=== PATIENT | female | born 1950 | race Caucasian/White ===

== ENCOUNTER 2016-06-27 20:43 | Emergency (ER) ==
[2016-06-27 20:43] VITALS: BMI 21.6
--- NOTE | 2016-06-27 20:49 | ED.PDOC ---
General ED Provider: Dr. CASIMIRO FREEMAN-ER Chief Complaint: Respiratory Complaint Stated Complaint: "my copd is kicking in---im coughing up green stuff again Time Seen by Physician: 20:46 Mode of Arrival: Walk-In Information Source: Patient, Family Nursing and Triage Documentation Reviewed and Agree: Yes Respiratory Complaint Exam - Respiratory Complaint/Exam Onset/Duration: 3 dasy Symptoms Are: Still present Timing: Intermittent Initial Severity: Mild Current Severity: Mild Location: Chest Character: Reports: Productive cough Aggravating: Reports: URI Alleviating: Reports: None Associated Signs and Symptoms: Reports: Dyspnea, URI, Nasal congestion. Denies : Rapid breathing, Fever, Chills, Chest pain, Pleuritic chest pain, Wheezing, Hemoptysis, Dizziness, Calf pain, Calf swelling, Edema, Hoarseness, Sinus discomfort, Vomiting, Sore throat, Weight loss, Decreased oral intake, Increased thirst, Increased appetite, Increased urination Related History: Reports: Similar episode History of Healthcare-Acquired Pneumonia: No Related Surgical History: Reports: None Pulmonary Embolism Risk Factors: None Cardiac Risk Factors: Reports: Smoking Pseudomonas Risk Factors: Reports: Chronic Lung Disease Tuberculosis Risk Factors: Reports: Chronic Resp. Faliure Status Asthmaticus Risk Factors: Reports: None Home Oxygen Use: No Recent Stress Test: No Recent Echo/LV Function: No Current Antibiotic Use: No Current Asthma Medication Use: Yes Respiratory Distress: None Inadequate Respiratory Effort: No Dysphagia Present: No Stridor Present: No JVD Present: No Retractions: Not Present Diminished Breath Sounds: No Sinus Tenderness: None Grunting Respirations: No Kussmaul Respirations: No Differential Diagnoses: COPD Exacerbation, Bronchitis Review of Systems - Review Of Systems Constitutional: Reports: No symptoms Eyes: Reports: No symptoms Ears, Nose, Mouth, Throat: Reports: No symptoms Respiratory: Reports: Cough Cardiac: Reports: No symptoms GI: Reports: No symptoms : Reports: No symptoms Musculoskeletal: Reports: No symptoms Skin: Reports: No symptoms Neurological: Reports: No symptoms Endocrine: Reports: No symptoms Hematologic/Lymphatic: Reports: No symptoms All Other Systems: Reviewed and Negative Past Medical History - Past Medical History Endocrine: Reports: DM 2 Cardiovascular: Reports: CAD, Hypertension, A-Fib Respiratory: Reports: COPD Hematological: Reports: None Gastrointestinal: Reports: GERD Genitourinary: Reports: None Neuro/Psych: Reports: Anxiety, Depression Musculoskeletal: Reports: Arthritis Cancer: Reports: None - Surgical History General Surgical History: Reports: Hysterectomy, CABG, Pacemaker, Other (Aortic valve replacement. ) - Family History Family History: Reports: Unknown - Social History Smoking Status: Current every day smoker, Heavy tobacco smoker Hx Substance Use: No Alcohol Screening: None Physical Exam - Physical Exam Appearance: Well-appearing, No pain distress, Well-nourished Eyes: MYKE, EOMI, Conjunctiva clear ENT: Ears normal, Nose normal, Oropharynx normal Neck: Supple Respiratory: Rhonchi Cardiovascular: RRR, Pulses normal, No rub, No murmur GI/: Soft, Nontender, No masses, Bowel sounds normal, No Organomegaly Musculoskeletal: Normal strength, ROM intact, No edema, No calf tenderness Skin: Warm, Dry, Normal color Neurological: Sensation intact, Motor intact, Reflexes intact, Cranial nerves intact, Alert, Oriented Psychiatric: Affect appropriate Critical Care Note - Critical Care Note Total Time (mins): 0 Departure - Departure Time of Disposition: 20:47 Disposition: HOME SELF-CARE Discharge Problem: COPD (chronic obstructive pulmonary disease) with acute bronchitis Instructions: COPD (Chronic Obstructive Pulmonary Disease) (ED) Condition: Fair Pt referred to PMD for follow-up: Yes Additional Instructions: cipro 500mg bid x 7 days--prednisone 30mg x2 dasy then 20mg x2 days then 10mg x 2 days--f/u with pcp Allergies/Adverse Reactions: Allergies ceftriaxone sodium [From Rocephin] Adverse Reaction (Verified 07/16/15 20:32) cefuroxime axetil [From Ceftin] Adverse Reaction (Verified 07/16/15 20:32) doxycycline Adverse Reaction (Verified 07/16/15 20:32) nifedipine [From Procardia] Adverse Reaction (Verified 07/16/15 20:32) nitrofurantoin [From Macrobid] Adverse Reaction (Verified 07/16/15 20:32) nitrofurantoin macrocrystal [From Macrobid] Adverse Reaction (Verified 07/16/15 20:32) Home Medications: Ambulatory Orders Albuterol Sulfate [Albuterol Sulfate Hfa] 2 puff IH QID 02/13/14 Amlodipine Besylate [Norvasc] 5 mg PO DAILY 02/13/14 Atorvastatin Calcium [Lipitor] 40 mg PO DAILY 02/13/14 Benazepril HCl [Lotensin] 20 mg PO DAILY 02/13/14 Buspirone HCl 5 mg PO TID PRN 02/13/14 Esomeprazole Magnesium [Nexium] 40 mg PO BID 02/13/14 Furosemide [Lasix] 40 mg PO DAILY 02/13/14 Levothyroxine Sodium 175 mcg PO DAILY 02/13/14 Oxycodone HCl/Acetaminophen [Percocet 10-325 mg Tablet] 1 each PO Q4-6H PRN Promethazine HCl [Phenergan Tab] 25 mg PO Q6H PRN 02/13/14 Ropinirole HCl [Requip] 2 mg PO BEDTIME 02/13/14 Sotalol HCl [Sotalol] 60 mg PO BID 02/13/14 Spironolactone [Aldactone] 25 mg PO DAILY 02/13/14 Topiramate [Topamax] 50 mg PO DAILY 02/13/14 Zolpidem Tartrate [Ambien] 10 mg PO BEDTIME 02/13/14 Venlafaxine HCl [Effexor Xr] 150 mg PO DAILY 07/04/14 Insulin Lispro [Humalog] 0 unit SQ TIDWM PRN #1 ml 07/12/14 Budesonide/Formoterol Fumarate [Symbicort 160-4.5 Mcg Inhaler] 2 puff IH BID 05/01 Insulin Detemir [Levemir] 20 units SQ BEDTIME 05/28/15 Tizanidine HCl [Zanaflex] 4 mg PO TID 05/28/15 Tiotropium [place] [Spiriva] 2 sprays IH BID 01/30/16 Disposition Discussed With: Patient, Family
[2016-06-27 20:56] VITALS: BP 147/83; TEMP 97.1
[2016-06-27 21:29] LABS: FLU INTERNAL QC INTERNAL QC VALID
[2016-06-27 21:30] LABS: RAPID FLU A NEGATIVE (NEGATIVE); RAPID FLU B NEGATIVE (NEGATIVE)
== END 2016-06-27 21:33 | disposition home or self-care (01) ==
LOC: ED 20:43
DX: J44.0 Chronic obstructive pulmonary disease with (acute) lower respiratory infection (principal); J20.9 Acute bronchitis, unspecified; F17.210 Nicotine dependence, cigarettes, uncomplicated; Z79.899 Other long term (current) drug therapy
CPT/HCPCS: 87804; 99283

== ENCOUNTER 2016-07-05 22:26 | Inpatient (IN) ==
[2016-07-05] MEDS ORDERED: SODIUM CHLORIDE 1,000 ML IV STA (22:49)
[2016-07-05] MEDS ORDERED: XOPENEX 1.25 MG NEB STA (22:50)
[2016-07-05] MEDS ORDERED: SOLU-MEDROL 125 MG IVP STA (22:50)
[2016-07-05 23:01] LABS: ABG BASE EXCESS 1 (-2.0-2.0); ABG HCO3 26.5 (22.0-26.0); ABG PH 7.359 (7.35-7.45); ABG TCO2 28 (22.0-28.0)
[2016-07-05 23:04] LABS: BASOPHILS # (AUTO) 0.1 K/uL (0-0.2); BASOPHILS % (AUTO) 0.5 % (0.0-3.0); EOSINOPHILS # (AUTO) 0.2 K/ul (0.0-0.7); EOSINOPHILS % (AUTO) 1.8 % (0.0-7.0); HEMATOCRIT 43.2 % (37.0-47.0); IMMATURE GRANULOCYTE % (AUTO) 0.5 % (0.0-5.0); LYMPHOCYTES # (AUTO) 2.8 K/uL (0.60-3.4); LYMPHOCYTES % (AUTO) 21.6 (10.0-50.0); MEAN CORPUSCULAR HEMOGLOBIN 30.8 pg (27.0-31.0); MEAN CORPUSCULAR HGB CONC 34.7 (31.8-35.4); MEAN CORPUSCULAR VOLUME 88.7 fl (81.0-99.0); MONOCYTES # (AUTO) 0.8 K/uL (0.4-2.0); MONOCYTES % (AUTO) 6.3 (0-10); NEUTROPHILS % (AUTO) 69.3; PLATELET COUNT 252 10^3/uL (140-440); RED BLOOD COUNT 4.87 10^6/ul (4.20-5.40); WHITE BLOOD COUNT 12.98 K/ul (4.6-10.2)
[2016-07-05 23:31] LABS: ALBUMIN/GLOBULIN RATIO 1.03; ANION GAP 14.4; BILIRUBIN,TOTAL 0.34 mg/dL (0.00-1.20); BUN/CREATININE RATIO 18.84; CALCIUM 9.1 mg/dL (8.2-10.2); CREATININE 1.38 mg/dL (0.60-1.30); POTASSIUM 3.4 mmol/L (3.5-5.10); TOTAL PROTEIN 7.9 g/dL (5.8-8.1); TROPONIN I 0.151 ng/ml (0.0000-0.4000)
[2016-07-05 23:52] LABS: FLU INTERNAL QC INTERNAL QC VALID; RAPID FLU A NEGATIVE (NEGATIVE); RAPID FLU B NEGATIVE (NEGATIVE)
[2016-07-06] MEDS ORDERED: TYLENOL PO STA (00:58)
--- NOTE | 2016-07-06 01:18 | CT ---
EXAM: CT chest without intravenous contrast 07/05/2016. Sagittal and coronal reformatted images ob tained HISTORY: Cough and dyspnea COMPARISON: 03/09/2016, 07/12/2014 FINDINGS: The heart size appears within normal limits. No pericardial effusion. Dilatation of the pulmonary trunk up to 4.4 cm diameter. This is suggestive of pulmonary arterial hypertension. Emphysematous changes. There are scattered benign postinflammatory calcifications. Multifocal atelectasis. Stable right-sided pulmonary micro nodules. These were described on examination performed 5. The time course of stability suggests benign etiology. Limited views of the upper abdomen showed inferior vena cava filter. No acute osseous abnormality. IMPRESSION: 1. Emphysema. 2. Dilatation of the pulmonary trunk suggestive of pulmonary arterial hypertension. 3. Postoperative changes of the mediastinum. 4. Atelectasis and/or scarring 5. Benign postinflammatory calcifications. 6. Pulmonary micro nodules demonstrate long-term stability suggestive of benign etiology.
--- NOTE | 2016-07-06 01:56 | ED.PDOC ---
General ED Provider: Dr. CASIMIRO FREEMAN-ER Chief Complaint: Shortness of Air Stated Complaint: im coughing and getting more sob Time Seen by Physician: 22:30 Mode of Arrival: Walk-In Information Source: Patient Exam Limitations: No limitations Nursing and Triage Documentation Reviewed and Agree: Yes Respiratory Complaint Exam - Shortness of Air Complaint/Exam Onset/Duration: one week Symptoms Are: Still present Timing: Constant Initial Severity: Mild Current Severity: Moderate Character: Reports: Dyspnea at rest, Dyspnea on exertion Aggravating: Reports: Smoke exposure Alleviating: Reports: Bronchodilators Associated Signs and Symptoms: Reports: Cough, Wheezing. Denies: Chest pain with cough, Chest pain, Fever, Chills, Diaphoresis, Nasal congestion, Dizziness , Calf pain, Calf swelling, Edema, Rapid breathing, Labored breathing, Decreased intake Related History: Reports: Similar episode History of Healthcare-Acquired Pneumonia: No Pulmonary Embolism Risk Factors: Reports: Smoking Cardiac Risk Factors: Reports: CAD, Smoking, Elevated lipids, Hypertension Pseudomonas Risk Factors: Reports: Chronic Lung Disease Tuberculosis Risk Factors: Reports: Chronic Resp. Faliure Home Oxygen Use: No Recent Stress Test: No Recent Echo/LV Function: No Respiratory Distress: None Stridor Present: No Tracheal Deviation: No Subcutaneous Emphysema: No Accessory Muscle Use: No Diminished Breath Sounds: No Prolonged Expiratory Phase: No Unable to Speak Full Sentences: No Fatigue: No Leg Swelling: No Lenora's Sign Present: No Grunting Respirations: No Kussmaul Respirations: No Differential Diagnoses: COPD Exacerbation, Pneumonia, Bronchitis Quality Indicator For Non-Traumatic Chest Pain/Syncope: EKG Performed Review of Systems - Review Of Systems Constitutional: Reports: No symptoms Eyes: Reports: No symptoms Ears, Nose, Mouth, Throat: Reports: No symptoms Respiratory: Reports: Cough, Short of air, Wheezing Cardiac: Reports: No symptoms GI: Reports: No symptoms : Reports: No symptoms Musculoskeletal: Reports: No symptoms Skin: Reports: No symptoms Neurological: Reports: No symptoms Endocrine: Reports: No symptoms Hematologic/Lymphatic: Reports: No symptoms All Other Systems: Reviewed and Negative Past Medical History - Past Medical History Endocrine: Reports: DM 2 Cardiovascular: Reports: CAD, Hypertension, A-Fib Respiratory: Reports: COPD Hematological: Reports: None Gastrointestinal: Reports: GERD Genitourinary: Reports: None Neuro/Psych: Reports: Anxiety, Depression Musculoskeletal: Reports: Arthritis Cancer: Reports: None Last Menstrual Period: post surg. at 35 years old - Surgical History General Surgical History: Reports: Hysterectomy, CABG, Pacemaker, Other (Aortic valve replacement. ) - Family History Family History: Reports: Unknown - Social History Smoking Status: Current every day smoker, Heavy tobacco smoker Hx Substance Use: No Alcohol Screening: None Lives: With family - Immunizations Tetanus Shot up to Date: Yes Physical Exam - Physical Exam Appearance: Well-appearing, No pain distress, Well-nourished Eyes: MYKE, EOMI, Conjunctiva clear ENT: Ears normal, Nose normal, Oropharynx normal Neck: Supple Respiratory: Wheezes Cardiovascular: RRR, Pulses normal, No rub, No murmur GI/: Soft, Nontender, No masses, Bowel sounds normal, No Organomegaly Musculoskeletal: Normal strength Skin: Warm, Dry, Normal color Neurological: Sensation intact, Motor intact, Reflexes intact, Cranial nerves intact, Alert, Oriented Psychiatric: Affect appropriate, Mood appropriate Interpretation - Radiology Interpretation Radiology Interpretation By: Radiologist Radiology Results: Positive Exam Interpreted: CT Scan - EKG Interpretation Time of EKG #1: 23:10 Rate: Normal Rhythm: Sinus Ectopy: None [place]: NL ST Segment: Normal Interpretation: nsr Critical Care Note - Critical Care Note Total Time (mins): 0 Course - Course Hematology/Chemistry: 07/05/16 23:03 07/05/16 23:03 Orders, Labs, Meds: Lab Review 07/05/16 07/05/16 07/05/16 22:48 23:03 23:25 WBC 12.98 H RBC 4.87 Hgb 15.0 Hct 43.2 MCV 88.7 MCH 30.8 MCHC 34.7 RDW Coeff of Kalani 12.8 Plt Count 252 Immature Gran % (Auto) 0.5 Neut % (Auto) 69.3 Lymph % (Auto) 21.6 [place] % (Auto) 6.3 Eos % (Auto) 1.8 Baso % (Auto) 0.5 Immature Gran # (Auto) 0.1 Neut # 9.0 H Lymph # 2.8 [place] # 0.8 Eos # 0.2 Baso # 0.1 D-Dimer < 0.19 L Puncture Site Rb O2 Saturation 94.0 L ABG pH 7.359 ABG pCO2 47.0 H ABG pO2 74.0 L ABG HCO3 26.5 H ABG Total CO2 28 ABG Base Excess 1 [place] Test + FiO2 % 21.0 Sodium 134 L Potassium 3.4 L Chloride 94 L Carbon Dioxide 29 Anion Gap 14.4 BUN 26 H Creatinine 1.38 H Estimated GFR (MDRD) 38.00 BUN/Creatinine Ratio 18.84 Glucose 347 H Calcium 9.1 Total Bilirubin 0.34 AST 15 ALT 13 Alkaline Phosphatase 103 Total Creatine Kinase 97 Troponin I 0.1510 B-Natriuretic Peptide 296 H Total Protein 7.9 Albumin 4.0 Globulin 3.9 Albumin/Globulin Ratio 1.03 Influenza A (Rapid) Negative Influenza B (Rapid) Negative Orders Category Date Time Status ABG DRAW REQUEST Stat CARDIO 07/05/16 22:48 Completed EKG-(ED ONLY) Stat CARDIO 07/05/16 22:48 Completed NEBULIZER TREATMENT Stat CARDIO 07/05/16 22:50 Completed IV [ED IV/MEDIPORT/POWERPORT] .ONCE EMERGENCY 07/05/16 22:49 Active ABG Stat LAB 07/05/16 22:48 Completed BLOOD CULTURE Stat LAB 07/05/16 23:03 Received BNP [B-TYPE NATRIURETIC PEPTIDE] Stat LAB 07/05/16 23:03 Completed CBC W/ AUTO DIFF Stat LAB 07/05/16 23:03 Completed COMPREHENSIVE METABOLIC PANEL Stat LAB 07/05/16 23:03 Completed CREATINE KINASE Stat LAB 07/05/16 23:03 Completed D-DIMER Stat LAB 07/05/16 23:03 Completed RAPID FLU A/B Stat LAB 07/05/16 23:25 Completed TROPONIN I Stat LAB 07/05/16 23:03 Completed 0.9 % Sodium Chloride [Saline Flush] MEDS 07/05/16 22:49 Ordered 1 syr IVF PRN PRN Acetaminophen [Tylenol] MEDS 07/06/16 00:58 Discontinued 650 mg PO ONCE STA Levalbuterol HCl [Xopenex 1.25 mg] MEDS 07/05/16 22:50 Discontinued 1 vial NEB ONCE STA Methylprednisolone Sod Succ/Pf [Solu-Medrol 125 mg] MEDS 07/05/16 22:50 Discontinued 125 mg IVP ONCE STA Sodium Chloride 0.9% [Sodium Chloride] 1,000 ml MEDS 07/05/16 22:49 Active IV 125 mls/hr CT CHEST W/O CONTRAST Stat RADS 07/05/16 22:50 Completed Medications Generic Name Dose Route Start Last Admin Trade Name Freq PRN Reason Stop Dose Admin Sodium Chloride 1,000 mls @ 125 mls/hr 07/05/16 22:49 07/05/16 23:48 Sodium Chloride IV 07/06/16 06:48 125 mls/hr .Q8H STA Administration Sodium Chloride 1 syr 07/05/16 22:49 Saline Flush IVF PRN PRN To flush IV Discontinued Medications Generic Name Dose Route Start Last Admin Trade Name Freq PRN Reason Stop Dose Admin Acetaminophen 650 mg 07/06/16 00:58 07/06/16 01:05 Tylenol PO 07/06/16 00:59 650 mg ONCE STA Administration Levalbuterol HCl 1 vial 07/05/16 22:50 07/05/16 22:59 Xopenex 1.25 Mg NEB 07/05/16 22:51 1 vial ONCE STA Administration Methylprednisolone Sodium Succinate 125 mg 07/05/16 22:50 07/05/16 23:48 Solu-Medrol 125 Mg IVP 07/05/16 22:51 125 mg ONCE STA Administration Vital Signs: Temp Pulse Resp BP Pulse Ox 07/05/16 22:28 98.3 F 84 22 147/78 H 95 Departure - Departure Time of Disposition: 01:56 Disposition: ADMITTED INPATIENT Discharge Problem: COPD (chronic obstructive pulmonary disease) with acute bronchitis Instructions: COPD (Chronic Obstructive Pulmonary Disease) (ED) Condition: Stable Pt referred to PMD for follow-up: No Allergies/Adverse Reactions: Allergies ceftriaxone sodium [From Rocephin] Adverse Reaction (Verified 07/05/16 22:45) cefuroxime axetil [From Ceftin] Adverse Reaction (Verified 07/05/16 22:45) doxycycline Adverse Reaction (Verified 07/05/16 22:45) nifedipine [From Procardia] Adverse Reaction (Verified 07/05/16 22:45) nitrofurantoin [From Macrobid] Adverse Reaction (Verified 07/05/16 22:45) nitrofurantoin macrocrystal [From Macrobid] Adverse Reaction (Verified 07/05/16 22:45) Home Medications: Ambulatory Orders Albuterol Sulfate [Albuterol Sulfate Hfa] 2 puff IH QID 02/13/14 Amlodipine Besylate [Norvasc] 5 mg PO DAILY 02/13/14 Atorvastatin Calcium [Lipitor] 40 mg PO DAILY 02/13/14 Benazepril HCl [Lotensin] 20 mg PO DAILY 02/13/14 Buspirone HCl 5 mg PO TID PRN 02/13/14 Esomeprazole Magnesium [Nexium] 40 mg PO BID 02/13/14 Furosemide [Lasix] 40 mg PO DAILY 02/13/14 Levothyroxine Sodium 175 mcg PO DAILY 02/13/14 Oxycodone HCl/Acetaminophen [Percocet 10-325 mg Tablet] 1 each PO Q4-6H PRN Promethazine HCl [Phenergan Tab] 25 mg PO Q6H PRN 02/13/14 Ropinirole HCl [Requip] 2 mg PO BEDTIME 02/13/14 Sotalol HCl [Sotalol] 60 mg PO BID 02/13/14 Spironolactone [Aldactone] 25 mg PO DAILY 02/13/14 Topiramate [Topamax] 50 mg PO DAILY 02/13/14 Zolpidem Tartrate [Ambien] 10 mg PO BEDTIME 02/13/14 Venlafaxine HCl [Effexor Xr] 150 mg PO DAILY 07/04/14 Insulin Lispro [Humalog] 0 unit SQ TIDWM PRN #1 ml 07/12/14 Budesonide/Formoterol Fumarate [Symbicort 160-4.5 Mcg Inhaler] 2 puff IH BID PRN 05/28/15 Insulin Detemir [Levemir] 20 units SQ BEDTIME 05/28/15 Tizanidine HCl [Zanaflex] 4 mg PO TID 05/28/15 Tiotropium [place] [Spiriva] 2 sprays IH DAILY 01/30/16 Ciprofloxacin HCl [Cipro] 500 mg PO BID 07/05/16 Gabapentin [Neurontin] 800 mg PO QID 07/05/16 Disposition Discussed With: Patient, Family
[2016-07-06] MEDS ORDERED: PHENERGAN TAB PO PRN (02:02)
[2016-07-06] MEDS: SODIUM CHLORIDE 1,000 ML IV SCH (03:29)
[2016-07-06 03:54] VITALS: BMI 23.1
[2016-07-06 04:50] LABS: BASOPHILS # (AUTO) 0.1 K/uL (0-0.2); BASOPHILS % (AUTO) 0.5 % (0.0-3.0); EOSINOPHILS % (AUTO) 0.3 % (0.0-7.0); HEMATOCRIT 39.9 % (37.0-47.0); HEMOGLOBIN 13.7 g/dl (12.0-16.0); IMMATURE GRANULOCYTE % (AUTO) 0.5 % (0.0-5.0); LYMPHOCYTES # (AUTO) 0.9 K/uL (0.60-3.4); LYMPHOCYTES % (AUTO) 8.5 (10.0-50.0); MEAN CORPUSCULAR HEMOGLOBIN 30.4 pg (27.0-31.0); MEAN CORPUSCULAR HGB CONC 34.3 (31.8-35.4); MEAN CORPUSCULAR VOLUME 88.5 fl (81.0-99.0); MONOCYTES # (AUTO) 0.1 K/uL (0.4-2.0); MONOCYTES % (AUTO) 0.9 (0-10); NEUTROPHILS # (AUTO) 9.8 K/ul (2.0-6.9); NEUTROPHILS % (AUTO) 89.3; PLATELET COUNT 224 10^3/uL (140-440); RED BLOOD COUNT 4.51 10^6/ul (4.20-5.40); WHITE BLOOD COUNT 10.92 K/ul (4.6-10.2)
[2016-07-06] MEDS: XOPENEX 1.25 MG NEB SCH ×4 (05:10→23:09)
[2016-07-06 05:16] LABS: ALBUMIN 3.6 g/dL (3.4-5.0); ALBUMIN/GLOBULIN RATIO 1.06; ANION GAP 13.9; BILIRUBIN,TOTAL 0.35 mg/dL (0.00-1.20); BUN/CREATININE RATIO 18.03; CALCIUM 8.9 mg/dL (8.2-10.2); CREATININE 1.22 mg/dL (0.60-1.30); POTASSIUM 3.9 mmol/L (3.5-5.10)
[2016-07-06] MEDS: SOLU-MEDROL 40 MG IVP SCH ×3 (05:31→17:58)
[2016-07-06] MEDS: HUMULIN R SUBCUT PRN ×4 (05:32→21:02)
[2016-07-06] MEDS: LEVAQUIN PO SCH (05:32)
[2016-07-06] MEDS ORDERED: NON-FORMULARY MEDICATION (Buspirone Hcl [Buspirone Hcl] 5 MG) PO SCH (09:00)
[2016-07-06] MEDS ORDERED: NON-FORMULARY MEDICATION (Esomeprazole Magnesium [Nexium] 40 MG) PO SCH ×22 (09:00)
[2016-07-06] MEDS ORDERED: LASIX TAB PO SCH (09:00)
[2016-07-06] MEDS ORDERED: NON-FORMULARY MEDICATION (Atorvastatin Calcium [Lipitor] 40 MG) PO SCH ×22 (09:00)
[2016-07-06] MEDS ORDERED: NON-FORMULARY MEDICATION (Gabapentin [Neurontin] 800 MG) PO SCH ×22 (09:00)
[2016-07-06] MEDS ORDERED: BENAZEPRIL HCL 20 MG PO SCH ×22 (09:00)
[2016-07-06] MEDS ORDERED: SPIRIVA IH SCH (09:00)
[2016-07-06] MEDS ORDERED: NON-FORMULARY MEDICATION (Venlafaxine Hcl [Effexor Xr] 150 MG) PO SCH ×22 (09:00)
[2016-07-06] MEDS ORDERED: NON-FORMULARY MEDICATION (Levothyroxine Sodium [Synthroid] 150 MCG) PO SCH ×22 (09:30)
--- NOTE | 2016-07-06 09:43 | PCM.PROG ---
Attending Provider: ATTENDING PROVIDER: Dr. CHAPINCITO MARTINEZ DATE OF SERVICE: 07/06/16 SUBJECTIVE: This 65 year old WHITE/ F was hospitalized 07/06/16. The patient was hospitalized with cough, congestion and pneumonia. The patient is still coughing. She still has shortness of breath. The patient has been very groggy. The patient is not able to tell us her home medications. REVIEW OF SYSTEMS: (The patient is sleepy, responds to verbal stimuli and goes back to sleep) CONSTITUTIONAL: No fever, no chills. ENDOCRINE: No weight loss or weight gain. HEENT: No sinus drainage, no sore throat. CVS: No angina symptoms. No CHF symptoms. No palpitations. No atypical chest pain for CAD. No shortness of breath. RESPIRATORY: No cough, no hemoptysis. GI: No melena. No abdominal pain. No nausea, no vomiting. : No hematuria. No polyuria. SKIN: No rash. No wounds. MUSCULOSKELETAL: No pain. SENIOR POWER SCHEDULER: No blackout, no dizziness. No headache. No double vision. PSYCHIATRIC: Not anxious; no depression. No suicidal thoughts. No homicidal thoughts. PHYSICAL EXAMINATION: GENERAL: Lying in bed in no distress, responds to verbal stimuli and goes back to sleep. VITAL SIGNS: Temperature 98.0 F, Pulse 82, Respiratory Rate 18, BP 120/69, Pulse Ox 95% HEENT: Normocephalic, atraumatic. Mucosa is dry, pallor positive. NECK: No JVP, no carotid bruit. No lymphadenopathy. CARDIAC: S1, S2, no S3. No murmur, gallop or regurgitation. LUNGS: Decreased entry with crackles and some wheeze. ABDOMEN: Soft, non-tender. Bowel sounds active. No rigidity, guarding or CVA tenderness. EXTREMITIES: No clubbing, cyanosis or edema. NEUROLOGIC: Sleepy, responds to verbal stimuli. LYMPHATIC: No palpable lymph nodes SKIN: Not dry. Intact. MUSCULOSKELETAL: No joint swelling. LAB REVIEW: 07/06/16 04:50 07/06/16 04:50 07/06/16 04:50: WBC 10.92 H, RBC 4.51, Hgb 13.7, Hct 39.9, MCV 88.5, MCH 30.4, MCHC 34.3, RDW Coeff of Kalani 12.8, Plt Count 224, Immature Gran % (Auto) 0.5, Neut % (Auto) 89.3, Lymph % (Auto) 8.5 L, [place] % (Auto) 0.9, Eos % (Auto) 0.3, Baso % (Auto) 0.5, Immature Gran # (Auto) 0.1, Neut # 9.8 H, Lymph # 0.9, [place] # 0.1 L, Eos # 0.0, Baso # 0.1, Sodium 136, Potassium 3.9, Chloride 97 L, Carbon Dioxide 29, Anion Gap 13.9, BUN 22 H, Creatinine 1.22, Estimated GFR ( MDRD) 44.00, BUN/Creatinine Ratio 18.03, Glucose 266 H D, Calcium 8.9, Total Bilirubin 0.35, AST 13 L, ALT 11 L, Alkaline Phosphatase 88, Total Protein 7.0, Albumin 3.6, Globulin 3.4, Albumin/Globulin Ratio 1.06 ASSESSMENT: 1. COPD exacerbation secondary to bronchitis 2. Hypertension 3. Dyslipidemia 4. Diabetes mellitus 5. Osteoarthritis 6. DJD spine PLAN: 1. Drug screen 2. Continue Rocephin, Azithromycin and Duonebs Plan and coordination of the patient's care discussed in the presence of Clay Grinder and nurse. CONDITION: Stable SCRIBED BY: GURMEET VARGAS, Digital Advisor scribed while in presence of service performed by Dr. CHAPINCITO MARTINEZ on 07/06/16 ([id number])
[2016-07-06] MEDS: ALDACTONE PO SCH (09:46)
[2016-07-06] MEDS: BUSPAR PO SCH ×3 (09:52→21:10)
[2016-07-06] MEDS: EFFEXOR XR PO SCH (09:54)
[2016-07-06] MEDS: PERCOCET 10-325 PO PRN ×4 (09:55→22:04)
[2016-07-06] MEDS: LIPITOR PO SCH (09:57)
[2016-07-06] MEDS: LOTENSIN PO SCH (09:58)
[2016-07-06] MEDS: LOVENOX SUBCUT SCH (09:58)
[2016-07-06] MEDS: NEURONTIN PO SCH ×8 (09:59→21:11)
[2016-07-06] MEDS: PROTONIX PO SCH ×2 (10:00→21:10)
[2016-07-06] MEDS: NORVASC PO SCH (10:00)
[2016-07-06] MEDS: SYMBICORT 160-4.5 MCG INHALER IH SCH ×2 (10:01→21:18)
[2016-07-06] MEDS: SYNTHROID PO SCH ×2 (10:01→11:52)
[2016-07-06] MEDS: ZANAFLEX PO SCH ×3 (10:02→21:18)
[2016-07-06] MEDS: TOPAMAX PO SCH (10:02)
[2016-07-06 10:50] LABS: COCAIN SCREEN,URINE NEGATIVE (NEGATIVE)
[2016-07-06] MEDS: SOTALOL HCL 60 MG PO SCH ×2 (13:41→21:11)
[2016-07-06] MEDS ORDERED: NON-FORMULARY MEDICATION (Ropinirole Hcl [Requip] 2 MG) PO SCH ×22 (21:00)
[2016-07-06] MEDS ORDERED: NON-FORMULARY MEDICATION (Zolpidem Tartrate [Ambien] 10 MG) PO SCH (21:00)
[2016-07-06] MEDS ORDERED: LEVEMIR SUBCUT SCH (21:00)
[2016-07-06] MEDS: LEVEMIR SUBCUT SCH (21:03)
[2016-07-06] MEDS: AMBIEN PO SCH (21:03)
[2016-07-06] MEDS: REQUIP PO SCH (21:10)
[2016-07-07] MEDS: SOLU-MEDROL 40 MG IVP SCH ×4 (00:36→18:04)
[2016-07-07] MEDS: SODIUM CHLORIDE 1,000 ML IV SCH (02:25)
[2016-07-07 04:25] LABS: BASOPHILS % (AUTO) 0.1 % (0.0-3.0); HEMATOCRIT 33.3 % (37.0-47.0); HEMOGLOBIN 11.6 g/dl (12.0-16.0); IMMATURE GRANULOCYTE % (AUTO) 0.8 % (0.0-5.0); LYMPHOCYTES % (AUTO) 4.6 (10.0-50.0); MEAN CORPUSCULAR HEMOGLOBIN 30.6 pg (27.0-31.0); MEAN CORPUSCULAR HGB CONC 34.8 (31.8-35.4); MEAN CORPUSCULAR VOLUME 87.9 fl (81.0-99.0); MONOCYTES # (AUTO) 0.4 K/uL (0.4-2.0); MONOCYTES % (AUTO) 1.9 (0-10); NEUTROPHILS # (AUTO) 19.2 K/ul (2.0-6.9); NEUTROPHILS % (AUTO) 92.6; PLATELET COUNT 210 10^3/uL (140-440); RED BLOOD COUNT 3.79 10^6/ul (4.20-5.40); WHITE BLOOD COUNT 20.78 K/ul (4.6-10.2)
[2016-07-07 04:46] LABS: ALBUMIN/GLOBULIN RATIO 1.03; ANION GAP 10.5; BILIRUBIN,TOTAL 0.3 mg/dL (0.00-1.20); BUN/CREATININE RATIO 33.33; CALCIUM 8.4 mg/dL (8.2-10.2); CREATININE 1.11 mg/dL (0.60-1.30); POTASSIUM 4.5 mmol/L (3.5-5.10); TOTAL PROTEIN 5.9 g/dL (5.8-8.1)
[2016-07-07] MEDS: XOPENEX 1.25 MG NEB SCH ×4 (05:27→23:08)
[2016-07-07] MEDS: LEVAQUIN PO SCH (05:34)
[2016-07-07] MEDS: HUMULIN R SUBCUT PRN ×4 (05:36→21:10)
[2016-07-07] MEDS: PERCOCET 10-325 PO PRN ×5 (05:42→22:20)
[2016-07-07] MEDS: LASIX TAB PO SCH (05:42)
[2016-07-07] MEDS: SYNTHROID PO SCH ×2 (05:43→08:55)
[2016-07-07] MEDS: SYMBICORT 160-4.5 MCG INHALER IH SCH ×2 (08:41→21:05)
[2016-07-07] MEDS: NICODERM 21 MG TD SCH (08:42)
[2016-07-07] MEDS: SOTALOL HCL 60 MG PO SCH ×2 (08:44→21:06)
[2016-07-07] MEDS: BUSPAR PO SCH ×3 (08:46→21:07)
[2016-07-07] MEDS: ZANAFLEX PO SCH ×3 (08:48→21:07)
[2016-07-07] MEDS: MUCINEX DM ER 600-30 MG TABLET PO SCH ×2 (08:48→21:06)
[2016-07-07] MEDS: PROTONIX PO SCH ×2 (08:48→17:14)
[2016-07-07] MEDS: ALDACTONE PO SCH (08:48)
[2016-07-07] MEDS: LOVENOX SUBCUT SCH (08:49)
[2016-07-07] MEDS: LIPITOR PO SCH (08:49)
[2016-07-07] MEDS: EFFEXOR XR PO SCH (08:49)
[2016-07-07] MEDS: TOPAMAX PO SCH (08:49)
[2016-07-07] MEDS: LOTENSIN PO SCH (08:49)
[2016-07-07] MEDS: NEURONTIN PO SCH ×8 (08:50→21:07)
[2016-07-07] MEDS: NORVASC PO SCH (08:51)
[2016-07-07] MEDS: [UNRECOGNIZED DRUG - OTHER] IH SCH (08:51)
--- NOTE | 2016-07-07 13:32 | PCM.PROG ---
Attending Provider: ATTENDING PROVIDER: Dr. CHAPINCITO MARTINEZ DATE OF SERVICE: 07/07/16 SUBJECTIVE: This 65 year old WHITE/ F was hospitalized 07/06/16. The patient is sitting up in bed. She states she is coughing less and is unable to bring up any phlegm. The patient has shortness of breath with exertion; oxygen is helping. The patient is asking for the nicotine patch. REVIEW OF SYSTEMS: CONSTITUTIONAL: No fever, no chills. ENDOCRINE: No weight loss or weight gain. HEENT: No sinus drainage, no sore throat. CVS: No angina symptoms. No CHF symptoms. No palpitations. No atypical chest pain for CAD. No shortness of breath. RESPIRATORY: No cough, no hemoptysis. GI: No melena. No abdominal pain. No nausea, no vomiting. : No hematuria. No polyuria. SKIN: No rash. No wounds. MUSCULOSKELETAL: No pain. COLDFUSION: No blackout, no dizziness. No headache. No double vision. PSYCHIATRIC: Not anxious; no depression. No suicidal thoughts. No homicidal thoughts. PHYSICAL EXAMINATION: GENERAL: Lying in bed in no distress. VITAL SIGNS: Temperature 97.2 F, Pulse 72, Respiratory Rate 20, BP 110/70, Pulse Ox 95% HEENT: Normocephalic, atraumatic. Mucosa is dry, pallor positive. NECK: No JVP, no carotid bruit. No lymphadenopathy. CARDIAC: S1, S2, no S3. No murmur, gallop or regurgitation. LUNGS: Decreased entry. Clear to auscultation. ABDOMEN: Soft, non-tender. Bowel sounds active. No rigidity, guarding or CVA tenderness. EXTREMITIES: No clubbing, cyanosis or edema. NEUROLOGIC: Awake, alert and oriented x3. LYMPHATIC: No palpable lymph nodes SKIN: Not dry. Intact. MUSCULOSKELETAL: No joint swelling. LAB REVIEW: 07/07/16 04:21 07/07/16 04:21 07/07/16 04:21: WBC 20.78 H D, RBC 3.79 L, Hgb 11.6 L, Hct 33.3 L D, MCV 87.9, MCH 30.6, MCHC 34.8, RDW Coeff of Kalani 12.8, Plt Count 210, Immature Gran % (Auto ) 0.8, Neut % (Auto) 92.6, Lymph % (Auto) 4.6 L, [place] % (Auto) 1.9, Eos % (Auto ) 0.0, Baso % (Auto) 0.1, Immature Gran # (Auto) 0.2, Neut # 19.2 H, Lymph # 1.0 , [place] # 0.4, Eos # 0.0, Baso # 0.0, Sodium 132 L, Potassium 4.5, Chloride 100, Carbon Dioxide 26, Anion Gap 10.5, BUN 37 H, Creatinine 1.11, Estimated GFR ( MDRD) 49.00, BUN/Creatinine Ratio 33.33, Glucose 266 H D, Hemoglobin A1c 9.1 H, Calcium 8.4, Total Bilirubin 0.30, AST 11 L, ALT 9 L, Alkaline Phosphatase 71, Total Protein 5.9, Albumin 3.0 L, Globulin 2.9, Albumin/Globulin Ratio 1.03 07/06/16 17:05: Glucose 603 H* D 07/06/16 09:15: Urine Opiates Screen Negative, Ur Oxycodone Screen Negative, Urine Methadone Screen Negative, Ur Propoxyphene Screen Negative, Ur Barbiturates Screen Negative, U Tricyclic Antidepress Negative, Ur Phencyclidine Scrn Negative, Ur Amphetamine Screen Negative, U Methamphetamines Scrn Negative, U Benzodiazepines Scrn Positive, Urine Cocaine Screen Negative, U Cannabinoids Screen Negative ASSESSMENT: 1. COPD exacerbation secondary to bronchitis 2. Uncontrolled diabetes mellitus 3. Anemia 4. Elevated white count probably from steroids 5. Hypertension 6. Dyslipidemia 7. Osteoarthritis 8. DJD spine 9. Anxiety PLAN: 1. Continue Azithromycin and Rocephin 2. Will add Mucinex DM 600 mg p.o. b.i.d. 3. Nicoderm patch Plan and coordination of the patient's care discussed in the presence of Heating Engineer and nurse. CONDITION: Stable SCRIBED BY: GURMEET VARGAS, Carbon Capture Power Plant Manager scribed while in presence of service performed by Dr. CHAPINCITO MARTINEZ on 07/07/16 ([id number])
[2016-07-07] MEDS: REQUIP PO SCH (21:06)
[2016-07-07] MEDS: AMBIEN PO SCH (21:06)
[2016-07-07] MEDS: LEVEMIR SUBCUT SCH (21:12)
[2016-07-08] MEDS: SOLU-MEDROL 40 MG IVP SCH ×2 (00:28→05:21)
[2016-07-08] MEDS: SODIUM CHLORIDE 1,000 ML IV SCH (03:05)
[2016-07-08] MEDS: PERCOCET 10-325 PO PRN ×5 (03:10→21:22)
[2016-07-08 04:47] LABS: BASOPHILS % (AUTO) 0.1 % (0.0-3.0); HEMATOCRIT 32.4 % (37.0-47.0); HEMOGLOBIN 11.2 g/dl (12.0-16.0); IMMATURE GRANULOCYTE % (AUTO) 2.3 % (0.0-5.0); LYMPHOCYTES # (AUTO) 0.6 K/uL (0.60-3.4); LYMPHOCYTES % (AUTO) 2.8 (10.0-50.0); MEAN CORPUSCULAR HEMOGLOBIN 30.5 pg (27.0-31.0); MEAN CORPUSCULAR HGB CONC 34.6 (31.8-35.4); MEAN CORPUSCULAR VOLUME 88.3 fl (81.0-99.0); MONOCYTES # (AUTO) 0.3 K/uL (0.4-2.0); MONOCYTES % (AUTO) 1.4 (0-10); NEUTROPHILS % (AUTO) 93.4; PLATELET COUNT 184 10^3/uL (140-440); RED BLOOD COUNT 3.67 10^6/ul (4.20-5.40); WHITE BLOOD COUNT 21.44 K/ul (4.6-10.2)
[2016-07-08] MEDS: XOPENEX 1.25 MG NEB SCH ×4 (05:09→23:08)
[2016-07-08 05:12] LABS: ALBUMIN 2.8 g/dL (3.4-5.0); ALBUMIN/GLOBULIN RATIO 1.08; ANION GAP 12.4; BILIRUBIN,TOTAL 0.23 mg/dL (0.00-1.20); BUN/CREATININE RATIO 29.92; CALCIUM 8.3 mg/dL (8.2-10.2); CREATININE 1.27 mg/dL (0.60-1.30); POTASSIUM 4.4 mmol/L (3.5-5.10); TOTAL PROTEIN 5.4 g/dL (5.8-8.1)
[2016-07-08] MEDS: SYNTHROID PO SCH ×2 (06:01)
[2016-07-08] MEDS: LASIX TAB PO SCH (06:01)
[2016-07-08] MEDS: PROTONIX PO SCH ×2 (06:01→17:28)
[2016-07-08] MEDS: HUMULIN R SUBCUT PRN ×4 (06:02→21:29)
[2016-07-08] MEDS: LEVAQUIN PO SCH (06:02)
[2016-07-08] MEDS ORDERED: LEVEMIR SUBCUT SCH (08:07)
[2016-07-08] MEDS: ALDACTONE PO SCH (08:16)
[2016-07-08] MEDS: BUSPAR PO SCH ×3 (08:17→21:20)
[2016-07-08] MEDS: EFFEXOR XR PO SCH (08:18)
[2016-07-08] MEDS: LOTENSIN PO SCH (08:19)
[2016-07-08] MEDS: LIPITOR PO SCH (08:19)
[2016-07-08] MEDS: LOVENOX SUBCUT SCH (08:20)
[2016-07-08] MEDS: MUCINEX DM ER 600-30 MG TABLET PO SCH ×2 (08:21→21:21)
[2016-07-08] MEDS: NEURONTIN PO SCH ×8 (08:22→21:22)
[2016-07-08] MEDS: SOTALOL HCL 60 MG PO SCH ×2 (08:24→21:23)
[2016-07-08] MEDS: [UNRECOGNIZED DRUG - OTHER] IH SCH (08:25)
[2016-07-08] MEDS: NORVASC PO SCH (08:25)
[2016-07-08] MEDS: SYMBICORT 160-4.5 MCG INHALER IH SCH ×2 (08:25→21:18)
[2016-07-08] MEDS: ZANAFLEX PO SCH ×3 (08:26→21:23)
[2016-07-08] MEDS: TOPAMAX PO SCH (08:26)
[2016-07-08] MEDS: NICODERM 21 MG TD SCH (08:28)
[2016-07-08] MEDS: MEDROL DOSEPAK PO SCH ×4 (08:34→21:18)
[2016-07-08 09:23] LABS: PROTHROMBIN TIME 13.2 SEC (9.3-11.0)
--- NOTE | 2016-07-08 11:10 | PCM.PROG ---
Attending Provider: ATTENDING PROVIDER: Dr. CHAPINCITO MARTINEZ DATE OF SERVICE: 07/08/16 SUBJECTIVE: This 65 year old WHITE/ F was hospitalized 07/06/16. The patient is sitting in the chair in no distress. She still has cough that is productive. She states she did not sleep well, was jittery and anxious all night. The patient requests all records to be sent to primary doctor and senior boiler operator Dr. Madera. REVIEW OF SYSTEMS: CONSTITUTIONAL: No fever, no chills. ENDOCRINE: No weight loss or weight gain. HEENT: No sinus drainage, no sore throat. CVS: No angina symptoms. No CHF symptoms. No palpitations. No atypical chest pain for CAD. No shortness of breath. RESPIRATORY: Cough, productive. GI: No melena. No abdominal pain. No nausea, no vomiting. : No hematuria. No polyuria. SKIN: No rash. No wounds. MUSCULOSKELETAL: No pain. AUTOMOTIVE SERVICE PORTER: No blackout, no dizziness. No headache. No double vision. PSYCHIATRIC: Not anxious; no depression. No suicidal thoughts. No homicidal thoughts. PHYSICAL EXAMINATION: GENERAL: Sitting in chair in no distress. VITAL SIGNS: Temperature 97.3 F, Pulse 75, Respiratory Rate 18, BP 130/79, Pulse Ox 95% HEENT: Normocephalic, atraumatic. Mucosa is dry, pallor positive. NECK: No JVP, no carotid bruit. No lymphadenopathy. CARDIAC: S1, S2, no S3. No murmur, gallop or regurgitation. LUNGS: Decreased entry with scattered crackles and wheezes. ABDOMEN: Soft, non-tender. Bowel sounds active. No rigidity, guarding or CVA tenderness. EXTREMITIES: No clubbing, cyanosis or edema. NEUROLOGIC: Awake, alert and oriented x3. LYMPHATIC: No palpable lymph nodes SKIN: Not dry. Intact. MUSCULOSKELETAL: No joint swelling. LAB REVIEW: 07/08/16 04:43 07/08/16 04:43 07/08/16 04:43: WBC 21.44 H, RBC 3.67 L, Hgb 11.2 L, Hct 32.4 L, MCV 88.3, MCH 30.5, MCHC 34.6, RDW Coeff of Kalani 12.9, Plt Count 184, Immature Gran % (Auto) 2.3, Neut % (Auto) 93.4, Lymph % (Auto) 2.8 L, Whitley % (Auto) 1.4, Eos % (Auto) 0.0, Baso % (Auto) 0.1, Immature Gran # (Auto) 0.5, Neut # 20.0 H, Lymph # 0.6, Whitley # 0.3 L, Eos # 0.0, Baso # 0.0, Sodium 131 L, Potassium 4.4, Chloride 99, Carbon Dioxide 24, Anion Gap 12.4, BUN 38 H, Creatinine 1.27, Estimated GFR ( MDRD) 42.00, BUN/Creatinine Ratio 29.92, Glucose 400 H, Calcium 8.3, Total Bilirubin 0.23, AST 9 L, ALT 9 L, Alkaline Phosphatase 62, Total Protein 5.4 L, Albumin 2.8 L, Globulin 2.6, Albumin/Globulin Ratio 1.08 ASSESSMENT: 1. COPD exacerbation secondary to bronchitis 2. Uncontrolled diabetes mellitus 3. Anemia 4. Elevated white count probably from steroids 5. Hypertension 6. Dyslipidemia 7. Osteoarthritis 8. DJD spine 9. Anxiety 10. Atrial fibrillation on Coumadin 11. History of aortic valve replacement PLAN: 1. Repeat chest x-ray 2. Medrol Dosepak 3. Stop Solu-Medrol 4. Continue Levaquin 5. Increase Levemir to 30 units 6. PT/INR Plan and coordination of the patient's care discussed in the presence of Accident Investigator and nurse. CONDITION: Stable SCRIBED BY: GURMEET VARGAS Neck Band Setter scribed while in presence of service performed by Dr. CHAPINCITO MARTINEZ on 07/08/16 ([id number])
--- NOTE | 2016-07-08 14:47 | DI ---
EXAM: Chest two view, frontal and lateral views. HISTORY: Cough. Follow-up CT. COMPARISON: 07/05/2016. FINDINGS: Median sternotomy wires and prosthetic cardiac valve noted. Left-sided pacemaker again s een. The heart size is normal. Atherosclerotic calcifications are present. Main pulmonary artery is enlarged. There is no pulmonary vascular congestion. The lungs are clear save for calcified gra nulomatous changes. No pleural effusion or pneumothorax is seen. No acute osseous abnormality iden tified. Inferior vena cava filter noted. Clips seen in the upper abdomen. Since the prior study, there has been no significant interval change. IMPRESSION: No acute cardiopulmonary process.
[2016-07-08] MEDS ORDERED: COUMADIN PO SCH (17:00)
[2016-07-08] MEDS ORDERED: COUMADIN PO ONE (17:00)
[2016-07-08] MEDS: REQUIP PO SCH (21:21)
[2016-07-08] MEDS: AMBIEN PO SCH (21:32)
[2016-07-09] MEDS: XOPENEX 1.25 MG NEB SCH ×2 (05:39→11:12)
[2016-07-09] MEDS: MEDROL DOSEPAK PO SCH ×2 (05:52→13:34)
[2016-07-09] MEDS: PROTONIX PO SCH (05:53)
[2016-07-09] MEDS: SYNTHROID PO SCH ×2 (05:53→05:54)
[2016-07-09] MEDS: PERCOCET 10-325 PO PRN ×3 (05:54→13:53)
[2016-07-09] MEDS: LASIX TAB PO SCH (05:54)
[2016-07-09] MEDS: LEVAQUIN PO SCH (05:56)
[2016-07-09 05:57] LABS: BASOPHILS % (AUTO) 0.1 % (0.0-3.0); HEMATOCRIT 36.3 % (37.0-47.0); HEMOGLOBIN 12.2 g/dl (12.0-16.0); IMMATURE GRANULOCYTE % (AUTO) 1.3 % (0.0-5.0); LYMPHOCYTES # (AUTO) 1.4 K/uL (0.60-3.4); LYMPHOCYTES % (AUTO) 6.6 (10.0-50.0); MEAN CORPUSCULAR HEMOGLOBIN 29.9 pg (27.0-31.0); MEAN CORPUSCULAR HGB CONC 33.6 (31.8-35.4); MONOCYTES # (AUTO) 1.2 K/uL (0.4-2.0); MONOCYTES % (AUTO) 5.4 (0-10); NEUTROPHILS # (AUTO) 18.3 K/ul (2.0-6.9); NEUTROPHILS % (AUTO) 86.6; PLATELET COUNT 219 10^3/uL (140-440); RED BLOOD COUNT 4.08 10^6/ul (4.20-5.40); WHITE BLOOD COUNT 21.14 K/ul (4.6-10.2)
[2016-07-09] MEDS: HUMULIN R SUBCUT PRN ×2 (05:57→11:26)
[2016-07-09 06:14] LABS: ALBUMIN/GLOBULIN RATIO 0.94; ANION GAP 11.3; BILIRUBIN,TOTAL 0.26 mg/dL (0.00-1.20); BUN/CREATININE RATIO 36.36; CALCIUM 9.1 mg/dL (8.2-10.2); CREATININE 1.1 mg/dL (0.60-1.30); POTASSIUM 4.3 mmol/L (3.5-5.10); TOTAL PROTEIN 6.2 g/dL (5.8-8.1)
[2016-07-09] MEDS: SYMBICORT 160-4.5 MCG INHALER IH SCH (08:33)
[2016-07-09] MEDS: NICODERM 21 MG TD SCH (08:33)
[2016-07-09] MEDS: SOTALOL HCL 60 MG PO SCH (08:34)
[2016-07-09] MEDS: EFFEXOR XR PO SCH (08:34)
[2016-07-09] MEDS: LOVENOX SUBCUT SCH (08:35)
[2016-07-09] MEDS: MUCINEX DM ER 600-30 MG TABLET PO SCH (08:35)
[2016-07-09] MEDS: LOTENSIN PO SCH (08:35)
[2016-07-09] MEDS: LIPITOR PO SCH (08:36)
[2016-07-09] MEDS: NEURONTIN PO SCH ×4 (08:36→13:35)
[2016-07-09] MEDS: NORVASC PO SCH (08:36)
[2016-07-09] MEDS: ZANAFLEX PO SCH ×2 (08:36→15:26)
[2016-07-09] MEDS: ALDACTONE PO SCH (08:36)
[2016-07-09] MEDS: TOPAMAX PO SCH (08:36)
[2016-07-09] MEDS: BUSPAR PO SCH ×2 (08:37→15:21)
[2016-07-09] MEDS: [UNRECOGNIZED DRUG - OTHER] IH SCH (08:37)
[2016-07-09] MEDS: SODIUM CHLORIDE 1,000 ML IV SCH (09:36)
[2016-07-09 14:49] VITALS: BP 106/72; TEMP 98
--- NOTE | 2016-07-21 14:58 | HP ---
DATE OF SERVICE: 07/06/16 CHIEF COMPLAINT: Shortness of breath. HISTORY OF PRESENT ILLNESS: This is a 55-year-old female with multiple medical problems and COPD, came to the emergency room with cough, congestion, shortness of breath, getting yellow to green phlegm. Shortness of breath even at rest. She was seen by Dr. Grove in the emergency room. CT scan of the chest showed emphysema, dilatation of the pulmonary trunk suggestive of pulmonary arterial hypertension, postoperative changes to the mediastinum, atelectasis and/or scarring, pulmonary micro nodules. D. dimer was less than 0.19. ABG showed pH 7.35, pc02 47, p02 74. White count was 12,000. Sugars were 347 and potassium 3.5. At that time, the patient was admitted to the hospital for COPD exacerbation and bronchitis. REVIEW OF SYSTEMS: CONSTITUTIONAL: Weakness, tiredness. HEENT: Normal. ENDOCRINE: No weight gain; no weight loss. CVS: No chest pain. No PND, no orthopnea. Shortness of breath. RESPIRATORY: Cough and congestion. No hemoptysis. GI: No nausea, no vomiting. No abdominal pain. No melena. : No hematuria. No polyuria. MUSCULOSKELETAL: No joint swelling. PSYCHIATRIC: Not anxious. No depression. No suicidal thoughts. No homicidal thoughts. SKIN: Intact, no open lesions. PAST MEDICAL HISTORY: 1. COPD 2. Hypertension 3. Dyslipidemia 4. Valvular repair 5. Atrial fibrillation on long term anticoagulation 6. History of DVT 7. Osteoarthritis 8. DJD spine 9. Depression/anxiety 10. Hypothyroidism PAST SURGICAL HISTORY: 1. Aortic valve replacement, 2008 2. Permanent pacemaker 3. Cholecystectomy 4. Hysterectomy 5. Bilateral total knee replacement 6. Goiter removed from thyroid PERSONAL HISTORY: Tobacco - yes. No alcohol use. FAMILY HISTORY: Significant for lung cancer. MEDICATIONS: (HOME) 1. Albuterol 2. Norvasc 3. Lipitor 4. Lotensin 5. Buspirone 6. Nexium 7. Lasix 8. Levothyroxine 9. Percocet 10. Phenergan 11. Requip 12. Sotalol 13. Aldactone 14. Topamax 15. Ambien 16. Effexor 17. Humalog 18. Synthroid 19. Levemir 20. Zanaflex 21. Spiriva 22. Cipro 23. Neurontin ALLERGIES: CEFTRIAXONE, CEFUROXIME, DOXYCYCLINE, NIFEDIPINE PHYSICAL EXAMINATION: V/S: BP 147/78, respiratory rate 22, heart rate 84, temperature 98.3. Saturation 95%. HEENT: Atraumatic, normocephalic. No scleral icterus. Mucosa dry. NECK: Supple. No JVD, no bruit. No lymphadenopathy. No thyromegaly. HEART: S1, S2 normal. Systolic murmur present. No cyanosis or clubbing. No ascites. LUNGS: Decreased with basilar crackles and expiratory wheeze present. No rales or rhonchi. ABDOMEN: Soft, nontender. Bowel sounds are active. No CVA tenderness. No rigidity or guarding. EXTREMITIES: No cyanosis, clubbing or pedal edema. MUSCULOSKELETAL: Normal joints, no swelling. NEUROLOGIC: The patient is awake, alert, oriented times three. SKIN: Intact; no open lesions. LYMPHATIC: No lymph nodes palpable. LAB DATA: White count 12.98, hemoglobin 15.0, platelet count 252. Sodium 134, potassium 3.4, chloride 94, bicarb 29, BUN 26, creatinine 1.38, glucose 347. Influenza negative. CT chest did not show any acute findings. BNP 296. ASSESSMENT: 1. COPD EXACERBATION SECONDARY TO ACUTE BRONCHITIS 2. UNCONTROLLED DIABETES 3. HISTORY OF HYPERTENSION 4. DYSLIPIDEMIA 5. AORTIC VALVE REPLACEMENT 6. JAIL ANTICOAGULATION 7. CONTINUED NICOTINE USE PLAN: 1. Admit the patient to regular floor. 2. CBC, CMP today and daily. 3. Cardiac enzymes and troponin. 4. Levaquin 250 mg daily. 5. IV fluids. 6. Duonebs. 7. Solu-Medrol. 8. Lovenox. 9. Daily I & Os. 10. Out of bed to chair. 11. Activity as tolerated. TIME SPENT: More than 65 minutes for admission. MTDD
--- NOTE | 2016-07-22 08:52 | DS ---
DATE OF SERVICE: 07/09/16 FINAL DIAGNOSIS: 1. COPD EXACERBATION SECONDARY TO BRONCHITIS 2. UNCONTROLLED DIABETES MELLITUS, MOSTLY ELEVATED SUGARS SECONDARY TO STEROIDS 3. DIABETES MELLITUS, A1C 9.1 4. HISTORY OF AORTIC VALVE REPLACEMENT 2008 5. PERMANENT PACEMAKER 6. ATRIAL FIBRILLATION 7. HISTORY OF DVT 2003 8. CHOLECYSTECTOMY 9. HYSTERECTOMY 10. BILATERAL KNEE REPLACEMENT 11. COPD 12. CONTINUED NICOTINE USE 13. ANXIETY 14. HYPOTHYROIDISM 15. DEPRESSION DISCHARGE INSTRUCTIONS: Discharge the patient home. Followup with PMD, Dr. Nidia Robin in [place], [place] as soon as possible. MEDICATIONS AT DISCHARGE: 1. Promethazine 25 mg p.o. q.6h p.r.n. 2. Benazepril 20 mg p.o. daily 3. Buspirone 5 mg p.o. t.i.d. p.r.n. 4. Zolpidem 10 mg p.o. bedtime 5. NEW PRESCRIPTIONS: 1. Levaquin 250 mg p.o. one daily for 5 days 2. Medrol Dosepak, take as directed 3. Duonebs, take one neb every 6 hr (reassess for need/effectiveness in one month by your PCP) DIET INSTRUCTIONS: Diabetic diet ACTIVITY: Get plenty of rest at home. Gradually increase your activity level according to your toleration. SMOKING: Do not smoke DISEASE SPECIFIC EDUCATION: Smoking and lung cancer risk; smoking and coronary artery disease discussed. Antibiotic use with side effect of diarrhea discussed. Medication compliance discussed. HOSPITAL COURSE: This is a 65-year-old female with multiple medical problems came to the Emergency Room with COPD exacerbation and bronchitis, admitted with the same. After treatment with Levaquin, Solu-Medrol and Duonebs, her breathing was better but was still coughing a lot. Blood sugars were going up to 266, 600 and 247. A1C was ordered which was 9.1. Lantus was increased from 20 to 25; 25 to 30 units. Gradually, the sugars became better. Meanwhile, repeat chest x-ray was done which was negative for any infiltrate. The patient was up and about without any complications and was ready for discharge. The patient was discharged home. TIME SPENT: More than [address] [facility]
== END 2016-07-09 15:46 | disposition home or self-care (01) | DRG 202 ==
LOC: ED 22:26 → MEDSURG B 07-06 02:00
PROVIDERS: ADMIT Emergency Medicine; ATTEND Emergency Medicine
DX: J20.9 Acute bronchitis, unspecified (principal); J44.1 Chronic obstructive pulmonary disease with (acute) exacerbation; J44.0 Chronic obstructive pulmonary disease with (acute) lower respiratory infection; E11.65 Type 2 diabetes mellitus with hyperglycemia; I10 Essential (primary) hypertension; I48.91 Unspecified atrial fibrillation; F17.210 Nicotine dependence, cigarettes, uncomplicated; E03.9 Hypothyroidism, unspecified; F41.8 Other specified anxiety disorders; M47.9 Spondylosis, unspecified; Z79.01 Long term (current) use of anticoagulants; Z79.4 Long term (current) use of insulin; Z79.899 Other long term (current) drug therapy; Z95.2 Presence of prosthetic heart valve; Z95.0 Presence of cardiac pacemaker; Z86.718 Personal history of other venous thrombosis and embolism
CPT/HCPCS: 36415; 80053; 80306; 82550; 82803; 82947; 82962; 83036; 83880; 84484; 85025; 85379; 85610; 87040; 87804; 93005; 93010; 94640; 94761; 96375; 99223; 99233; 99239; 99284

== ENCOUNTER 2016-08-30 23:04 | Emergency (ER) ==
[2016-08-30] MEDS ORDERED: LIDOCAINE 1 % AMP 5 ML (SUTURES) SUBCUT STA (23:06)
[2016-08-30 23:16] VITALS: BP 132/84; TEMP 97; BMI 23.9
--- NOTE | 2016-08-30 23:25 | ED.PDOC ---
General ED Provider: Dr. CASIMIRO FREEMAN-ER Chief Complaint: Fall Stated Complaint: i fell at home ..i cut my forehead Time Seen by Physician: 23:10 Mode of Arrival: Wheelchair Information Source: Patient, Family Exam Limitations: No limitations Nursing and Triage Documentation Reviewed and Agree: Yes Skin Complaint Exam - Laceration/Head/Facial Complaint/Exam Location of Injury: Scalp, Forehead Mechanism of Injury: Laceration Onset/Duration: 30min Symptoms Are: Still present Initial Severity: Mild Current Severity: Moderate Aggravating: Movement Alleviating: Compression Associated Signs and Symptoms: Denies: Fever, Chills, Erythema, Numbness, Tingling Related History: Reports: Anticoagulant use Differential Diagnoses: Laceration Review of Systems - Review Of Systems Constitutional: Reports: No symptoms Eyes: Reports: No symptoms Ears, Nose, Mouth, Throat: Reports: No symptoms Respiratory: Reports: No symptoms Cardiac: Reports: No symptoms GI: Reports: No symptoms : Reports: No symptoms Musculoskeletal: Reports: No symptoms Skin: Reports: No symptoms Neurological: Reports: No symptoms Endocrine: Reports: No symptoms Hematologic/Lymphatic: Reports: No symptoms All Other Systems: Reviewed and Negative Past Medical History - Past Medical History Endocrine: Reports: DM 2 Cardiovascular: Reports: CAD, Hypertension, A-Fib Respiratory: Reports: COPD Hematological: Reports: None Gastrointestinal: Reports: GERD Genitourinary: Reports: None Neuro/Psych: Reports: Anxiety, Depression Musculoskeletal: Reports: Arthritis Cancer: Reports: None Last Menstrual Period: n/a - surg. at 35 y/o - Surgical History General Surgical History: Reports: Hysterectomy, CABG, Pacemaker, Other (Aortic valve replacement. ) - Family History Family History: Reports: Unknown - Social History Smoking Status: Current every day smoker, Heavy tobacco smoker Hx Substance Use: No Alcohol Screening: None - Immunizations Tetanus Shot up to Date: No (unsure - says possibly 6 yrs ago) Physical Exam - Physical Exam Appearance: Well-appearing, No pain distress, Well-nourished Pain Distress: Mild Eyes: MYKE, EOMI, Conjunctiva clear ENT: Ears normal, Nose normal, Oropharynx normal Neck: Supple Respiratory: Airway patent, Breath sounds clear, Breath sounds equal, Respirations nonlabored Cardiovascular: RRR, Pulses normal, No rub, No murmur GI/: Soft Musculoskeletal: Normal strength, ROM intact, No edema, No calf tenderness Skin: Warm, Dry, Normal color Neurological: Sensation intact, Motor intact, Reflexes intact, Cranial nerves intact, Alert, Oriented Psychiatric: Affect appropriate, Mood appropriate Interpretation - Radiology Interpretation Radiology Interpretation By: Radiologist Radiology Results: Negative Exam Interpreted: CT Scan Procedures - Laceration/Wound Repair No standard instances Wound Description: Linear Wound Length (cm): 2cm right forehead Wound Explored: Clean Wound Irrigated: Yes Wound Prep: Hibiclens Anesthesia: Lidocaine Wound Repaired With: Sutures Suture Size and Type: 4.0 prolene Number of Sutures: 4 Layer Closure?: No Sterile Dressing Applied?: Yes Splint Applied?: No Sling Applied?: No Critical Care Note - Critical Care Note Total Time (mins): 0 Course - Course Orders, Labs, Meds: Orders Category Date Time Status Hydrocodone Bit/Acetaminophen [Irving 5-325] MEDS 08/31/16 00:05 Discontinued 1 tab PO ONCE STA Lidocaine HCl/Pf [Lidocaine 1 % Amp 5 ml (Sutures)] MEDS 08/30/16 23:06 Discontinued [address] ON[address]A CT CERVICAL SPINE W/O CONTRAST Stat RADS 08/30/16 23:[address] CHEST W/O CONTRAST Stat RADS 08/30/16 23:[address] HEAD W/O CONTRAST Stat RADS 08/30/16 23:06 Completed Medications Discontinued Medications Generic Name Dose Route Start Last Admin Trade Name Day PRN Reason Stop Dose Admin Acetaminophen/Hydrocodone Bitart 1 tab 08/31/16 00:05 Irving 5-325 PO 08/31/16 00:06 ONCE STA Lidocaine HCl 5 ml 08/30/16 23:06 08/30/16 23:34 Lidocaine 1 % Amp 5 Ml (Sutures) SUBCUT 08/30/16 23:07 5 ml ONCE STA Administration Vital Signs: Temp Pulse Resp BP Pulse Ox 08/30/16 23:06 97 F L 77 20 132/84 95 Departure - Departure Time of Disposition: 00:09 Disposition: HOME SELF-CARE Discharge Problem: Laceration of scalp Qualifiers: Encounter type: initial encounter Qualifier Code: (S01.01XA) Laceration without foreign body of scalp, initial encounter Instructions: Laceration (ED), Care For Your Stitches (ED), Facial Laceration ( ED) Condition: Good Pt referred to PMD for follow-up: Yes Additional Instructions: head injury instructions--sutures out in 7 days--return if any signs of infection Allergies/Adverse Reactions: Allergies ceftriaxone sodium [From Rocephin] Adverse Reaction (Verified 07/05/16 22:45) cefuroxime axetil [From Ceftin] Adverse Reaction (Verified 07/05/16 22:45) doxycycline Adverse Reaction (Verified 07/05/16 22:45) nifedipine [From Procardia] Adverse Reaction (Verified 07/05/16 22:45) nitrofurantoin [From Macrobid] Adverse Reaction (Verified 07/05/16 22:45) nitrofurantoin macrocrystal [From Macrobid] Adverse Reaction (Verified 07/05/16 22:45) Home Medications: Ambulatory Orders Albuterol Sulfate [Albuterol Sulfate Hfa] 2 puff IH QID 02/13/14 Amlodipine Besylate [Norvasc] 5 mg PO DAILY 02/13/14 Atorvastatin Calcium [Lipitor] 40 mg PO BEDTIME 02/13/14 Benazepril HCl [Lotensin] 20 mg PO DAILY 02/13/14 Buspirone HCl 5 mg PO TID PRN 02/13/14 Esomeprazole Magnesium [Nexium] 40 mg PO BID 02/13/14 Furosemide [Lasix] 40 mg PO DAILY 02/13/14 Oxycodone HCl/Acetaminophen [Percocet 10-325 mg Tablet] 1 each PO Q4-6H PRN Promethazine HCl [Phenergan Tab] 25 mg PO Q6H PRN 02/13/14 Ropinirole HCl [Requip] 2 mg PO BEDTIME 02/13/14 Sotalol HCl [Sotalol] 60 mg PO BID 02/13/14 Spironolactone [Aldactone] 25 mg PO DAILY 02/13/14 Topiramate [Topamax] 50 mg PO BEDTIME 02/13/14 Zolpidem Tartrate [Ambien] 10 mg PO BEDTIME 02/13/14 Venlafaxine HCl [Effexor Xr] 150 mg PO BEDTIME 07/04/14 Insulin Lispro [Humalog] 0 unit SQ TIDWM PRN #1 ml 07/12/14 Budesonide/Formoterol Fumarate [Symbicort 160-4.5 Mcg Inhaler] 2 puff IH BID PRN 05/28/15 Tizanidine HCl [Zanaflex] 4 mg PO TID 05/28/15 Gabapentin [Neurontin] 800 mg PO QID 07/05/16 Levothyroxine Sodium [Synthroid] 150 mcg PO DAILY 07/06/16 Insulin Detemir [Levemir] 30 unit SUBCUT BEDTIME #1 ml 07/09/16 Levofloxacin [Levaquin] 250 mg PO QDAC #5 tablet 07/09/16 Methylprednisolone [Medrol Dosepak] 4 mg PO DIRECTED #1 tab.ds.pk 07/09/16 Tiotropium [place] [Spiriva Respimat] 2.5 mcg IH DAILY 07/09/16 Warfarin Sodium [Coumadin] 4 mg PO QPM 07/09/16 Disposition Discussed With: Patient, Family
[2016-08-31] MEDS ORDERED: NORCO 5-325 PO STA (00:05)
--- NOTE | 2016-08-31 00:05 | CT ---
EXAM: CT head without contrast 08/30/2016. Sagittal and coronal reformatted images obtained HISTORY: Head injury COMPARISON: None. FINDINGS: There is no evidence of intracranial hemorrhage. The midline is maintained. There is no hydrocephalus. There is dural based calcification at the level of the left frontal lobe likely due to benign hemangioma. Diffuse generalized atrophy. Chronic small vessel ischemic changes. No cere bellar tonsillar ectopia. Evaluation of the calvarium shows no fracture. The mastoid air cells are normally pneumatized. IMPRESSION: No acute intracranial abnormality.
--- NOTE | 2016-08-31 00:07 | CT ---
Exam: CT of the chest without contrast History: Fall with injury and pain Technique: [address] of the chest without intravascular contrast FINDINGS: The lung windows show no infiltrative opacities, suspicious nodules or masses. Trace emp hysematous change. Granulomatous calcifications are present. There is no pleural fluid or pneumoth orax. Prior aortic valvuloplasty. Atherosclerotic calcification of the coronary arteries and aorta . Ascending thoracic aorta measures 3.7 cm. No pathologic lymph node enlargement or abundance. Ma in pulmonary artery diameter of 4.2 cm. No acute findings of the chest wall soft tissues or bony th orax. Left approach pacemaker. Impression: 1. No acute findings of the chest 2. Enlarged main pulmonary artery. Correlate for possible pulmonary hypertension. 3. Prior aortic valvuloplasty.
--- NOTE | 2016-08-31 00:08 | CT ---
CT cervical spine without contrast HISTORY: Fall with injury and pain TECHNIQUE: CT of the cervical spine with multiplanar reformations. FINDINGS: Reformatted images demonstrate normal alignment with preservation of vertebral body heigh t. Low grade facet and endplate degenerative change. No central canal stenosis. No fracture seen o n the axial or reformatted images. No acute surrounding soft tissue abnormalitites. Lung apices are clear. IMPRESSION: No acute findings in the cervical spine.
== END 2016-08-31 01:20 | disposition home or self-care (01) ==
LOC: ED 23:04
DX: S01.81XA Laceration without foreign body of other part of head, initial encounter (principal); W19.XXXA Unspecified fall, initial encounter; Y92.009 Unspecified place in unspecified non-institutional (private) residence as the place of occurrence of the external cause; F17.210 Nicotine dependence, cigarettes, uncomplicated; Z79.01 Long term (current) use of anticoagulants; Z79.899 Other long term (current) drug therapy
CPT/HCPCS: 99283

== ENCOUNTER 2016-09-06 20:59 | Emergency (ER) ==
[2016-09-06 21:08] VITALS: BP 131/88; TEMP 97.4; BMI 22.8
== END 2016-09-06 21:55 | disposition home or self-care (01) ==
LOC: ED 20:59
DX: Z48.02 Encounter for removal of sutures (principal)
CPT/HCPCS: 99281

== ENCOUNTER 2016-10-01 21:49 | Emergency (ER) | payer OTHER ==
[2016-10-01 21:58] VITALS: BP 119/75; TEMP 97.1; BMI 22.6
[2016-10-01] MEDS ORDERED: DUONEB NEB STA (22:34)
--- NOTE | 2016-10-01 22:42 | ED.PDOC ---
General ED Provider: Dr. TAMIR DUNCAN Chief Complaint: Respiratory Complaint Stated Complaint: Patient states that she has had a cough for two weeks. Tried Amoxil which his PCP called in for she took got a little better but then worse again. She has a previous history of pneumonia. She states that usually levaquin takes care of her symtoms. Time Seen by Physician: 22:30 Mode of Arrival: Walk-In Information Source: Patient Exam Limitations: No limitations Primary Care Provider: SHARRI NICHOLSON Seen Within Last 72 Hours for Same Complaint By: PCP Nursing and Triage Documentation Reviewed and Agree: Yes Respiratory Complaint Exam - Respiratory Complaint/Exam Onset/Duration: 2 weeks Symptoms Are: Still present Timing: Constant Initial Severity: Mild Current Severity: Moderate Location: Chest Character: Reports: Productive cough Aggravating: Reports: URI, Weather Alleviating: Reports: None Associated Signs and Symptoms: Reports: Rapid breathing, Dyspnea, URI, Increased thirst Related History: Reports: Similar episode (diagnosed with Pneumoina ) History of Healthcare-Acquired Pneumonia: No Related Surgical History: Reports: Pacemaker Pulmonary Embolism Risk Factors: Smoking Cardiac Risk Factors: Reports: Smoking Pseudomonas Risk Factors: Reports: Chronic Lung Disease Status Asthmaticus Risk Factors: Reports: None Home Oxygen Use: Yes (at night but lost the tank ) Recent Stress Test: No Recent Echo/LV Function: No Current Antibiotic Use: No Current Asthma Medication Use: No Respiratory Distress: Moderate Inadequate Respiratory Effort: No Dysphagia Present: No Stridor Present: No JVD Present: No Accessory Muscle Use: No Retractions: Not Present Diminished Breath Sounds: Yes (bilaterally ) Prolonged Respiration: Inspiratory phase Sinus Tenderness: None Grunting Respirations: No Kussmaul Respirations: No Differential Diagnoses: COPD Exacerbation, Pneumonia, Bronchiolitis, URI Review of Systems - Review Of Systems Constitutional: Reports: Weakness, Loss of appetite Respiratory: Reports: Cough Cardiac: Reports: Chest pain (right sided) GI: Reports: No symptoms : Reports: No symptoms Musculoskeletal: Reports: No symptoms Skin: Reports: No symptoms Neurological: Reports: Anxiety All Other Systems: Reviewed and Negative Past Medical History - Past Medical History Endocrine: Reports: DM 2 Cardiovascular: Reports: CAD, Hypertension, A-Fib Respiratory: Reports: COPD, Pneumonia Hematological: Reports: None Gastrointestinal: Reports: GERD Genitourinary: Reports: None Neuro/Psych: Reports: Anxiety, Depression Musculoskeletal: Reports: Arthritis Cancer: Reports: None Last Menstrual Period: na - Surgical History General Surgical History: Reports: Hysterectomy, CABG, Pacemaker, Other (Aortic valve replacement. ) - Family History Family History: Reports: Unknown - Social History Smoking Status: Current some day smoker Hx Substance Use: No Alcohol Screening: None - Immunizations Tetanus Shot up to Date: No Physical Exam - Physical Exam Appearance: Ill-appearing, Thin Ill-appearing: Moderate Neck: Supple Respiratory: Breath sounds diminished, Rhonchi, Wheezes Cardiovascular: RRR, Pulses normal, No rub, No murmur GI/: Soft, Nontender, No masses, Bowel sounds normal, No Organomegaly Musculoskeletal: Normal strength, ROM intact, No edema, No calf tenderness Skin: Warm, Dry, Normal color Neurological: Sensation intact, Motor intact, Reflexes intact, Cranial nerves intact, Alert, Oriented Psychiatric: Affect appropriate, Mood appropriate, Anxious Interpretation - Radiology Interpretation Radiology Interpretation By: ED Physician Radiology Results: Negative Exam Interpreted: CXR - EKG Interpretation Time of EKG #1: 22:15 Interpretation: Electronically paced. Critical Care Note - Critical Care Note Total Time (mins): 0 Course - Course Hematology/Chemistry: 10/01/16 22:45 10/01/16 22:45 Orders, Labs, Meds: Lab Review 10/01/16 10/01/16 22:45 23:00 WBC 10.02 RBC 3.96 L Hgb 12.0 Hct 35.3 L MCV 89.1 MCH 30.3 MCHC 34.0 RDW Coeff of Kalani 13.4 Plt Count 194 Immature Gran % (Auto) 0.7 Neut % (Auto) 65.2 Lymph % (Auto) 24.6 [place] % (Auto) 7.8 Eos % (Auto) 1.2 Baso % (Auto) 0.5 Immature Gran # (Auto) 0.1 Neut # 6.5 Lymph # 2.5 [place] # 0.8 Eos # 0.1 Baso # 0.1 Sodium 136 Potassium 4.2 Chloride 101 Carbon Dioxide 25 Anion Gap 14.2 BUN 17 Creatinine 1.35 H Estimated GFR (MDRD) 39.00 BUN/Creatinine Ratio 12.59 Glucose 263 H Lactic Acid 10.1 Calcium 9.3 Total Bilirubin 0.19 AST 13 L ALT 11 L Alkaline Phosphatase 85 Total Creatine Kinase 38 Troponin I 0.1200 Total Protein 6.8 Albumin 3.4 Globulin 3.4 Albumin/Globulin Ratio 1.00 Procalcitonin < 0.05 Influenza A (Rapid) Negative Influenza B (Rapid) Negative Orders Category Date Time Status EKG-(ED ONLY) Stat CARDIO 10/01/16 23:40 Completed NEBULIZER TREATMENT Stat CARDIO 10/01/16 22:35 Completed ED IV/MEDIPORT/POWERPORT .ONCE EMERGENCY 10/01/16 22:35 Active ABG Stat LAB 10/01/16 22:36 Stop Req BLOOD CULTURE Stat LAB 10/01/16 22:45 Received CBC W/ AUTO DIFF Stat LAB 10/01/16 22:45 Completed COMPREHENSIVE METABOLIC PANEL Stat LAB 10/01/16 22:45 Completed CREATINE KINASE Stat LAB 10/01/16 22:45 Completed LACTIC ACID Stat LAB 10/01/16 22:45 Completed PROCALCITONIN Stat LAB 10/01/16 22:45 Completed RAPID FLU A/B Stat LAB 10/01/16 23:00 Completed TROPONIN I Stat LAB 10/01/16 22:45 Completed 0.9 % Sodium Chloride [Saline Flush] MEDS 10/01/16 22:34 Discontinued 1 syr IVF PRN PRN Ipratropium/Albuterol Neb [Duoneb] MEDS 10/01/16 22:34 Discontinued 1 vial NEB ONCE STA Ketorolac Tromethamine [Toradol] MEDS 10/02/16 00:19 Discontinued 30 mg IVP ONCE STA Levofloxacin/D5w [Levaquin] 100 ml MEDS 10/01/16 23:52 Discontinued IV .STK-MED Levofloxacin/D5w [Levaquin] 500 mg MEDS 10/01/16 23:14 Discontinued Premix 100 ml D5w 1 bag IV ONCE Sodium Chloride 0.9% [Sodium Chloride] 1,000 ml MEDS 10/02/16 00:19 Discontinued IV BOLUS CHEST, 2 VIEWS PA & LAT Stat RADS 10/01/16 22:35 Taken Medications Discontinued Medications Generic Name Dose Route Start Last Admin Trade Name Freq PRN Reason Stop Dose Admin Albuterol/Ipratropium 1 vial 10/01/16 22:34 10/01/16 23:09 Duoneb NEB 10/01/16 22:35 1 vial ONCE STA Administration Levofloxacin/Dextrose 500 mg/ 100 mls @ 100 mls/hr 10/01/16 23:14 05/18/17 23 :25 Dextrose IV 10/02/16 00:13 100 mls/hr ONCE STA Administration Sodium Chloride 1,000 mls @ 1,000 mls/hr 10/02/16 00:19 10/02/16 00:30 Sodium Chloride IV 10/02/16 01:18 1,000 mls/hr BOLUS STA Administration Ketorolac Tromethamine 30 mg 10/02/16 00:19 10/02/16 00:30 Toradol IVP 10/02/16 00:20 30 mg ONCE STA Administration Sodium Chloride 1 syr 10/01/16 22:34 Saline Flush IVF PRN PRN To flush IV Vital Signs: Temp Pulse Resp BP Pulse Ox 10/01/16 21:51 97.1 F L 67 20 119/75 98 Departure - Departure Time of Disposition: 00:46 Disposition: HOME SELF-CARE Discharge Problem: Bronchitis Instructions: Acute Bronchitis (ED), Chronic Bronchitis (ED), How to Stop Smoking (ED) Condition: Fair Pt referred to PMD for follow-up: Yes Additional Instructions: Quit smoking Take medications and breathing treatments as needed Follow up with PCP In 3 days for Pro-time check as your blood will become thinner Prescriptions: Levofloxacin [Levaquin] 500 mg PO DAILY #7 tablet Methylprednisolone [Medrol Dosepak] 4 mg PO DIRECTED #1 pkg Allergies/Adverse Reactions: Allergies ceftriaxone sodium [From Rocephin] Adverse Reaction (Verified 10/01/16 21:58) cefuroxime axetil [From Ceftin] Adverse Reaction (Verified 10/01/16 21:58) doxycycline Adverse Reaction (Verified 10/01/16 21:58) nifedipine [From Procardia] Adverse Reaction (Verified 10/01/16 21:58) nitrofurantoin [From Macrobid] Adverse Reaction (Verified 10/01/16 21:58) nitrofurantoin macrocrystal [From Macrobid] Adverse Reaction (Verified 10/01/16 21:58) Home Medications: Ambulatory Orders Albuterol Sulfate [Albuterol Sulfate Hfa] 2 puff IH QID 02/13/14 Amlodipine Besylate [Norvasc] 5 mg PO DAILY 02/13/14 Atorvastatin Calcium [Lipitor] 40 mg PO BEDTIME 02/13/14 Benazepril HCl [Lotensin] 20 mg PO DAILY 09/30/14 Buspirone HCl 5 mg PO TID PRN 02/13/14 Esomeprazole Magnesium [Nexium] 40 mg PO BID 02/13/14 Furosemide [Lasix] 40 mg PO DAILY 02/13/14 Oxycodone HCl/Acetaminophen [Percocet 10-325 mg Tablet] 1 each PO Q4-6H PRN Promethazine HCl [Phenergan Tab] 25 mg PO Q6H PRN 02/13/14 Ropinirole HCl [Requip] 2 mg PO BEDTIME 02/13/14 Sotalol HCl [Sotalol] 60 mg PO BID 02/13/14 Spironolactone [Aldactone] 25 mg PO DAILY 02/13/14 Topiramate [Topamax] 50 mg PO BEDTIME 02/13/14 Zolpidem Tartrate [Ambien] 10 mg PO BEDTIME 02/13/14 Venlafaxine HCl [Effexor Xr] 150 mg PO BEDTIME 07/04/14 Insulin Lispro [Humalog] 0 unit SQ TIDWM PRN #1 ml 07/12/14 Budesonide/Formoterol Fumarate [Symbicort 160-4.5 Mcg Inhaler] 2 puff IH BID PRN 05/28/15 Tizanidine HCl [Zanaflex] 4 mg PO TID 05/28/15 Gabapentin [Neurontin] 800 mg PO QID 07/05/16 Levothyroxine Sodium [Synthroid] 150 mcg PO DAILY 07/06/16 Tiotropium [place] [Spiriva Respimat] 2.5 mcg IH DAILY 07/09/16 Warfarin Sodium [Coumadin] 4 mg PO QPM 07/09/16 Insulin Detemir [Levemir] 20 unit SUBCUT BEDTIME 09/06/16 Levofloxacin [Levaquin] 500 mg PO DAILY #7 tablet 10/02/16 Methylprednisolone [Medrol Dosepak] 4 mg PO DIRECTED #1 pkg 10/02/16 Disposition Discussed With: Patient, Family
[2016-10-01 22:54] LABS: BASOPHILS # (AUTO) 0.1 K/uL (0-0.2); BASOPHILS % (AUTO) 0.5 % (0.0-3.0); EOSINOPHILS # (AUTO) 0.1 K/ul (0.0-0.7); EOSINOPHILS % (AUTO) 1.2 % (0.0-7.0); HEMATOCRIT 35.3 % (37.0-47.0); IMMATURE GRANULOCYTE % (AUTO) 0.7 % (0.0-5.0); LYMPHOCYTES # (AUTO) 2.5 K/uL (0.60-3.4); LYMPHOCYTES % (AUTO) 24.6 (10.0-50.0); MEAN CORPUSCULAR HEMOGLOBIN 30.3 pg (27.0-31.0); MEAN CORPUSCULAR VOLUME 89.1 fl (81.0-99.0); MONOCYTES # (AUTO) 0.8 K/uL (0.4-2.0); MONOCYTES % (AUTO) 7.8 (0-10); NEUTROPHILS # (AUTO) 6.5 K/ul (2.0-6.9); NEUTROPHILS % (AUTO) 65.2; PLATELET COUNT 194 10^3/uL (140-440); RED BLOOD COUNT 3.96 10^6/ul (4.20-5.40); WHITE BLOOD COUNT 10.02 K/ul (4.6-10.2)
[2016-10-01] MEDS ORDERED: LEVAQUIN 500 MG in PREMIX 100 ML D5W 1 BAG IV STA (23:14)
[2016-10-01 23:17] LABS: ALBUMIN 3.4 g/dL (3.4-5.0); ANION GAP 14.2; BILIRUBIN,TOTAL 0.19 mg/dL (0.00-1.20); BUN/CREATININE RATIO 12.59; CALCIUM 9.3 mg/dL (8.2-10.2); CREATININE 1.35 mg/dL (0.60-1.30); POTASSIUM 4.2 mmol/L (3.5-5.10); TOTAL PROTEIN 6.8 g/dL (5.8-8.1); TROPONIN I 0.12 ng/ml (0.0000-0.4000)
[2016-10-01] MEDS ORDERED: LEVAQUIN 100 ML IV ONE (23:52)
[2016-10-01 23:56] LABS: FLU INTERNAL QC INTERNAL QC VALID; RAPID FLU A NEGATIVE (NEGATIVE); RAPID FLU B NEGATIVE (NEGATIVE)
[2016-10-02] MEDS ORDERED: SODIUM CHLORIDE 1,000 ML IV STA (00:19)
[2016-10-02] MEDS: TORADOL IVP STA ×2 (00:28→00:30)
--- NOTE | 2016-10-02 07:38 | DI ---
EXAM: CHEST FRONTAL AND LATERAL VIEWS HISTORY: Cough. COMPARISON: 07/08/2016 FINDINGS: Normal heart size. Sternotomy wires are present. Pacemaker unit is unchanged. No defin ite consolidated pneumonia. Normal vascularity with no pneumothorax or pleural fluid. IMPRESSION: No acute cardiopulmonary process identified.
== END 2016-10-02 01:43 | disposition home or self-care (01) ==
LOC: ED 21:49
DX: J40 Bronchitis, not specified as acute or chronic (principal); J44.9 Chronic obstructive pulmonary disease, unspecified; E11.9 Type 2 diabetes mellitus without complications; I25.810 Atherosclerosis of coronary artery bypass graft(s) without angina pectoris; I10 Essential (primary) hypertension; F17.210 Nicotine dependence, cigarettes, uncomplicated; Z95.0 Presence of cardiac pacemaker; Z95.2 Presence of prosthetic heart valve; Z79.899 Other long term (current) drug therapy; Z79.01 Long term (current) use of anticoagulants; Z87.01 Personal history of pneumonia (recurrent)
CPT/HCPCS: 36415; 80053; 82550; 83605; 84145; 84484; 85025; 87040; 87804; 93005; 93010; 94640; 96361; 96365; 96375; 99283

== ENCOUNTER 2016-10-28 19:41 | Emergency (ER) | payer OTHER ==
[2016-10-28 19:55] VITALS: BP 119/75; TEMP 98.6; BMI 22.8
[2016-10-28] MEDS ORDERED: DECADRON 4 MG/ML SDV IM STA (20:06)
--- NOTE | 2016-10-28 20:09 | ED.PDOC ---
General ED Provider: Dr. CHAPINCITO MARTINEZ Chief Complaint: Shortness of Air Stated Complaint: coughing congestion, getting sputum, not getting better. also hurting in the lower back from the coughing, wanting something strong for the back pain, as her percocet wears off in 2 hrs. Time Seen by Physician: 20:07 Mode of Arrival: Walk-In Information Source: Patient Primary Care Provider: SHARRI NICHOLSON Nursing and Triage Documentation Reviewed and Agree: Yes Respiratory Complaint Exam - Respiratory Complaint/Exam Symptoms Are: Still present Timing: Constant Initial Severity: Mild Current Severity: Mild Character: Reports: Productive cough Aggravating: Reports: URI Alleviating: Reports: None Associated Signs and Symptoms: Denies: Rapid breathing, Dyspnea, Fever, Chills, Chest pain, Pleuritic chest pain, Wheezing, Hemoptysis, Dizziness, Calf pain, Calf swelling, Edema, URI, Nasal congestion, Hoarseness, Sinus discomfort, Vomiting, Sore throat, Weight loss, Decreased oral intake, Increased thirst, Increased appetite, Increased urination History of Healthcare-Acquired Pneumonia: No Related Surgical History: Reports: None Pulmonary Embolism Risk Factors: None Cardiac Risk Factors: Reports: None Pseudomonas Risk Factors: Reports: None Tuberculosis Risk Factors: Reports: None Status Asthmaticus Risk Factors: Reports: None Home Oxygen Use: No Recent Stress Test: No Recent Echo/LV Function: No Current Antibiotic Use: No Current Asthma Medication Use: No Respiratory Distress: None Inadequate Respiratory Effort: No Dysphagia Present: No Stridor Present: No JVD Present: No Retractions: Not Present Diminished Breath Sounds: No Differential Diagnoses: Pneumonia, Bronchitis Review of Systems - Review Of Systems Constitutional: Reports: Malaise, Weakness Eyes: Reports: No symptoms Ears, Nose, Mouth, Throat: Reports: No symptoms Respiratory: Reports: Cough, Short of air Cardiac: Reports: No symptoms GI: Reports: No symptoms : Reports: No symptoms Musculoskeletal: Reports: No symptoms Skin: Reports: No symptoms Neurological: Reports: No symptoms Endocrine: Reports: No symptoms Hematologic/Lymphatic: Reports: No symptoms All Other Systems: Reviewed and Negative Past Medical History - Past Medical History Previously Healthy: No Endocrine: Reports: DM 2 Cardiovascular: Reports: CAD, Hypertension, A-Fib Respiratory: Reports: COPD, Pneumonia Hematological: Reports: None Gastrointestinal: Reports: GERD Genitourinary: Reports: None Neuro/Psych: Reports: Anxiety, Depression Musculoskeletal: Reports: Arthritis Cancer: Reports: None Last Menstrual Period: HYSTERECTOMY - Surgical History General Surgical History: Reports: Hysterectomy, CABG, Pacemaker, Other (Aortic valve replacement. ) - Family History Family History: Reports: Unknown - Social History Smoking Status: Current some day smoker Smoking Cessation Counseling Time: > 3 min - 10 min Hx Substance Use: No Alcohol Screening: None Physical Exam - Physical Exam Appearance: Well-appearing, Thin Eyes: MYKE, EOMI, Conjunctiva clear ENT: Ears normal, Nose normal, Oropharynx normal Respiratory: Airway patent, Breath sounds clear, Breath sounds equal, Respirations nonlabored Cardiovascular: RRR, Pulses normal, No rub, No murmur GI/: Soft, Nontender, No masses, Bowel sounds normal, No Organomegaly Musculoskeletal: Normal strength, ROM intact, No edema, No calf tenderness Skin: Warm, Dry, Normal color Neurological: Sensation intact, Motor intact, Reflexes intact, Cranial nerves intact, Alert, Oriented Psychiatric: Affect appropriate, Mood appropriate Critical Care Note - Critical Care Note Total Time (mins): 0 Course - Course Orders, Labs, Meds: Orders Category Date Time Status Dexamethasone 4 mg/ml Inj [Decadron 4 mg/ml Sdv] MEDS 10/28/16 20:06 Discontinued 4 mg IM ONCE STA LUMBAR SPINE, 2 OR 3 VIEWS Stat RADS 10/28/16 20:06 Taken Medications Discontinued Medications Generic Name Dose Route Start Last Admin Trade Name Augieq PRN Reason Stop Dose Admin Dexamethasone Sodium Phosphate 4 mg 10/28/16 20:06 10/28/16 20:14 Decadron 4 Mg/Ml Sdv IM 10/28/16 20:07 4 mg ONCE STA Administration Vital Signs: Temp Pulse Resp BP Pulse Ox 10/28/16 19:43 98.6 F 75 22 119/75 92 L Departure - Departure Time of Disposition: 21:57 Disposition: HOME SELF-CARE Discharge Problem: URTI (acute upper respiratory infection) Instructions: Upper Respiratory Infection (ED) Condition: Stable Pt referred to PMD for follow-up: Yes Additional Instructions: PATIENT INSISTS ON LEVOQUINE, IT IS THE ONLY ANTIBIOTIC THAT WORSE FOR HER. STOP SMOKING PROBIOTICS INCREASE HYDRATION Prescriptions: Levofloxacin [Levaquin] 500 mg PO ONCE #4 tablet Prednisone 10 mg PO BIDWM #14 tablet Allergies/Adverse Reactions: Allergies ceftriaxone sodium [From Rocephin] Adverse Reaction (Verified 10/28/16 19:47) cefuroxime axetil [From Ceftin] Adverse Reaction (Verified 10/28/16 19:47) doxycycline Adverse Reaction (Verified 10/28/16 19:47) nifedipine [From Procardia] Adverse Reaction (Verified 10/28/16 19:47) nitrofurantoin [From Macrobid] Adverse Reaction (Verified 10/28/16 19:47) nitrofurantoin macrocrystal [From Macrobid] Adverse Reaction (Verified 10/28/16 19:47) Home Medications: Ambulatory Orders Albuterol Sulfate [Albuterol Sulfate Hfa] 2 puff IH QID 02/13/14 Amlodipine Besylate [Norvasc] 5 mg PO DAILY 02/13/14 Atorvastatin Calcium [Lipitor] 40 mg PO BEDTIME 02/13/14 Benazepril HCl [Lotensin] 20 mg PO DAILY 02/13/14 Buspirone HCl 5 mg PO TID PRN 02/13/14 Esomeprazole Magnesium [Nexium] 40 mg PO BID 02/13/14 Furosemide [Lasix] 40 mg PO DAILY 02/13/14 Oxycodone HCl/Acetaminophen [Percocet 10-325 mg Tablet] 1 each PO Q4-6H PRN Promethazine HCl [Phenergan Tab] 25 mg PO Q6H PRN 02/13/14 Ropinirole HCl [Requip] 2 mg PO BEDTIME 02/13/14 Sotalol HCl [Sotalol] 60 mg PO BID 02/13/14 Spironolactone [Aldactone] 25 mg PO DAILY 02/13/14 Topiramate [Topamax] 50 mg PO BEDTIME 02/13/14 Zolpidem Tartrate [Ambien] 10 mg PO BEDTIME 02/13/14 Venlafaxine HCl [Effexor Xr] 150 mg PO BEDTIME 07/04/14 Insulin Lispro [Humalog] 0 unit SQ TIDWM PRN #1 ml 07/12/14 Budesonide/Formoterol Fumarate [Symbicort 160-4.5 Mcg Inhaler] 2 puff IH BID PRN 05/28/15 Tizanidine HCl [Zanaflex] 4 mg PO TID 05/28/15 Gabapentin [Neurontin] 800 mg PO QID 07/05/16 Levothyroxine Sodium [Synthroid] 150 mcg PO DAILY 07/06/16 Tiotropium [place] [Spiriva Respimat] 2.5 mcg IH DAILY 07/09/16 Warfarin Sodium [Coumadin] 4 mg PO QPM 07/09/16 Insulin Detemir [Levemir] 20 unit SUBCUT BEDTIME 09/06/16 Levofloxacin [Levaquin] 500 mg PO DAILY #7 tablet 10/02/16 Methylprednisolone [Medrol Dosepak] 4 mg PO DIRECTED #1 pkg 10/02/16 Levofloxacin [Levaquin] 500 mg PO ONCE #4 tablet 10/28/16 Prednisone 10 mg PO BIDWM #14 tablet 10/28/16 Disposition Discussed With: Patient, Family
--- NOTE | 2016-10-29 07:42 | DI ---
EXAM: Three views of the lumbar spine HISTORY: Back pain. COMPARISON: None FINDINGS: There is mild rightward curvature of the lumbar spine. IVC filter is in place with surgic al clips in the right upper abdomen. There is no acute compression fracture or subluxation. There i s narrowing of the lumbosacral junction with scattered facet arthropathy. IMPRESSION: 1. No acute compression fracture or subluxation with rightward curvature of the lumbar spine. 2. There is scattered facet arthropathy and narrowing of the lumbosacral junction.
== END 2016-10-28 22:58 | disposition home or self-care (01) ==
LOC: ED 19:41
DX: J06.9 Acute upper respiratory infection, unspecified (principal); Z79.899 Other long term (current) drug therapy; F17.210 Nicotine dependence, cigarettes, uncomplicated
CPT/HCPCS: 96372; 99283

== ENCOUNTER 2016-11-20 21:50 | Inpatient (IN) ==
[2016-11-20] MEDS ORDERED: SODIUM CHLORIDE 500 ML IV STA (21:56)
[2016-11-20] MEDS ORDERED: LEVAQUIN 500 MG in PREMIX 100 ML D5W 1 BAG IV STA (21:57)
[2016-11-20] MEDS ORDERED: DUONEB NEB STA (21:58)
[2016-11-20] MEDS ORDERED: LEVAQUIN 100 ML IV ONE (22:02)
[2016-11-20 22:23] LABS: ABG BASE EXCESS -6 (-2.0-2.0); ABG HCO3 20.4 (22.0-26.0); ABG PCO2 40.8 mmHg (35-45); ABG PH 7.307 (7.35-7.45); ABG TCO2 22 (22.0-28.0)
--- NOTE | 2016-11-20 22:26 | ED.PDOC ---
General ED Provider: Dr. CASIMIRO FREEMAN-ER Chief Complaint: Shortness of Air Stated Complaint: im sob , coughing and running a fever Time Seen by Physician: 21:55 Mode of Arrival: Walk-In Information Source: Patient, Family Exam Limitations: No limitations Primary Care Provider: SHARRI NICHOLSON Nursing and Triage Documentation Reviewed and Agree: Yes Respiratory Complaint Exam - Respiratory Complaint/Exam Onset/Duration: 4 days Symptoms Are: Still present Timing: Intermittent Initial Severity: Mild Current Severity: Moderate Location: Chest Character: Reports: Productive cough Aggravating: Reports: URI, Passive smoke exposure Alleviating: Reports: Bronchodilators Associated Signs and Symptoms: Reports: Dyspnea, Fever, Chills, URI. Denies: Rapid breathing, Chest pain, Pleuritic chest pain, Wheezing, Hemoptysis, Dizziness, Calf pain, Calf swelling, Edema, Nasal congestion, Hoarseness, Sinus discomfort, Vomiting, Sore throat, Weight loss, Decreased oral intake, Increased thirst, Increased appetite, Increased urination Related History: Reports: Similar episode History of Healthcare-Acquired Pneumonia: No Pulmonary Embolism Risk Factors: Smoking Pseudomonas Risk Factors: Reports: Chronic Lung Disease Tuberculosis Risk Factors: Reports: Chronic Resp. Faliure Status Asthmaticus Risk Factors: Reports: None Home Oxygen Use: Yes Recent Stress Test: No Recent Echo/LV Function: No Current Antibiotic Use: Yes Respiratory Distress: None Inadequate Respiratory Effort: No Dysphagia Present: No Stridor Present: No JVD Present: No Accessory Muscle Use: No Retractions: Not Present Diminished Breath Sounds: No Sinus Tenderness: None Grunting Respirations: No Kussmaul Respirations: No Differential Diagnoses: Pneumonia, Bronchitis Non-Traumatic Chest Pain Syncope: EKG Performed Review of Systems - Review Of Systems Constitutional: Reports: No symptoms Eyes: Reports: No symptoms Ears, Nose, Mouth, Throat: Reports: No symptoms Respiratory: Reports: Cough, Short of air, Wheezing Cardiac: Reports: No symptoms GI: Reports: No symptoms : Reports: No symptoms Musculoskeletal: Reports: No symptoms Skin: Reports: No symptoms Neurological: Reports: No symptoms Endocrine: Reports: No symptoms Hematologic/Lymphatic: Reports: No symptoms All Other Systems: Reviewed and Negative Past Medical History - Past Medical History Previously Healthy: No Endocrine: Reports: DM 2 Cardiovascular: Reports: CAD, Hypertension, A-Fib Respiratory: Reports: COPD, Pneumonia Hematological: Reports: None Gastrointestinal: Reports: GERD Genitourinary: Reports: None Neuro/Psych: Reports: Anxiety, Depression Musculoskeletal: Reports: Arthritis Cancer: Reports: None Last Menstrual Period: NA - Surgical History General Surgical History: Reports: Hysterectomy, CABG, Pacemaker, Other (Aortic valve replacement. ) - Family History Family History: Reports: Unknown - Social History Smoking Status: Current some day smoker Hx Substance Use: No Alcohol Screening: None Lives: With family - Immunizations Tetanus Shot up to Date: No Physical Exam - Physical Exam Appearance: Ill-appearing Ill-appearing: Mild Eyes: MYKE, EOMI, Conjunctiva clear ENT: Ears normal Neck: Supple Respiratory: Crackles, Rhonchi Cardiovascular: RRR GI/: Soft, Nontender, No masses, Bowel sounds normal, No Organomegaly Musculoskeletal: Normal strength, ROM intact, No edema, No calf tenderness Skin: Warm, Dry, Normal color Neurological: Sensation intact, Motor intact, Reflexes intact, Cranial nerves intact, Alert, Oriented Psychiatric: Affect appropriate, Mood appropriate Interpretation - Radiology Interpretation Radiology Interpretation By: Radiologist Radiology Results: Positive Exam Interpreted: CT Scan Physician Notification - Case Discussed Physician Notified: dr [email or web address] Time of Notification: 23:01 Critical Care Note - Critical Care Note Total Time (mins): 0 Course - Course Hematology/Chemistry: 11/20/16 22:00 11/20/16 22:00 Orders, Labs, Meds: Lab Review 11/20/16 11/20/16 21:54 22:00 WBC 10.88 H RBC 4.09 L Hgb 12.3 Hct 35.7 L MCV 87.3 MCH 30.1 MCHC 34.5 RDW Coeff of Kalani 12.9 Plt Count 233 Immature Gran % (Auto) 0.6 Neut % (Auto) 67.7 Lymph % (Auto) 19.8 [place] % (Auto) 8.5 Eos % (Auto) 2.9 Baso % (Auto) 0.5 Immature Gran # (Auto) 0.1 Neut # 7.4 H Lymph # 2.2 [place] # 0.9 Eos # 0.3 Baso # 0.1 PT 13.9 H INR 1.35 Puncture Site Rb O2 Saturation 93.0 L ABG pH 7.307 L ABG pCO2 40.8 ABG pO2 73.0 L ABG HCO3 20.4 L ABG Total CO2 22 ABG Base Excess -6 L Winston Test + FiO2 % 21.0 Sodium 130 L Potassium 3.5 Chloride 96 L Carbon Dioxide 22 L Anion Gap 15.5 BUN 10 Creatinine 1.28 Estimated GFR (MDRD) 42.00 BUN/Creatinine Ratio 7.81 Glucose 249 H Lactic Acid 8.9 Calcium 9.8 Total Bilirubin 0.42 AST 12 L ALT 6 L Alkaline Phosphatase 104 Total Creatine Kinase 35 Troponin I 0.0930 B-Natriuretic Peptide 156 H Total Protein 7.4 Albumin 3.2 L Globulin 4.2 Albumin/Globulin Ratio 0.76 Procalcitonin < 0.05 Orders Category Date Time Status ABG DRAW REQUEST Stat CARDIO 11/20/16 21:55 Completed EKG-(ED ONLY) Stat CARDIO 11/20/16 21:55 Completed NEBULIZER TREATMENT Stat CARDIO 11/20/16 21:58 Completed ED IV/MEDIPORT/POWERPORT .ONCE EMERGENCY 11/20/16 21:56 Active ABG Stat LAB 11/20/16 21:54 Completed B-TYPE NATRIURETIC PEPTIDE Stat LAB 11/20/16 22:00 Completed BLOOD CULTURE Stat LAB 11/20/16 22:00 Received CBC W/ AUTO DIFF Stat LAB 11/20/16 22:00 Completed COMPREHENSIVE METABOLIC PANEL Stat LAB 11/20/16 22:00 Completed CREATINE KINASE Stat LAB 11/20/16 22:00 Completed LACTIC ACID Stat LAB 11/20/16 22:00 Completed MOLECULAR GROUP A STREP Stat LAB 11/20/16 21:57 Results PROCALCITONIN Stat LAB 11/20/16 22:00 Completed PT WITH INR Stat LAB 11/20/16 22:00 Completed STREP SCREEN Stat LAB 11/20/16 21:57 Results TROPONIN I Stat LAB 11/20/16 22:00 Completed 0.9 % Sodium Chloride [Saline Flush] MEDS 11/20/16 21:56 Ordered 1 syr IVF PRN PRN Hydrocodone Bit/Acetaminophen [[place] 5-325] MEDS 11/20/16 22:30 Discontinued 1 tab PO ONCE STA Ipratropium/Albuterol Neb [Duoneb] MEDS 11/20/16 21:58 Discontinued 1 vial NEB ONCE STA Levofloxacin/D5w [Levaquin] 100 ml MEDS 11/20/16 22:02 Discontinued IV .STK-MED Levofloxacin/D5w [Levaquin] 500 mg MEDS 11/20/16 21:57 Discontinued Premix 100 ml D5w 1 bag IV ONCE Sodium Chloride 0.9% [Sodium Chloride] 500 ml MEDS 11/20/16 21:56 Active IV 30 mls/hr CT CHEST W/O CONTRAST Stat RADS 11/20/16 21:57 Completed Medications Generic Name Dose Route Start Last Admin Trade Name Freq PRN Reason Stop Dose Admin Sodium Chloride 500 mls @ 30 mls/hr 11/20/16 21:56 11/20/16 22:29 Sodium Chloride IV 11/21/16 14:35 30 mls/hr .[id number] STA Administration Sodium Chloride 1 syr 11/20/16 21:56 Saline Flush IVF PRN PRN To flush IV Discontinued Medications Generic Name Dose Route Start Last Admin Trade Name Freq PRN Reason Stop Dose Admin Acetaminophen/Hydrocodone Bitart 1 tab 11/20/16 22:30 11/20/16 22:37 [place] 5-325 PO 11/20/16 22:31 1 tab ONCE STA Administration Albuterol/Ipratropium 1 vial 11/20/16 21:58 11/20/16 22:10 Duoneb NEB 11/20/16 21:59 1 vial ONCE STA Administration Levofloxacin/Dextrose 500 mg/ 100 mls @ 100 mls/hr 11/20/16 21:57 11/20/16 22 :30 Dextrose IV 11/20/16 22:56 100 mls/hr ONCE STA Administration Vital Signs: Temp Pulse Resp BP Pulse Ox 11/20/16 21:52 98.8 F 68 24 137/77 100 Departure - Departure Time of Disposition: 23:01 Disposition: HOME SELF-CARE Discharge Problem: Pneumonia Qualifiers: Pneumonia type: due to unspecified organism Laterality: bilateral Lung location : unspecified part of lung Qualifier Code: (J18.9) Pneumonia, unspecified organism Instructions: Bacterial Pneumonia (ED) Condition: Stable Pt referred to PMD for follow-up: No Allergies/Adverse Reactions: Allergies ceftriaxone sodium [From Rocephin] Adverse Reaction (Verified 11/20/16 22:04) cefuroxime axetil [From Ceftin] Adverse Reaction (Verified 11/20/16 22:04) doxycycline Adverse Reaction (Verified 11/20/16 22:04) nifedipine [From Procardia] Adverse Reaction (Verified 11/20/16 22:04) nitrofurantoin [From Macrobid] Adverse Reaction (Verified 11/20/16 22:04) nitrofurantoin macrocrystal [From Macrobid] Adverse Reaction (Verified 11/20/16 22:04) Home Medications: Ambulatory Orders Albuterol Sulfate [Albuterol Sulfate Hfa] 2 puff IH QID 02/13/14 Amlodipine Besylate [Norvasc] 5 mg PO DAILY 02/13/14 Atorvastatin Calcium [Lipitor] 40 mg PO BEDTIME 02/13/14 Benazepril HCl [Lotensin] 20 mg PO DAILY 02/13/14 Buspirone HCl 5 mg PO TID PRN 02/13/14 Esomeprazole Magnesium [Nexium] 40 mg PO BID 02/13/14 Furosemide [Lasix] 40 mg PO DAILY 02/13/14 Oxycodone HCl/Acetaminophen [Percocet 10-325 mg Tablet] 1 each PO Q4-6H PRN Promethazine HCl [Phenergan Tab] 25 mg PO Q6H PRN 02/13/14 Ropinirole HCl [Requip] 2 mg PO BEDTIME 02/13/14 Sotalol HCl [Sotalol] 60 mg PO BID 02/13/14 Spironolactone [Aldactone] 25 mg PO DAILY 02/13/14 Topiramate [Topamax] 50 mg PO BEDTIME 02/13/14 Zolpidem Tartrate [Ambien] 10 mg PO BEDTIME 02/13/14 Venlafaxine HCl [Effexor Xr] 125 mg PO BEDTIME 07/04/14 Insulin Lispro [Humalog] 0 unit SQ TIDWM PRN #1 ml 07/12/14 Budesonide/Formoterol Fumarate [Symbicort 160-4.5 Mcg Inhaler] 2 puff IH BID PRN 05/28/15 Tizanidine HCl [Zanaflex] 4 mg PO TID 05/28/15 Gabapentin [Neurontin] 800 mg PO QID 07/05/16 Levothyroxine Sodium [Synthroid] 125 mcg PO DAILY 07/06/16 Tiotropium [place] [Spiriva Respimat] 2.5 mcg IH DAILY 07/09/16 Warfarin Sodium [Coumadin] 4 mg PO QPM 07/09/16 Insulin Detemir [Levemir] 20 unit SUBCUT BEDTIME 09/06/16 Disposition Discussed With: Patient, Family
[2016-11-20 22:27] LABS: BASOPHILS # (AUTO) 0.1 K/uL (0-0.2); BASOPHILS % (AUTO) 0.5 % (0.0-3.0); EOSINOPHILS # (AUTO) 0.3 K/ul (0.0-0.7); EOSINOPHILS % (AUTO) 2.9 % (0.0-7.0); HEMATOCRIT 35.7 % (37.0-47.0); HEMOGLOBIN 12.3 g/dl (12.0-16.0); IMMATURE GRANULOCYTE % (AUTO) 0.6 % (0.0-5.0); LYMPHOCYTES # (AUTO) 2.2 K/uL (0.60-3.4); LYMPHOCYTES % (AUTO) 19.8 (10.0-50.0); MEAN CORPUSCULAR HEMOGLOBIN 30.1 pg (27.0-31.0); MEAN CORPUSCULAR HGB CONC 34.5 (31.8-35.4); MEAN CORPUSCULAR VOLUME 87.3 fl (81.0-99.0); MONOCYTES # (AUTO) 0.9 K/uL (0.4-2.0); MONOCYTES % (AUTO) 8.5 (0-10); NEUTROPHILS # (AUTO) 7.4 K/ul (2.0-6.9); NEUTROPHILS % (AUTO) 67.7; PLATELET COUNT 233 10^3/uL (140-440); RED BLOOD COUNT 4.09 10^6/ul (4.20-5.40); WHITE BLOOD COUNT 10.88 K/ul (4.6-10.2)
[2016-11-20] MEDS ORDERED: NORCO 5-325 PO STA (22:30)
[2016-11-20 22:42] LABS: PROTHROMBIN TIME 13.9 SEC (9.3-11.0)
[2016-11-20 22:43] LABS: ALBUMIN 3.2 g/dL (3.4-5.0); ALBUMIN/GLOBULIN RATIO 0.76; ANION GAP 15.5; BILIRUBIN,TOTAL 0.42 mg/dL (0.00-1.20); BUN/CREATININE RATIO 7.81; CALCIUM 9.8 mg/dL (8.2-10.2); CREATININE 1.28 mg/dL (0.60-1.30); POTASSIUM 3.5 mmol/L (3.5-5.10); TOTAL PROTEIN 7.4 g/dL (5.8-8.1)
[2016-11-20 22:50] LABS: TROPONIN I 0.093 ng/ml (0.0000-0.4000)
--- NOTE | 2016-11-20 22:54 | CT ---
EXAM: CT chest without contrast HISTORY: Cough, fever COMPARISON: 08/30/2016 TECHNIQUE: CT chest performed without intravenous contrast. Coronal and sagittal reformatted image s obtained. FINDINGS: Heart top normal in size. Aortic valve prosthesis. Left-sided cardiac pacer. Coronary ca lcifications. Ascending aorta ectatic measuring 3.7 cm. Moderate atherosclerosis. Esophagus unrem arkable. Evaluation for lymphadenopathy limited without contrast. No lymphadenopathy identified. Calcified mediastinal and hilar lymph nodes, consistent with old granulomatous disease. Main pulmon jana artery measures 3.8 cm. Patient status post cholecystectomy. Visualized portion upper abdomen demonstrates no acute abnormality. IVC filter present. No acute abnormalities of the bones. There is degenerative change in the spine. Central airway is patent. No pleural effusion. No pneumotho rax. Bilateral ground-glass infiltrates scattered throughout all lobes of the lung. Granulomatous calcification. 4 mm pulmonary nodule right lung, unchanged from 2015, most consistent with benign e tiology. IMPRESSION: 1. Multifocal bilateral ground-glass infiltrates, most consistent with pneumonia. CT chest follow- up recommended 6-8 weeks to ensure resolution 2. Dilated main pulmonary artery, a finding that can be seen in pulmonary artery hypertension.
[2016-11-20] MEDS ORDERED: NON-FORMULARY MEDICATION (Buspirone Hcl [Buspirone Hcl] 5 MG) PO PRN (23:07)
[2016-11-20] MEDS ORDERED: PHENERGAN TAB PO PRN (23:07)
[2016-11-20] MEDS ORDERED: SODIUM CHLORIDE 1,000 ML IV SCH (23:30)
[2016-11-21 00:41] VITALS: BMI 22.2
[2016-11-21] MEDS: DUONEB NEB SCH ×6 (01:33→22:20)
[2016-11-21] MEDS ORDERED: DUONEB NEB ONE (01:33)
[2016-11-21 04:53] LABS: BASOPHILS # (AUTO) 0.1 K/uL (0-0.2); BASOPHILS % (AUTO) 0.7 % (0.0-3.0); EOSINOPHILS # (AUTO) 0.3 K/ul (0.0-0.7); EOSINOPHILS % (AUTO) 2.8 % (0.0-7.0); HEMOGLOBIN 11.1 g/dl (12.0-16.0); IMMATURE GRANULOCYTE % (AUTO) 1.1 % (0.0-5.0); LYMPHOCYTES # (AUTO) 1.9 K/uL (0.60-3.4); LYMPHOCYTES % (AUTO) 20.2 (10.0-50.0); MEAN CORPUSCULAR HEMOGLOBIN 29.4 pg (27.0-31.0); MEAN CORPUSCULAR HGB CONC 33.6 (31.8-35.4); MEAN CORPUSCULAR VOLUME 87.5 fl (81.0-99.0); MONOCYTES % (AUTO) 10.4 (0-10); NEUTROPHILS # (AUTO) 6.2 K/ul (2.0-6.9); NEUTROPHILS % (AUTO) 64.8; PLATELET COUNT 184 10^3/uL (140-440); RED BLOOD COUNT 3.77 10^6/ul (4.20-5.40); WHITE BLOOD COUNT 9.61 K/ul (4.6-10.2)
[2016-11-21 05:14] LABS: ALANINE AMINOTRANSFERASE < 6 U/L (12-78); ALBUMIN 2.7 g/dL (3.4-5.0); ALBUMIN/GLOBULIN RATIO 0.79; ALKALINE PHOSPHATASE 76 U/L (53-141); ANION GAP 15.1; ASPARTATE AMINO TRANSFERASE 10 U/L (15-37); BILIRUBIN,TOTAL 0.31 mg/dL (0.00-1.20); BLOOD UREA NITROGEN 8 mg/dL (7-18); BUN/CREATININE RATIO 8.08; CALCIUM 9.5 mg/dL (8.2-10.2); CARBON DIOXIDE 24 mmol/L (23-31); CHLORIDE 100 mmol/L (98-107); CREATININE 0.99 mg/dL (0.60-1.30); GLUCOSE 174 mg/dL (82-115); POTASSIUM 4.1 mmol/L (3.5-5.10); SODIUM 135 mmol/L (136-145); TOTAL PROTEIN 6.1 g/dL (5.8-8.1)
[2016-11-21] MEDS ORDERED: BUSPAR PO PRN (07:27)
[2016-11-21] MEDS ORDERED: LOVENOX SUBCUT SCH (09:00)
[2016-11-21] MEDS ORDERED: LASIX TAB PO SCH (09:00)
[2016-11-21] MEDS ORDERED: BENAZEPRIL HCL 20 MG PO SCH ×22 (09:00)
[2016-11-21] MEDS ORDERED: NON-FORMULARY MEDICATION (Gabapentin [Neurontin] 800 MG) PO SCH ×22 (09:00)
[2016-11-21] MEDS ORDERED: NON-FORMULARY MEDICATION (Levothyroxine Sodium [Synthroid] 125 MCG) PO SCH ×22 (09:00)
[2016-11-21] MEDS ORDERED: NON-FORMULARY MEDICATION (Esomeprazole Magnesium [Nexium] 40 MG) PO SCH ×22 (09:00)
[2016-11-21] MEDS: PERCOCET 10-325 PO PRN ×2 (09:36→14:11)
[2016-11-21] MEDS: SYMBICORT 160-4.5 MCG INHALER IH SCH ×2 (09:36→21:18)
[2016-11-21] MEDS: PROTONIX PO SCH ×2 (09:37→21:27)
[2016-11-21] MEDS: LOTENSIN PO SCH (09:37)
[2016-11-21] MEDS: NEURONTIN PO SCH ×8 (09:38→21:28)
[2016-11-21] MEDS: SYNTHROID PO SCH ×2 (09:38)
[2016-11-21] MEDS: ZANAFLEX PO SCH ×3 (09:38→21:26)
[2016-11-21] MEDS: ALDACTONE PO SCH (09:38)
[2016-11-21] MEDS: SOLU-MEDROL 40 MG IVP SCH ×2 (09:39→21:18)
[2016-11-21] MEDS: LASIX TAB PO SCH (09:39)
[2016-11-21] MEDS: NORVASC PO SCH (09:39)
[2016-11-21] MEDS: SOTALOL HCL 60 MG PO SCH ×2 (09:40→21:28)
[2016-11-21] MEDS: HUMULIN R SUBCUT PRN ×3 (11:51→21:30)
[2016-11-21] MEDS ORDERED: NON-FORMULARY MEDICATION (Warfarin Sodium [Coumadin] 4 MG) PO SCH ×22 (17:00)
[2016-11-21] MEDS: COUMADIN PO SCH (17:01)
[2016-11-21] MEDS ORDERED: NON-FORMULARY MEDICATION (Zolpidem Tartrate [Ambien] 10 MG) PO SCH (21:00)
[2016-11-21] MEDS ORDERED: NON-FORMULARY MEDICATION (Ropinirole Hcl [Requip] 2 MG) PO SCH ×22 (21:00)
[2016-11-21] MEDS ORDERED: NON-FORMULARY MEDICATION (Atorvastatin Calcium [Lipitor] 40 MG) PO SCH ×22 (21:00)
[2016-11-21] MEDS ORDERED: VENLAFAXINE HCL 125 MG PO SCH (21:00)
[2016-11-21] MEDS: LEVAQUIN 750 MG in PREMIX 150 ML D5W 1 BAG IV SCH (21:23)
[2016-11-21] MEDS: TOPAMAX PO SCH (21:26)
[2016-11-21] MEDS: REQUIP PO SCH (21:26)
[2016-11-21] MEDS: AMBIEN PO SCH (21:27)
[2016-11-21] MEDS: LIPITOR PO SCH (21:27)
[2016-11-21] MEDS: LEVEMIR SUBCUT SCH (21:32)
[2016-11-21] MEDS ORDERED: NON-FORMULARY MEDICATION (Venlafaxine Hcl [Effexor Xr] 150 MG) PO SCH ×44 (21:37→22:00)
[2016-11-22] MEDS: PERCOCET 10-325 PO PRN ×5 (01:27→22:11)
[2016-11-22] MEDS: DUONEB NEB SCH ×6 (02:15→21:45)
[2016-11-22] MEDS: SYNTHROID PO SCH ×2 (05:53→05:54)
[2016-11-22] MEDS: LASIX TAB PO SCH (05:54)
[2016-11-22 06:00] LABS: BASOPHILS % (AUTO) 0.2 % (0.0-3.0); HEMATOCRIT 31.5 % (37.0-47.0); HEMOGLOBIN 10.7 g/dl (12.0-16.0); IMMATURE GRANULOCYTE % (AUTO) 0.8 % (0.0-5.0); LYMPHOCYTES # (AUTO) 0.9 K/uL (0.60-3.4); LYMPHOCYTES % (AUTO) 7.4 (10.0-50.0); MEAN CORPUSCULAR HEMOGLOBIN 29.6 pg (27.0-31.0); MONOCYTES # (AUTO) 0.4 K/uL (0.4-2.0); MONOCYTES % (AUTO) 3.5 (0-10); NEUTROPHILS # (AUTO) 10.6 K/ul (2.0-6.9); NEUTROPHILS % (AUTO) 88.1; PLATELET COUNT 221 10^3/uL (140-440); RED BLOOD COUNT 3.62 10^6/ul (4.20-5.40); WHITE BLOOD COUNT 12.03 K/ul (4.6-10.2)
[2016-11-22 06:24] LABS: ALBUMIN 2.8 g/dL (3.4-5.0); ALBUMIN/GLOBULIN RATIO 0.85; ANION GAP 13.6; BILIRUBIN,TOTAL 0.18 mg/dL (0.00-1.20); BUN/CREATININE RATIO 18.01; CALCIUM 9.9 mg/dL (8.2-10.2); CREATININE 1.11 mg/dL (0.60-1.30); POTASSIUM 4.6 mmol/L (3.5-5.10); TOTAL PROTEIN 6.1 g/dL (5.8-8.1)
[2016-11-22] MEDS: HUMULIN R SUBCUT PRN ×4 (06:30→21:21)
[2016-11-22] MEDS: ALDACTONE PO SCH (08:27)
[2016-11-22] MEDS: NEURONTIN PO SCH ×8 (08:27→21:25)
[2016-11-22] MEDS: LOTENSIN PO SCH (08:27)
[2016-11-22] MEDS: PROTONIX PO SCH ×2 (08:27→21:24)
[2016-11-22] MEDS: NORVASC PO SCH (08:28)
[2016-11-22] MEDS: ZANAFLEX PO SCH ×3 (08:28→21:23)
[2016-11-22] MEDS: SOLU-MEDROL 40 MG IVP SCH ×2 (08:28→21:20)
[2016-11-22] MEDS: SOTALOL HCL 60 MG PO SCH ×2 (08:29→21:22)
[2016-11-22] MEDS: SYMBICORT 160-4.5 MCG INHALER IH SCH ×2 (08:36→21:20)
[2016-11-22] MEDS: COUMADIN PO SCH (16:55)
[2016-11-22] MEDS: LEVAQUIN 750 MG in PREMIX 150 ML D5W 1 BAG IV SCH (21:20)
[2016-11-22] MEDS: LEVEMIR SUBCUT SCH (21:22)
[2016-11-22] MEDS: REQUIP PO SCH (21:23)
[2016-11-22] MEDS: LIPITOR PO SCH (21:24)
[2016-11-22] MEDS: AMBIEN PO SCH (21:24)
[2016-11-22] MEDS: EFFEXOR XR PO SCH ×2 (21:24→22:15)
[2016-11-22] MEDS: TOPAMAX PO SCH (21:24)
[2016-11-23] MEDS: DUONEB NEB SCH ×6 (01:10→23:40)
[2016-11-23] MEDS: PERCOCET 10-325 PO PRN ×5 (03:13→22:16)
[2016-11-23 05:10] LABS: PROTHROMBIN TIME 13.3 SEC (9.3-11.0)
[2016-11-23 05:17] LABS: BASOPHILS % (AUTO) 0.2 % (0.0-3.0); HEMATOCRIT 30.8 % (37.0-47.0); HEMOGLOBIN 10.6 g/dl (12.0-16.0); IMMATURE GRANULOCYTE % (AUTO) 1.1 % (0.0-5.0); LYMPHOCYTES # (AUTO) 1.1 K/uL (0.60-3.4); LYMPHOCYTES % (AUTO) 5.8 (10.0-50.0); MEAN CORPUSCULAR HGB CONC 34.4 (31.8-35.4); MEAN CORPUSCULAR VOLUME 87.3 fl (81.0-99.0); MONOCYTES # (AUTO) 0.3 K/uL (0.4-2.0); MONOCYTES % (AUTO) 1.9 (0-10); NEUTROPHILS # (AUTO) 16.4 K/ul (2.0-6.9); PLATELET COUNT 246 10^3/uL (140-440); RED BLOOD COUNT 3.53 10^6/ul (4.20-5.40)
[2016-11-23 05:18] LABS: ALBUMIN 2.9 g/dL (3.4-5.0); ALBUMIN/GLOBULIN RATIO 0.71; ANION GAP 15.5; BILIRUBIN,TOTAL 0.13 mg/dL (0.00-1.20); BUN/CREATININE RATIO 22.72; CALCIUM 9.9 mg/dL (8.2-10.2); CREATININE 1.32 mg/dL (0.60-1.30); POTASSIUM 5.5 mmol/L (3.5-5.10)
[2016-11-23] MEDS: SYNTHROID PO SCH ×2 (05:44)
[2016-11-23] MEDS: HUMULIN R SUBCUT PRN ×4 (05:44→21:04)
[2016-11-23] MEDS: LASIX TAB PO SCH (05:44)
[2016-11-23] MEDS ORDERED: COUMADIN PO SCH ×3 (08:04→17:00)
[2016-11-23] MEDS: NEURONTIN PO SCH ×8 (08:20→20:48)
[2016-11-23] MEDS: ALDACTONE PO SCH (08:20)
[2016-11-23] MEDS: LOTENSIN PO SCH (08:21)
[2016-11-23] MEDS: SYMBICORT 160-4.5 MCG INHALER IH SCH ×2 (08:21→20:47)
[2016-11-23] MEDS: ZANAFLEX PO SCH ×3 (08:21→20:50)
[2016-11-23] MEDS: SOTALOL HCL 60 MG PO SCH ×2 (08:21→20:50)
[2016-11-23] MEDS: PROTONIX PO SCH ×2 (08:21→20:50)
[2016-11-23] MEDS: NORVASC PO SCH (08:21)
[2016-11-23] MEDS: SOLU-MEDROL 40 MG IVP SCH ×2 (09:03→21:18)
[2016-11-23] MEDS: SODIUM CHLORIDE 500 ML IV SCH (09:08)
--- NOTE | 2016-11-23 14:12 | DI ---
EXAM: Two views of the chest. History: Follow-up pneumonia Comparison: Chest CT 11/20/2016 Findings: Pacer device. Sternotomy wires. Emphysema. Prominent contour the main pulmonary artery again noted. No acute osseous abnormalities. IVC filter. No pleural effusion. Heart size is uppe r limits of normal. Patchy bilateral lung infiltrates are persistent but improved. Impression: Persistent but improving patchy bilateral lung infiltrates. Continued follow-up recomm ended.
[2016-11-23] MEDS: REQUIP PO SCH (20:47)
[2016-11-23] MEDS: EFFEXOR XR PO SCH (20:48)
[2016-11-23] MEDS: TOPAMAX PO SCH (20:48)
[2016-11-23] MEDS: LIPITOR PO SCH (20:49)
[2016-11-23] MEDS: AMBIEN PO SCH (20:50)
[2016-11-23] MEDS: LEVEMIR SUBCUT SCH (21:06)
[2016-11-24] MEDS ORDERED: LASIX TAB ONE (04:30)
[2016-11-24 04:46] LABS: BASOPHILS % (AUTO) 0.2 % (0.0-3.0); HEMATOCRIT 31.4 % (37.0-47.0); HEMOGLOBIN 10.5 g/dl (12.0-16.0); IMMATURE GRANULOCYTE % (AUTO) 2.7 % (0.0-5.0); LYMPHOCYTES # (AUTO) 1.3 K/uL (0.60-3.4); LYMPHOCYTES % (AUTO) 8.1 (10.0-50.0); MEAN CORPUSCULAR HEMOGLOBIN 29.2 pg (27.0-31.0); MEAN CORPUSCULAR HGB CONC 33.4 (31.8-35.4); MEAN CORPUSCULAR VOLUME 87.2 fl (81.0-99.0); MONOCYTES # (AUTO) 0.4 K/uL (0.4-2.0); MONOCYTES % (AUTO) 2.7 (0-10); NEUTROPHILS # (AUTO) 13.3 K/ul (2.0-6.9); NEUTROPHILS % (AUTO) 86.3; PLATELET COUNT 269 10^3/uL (140-440)
[2016-11-24 05:08] LABS: ALANINE AMINOTRANSFERASE 9 U/L (12-78); ALBUMIN/GLOBULIN RATIO 0.91; ALKALINE PHOSPHATASE 66 U/L (53-141); ANION GAP 14.9; ASPARTATE AMINO TRANSFERASE 12 U/L (15-37); BLOOD UREA NITROGEN 33 mg/dL (7-18); CALCIUM 10.1 mg/dL (8.2-10.2); CARBON DIOXIDE 28 mmol/L (23-31); CHLORIDE 93 mmol/L (98-107); CREATININE 1.17 mg/dL (0.60-1.30); GLUCOSE 194 mg/dL (82-115); POTASSIUM 4.9 mmol/L (3.5-5.10); SODIUM 131 mmol/L (136-145); TOTAL PROTEIN 6.3 g/dL (5.8-8.1)
[2016-11-24] MEDS: DUONEB NEB SCH ×4 (05:12→23:13)
[2016-11-24 05:21] LABS: BILIRUBIN,TOTAL < 0.10 mg/dL (0.00-1.20)
[2016-11-24] MEDS: HUMULIN R SUBCUT PRN ×4 (05:57→21:15)
[2016-11-24] MEDS: SYNTHROID PO SCH ×2 (05:57)
[2016-11-24 07:42] LABS: PROTHROMBIN TIME 15.4 SEC (9.3-11.0)
[2016-11-24] MEDS: SYMBICORT 160-4.5 MCG INHALER IH SCH ×2 (08:59→21:15)
[2016-11-24] MEDS: LEVAQUIN 500 MG in PREMIX 100 ML D5W 1 BAG IV SCH (09:00)
[2016-11-24] MEDS: SOTALOL HCL 60 MG PO SCH ×2 (09:02→22:07)
[2016-11-24] MEDS: SOLU-MEDROL 40 MG IVP SCH ×2 (09:03→20:49)
[2016-11-24] MEDS: NEURONTIN PO SCH ×4 (09:05→22:08)
[2016-11-24] MEDS: LOTENSIN PO SCH (09:06)
[2016-11-24] MEDS: MUCINEX PO SCH ×2 (09:06→22:08)
[2016-11-24] MEDS: ZANAFLEX PO SCH ×3 (09:06→22:08)
[2016-11-24] MEDS: PROTONIX PO SCH ×2 (09:06→22:08)
[2016-11-24] MEDS: NORVASC PO SCH (09:06)
[2016-11-24] MEDS: ALDACTONE PO SCH (09:06)
[2016-11-24] MEDS: PERCOCET 10-325 PO PRN ×2 (10:17→18:48)
[2016-11-24] MEDS ORDERED: COUMADIN PO ONE (17:00)
[2016-11-24] MEDS: COUMADIN PO SCH (17:17)
[2016-11-24] MEDS: SODIUM CHLORIDE 500 ML IV SCH (20:05)
[2016-11-24] MEDS ORDERED: LEVAQUIN 750 MG in PREMIX 150 ML D5W 1 BAG IV SCH (21:00)
[2016-11-24] MEDS: LEVEMIR SUBCUT SCH (21:17)
[2016-11-24] MEDS: REQUIP PO SCH (22:07)
[2016-11-24] MEDS: EFFEXOR XR PO SCH (22:07)
[2016-11-24] MEDS: TOPAMAX PO SCH (22:08)
[2016-11-24] MEDS: AMBIEN PO PRN (22:09)
[2016-11-24] MEDS: LIPITOR PO SCH (22:09)
[2016-11-25 04:51] LABS: BASOPHILS # (AUTO) 0.1 K/uL (0-0.2); BASOPHILS % (AUTO) 0.3 % (0.0-3.0); HEMATOCRIT 31.9 % (37.0-47.0); HEMOGLOBIN 10.7 g/dl (12.0-16.0); IMMATURE GRANULOCYTE % (AUTO) 4.8 % (0.0-5.0); LYMPHOCYTES # (AUTO) 1.1 K/uL (0.60-3.4); LYMPHOCYTES % (AUTO) 7.7 (10.0-50.0); MEAN CORPUSCULAR HEMOGLOBIN 29.6 pg (27.0-31.0); MEAN CORPUSCULAR HGB CONC 33.5 (31.8-35.4); MEAN CORPUSCULAR VOLUME 88.1 fl (81.0-99.0); MONOCYTES # (AUTO) 0.4 K/uL (0.4-2.0); MONOCYTES % (AUTO) 2.8 (0-10); NEUTROPHILS # (AUTO) 12.2 K/ul (2.0-6.9); NEUTROPHILS % (AUTO) 84.4; PLATELET COUNT 257 10^3/uL (140-440); RED BLOOD COUNT 3.62 10^6/ul (4.20-5.40); WHITE BLOOD COUNT 14.45 K/ul (4.6-10.2)
[2016-11-25 04:58] LABS: PROTHROMBIN TIME 22.3 SEC (9.3-11.0)
[2016-11-25] MEDS: DUONEB NEB SCH ×4 (05:12→23:00)
[2016-11-25 05:14] LABS: ALBUMIN 2.9 g/dL (3.4-5.0); ALBUMIN/GLOBULIN RATIO 0.94; ANION GAP 14.6; BILIRUBIN,TOTAL 0.1 mg/dL (0.00-1.20); BUN/CREATININE RATIO 23.97; CALCIUM 9.6 mg/dL (8.2-10.2); CREATININE 1.46 mg/dL (0.60-1.30); POTASSIUM 4.6 mmol/L (3.5-5.10)
[2016-11-25] MEDS: HUMULIN R SUBCUT PRN ×4 (06:24→20:36)
[2016-11-25] MEDS: ZANAFLEX PO SCH ×3 (06:24→20:42)
[2016-11-25] MEDS: LASIX TAB PO SCH (06:24)
[2016-11-25] MEDS: SYNTHROID PO SCH ×2 (06:24)
[2016-11-25] MEDS: PERCOCET 10-325 PO PRN ×2 (09:01→22:15)
[2016-11-25] MEDS: PROTONIX PO SCH ×2 (09:10→20:42)
[2016-11-25] MEDS: MUCINEX PO SCH ×2 (09:10→20:41)
[2016-11-25] MEDS: ALDACTONE PO SCH (09:10)
[2016-11-25] MEDS: NEURONTIN PO SCH ×4 (09:11→20:42)
[2016-11-25] MEDS: LOTENSIN PO SCH (09:11)
[2016-11-25] MEDS: SYMBICORT 160-4.5 MCG INHALER IH SCH ×2 (09:11→20:39)
[2016-11-25] MEDS: SOLU-MEDROL 40 MG IVP SCH ×2 (09:12→20:40)
[2016-11-25] MEDS: LEVAQUIN 500 MG in PREMIX 100 ML D5W 1 BAG IV SCH (09:12)
[2016-11-25] MEDS: NORVASC PO SCH (09:21)
--- NOTE | 2016-11-25 10:20 | DI ---
EXAM: Two views of the chest. History: Follow-up bilateral lung infiltrates, chest pain. Comparison: Chest radiograph 11/23 2016. Findings: Heart size is stable. Sternotomy wires. Pacer device. Left lower lung subsegmental ate lectasis or infiltrate is increasing. There is probably a tiny left pleural effusion. No pneumotho rax. The visualized osseous structures unchanged. Impression: Left lower lobe subsegmental atelectasis or infiltrate is increasing. There is probably a tiny left pleural effusion.
[2016-11-25] MEDS: SOTALOL HCL 60 MG PO SCH ×2 (11:18→20:40)
--- NOTE | 2016-11-25 13:42 | CT ---
Exam: CT of the chest without intravenous contrast. Comparison: 11/20/2016. Reason for exam: Increasing infiltrate. FINDINGS: Operative changes are seen after midline sternotomy and implanted intracardiac device josh cement. There is an ectatic ascending aorta measuring up to 3.8 cm with moderate atherosclerotic disease. C alcifications are seen within the coronary arterial vasculature. The main pulmonary artery measures approximately 4 cm. There are patchy ground-glass opacities in the left upper, right upper, right lower, and left lower lobes that are similar or decreased when compared to previous imaging. There are in increased consolidative changes in the left lung base best seen on axial images 45 thro ugh 52. The gallbladder is been removed. There is a partially imaged IVC filter in the upper abdomen. No suspicious appearing osteoblastic or osteolytic lesions. Impression: 1. Similar appearing to slightly decreased bilateral ground-glass opacities likely resolving pneumo funmilayo/inflammation. 2. Increasing consolidation in the left lung base consistent with atelectasis or pneumonia. Recomme nd short term follow-up (6-8 weeks) to document resolution. 3. Similar appearing dilated main pulmonary artery. 4. Prominent ascending aorta measuring up to 3.8 cm.
--- NOTE | 2016-11-25 15:16 | PN ---
DATE OF SERVICE: 11/23/16 SUBJECTIVE: The patient was admitted with the lower lobe pneumonia, community acquired pneumonia and shortness of breath. The patient says that she isn't feeling good today, still having cough and getting yellow/green phlegm. REVIEW OF SYSTEMS: CONSTITUTIONAL: No fever, no chills. HEENT: Normal. ENDOCRINE: No weight gain, no weight loss. CVS: No angina symptoms. No CHF symptoms. No palpitations. No atypical chest pain for CAD. Shortness of breath with minimal exertion. No PND, no orthopnea. RESPIRATORY: No cough, no hemoptysis. GI: No nausea, no vomiting. No abdominal pain. : No hematuria. No polyuria. MUSCULOSKELETAL:. No joint swelling. PSYCHIATRIC: Not anxious. No depression. No suicidal thoughts. No homicidal thoughts. SKIN: Intact. No rash. PHYSICAL EXAMINATION: V/S: Blood pressure 116/72, respiratory rate 16, heart rate 65 and temperature 97.0. GENERAL: Cachetic lady laying in the bed. HEENT: Normocephalic, atraumatic. Mucosa dry. Pallor positive. NECK: Supple. No JVD, no carotid bruit. No lymphadenopathy. LUNGS: Decreased with basilar crackles. No rales or rhonchi. HEART: S1, S2 normal. No S3. No murmur, gallop or regurgitation. ABDOMEN: Soft, nontender. Bowel sounds active. No rigidity. No rebound or guarding. No CVA tenderness. EXTREMITIES: No clubbing, cyanosis or pedal edema. MUSCULOSKELETAL: No joint swelling. NEUROLOGIC: Awake, alert, oriented times three. No focal deficit. LYMPHATIC: No lymph nodes palpable. SKIN: Intact. LABS: WBC 18,000, hgb 10.6, hct 10.8, plt count 146, sodium 126, potassium 5.5, chloride 92, bicarb 30, BUN 1.3, glucose 360. ASSESSMENT: 1. COPD exacerbation secondary to the bilateral community acquired pneumonia 2. Hyponatremia mostly likely medication Lasix and Spirolactone 3. Hyperkalemia 4. History of CAD 5. CHF 6. Valvular replacement PLAN: 1. Continue the Levaquin 2. IV fluids 3. Stop the Lasix 4. Chest x-ray Will follow the patient in daily rounds. TIME SPENT: More than 30 minutes MTDD
[2016-11-25] MEDS: COUMADIN PO SCH (17:27)
[2016-11-25] MEDS: LEVEMIR SUBCUT SCH (20:37)
[2016-11-25] MEDS: EFFEXOR XR PO SCH (20:40)
[2016-11-25] MEDS: LIPITOR PO SCH (20:40)
[2016-11-25] MEDS: TOPAMAX PO SCH (20:42)
[2016-11-25] MEDS: REQUIP PO SCH (20:42)
[2016-11-25] MEDS: NICODERM 21 MG TD SCH (20:43)
[2016-11-25] MEDS: AMBIEN PO PRN (22:10)
[2016-11-26] MEDS: ZANAFLEX PO SCH ×2 (04:33→12:47)
[2016-11-26] MEDS: DUONEB NEB SCH ×2 (05:04→11:22)
[2016-11-26] MEDS: SYNTHROID PO SCH ×2 (05:37)
[2016-11-26] MEDS: PERCOCET 10-325 PO PRN ×2 (05:37→13:40)
[2016-11-26] MEDS: LASIX TAB PO SCH (05:37)
[2016-11-26] MEDS: SODIUM CHLORIDE 500 ML IV SCH ×2 (05:38→10:53)
[2016-11-26] MEDS: HUMULIN R SUBCUT PRN ×2 (06:11→11:04)
[2016-11-26 06:12] LABS: BASOPHILS # (AUTO) 0.1 K/uL (0-0.2); BASOPHILS % (AUTO) 0.3 % (0.0-3.0); HEMATOCRIT 31.9 % (37.0-47.0); HEMOGLOBIN 10.8 g/dl (12.0-16.0); IMMATURE GRANULOCYTE % (AUTO) 3.6 % (0.0-5.0); LYMPHOCYTES # (AUTO) 1.3 K/uL (0.60-3.4); LYMPHOCYTES % (AUTO) 7.3 (10.0-50.0); MEAN CORPUSCULAR HEMOGLOBIN 29.9 pg (27.0-31.0); MEAN CORPUSCULAR HGB CONC 33.9 (31.8-35.4); MEAN CORPUSCULAR VOLUME 88.4 fl (81.0-99.0); MONOCYTES # (AUTO) 0.6 K/uL (0.4-2.0); MONOCYTES % (AUTO) 3.1 (0-10); NEUTROPHILS % (AUTO) 85.7; PLATELET COUNT 287 10^3/uL (140-440); RED BLOOD COUNT 3.61 10^6/ul (4.20-5.40); WHITE BLOOD COUNT 17.51 K/ul (4.6-10.2)
[2016-11-26 06:23] LABS: PROTHROMBIN TIME 36.2 SEC (9.3-11.0)
[2016-11-26 06:32] LABS: ALBUMIN 3.1 g/dL (3.4-5.0); ALBUMIN/GLOBULIN RATIO 0.94; ANION GAP 12.7; BILIRUBIN,TOTAL 0.18 mg/dL (0.00-1.20); BUN/CREATININE RATIO 25.49; CALCIUM 10.1 mg/dL (8.2-10.2); CREATININE 1.02 mg/dL (0.60-1.30); POTASSIUM 4.7 mmol/L (3.5-5.10); TOTAL PROTEIN 6.4 g/dL (5.8-8.1)
[2016-11-26] MEDS: SYMBICORT 160-4.5 MCG INHALER IH SCH (08:34)
[2016-11-26] MEDS: SOLU-MEDROL 40 MG IVP SCH (08:35)
[2016-11-26] MEDS: SOTALOL HCL 60 MG PO SCH (08:37)
[2016-11-26] MEDS: LEVAQUIN 500 MG in PREMIX 100 ML D5W 1 BAG IV SCH (08:38)
[2016-11-26] MEDS: LOTENSIN PO SCH (08:39)
[2016-11-26] MEDS: NEURONTIN PO SCH ×2 (08:39→12:48)
[2016-11-26] MEDS: NORVASC PO SCH (08:40)
[2016-11-26] MEDS: MUCINEX PO SCH (08:40)
[2016-11-26] MEDS: PROTONIX PO SCH (08:40)
[2016-11-26] MEDS: ALDACTONE PO SCH (08:40)
[2016-11-26] MEDS: NICODERM 21 MG TD SCH (08:41)
[2016-11-26] MEDS ORDERED: SOTALOL HCL 60 MG PO SCH (09:00)
[2016-11-26 10:48] VITALS: BP 141/80; TEMP 97.3
--- NOTE | 2016-12-09 09:21 | HP ---
DATE OF SERVICE: 11/20/16 REASON FOR HOSPITALIZATION: Shortness of breath HISTORY OF PRESENT ILLNESS: The patient is a 66 year old female with a history or chronic COPD and multiple medical problems. She has been coughing and congested for couple of days getting yellow/green phlegm and having fever and chills. Started with the shortness of breath, taking her routine medication breathing treatment and it was not helping. She came to the emergency room and was seen by Dr. Grove in the emergency room. Dr. Grove did give some IV fluids and DUO NEBS treatment were given. Blood work showed the WBC was 10.88 and ABG's were done which showed the pH 7.304, pCO2 40.8, pO2 73.0. CT chest showed bilateral lower lobe infiltrates consistent with the pneumonia. In review of her multiple medical problems and bilateral pneumonia the patient is admitted to the hospital for the IV antibiotics and the breathing treatments. REVIEW OF SYSTEMS: CONSTITUTIONAL: No night sweats. Weakness and tiredness. Fever and chills. HEENT: Eyes: No visual changes. No eye pain. No eye discharge. ENT: No runny nose. No epistaxis. No sinus pain. No sore throat. No odynophagia. No ear pain. No congestion. RESPIRATORY: Cough and congestion. No hemoptysis. CARDIOVASCULAR: No angina symptoms. No CHF symptoms. No atypical chest pain for CAD. No palpitations. Shortness of breath. GASTROINTESTINAL: No abdominal pain. No nausea or vomiting. No diarrhea or constipation. No hematemesis. No hematochezia. GENITOURINARY: No urgency. No frequency. No dysuria. No hematuria. No obstructive symptoms. No discharge. No pain. No significant abnormal bleeding. MUSCULOSKELETAL: No musculoskeletal pain. No joint swelling. No arthritis. NEUROLOGICAL: No headache. No neck pain. No syncope. No seizures. No dizziness. PSYCHIATRIC: Not anxious. No depression. No suicidal thoughts. No homicidal thoughts. SKIN: No rash. No lesions. No wounds. ENDOCRINE: No unexplained weight loss. No weight gain. HEMATOLOGIC/LYMPHATIC: No anemia. No purpura. No petechiae. No prolonged or excessive bleeding. No palpable lymph nodes. PERSONAL/FAMILY/SOCIAL HISTORY: The patient does smoke. The patient is and lives with the kids. Family history is significant for the cancer. PAST MEDICAL/SURGICAL PROBLEMS: Coronary artery disease Heart murmur CHF Valvular heart disease Aortic valve replacement Permanent pacemaker Atrial fibrillation Deep Vein thrombosis in 2004 Peripheral neuropathy COPD History of pneumonia GERD Irritable bowel syndrome Osteoarthritis Hypothyroidism Anxiety Depression Nicotine use Back surgery for bulging disc Bilateral knee replacement Surgical repair on the blocked ureter Hysterectomy Breast biopsies Cholecystectomy Aortic valve replacement Permanent pacemaker MEDICATIONS: Phenergan Lotensin Buspirone Ambien Requip Lasix Lipitor Norvasc Topamax Aldactone Nexium Sotalol Percocet Albuterol Effexor Humalog ALLERGIES: Rocephin Ceftin Doxycycline Nifedipine Zanaflex Symbicort Neurontin Synthroid Coumadin Spiriva Levemir Sotalol PHYSICAL EXAMINATION: VITAL SIGNS: Blood pressure 137/77, respiratory rate 24, heart rate 68 and temperature 98.8 with saturation 95% on the room air. GENERAL: Cachetic lady laying in the bed. HEENT: Head normocephalic, atraumatic. Eyes: Extraocular muscles are intact. Pupils are equal, round and reactive to light and accommodation. Ears: No lesions. Nose appeared normal. Throat: No exudate or erythema. Mucosa dry. Pallor positive. No icterus. NECK: Supple. No JVD, no carotid bruit. No lymphadenopathy or thyromegaly. LUNGS: Decreased and basilar crackles Clear to auscultation. Percussion note normal. Chest symmetrical. HEART: S1, S2, no S3. Systolic murmurs. No cyanosis or clubbing. No ascites. Pulses: Dorsalis pedis and posterior tibial pulses +1 to +2 both sides. ABDOMEN: Soft. Nontender. Bowel sounds active. No CVA tenderness. No mass felt. EXTREMITIES: No edema. Full range of motion of all extremities, equal. NEUROLOGIC: No focal deficit. Cranial nerves II through XII are grossly intact. No headache, no double vision or headache. SKIN: Not dry. Intact. Turgor - normal. LYMPHATIC: No palpable lymph nodes/no lymphedema. MUSCULOSKELETAL: Normal joints with no swelling. Muscle tone is normal. LABS: WBC 10.88, hgb 10.3, hct 35.7, plt count 233. ABG pH 7.307, pCO2 40.8, pO2 73, Sodium 130, potassium 3.5, chloride 96, bicarb 22, BUN 10, creatinine 1.28, glucose 249. ASSESSMENT: 1. Bilateral community acquired pneumonia 2. COPD exacerbation 3. History of Coronary artery disease 4. Congestive heart failure 5. Aortic valve replacement 6. Diabetes mellitus 7. Hypertension 8. Dyslipidemia 9. Chronic pain PLAN: 1. Admit patient to the regular floor 2. CBC and CMP today and daily 3. Cardiac enzymes and Troponin 4. DUO NEBS Q 4 hours 5. Levaquin 750 daily 6. Solu-Medrol 40 Q 12 hours 7. IV fluids 30ml per hours 8. Continue Coumadin 9. Will continue to monitor the PT INR. TIME SPENT: More than 70 minutes. MTDD
--- NOTE | 2016-12-09 09:48 | PN ---
DATE OF SERVICE: 11/21/16 SUBJECTIVE: The patient was admitted yesterday with the COPD exacerbation and pneumonia as of today morning the patient is laying in the bed still cough and congestion and not able to get any phlegm. REVIEW OF SYSTEMS: CONSTITUTIONAL: No fever, no chills. HEENT: Normal. ENDOCRINE: No weight gain, no weight loss. CVS: No angina symptoms. No CHF symptoms. No palpitations. No atypical chest pain for CAD. No shortness of breath. No PND, no orthopnea. RESPIRATORY: No cough, no hemoptysis. GI: No nausea, no vomiting. No abdominal pain. : No hematuria. No polyuria. MUSCULOSKELETAL:. No joint swelling. PSYCHIATRIC: Not anxious. No depression. No suicidal thoughts. No homicidal thoughts. SKIN: Intact. No rash. PHYSICAL EXAMINATION: V/S: Blood pressure 116/76, respiratory rate 16, heart rate 74, temperature 97.3. GENERAL: Cachetic lady laying in the bed. Not in any distress. HEENT: Normocephalic, atraumatic. Mucosa dry. Pallor positive. No icterus. NECK: Supple. No JVD, no carotid bruit. No lymphadenopathy. LUNGS: Basilar crackles bilateral and decreased entry. No rales or rhonchi. HEART: S1, S2 normal. No S3. No murmur, gallop or regurgitation. ABDOMEN: Soft, nontender. Bowel sounds active. No rigidity. No rebound or guarding. No CVA tenderness. EXTREMITIES: No clubbing, cyanosis or pedal edema. MUSCULOSKELETAL: No joint swelling. NEUROLOGIC: Awake, alert, oriented times three. No focal deficit. LYMPHATIC: No lymph nodes palpable. SKIN: Intact. LABS: WBC 9.61, hgb 11.1, hct 33.0, plt count 184, sodium 135, potassium 4.1, chloride 11, bicarb 24, BUN 8, creatinine 0.99 and glucose 174. ASSESSMENT: 1. Bilateral community acquired pneumonia 2. COPD exacerbation secondary to the bilateral pneumonia 3. Diabetes 4. Hypertension 5. Coronary artery disease 6. Congestive heart failure 7. Aortic valve replacement on Coumadin 8. Osteoarthritis 9. DJD spine PLAN: 1. Continue the Levaquin 2. Solu-Medrol 3. DUO NEBS 4. Continue Coumadin 5. Will keep the monitoring the PT INR TIME SPENT: More than 30 minutes MTDD
--- NOTE | 2016-12-09 10:36 | PN ---
DATE OF SERVICE: 11/22/16 SUBJECTIVE: The patient was admitted with the COPD exacerbation and pneumonia. The patient is a little bit more active today but still cough and still getting yellow/ green phlegm. Shortness of breath is somewhat better. REVIEW OF SYSTEMS: CONSTITUTIONAL: No fever, no chills. HEENT: Normal. ENDOCRINE: No weight gain, no weight loss. CVS: No angina symptoms. No CHF symptoms. No palpitations. No atypical chest pain for CAD. No shortness of breath. No PND, no orthopnea. RESPIRATORY: No cough, no hemoptysis. GI: No nausea, no vomiting. No abdominal pain. : No hematuria. No polyuria. MUSCULOSKELETAL:. No joint swelling. PSYCHIATRIC: Not anxious. No depression. No suicidal thoughts. No homicidal thoughts. SKIN: Intact. No rash. PHYSICAL EXAMINATION: V/S: Blood pressure 123/75, respiratory rate 20, heart rate 67 and temperature 96.8 with saturation of 90% on room air. GENERAL: Cachetic lady. HEENT: Normocephalic, atraumatic. Mucosa dry. Pallor positive. No icterus. NECK: Supple. No JVD, no carotid bruit. No lymphadenopathy. LUNGS: Decrease and some basilar crackles. No rales or rhonchi. HEART: S1, S2 normal. No S3. Systolic murmur, gallop or regurgitation. ABDOMEN: Soft, nontender. Bowel sounds active. No rigidity. No rebound or guarding. No CVA tenderness. EXTREMITIES: No clubbing, cyanosis or pedal edema. MUSCULOSKELETAL: No joint swelling. NEUROLOGIC: Awake, alert, oriented times three. No focal deficit. LYMPHATIC: No lymph nodes palpable. SKIN: Intact. LABS: WBC 12.03, hgb 10.7, hct 37.5, plt count 221, sodium 131, potassium 4.6, chloride 96, bicarb 26, BUN 10, creatinine 1.11, glucose 226. ASSESSMENT: 1. Bilateral community acquired pneumonia 2. COPD exacerbation secondary to the pneumonia 3. Diabetes 4. Coronary artery disease 5. Congestive heart failure 6. Aortic valve replacement, assisted anticoagulation 7. Hypertension 8. Dyslipidemia 9. 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 Continue the Levaquin 2. Continue DUO NEBS and Solu-Medrol 3. PT INR in the morning 4. Will get chest x-ray in the morning Will follow the patient in the daily rounds. TIME SPENT: More than 30 minutes MTDD
--- NOTE | 2017-01-14 13:07 | PN ---
DATE OF SERVICE: 11/24/16 SUBJECTIVE: The patient was admitted with pneumonia, COPD exacerbation and shortness of breath. She will has some cough and congestion. More concerned about the medication and the lot of pain medication and Ambien. The patient was discussed about the use and we suggest that we are going to decrease one of those medications. REVIEW OF SYSTEMS: CONSTITUTIONAL: No fever, no chills. The patient was more lethargic today morning and was drool aside. HEENT: Normal. ENDOCRINE: No weight gain, no weight loss. CVS: No angina symptoms. No CHF symptoms. No palpitations. No atypical chest pain for CAD. Minimal exertion makes her short of breath and oxygen saturation dropped to 80's. No PND, no orthopnea. RESPIRATORY: No cough, no hemoptysis. GI: No nausea, no vomiting. No abdominal pain. : No hematuria. No polyuria. MUSCULOSKELETAL:. No joint swelling. PSYCHIATRIC: Not anxious. No depression. No suicidal thoughts. No homicidal thoughts. SKIN: Intact. No rash. PHYSICAL EXAMINATION: V/S: Blood pressure 109/80, respiratory rate 20, heart rate 63 and temperature 96.9 with saturation 99%. HEENT: Normocephalic, atraumatic. Mucosa dry. Pallor positive. No icterus. NECK: Supple. No JVD, no carotid bruit. No lymphadenopathy. LUNGS: Decreased and basilar crackles. No rales or rhonchi. HEART: S1, S2 normal. No S3. Systolic murmur positive, gallop or regurgitation. ABDOMEN: Soft, nontender. Bowel sounds active. No rigidity. No rebound or guarding. No CVA tenderness. EXTREMITIES: No clubbing, cyanosis or pedal edema. MUSCULOSKELETAL: No joint swelling. NEUROLOGIC: Awake, alert, oriented times three. No focal deficit. LYMPHATIC: No lymph nodes palpable. SKIN: Intact. LABS: WBC 15.40, hgb 10.5, hct 269, sodium 131, potassium 4.9, chloride 93, bibcar 28 , BUN 33, creatinine 1.17, glucose 194. ASSESSMENT: 1. COPD exacerbation secondary to the community acquired pneumonia 2. Change in the mental status secondary to the polypharmacy 3. Hypoxemia 4. Dyslipidemia 5. Hypertension 6. Osteoarthritis 7. DJD spine 8. Depression 9. Anxiety 10.Hypothyroidism 11.Neuropathy 12.History of DVT 13.History of aortic valve replacement on long-term anticoagulation 14.Permanent pacemaker 15.IVC filter PLAN: 1. Decrease Ambien to 5mg at bedtime 2. Decrease Gabapentin 600mg four times a day 3. Decrease Oxycodone to every 8 hours only 4. Will add the Mucinex 5. Change the Levaquin to 500mg IV daily 6. Up and about and ambulate. Will follow the patient in daily rounds. TIME SPENT: More than 30 minutes MTDD
--- NOTE | 2017-01-14 14:21 | PN ---
DATE OF SERVICE: 11/25/16 SUBJECTIVE: The patient was admitted with pneumonia and COPD exacerbation. The patient was yesterday more groggy and lethargic. The pain medication Ambien was decreased and today she is a little bit more awake and alert. Otherwise still has a cough and still has some yellow/phlegm and needing two liter nasal cannula and she is a little bit more ambulatory today. REVIEW OF SYSTEMS: CONSTITUTIONAL: No fever, no chills. HEENT: Normal. ENDOCRINE: No weight gain, no weight loss. CVS: No angina symptoms. No CHF symptoms. No palpitations. No atypical chest pain for CAD. No shortness of breath. No PND, no orthopnea. RESPIRATORY: No cough, no hemoptysis. GI: No nausea, no vomiting. No abdominal pain. : No hematuria. No polyuria. MUSCULOSKELETAL:. No joint swelling. PSYCHIATRIC: Not anxious. No depression. No suicidal thoughts. No homicidal thoughts. SKIN: Intact. No rash. PHYSICAL EXAMINATION: V/S: Blood pressure 102/72, respiratory rate 22, heart rate 72, temperature 97.4 and saturation is 98%. HEENT: Normocephalic, atraumatic. Mucosa dry. NECK: Supple. No JVD, no carotid bruit. No lymphadenopathy. LUNGS: Decreased and basilar crackles. No rales or rhonchi. HEART: S1, S2 normal. No S3. No murmur, gallop or regurgitation. ABDOMEN: Soft, nontender. Bowel sounds active. No rigidity. No rebound or guarding. No CVA tenderness. EXTREMITIES: No clubbing, cyanosis or pedal edema. MUSCULOSKELETAL: No joint swelling. NEUROLOGIC: Awake, alert, oriented times three. No focal deficit. LYMPHATIC: No lymph nodes palpable. SKIN: Intact. LABS: WBC 14.45, hgb 10.7, hct 31.9, plt count 257, sodium 132, potassium 4.6, chloride 95, bicarb 27, BUN 35, creatinine 1.46 and glucose 481. ASSESSMENT: 1. COPD exacerbation secondary to community acquired pneumonia 2. Hypertension 3. Dyslipidemia 4. Osteoarthritis 5. DJD spine 6. Depression 7. Anxiety 8. Hypothyroidism 9. Neuropathy 10.Aortic valve replacement 11.Permanent pacemaker 12.Cholecystectomy 13.History of IVC filter PLAN: 1. Continue the Levaquin, Accu-checks and DUO NEBS 2. I&O's 3. Out of bed to chair activity as tolerated Will follow the patient in daily rounds. TIME SPENT: More than 30 minutes MTDD
--- NOTE | 2017-01-14 14:58 | DS ---
DATE OF SERVICE: 11/26/16 FINAL DIAGNOSIS: 1. COPD EXACERBATION SECONDARY TO COMMUNITY ACQUIRED PNEUMONIA 2. HYPOXEMIA SECONDARY TO COMMUNITY ACQUIRED PNEUMONIA 3. HYPERTENSION 4. DYSLIPIDEMIA 5. OSTEOARTHRITIS 6. DJD SPINE 7. DEPRESSION/ANXIETY 8. HYPOTHYROIDISM 9. NEUROPATHY 10. HISTORY OF DVT ON LONG-TERM ANTICOAGULATION 11. AORTIC VALVE REPLACEMENT 12. PERMANENT PACEMAKER 13. CHOLECYSTECTOMY 14. HYSTERECTOMY 15. BILATERAL TOTAL KNEE REPLACEMENT 16. IVC FILTER DISCHARGE INSTRUCTIONS: 1. Discharge the patient home 2. Keep appointment with Dr. Robin on 12/08/16 as previously scheduled. 3. Please follow up with Dr. Robin as soon as possible to have PT/INR done. MEDICATIONS AT DISCHARGE: Continue home medications except hold Coumadin for 2 days 1. Albuterol 2. Norvasc 3. Lipitor 4. Lotensin 5. Symbicort 6. Buspirone 7. Nexium 8. Lasix 9. Neurontin 10. Humalog 11. Synthroid 12. Oxycodone 13. Prednisone 14. Promethazine 15. Requip 16. Sotalol 17. Betapace 18. Spironolactone 19. Spiriva 20. Zanaflex 21. Topamax 22. Effexor 23. Coumadin 24. Ambien NEW PRESCRIPTIONS: 1. Prednisone 10 mg one tablet two times a day for 7 days 2. Keflex 500 mg one tablet two times a day for 7 days 3. Mucinex 600 mg take one tablet two times a day until gone DIET INSTRUCTIONS: 1800 calorie diet, Coumadin diet ACTIVITY: As tolerates. SMOKING: Current same day smoker DISEASE SPECIFIC EDUCATION: Antibiotic use - diarrhea; COPD exacerbation and pneumonia, discussed in detail and verbalized understanding. HOSPITAL COURSE: This is a 66-year-old female with history of COPD and multiple medical problems , came to the emergency room with cough and congestion found to have a pneumonia bilateral community acquired and mild hypoxemia 73. White count was normal. BUN and creatinine normal. At that time, in view of CT scan findings, the patient was admitted to the hospital, started on antibiotic Levaquin. As the patient was allergic to Rocephin, CT scan showed gram multifocal bilateral ground glass and infiltrate consistent with pneumonia. Duonebs were give. Solu- Medrol was given. Gradually the patient was slowly recuperating but the patient did have change in mental status and lethargic. When the pain medication, Ambien and Neurontin was decreased to half doses, the patient was more awake and alert, gradually up and about, still had some coughing. Repeat CT scan was done on 11/20/16 it showed similar appearing, slightly decreased bilateral ground glass appearance, increasing consolidation in the left lung but clinically vital signs cortez, the patient is much improved. At that time, the patient was discharged home to Dr. Robin. Strictly explained continuing and finishing the medications. TIME SPENT: MORE THAN 55 MINUTES MTDD
== END 2016-11-26 14:10 | disposition home or self-care (01) | DRG 194 ==
LOC: ED 21:50 → MEDSURG B 23:27
PROVIDERS: ADMIT Emergency Medicine; ATTEND Emergency Medicine
DX: J18.9 Pneumonia, unspecified organism (principal); J44.1 Chronic obstructive pulmonary disease with (acute) exacerbation; J98.11 Atelectasis; E87.1 Hypo-osmolality and hyponatremia; R06.02 Shortness of breath; R05 Cough; E11.9 Type 2 diabetes mellitus without complications; R09.02 Hypoxemia; I10 Essential (primary) hypertension; I50.9 Heart failure, unspecified; I25.10 Atherosclerotic heart disease of native coronary artery without angina pectoris; E87.5 Hyperkalemia; E78.5 Hyperlipidemia, unspecified; M19.90 Unspecified osteoarthritis, unspecified site; M47.9 Spondylosis, unspecified; F41.8 Other specified anxiety disorders; E03.9 Hypothyroidism, unspecified; G62.9 Polyneuropathy, unspecified; R41.82 Altered mental status, unspecified; T50.905A Adverse effect of unspecified drugs, medicaments and biological substances, initial encounter; Y92.230 Patient room in hospital as the place of occurrence of the external cause; F17.200 Nicotine dependence, unspecified, uncomplicated; Z86.718 Personal history of other venous thrombosis and embolism; Z95.828 Presence of other vascular implants and grafts; Z79.01 Long term (current) use of anticoagulants; Z79.4 Long term (current) use of insulin; Z95.0 Presence of cardiac pacemaker; Z95.2 Presence of prosthetic heart valve
CPT/HCPCS: 36415; 80053; 82550; 82803; 82962; 83605; 83880; 84145; 84484; 85025; 85610; 87040; 87651; 87880; 93005; 93010; 94640; 96361; 96365; 96366; 99223; 99233; 99239; 99284

== ENCOUNTER 2016-12-11 14:56 | Outpatient (CLI) ==
[2016-12-11 16:01] LABS: PROTHROMBIN TIME 84.9 SEC (9.3-11.0)
== END 2016-12-11 14:57 | disposition home or self-care (01) ==
LOC: LAB 14:56
PROVIDERS: ATTEND Family Medicine
DX: Z51.81 Encounter for therapeutic drug level monitoring (principal); Z79.01 Long term (current) use of anticoagulants
CPT/HCPCS: 36415; 85610

== ENCOUNTER 2016-12-14 21:48 | Emergency (ER) | payer OTHER ==
[2016-12-14 21:55] VITALS: BP 136/82; TEMP 97.1; BMI 21.7
[2016-12-14 22:09] LABS: BASOPHILS # (AUTO) 0.1 K/uL (0-0.2); BASOPHILS % (AUTO) 0.9 % (0.0-3.0); EOSINOPHILS # (AUTO) 0.3 K/ul (0.0-0.7); EOSINOPHILS % (AUTO) 3.4 % (0.0-7.0); HEMATOCRIT 37.4 % (37.0-47.0); IMMATURE GRANULOCYTE % (AUTO) 0.5 % (0.0-5.0); LYMPHOCYTES # (AUTO) 2.1 K/uL (0.60-3.4); LYMPHOCYTES % (AUTO) 26.1 (10.0-50.0); MEAN CORPUSCULAR HEMOGLOBIN 30.1 pg (27.0-31.0); MEAN CORPUSCULAR HGB CONC 34.8 (31.8-35.4); MEAN CORPUSCULAR VOLUME 86.6 fl (81.0-99.0); MONOCYTES # (AUTO) 0.7 K/uL (0.4-2.0); MONOCYTES % (AUTO) 8.3 (0-10); NEUTROPHILS % (AUTO) 60.8; PLATELET COUNT 254 10^3/uL (140-440); RED BLOOD COUNT 4.32 10^6/ul (4.20-5.40); WHITE BLOOD COUNT 8.21 K/ul (4.6-10.2)
[2016-12-14 22:28] LABS: ALBUMIN 3.6 g/dL (3.4-5.0); ALBUMIN/GLOBULIN RATIO 0.9; ANION GAP 14.1; BILIRUBIN,TOTAL 0.24 mg/dL (0.00-1.20); BUN/CREATININE RATIO 12.5; CALCIUM 9.9 mg/dL (8.2-10.2); CREATININE 1.36 mg/dL (0.60-1.30); POTASSIUM 4.1 mmol/L (3.5-5.10); TOTAL PROTEIN 7.6 g/dL (5.8-8.1)
[2016-12-14 22:33] LABS: PROTHROMBIN TIME 63.9 SEC (9.3-11.0)
--- NOTE | 2016-12-14 22:42 | ED.PDOC ---
Medical Screening Exam - General Information Time Seen by Physician*: 22:40 Mode of Arrival: Walk-In Information Source: Patient - History Chief Complaint: Abnormal Labs Stated Complaint: PMD called and told her the PT is high, more than 8. came for the evaluation, no bleeding per rectum, not been dizzi. Physical Exam - Physical Exam Appearance: Well-appearing, No pain distress, Well-nourished Eyes: MYKE, EOMI, Conjunctiva clear ENT: Ears normal, Nose normal, Oropharynx normal Respiratory: Airway patent, Breath sounds clear, Breath sounds equal, Respirations nonlabored Cardiovascular: RRR, Pulses normal, No rub, No murmur GI/: Soft, Nontender, No masses, Bowel sounds normal, No Organomegaly Musculoskeletal: Normal strength, ROM intact, No edema, No calf tenderness Skin: Warm, Dry, Normal color Neurological: Sensation intact, Motor intact, Reflexes intact, Cranial nerves intact, Alert, Oriented Psychiatric: Affect appropriate, Mood appropriate Critical Care Note - Critical Care Note Total Time (mins): 0 Course - Course Hematology/Chemistry: 12/14/16 22:00 12/14/16 22:00 Orders, Labs, Meds: Lab Review 12/14/16 22:00 WBC 8.21 RBC 4.32 Hgb 13.0 Hct 37.4 MCV 86.6 MCH 30.1 MCHC 34.8 RDW Coeff of Kalani 13.6 Plt Count 254 Immature Gran % (Auto) 0.5 Neut % (Auto) 60.8 Lymph % (Auto) 26.1 Crisp % (Auto) 8.3 Eos % (Auto) 3.4 Baso % (Auto) 0.9 Immature Gran # (Auto) 0.0 Neut # 5.0 Lymph # 2.1 Crisp # 0.7 Eos # 0.3 Baso # 0.1 PT 63.9 H INR 6.20 H* Sodium 135 L Potassium 4.1 Chloride 100 Carbon Dioxide 25 Anion Gap 14.1 BUN 17 Creatinine 1.36 H Estimated GFR (MDRD) 39.00 BUN/Creatinine Ratio 12.50 Glucose 145 H Calcium 9.9 Total Bilirubin 0.24 AST 14 L ALT 14 Alkaline Phosphatase 90 Total Protein 7.6 Albumin 3.6 Globulin 4.0 Albumin/Globulin Ratio 0.90 Orders Category Date Time Status CBC W/ AUTO DIFF Stat LAB 12/14/16 22:00 Completed CMP [COMPREHENSIVE METABOLIC PANEL] Stat LAB 12/14/16 22:00 Completed PT WITH INR Stat LAB 12/14/16 22:00 Completed Vital Signs: Temp Pulse Resp BP Pulse Ox 12/14/16 21:51 97.1 F L 85 16 136/82 97 Departure - Departure Time of Disposition: 22:42 Disposition: HOME SELF-CARE Discharge Problem: Coumadin toxicity Qualifiers: Encounter type: initial encounter Injury intent: accidental or unintentional Qualifier Code: (T45.511A) Poisoning by anticoagulants, accidental ( unintentional), initial encounter Instructions: Hypercoagulation (ED) Condition: Stable Pt referred to PMD for follow-up: Yes Additional Instructions: hold coumadin for 2 days and re check Allergies/Adverse Reactions: Allergies ceftriaxone sodium [From Rocephin] Adverse Reaction (Verified 12/14/16 21:55) cefuroxime axetil [From Ceftin] Adverse Reaction (Verified 12/14/16 21:55) doxycycline Adverse Reaction (Verified 12/14/16 21:55) nifedipine [From Procardia] Adverse Reaction (Verified 12/14/16 21:55) nitrofurantoin [From Macrobid] Adverse Reaction (Verified 12/14/16 21:55) nitrofurantoin macrocrystal [From Macrobid] Adverse Reaction (Verified 12/14/16 21:55) Home Medications: Ambulatory Orders Albuterol Sulfate [Albuterol Sulfate Hfa] 2 puff IH QID 02/13/14 Amlodipine Besylate [Norvasc] 5 mg PO DAILY 02/13/14 Atorvastatin Calcium [Lipitor] 40 mg PO BEDTIME 02/13/14 Benazepril HCl [Lotensin] 20 mg PO DAILY 02/13/14 Buspirone HCl 5 mg PO TID PRN 02/13/14 Esomeprazole Magnesium [Nexium] 40 mg PO BID 02/13/14 Furosemide [Lasix] 40 mg PO DAILY 02/13/14 Oxycodone HCl/Acetaminophen [Percocet 10-325 mg Tablet] 1 each PO Q4-6H PRN Promethazine HCl [Phenergan Tab] 25 mg PO Q6H PRN 02/13/14 Ropinirole HCl [Requip] 2 mg PO BEDTIME 02/13/14 Sotalol HCl [Sotalol] 60 mg PO BID 02/13/14 Spironolactone [Aldactone] 25 mg PO DAILY 02/13/14 Topiramate [Topamax] 50 mg PO BEDTIME 02/13/14 Zolpidem Tartrate [Ambien] 10 mg PO BEDTIME 02/13/14 Venlafaxine HCl [Effexor Xr] 150 mg PO BEDTIME 07/04/14 Insulin Lispro [Humalog] 0 unit SQ TIDWM PRN #1 ml 07/12/14 Budesonide/Formoterol Fumarate [Symbicort 160-4.5 Mcg Inhaler] 2 puff IH BID PRN 05/28/15 Tizanidine HCl [Zanaflex] 4 mg PO TID 05/28/15 Gabapentin [Neurontin] 800 mg PO QID 07/05/16 Levothyroxine Sodium [Synthroid] 125 mcg PO DAILY 07/06/16 Tiotropium [place] [Spiriva Respimat] 2.5 mcg IH DAILY 07/09/16 Warfarin Sodium [Coumadin] 4 mg PO QPM 07/09/16 Insulin Detemir [Levemir] 20 unit SUBCUT BEDTIME 09/06/16 Cephalexin [Keflex] 500 mg PO Q12HR #14 capsule 11/26/16 Guaifenesin [Mucinex] 600 mg PO Q12HR #10 tab.er.12h 11/26/16 Prednisone 10 mg PO BIDWM #14 tablet 11/26/16 Sotalol HCl [Betapace] 60 mg PO BID 11/26/16 Disposition Discussed With: Patient
== END 2016-12-14 23:00 | disposition home or self-care (01) ==
LOC: ED 21:48
DX: T45.511A Poisoning by anticoagulants, accidental (unintentional), initial encounter (principal); Z79.01 Long term (current) use of anticoagulants; Z79.899 Other long term (current) drug therapy
CPT/HCPCS: 36415; 80053; 85025; 85610; 99284

== ENCOUNTER 2016-12-24 14:43 | Outpatient (CLI) ==
[2016-12-24 15:17] LABS: PROTHROMBIN TIME 32.7 SEC (9.3-11.0)
== END 2016-12-24 14:44 | disposition home or self-care (01) ==
LOC: LAB 14:43
PROVIDERS: ATTEND Family Medicine
DX: Z51.81 Encounter for therapeutic drug level monitoring (principal); Z79.01 Long term (current) use of anticoagulants
CPT/HCPCS: 36415; 85610

== ENCOUNTER 2017-01-25 14:02 | Outpatient (CLI) ==
[2017-01-25 15:07] LABS: PROTHROMBIN TIME 30.9 SEC (9.3-11.0)
--- NOTE | 2017-01-25 15:17 | CT ---
EXAM: CT chest without contrast. HISTORY: Pneumonia follow-up. Shortness of breath for 1 month. COMPARISON: 11/25/2016, 06/30/2014. TECHNIQUE: Multiple axial images of the chest were obtained without intravenous contrast. Images we re reformatted in the sagittal and coronal planes. FINDINGS: Left-sided electronic cardiac device is present. There has been previous aortic valvular repair. Heart size is normal. There is no pericardial effusion. Atherosclerotic calcifications pre sent. Ascending thoracic aorta measures 3.7 cm diameter. Evaluation for lymphadenopathy is limited by lack of intravenous contrast. Calcified left hilar lymph nodes are present. Mild emphysematous changes present bilaterally. Calcified granulomata seen in the left upper lobe. A few right perifissural nodules on axial images 30 and 33 are stable since 2014. Linear subsegmenta l atelectasis or scarring noted in the right middle and lower lobes. The previously noted consolidat ion has resolved. No consolidation, pleural effusion or pneumothorax identified. Limited images of the upper abdomen demonstrate inferior vena cava filter and scattered surgical clip s. No acute osseous abnormality identified. IMPRESSION: 1. Resolution of previously noted consolidation. 2. Mild emphysema.
== END 2017-01-25 14:03 | disposition home or self-care (01) ==
LOC: RAD 14:02
PROVIDERS: ATTEND Family Medicine
DX: Z51.81 Encounter for therapeutic drug level monitoring (principal); Z79.01 Long term (current) use of anticoagulants; J18.9 Pneumonia, unspecified organism
CPT/HCPCS: 36415; 85610

== ENCOUNTER 2017-03-28 23:06 | Emergency (ER) ==
[2017-03-28] MEDS ORDERED: SODIUM CHLORIDE 1,000 ML IV STA (23:16)
[2017-03-28] MEDS ORDERED: MORPHINE 2 MG/ML SYRINGE IVP STA (23:19)
[2017-03-28] MEDS ORDERED: ZOFRAN 4 MG/2 ML IVP STA (23:20)
[2017-03-28] MEDS ORDERED: NITROSTAT SL STA (23:26)
[2017-03-28] MEDS ORDERED: ASPIRIN CHEWABLE PO STA (23:27)
[2017-03-28 23:32] LABS: BASOPHILS # (AUTO) 0.1 K/uL (0-0.2); BASOPHILS % (AUTO) 0.6 % (0.0-3.0); EOSINOPHILS # (AUTO) 0.2 K/ul (0.0-0.7); EOSINOPHILS % (AUTO) 2.2 % (0.0-7.0); HEMATOCRIT 36.6 % (37.0-47.0); HEMOGLOBIN 12.3 g/dl (12.0-16.0); IMMATURE GRANULOCYTE % (AUTO) 0.5 % (0.0-5.0); LYMPHOCYTES # (AUTO) 2.3 K/uL (0.60-3.4); LYMPHOCYTES % (AUTO) 21.2 (10.0-50.0); MEAN CORPUSCULAR HGB CONC 33.6 (31.8-35.4); MEAN CORPUSCULAR VOLUME 86.3 fl (81.0-99.0); MONOCYTES # (AUTO) 0.7 K/uL (0.4-2.0); MONOCYTES % (AUTO) 6.1 (0-10); NEUTROPHILS # (AUTO) 7.6 K/ul (2.0-6.9); NEUTROPHILS % (AUTO) 69.4; PLATELET COUNT 231 10^3/uL (140-440); RED BLOOD COUNT 4.24 10^6/ul (4.20-5.40); WHITE BLOOD COUNT 10.89 K/ul (4.6-10.2)
[2017-03-28 23:48] VITALS: TEMP 98.7; BMI 22.1
[2017-03-29] LABS: ALBUMIN 3.3 g/dL (3.4-5.0); ALBUMIN/GLOBULIN RATIO 0.85; BILIRUBIN,TOTAL 0.36 mg/dL (0.00-1.20); BUN/CREATININE RATIO 9.78; CALCIUM 9.4 mg/dL (8.2-10.2); CREATININE 0.92 mg/dL (0.60-1.30); TOTAL PROTEIN 7.2 g/dL (5.8-8.1); TROPONIN I 0.172 ng/ml (0.0000-0.4000)
--- NOTE | 2017-03-29 00:01 | DI ---
Exam: Chest one-view History: Chest pain FINDINGS: Normal cardiomediastinal contours. Normal pulmonary vasculature. No infiltrative opacitie s. Left approach pacemaker. No acute chest wall abnormality. Prior median sternotomy. Impression: No acute cardiopulmonary disease.
[2017-03-29 00:18] VITALS: BP 143/78
[2017-03-29] MEDS ORDERED: TYLENOL PO ONE (00:32)
--- NOTE | 2017-03-29 00:44 | ED.PDOC ---
General ED Provider: Dr. CASIMIRO FREEMAN-ER Chief Complaint: Chest Pain Stated Complaint: my chest has been hurting off and on all day Time Seen by Physician: 23:45 Mode of Arrival: Walk-In Information Source: Patient, Family Exam Limitations: No limitations Primary Care Provider: SHARRI NICHOLSON Nursing and Triage Documentation Reviewed and Agree: Yes Cardiovascular Complaint Exam - Chest Pain Complaint/Exam Onset: Gradual Duration: 12hrs Symptoms Are: Still present Timing: Intermittent Initial Severity: Mild Current Severity: Mild Location: Reports: Discrete Character: Reports: Dull, Aching, Pressure Aggravating: Reports: None Associated Signs and Symptoms: Reports: Short of air. 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 Quality Indicator For Non-Traumatic Chest Pain/Syncope: EKG Performed Review of Systems - Review Of Systems Constitutional: Reports: No symptoms Eyes: Reports: No symptoms Ears, Nose, Mouth, Throat: Reports: No symptoms Respiratory: Reports: Short of air Cardiac: Reports: Chest pain GI: Reports: No symptoms : Reports: No symptoms Musculoskeletal: Reports: No symptoms Skin: Reports: No symptoms Neurological: Reports: No symptoms Endocrine: Reports: No symptoms Hematologic/Lymphatic: Reports: No symptoms All Other Systems: Reviewed and Negative Past Medical History - Past Medical History Previously Healthy: No Endocrine: Reports: DM 2 Cardiovascular: Reports: CAD, Hypertension, A-Fib Respiratory: Reports: COPD, Pneumonia Hematological: Reports: None Gastrointestinal: Reports: GERD Genitourinary: Reports: None Neuro/Psych: Reports: Anxiety, Depression Musculoskeletal: Reports: Arthritis Cancer: Reports: None Last Menstrual Period: hysterectomy 2008 - Surgical History General Surgical History: Reports: Hysterectomy, CABG, Pacemaker, Other (Aortic valve replacement. ) - Family History Family History: Reports: Unknown - Social History Smoking Status: Current some day smoker Hx Substance Use: No Alcohol Screening: None Lives: With family - Immunizations Tetanus Shot up to Date: No Physical Exam - Physical Exam Appearance: Well-appearing, No pain distress, Well-nourished Pain Distress: Mild Eyes: MYKE, EOMI, Conjunctiva clear ENT: Ears normal, Nose normal, Oropharynx normal Neck: Supple Respiratory: Airway patent, Breath sounds clear, Breath sounds equal, Respirations nonlabored Cardiovascular: RRR GI/: Soft, Nontender, No masses, Bowel sounds normal, No Organomegaly Musculoskeletal: Normal strength Skin: Warm, Dry, Normal color Neurological: Sensation intact Psychiatric: Affect appropriate, Mood appropriate, Anxious Interpretation - Radiology Interpretation Radiology Interpretation By: Radiologist Radiology Results: Negative Exam Interpreted: Portable CXR - EKG Interpretation Time of EKG #1: 00:44 Rate: Normal Rhythm: Sinus Ectopy: None ST Segment: Other Re-Evaluation - Re-Evaluation Time of Re-Evaluation: 00:44 Status: Improved Vital Signs Stable: Yes Pain Level: 1 Appearance: NAD Lungs: Clear Skin: Warm and Dry Neuro: Alert and Oriented X3 CV: RRR Physician Notification - Case Discussed Physician Notified: dr torrez Time of Notification: 01:18 Critical Care Note - Critical Care Note Total Time (mins): 45 Course - Course Hematology/Chemistry: 03/28/17 23:25 03/28/17 23:25 Orders, Labs, Meds: Lab Review 03/28/17 03/28/17 23:25 23:25 WBC 10.89 H RBC 4.24 Hgb 12.3 Hct 36.6 L MCV 86.3 MCH 29.0 MCHC 33.6 RDW Coeff of Kalani 13.7 Plt Count 231 Immature Gran % (Auto) 0.5 Neut % (Auto) 69.4 Lymph % (Auto) 21.2 [place] % (Auto) 6.1 Eos % (Auto) 2.2 Baso % (Auto) 0.6 Immature Gran # (Auto) 0.1 Neut # 7.6 H Lymph # 2.3 [place] # 0.7 Eos # 0.2 Baso # 0.1 Sodium 136 Potassium 3.0 L Chloride 96 L Carbon Dioxide 35 H Anion Gap 8.0 BUN 9 Creatinine 0.92 Estimated GFR (MDRD) 61.00 BUN/Creatinine Ratio 9.78 Glucose 306 H Calcium 9.4 Total Bilirubin 0.36 AST 17 ALT 11 L Alkaline Phosphatase 85 Total Creatine Kinase 72 Troponin I 0.1720 Total Protein 7.2 Albumin 3.3 L Globulin 3.9 Albumin/Globulin Ratio 0.85 Amylase 33 Lipase 22 Orders Category Date Time Status EKG-(ED ONLY) Stat CARDIO 03/28/17 23:15 Completed IV [ED IV/MEDIPORT/POWERPORT] .ONCE EMERGENCY 03/28/17 23:16 Active O2 [ED APPLY O2] .ONCE EMERGENCY 03/28/17 23:20 Active AMYLASE Stat LAB 03/28/17 23:25 Completed CBC W/ AUTO DIFF Stat LAB 03/28/17 23:25 Completed COMPREHENSIVE METABOLIC PANEL Stat LAB 03/28/17 23:25 Completed CREATINE KINASE Stat LAB 03/28/17 23:25 Completed LIPASE Stat LAB 03/28/17 23:25 Completed PT WITH INR Stat LAB 03/29/17 01:12 Ordered TROPONIN I Stat LAB 03/28/17 23:25 Completed 0.9 % Sodium Chloride [Saline Flush] MEDS 03/28/17 23:16 Ordered 1 syr IVF PRN PRN Acetaminophen [Tylenol] MEDS 03/29/17 00:32 Discontinued 1,000 mg PO ONCE ONE Aspirin [Aspirin Chewable] MEDS 03/28/17 23:27 Discontinued 81 mg PO ONCE STA Morphine Sulfate [Morphine 2 mg/ml Syringe] MEDS 03/28/17 23:19 Discontinued 2 mg IVP ONCE STA Nitroglycerin [Nitrostat] MEDS 03/28/17 23:26 Discontinued 0.4 mg SL ONCE STA Ondansetron HCl/Pf [Zofran 4 mg/2 ml] MEDS 03/28/17 23:20 Discontinued 4 mg IVP ONCE STA Sodium Chloride 0.9% [Sodium Chloride] 1,000 ml MEDS 03/28/17 23:16 Active IV 100 mls/hr CXR [CHEST, 1V AP ONLY] Stat RADS 03/28/17 23:19 Completed Medications Generic Name Dose Route Start Last Admin Trade Name Freq PRN Reason Stop Dose Admin Sodium Chloride 1,000 mls @ 100 mls/hr 03/28/17 23:16 03/28/17 23:42 Sodium Chloride IV 03/29/17 09:15 100 mls/hr .Q10H STA Administration Sodium Chloride 1 syr 03/28/17 23:16 03/28/17 23:42 Saline Flush IVF 1 syr PRN PRN Administration To flush IV Discontinued Medications Generic Name Dose Route Start Last Admin Trade Name Day PRN Reason Stop Dose Admin Acetaminophen 1,000 mg 03/29/17 00:32 03/29/17 00:38 Tylenol PO 03/29/17 00:33 1,000 mg ONCE ONE Administration Aspirin 81 mg 03/28/17 23:27 03/28/17 23:42 Aspirin Chewable PO 03/28/17 23:28 81 mg ONCE STA Administration Morphine Sulfate 2 mg 03/28/17 23:19 03/28/17 23:42 Morphine 2 Mg/Ml Syringe IVP 03/28/17 23:20 2 mg ONCE STA Administration Nitroglycerin 0.4 mg 03/28/17 23:26 03/28/17 23:42 Nitrostat SL 03/28/17 23:27 0.4 mg ONCE STA Administration Ondansetron HCl 4 mg 03/28/17 23:20 03/28/17 23:43 Zofran 4 Mg/2 Ml IVP 03/28/17 23:21 4 mg ONCE STA Administration Vital Signs: Temp Pulse Resp BP Pulse Ox 03/29/17 00:17 91 H 19 143/78 H 100 03/28/17 23:41 98.7 F 89 24 109/71 94 L PRAVEENA Risk Score PRAVEENA Risk Score: Risk Score Odds of by 30D 0 0.1 (0.1-0.2) 1 0.3 (0.2-0.3) 2 0.4 (0.3-0.5) 3 0.7 (0.6-0.9) 4 1.2 (1.0-1.5) 5 2.2 (1.9-2.6) 6 3.0 (2.5-3.6) 7 4.8 (3.8-6.1) Departure - Departure Time of Disposition: 01:18 Disposition: TSF SHORT-TRM HOSP Discharge Problem: Chest pain Instructions: Chest Pain (ED) Condition: Good Pt referred to PMD for follow-up: Yes Allergies/Adverse Reactions: Allergies ceftriaxone sodium [From Rocephin] Adverse Reaction (Verified 12/14/16 21:55) cefuroxime axetil [From Ceftin] Adverse Reaction (Verified 12/14/16 21:55) doxycycline Adverse Reaction (Verified 12/14/16 21:55) nifedipine [From Procardia] Adverse Reaction (Verified 12/14/16 21:55) nitrofurantoin [From Macrobid] Adverse Reaction (Verified 12/14/16 21:55) nitrofurantoin macrocrystal [From Macrobid] Adverse Reaction (Verified 12/14/16 21:55) Home Medications: Ambulatory Orders Albuterol Sulfate [Albuterol Sulfate Hfa] 2 puff IH QID 02/13/14 Amlodipine Besylate [Norvasc] 5 mg PO DAILY 02/13/14 Atorvastatin Calcium [Lipitor] 40 mg PO BEDTIME 02/13/14 Benazepril HCl [Lotensin] 20 mg PO DAILY 02/13/14 Buspirone HCl 5 mg PO TID PRN 02/13/14 Esomeprazole Magnesium [Nexium] 40 mg PO BID 02/13/14 Furosemide [Lasix] 40 mg PO DAILY 02/13/14 Oxycodone HCl/Acetaminophen [Percocet 10-325 mg Tablet] 1 each PO Q4-6H PRN Promethazine HCl [Phenergan Tab] 25 mg PO Q6H PRN 02/13/14 Ropinirole HCl [Requip] 2 mg PO BEDTIME 02/13/14 Sotalol HCl [Sotalol] 60 mg PO BID 02/13/14 Spironolactone [Aldactone] 25 mg PO DAILY 02/13/14 Topiramate [Topamax] 50 mg PO BEDTIME 02/13/14 Zolpidem Tartrate [Ambien] 10 mg PO BEDTIME 02/13/14 Venlafaxine HCl [Effexor Xr] 150 mg PO BEDTIME 07/04/14 Insulin Lispro [Humalog] 0 unit SQ TIDWM PRN #1 ml 07/12/14 Budesonide/Formoterol Fumarate [Symbicort 160-4.5 Mcg Inhaler] 2 puff IH BID PRN 05/28/15 Tizanidine HCl [Zanaflex] 4 mg PO TID 05/28/15 Gabapentin [Neurontin] 800 mg PO QID 07/05/16 Levothyroxine Sodium [Synthroid] 125 mcg PO DAILY 07/06/16 Tiotropium [place] [Spiriva Respimat] 2.5 mcg IH DAILY 07/09/16 Warfarin Sodium [Coumadin] 3 - 4 mg PO DIRECTED 07/09/16 Insulin Detemir [Levemir] 20 unit SUBCUT BEDTIME 09/06/16 Cephalexin [Keflex] 500 mg PO Q12HR #14 capsule 11/26/16 Guaifenesin [Mucinex] 600 mg PO Q12HR #10 tab.er.12h 11/26/16 Prednisone 10 mg PO BIDWM #14 tablet 11/26/16 Sotalol HCl [Betapace] 60 mg PO BID 11/26/16 Transfer Form Completed: Yes Disposition Discussed With: Patient, Family
[2017-03-29 01:30] LABS: PROTHROMBIN TIME 13.8 SEC (9.3-11.0)
== END 2017-03-29 02:00 | disposition short-term general hospital (02) ==
LOC: ED 23:06
DX: R07.9 Chest pain, unspecified (principal); R06.02 Shortness of breath; I10 Essential (primary) hypertension; E11.9 Type 2 diabetes mellitus without complications; I25.810 Atherosclerosis of coronary artery bypass graft(s) without angina pectoris; J44.9 Chronic obstructive pulmonary disease, unspecified; F17.210 Nicotine dependence, cigarettes, uncomplicated; Z79.01 Long term (current) use of anticoagulants; Z79.899 Other long term (current) drug therapy; Z95.0 Presence of cardiac pacemaker; Z95.2 Presence of prosthetic heart valve
CPT/HCPCS: 36415; 80053; 82150; 82550; 83690; 84484; 85025; 85610; 93005; 93010; 96361; 96374; 96375; 99285

== ENCOUNTER 2017-04-01 09:43 | Emergency (ER) ==
[2017-04-01 09:44] VITALS: BMI 22.1
[2017-04-01 09:56] VITALS: BP 136/90; TEMP 97.3
[2017-04-01] MEDS ORDERED: ALBUTEROL 0.083% NEB NEB STA (10:30)
[2017-04-01 10:54] LABS: BASOPHILS % (AUTO) 0.3 % (0.0-3.0); EOSINOPHILS # (AUTO) 0.1 K/ul (0.0-0.7); EOSINOPHILS % (AUTO) 0.8 % (0.0-7.0); HEMATOCRIT 33.4 % (37.0-47.0); HEMOGLOBIN 11.4 g/dl (12.0-16.0); IMMATURE GRANULOCYTE % (AUTO) 0.5 % (0.0-5.0); LYMPHOCYTES # (AUTO) 1.2 K/uL (0.60-3.4); LYMPHOCYTES % (AUTO) 9.5 (10.0-50.0); MEAN CORPUSCULAR HEMOGLOBIN 28.8 pg (27.0-31.0); MEAN CORPUSCULAR HGB CONC 34.1 (31.8-35.4); MEAN CORPUSCULAR VOLUME 84.3 fl (81.0-99.0); MONOCYTES # (AUTO) 0.9 K/uL (0.4-2.0); MONOCYTES % (AUTO) 7.3 (0-10); NEUTROPHILS # (AUTO) 10.5 K/ul (2.0-6.9); NEUTROPHILS % (AUTO) 81.6; PLATELET COUNT 229 10^3/uL (140-440); RED BLOOD COUNT 3.96 10^6/ul (4.20-5.40); WHITE BLOOD COUNT 12.86 K/ul (4.6-10.2)
[2017-04-01] MEDS ORDERED: NICODERM 21 MG TD SCH (11:00)
[2017-04-01 11:21] LABS: ALBUMIN/GLOBULIN RATIO 0.75; ANION GAP 10.4; BILIRUBIN,TOTAL 0.65 mg/dL (0.00-1.20); BUN/CREATININE RATIO 10.84; CALCIUM 9.7 mg/dL (8.2-10.2); CREATININE 0.83 mg/dL (0.60-1.30); POTASSIUM 3.4 mmol/L (3.5-5.10); TROPONIN I 0.166 ng/ml (0.0000-0.4000)
[2017-04-01 11:25] LABS: ABG PCO2 39.9 mmHg (35-45); ABG PH 7.475 (7.35-7.45)
[2017-04-01 11:26] LABS: ABG BASE EXCESS 6 (-2.0-2.0); ABG HCO3 29.3 (22.0-26.0); ABG TCO2 31 (22.0-28.0)
--- NOTE | 2017-04-01 11:35 | CT ---
EXAM: CT chest without contrast. HISTORY: Shortness of breath, cough. COMPARISON: Radiograph 03/28/2017. CT 01/25/2017. TECHNIQUE: Multiple axial images of the chest were obtained without intravenous contrast. Images we re reformatted in the sagittal and coronal planes. FINDINGS: Evaluation for lymphadenopathy is limited by lack of intravenous contrast. There has been previous sternotomy and aortic valve repair. Left-sided electronic cardiac device is present. Hear t size is normal. No large pericardial effusion identified. Atherosclerotic calcifications are pres ent. Ascending thoracic aorta measures approximately 3.9 cm diameter. Main pulmonary artery is enlar ged measuring up to 4.4 cm diameter Small right pleural effusion which is partially loculated with fluid tracking along the right major f issure and to a lesser extent the minor fissure. Some peripheral consolidation in the right lung rogerio ng the areas of loculated fluid noted. Subtle patchy ground-glass opacities seen in the right lung C alcified granulomatous changes noted. Mild emphysematous changes are present. There is a trace amou nt of left pleural fluid. No pneumothorax identified. Limited images of the upper abdomen demonstrate no acute abnormality. Inferior vena cava filter note d. There has been previous cholecystectomy. Degenerative changes noted in the spine IMPRESSION: 1. New small partially loculated right pleural effusion with adjacent areas of subsegmental atelecta sis. Patchy ground-glass opacities in the right lung could represent pneumonitis. Follow-up is recomm ended. 2. Trace left pleural effusion. 3. Emphysema. 4. Enlarged main pulmonary artery suggesting pulmonary arterial hypertension.
[2017-04-01] MEDS ORDERED: ULTRAM PO STA (12:04)
--- NOTE | 2017-04-01 12:07 | ED.PDOC ---
General ED Provider: Dr. VANESSA MCCOY JR Chief Complaint: Respiratory Complaint Stated Complaint: C/O SOA. Recent visit to this ER 03/30 for CP et SOA. Transferred to [facility]. Stayed 1 noc, discharged the next day after stress test. SOA worsening. Finished Amoxicillin. Still with green sputum. F/U with PMD, Dr Anthony Robin in [place] on 04/05. Hx smoking, but not in last few days. Chest hurts to breathe or cough[End]97.3 86 20 91% 136/90 11/23. Time Seen by Physician: 12:11 Mode of Arrival: Walk-In Information Source: Patient Exam Limitations: No limitations Primary Care Provider: SHARRI ROBIN Nursing and Triage Documentation Reviewed and Agree: No Review of Systems - Review Of Systems Constitutional: Reports: Malaise, Weakness Eyes: Reports: No symptoms Ears, Nose, Mouth, Throat: Reports: No symptoms Respiratory: Reports: Short of air Cardiac: Reports: No symptoms GI: Reports: No symptoms : Reports: No symptoms Musculoskeletal: Reports: No symptoms Skin: Reports: No symptoms Neurological: Reports: No symptoms Endocrine: Reports: No symptoms Hematologic/Lymphatic: Reports: No symptoms All Other Systems: Other Past Medical History - Past Medical History Previously Healthy: No Endocrine: Reports: DM 2, Hypothyroid, Dyslipidemia Cardiovascular: Reports: CAD, Hypertension, CHF, A-Fib Respiratory: Reports: COPD, Pneumonia Hematological: Reports: None Gastrointestinal: Reports: GERD Genitourinary: Reports: None Neuro/Psych: Reports: Migraine, Anxiety, Depression Musculoskeletal: Reports: Arthritis, Back Pain (CHRONIC BACK PAIN) Cancer: Reports: None Last Menstrual Period: unknown Other Pertinent Past Medical History: OPEN HEART SURGERY, PACEMAKER, CHRONIC BACK PAIN - Surgical History General Surgical History: Reports: Hysterectomy, Cholecystectomy (gallbladder), CABG (OPEN HEART SURGERY,aorta valve replacement and pacemaker 2008), Pacemaker (pacemaker 2008), Orthopedic (2 knee replacements), Back Surgery (2 back surg), Other (Aortic valve replacement. RIGHT KIDNEY REPAIR) - Family History Family History: Reports: Unknown - Social History Smoking Status: Current some day smoker, Light tobacco smoker Hx Substance Use: No Alcohol Screening: None Physical Exam - Physical Exam Appearance: Ill-appearing Ill-appearing: Mild Pain Distress: Mild Eyes: MYKE, EOMI, Conjunctiva clear ENT: Ears normal, Nose normal, Oropharynx normal Neck: Supple Respiratory: Airway patent, Breath sounds diminished, Rhonchi, Wheezes Cardiovascular: RRR, Pulses normal, No rub, No murmur GI/: Soft, Nontender, No masses, Bowel sounds normal, No Organomegaly Musculoskeletal: Normal strength, ROM intact, No edema, No calf tenderness Skin: Warm, Dry, Normal color Neurological: Sensation intact, Motor intact, Reflexes intact, Cranial nerves intact, Alert, Oriented Psychiatric: Affect appropriate, Mood appropriate Physician Notification - Case Discussed Physician Notified: Dr Robin [phone] Time of Notification: 12:15 (can see tomorrow at 10 will admit to [facility] if worsens, 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) Critical Care Note - Critical Care Note Total Time (mins): 0 Course - Course Hematology/Chemistry: 04/01/17 10:40 04/01/17 10:40 Orders, Labs, Meds: Lab Review 04/01/17 04/01/17 04/01/17 10:08 10:40 10:40 WBC 12.86 H RBC 3.96 L Hgb 11.4 L Hct 33.4 L MCV 84.3 MCH 28.8 MCHC 34.1 RDW Coeff of Kalani 13.9 Plt Count 229 Immature Gran % (Auto) 0.5 Neut % (Auto) 81.6 Lymph % (Auto) 9.5 L [place] % (Auto) 7.3 Eos % (Auto) 0.8 Baso % (Auto) 0.3 Immature Gran # (Auto) 0.1 Neut # 10.5 H Lymph # 1.2 [place] # 0.9 Eos # 0.1 Baso # 0.0 D-Dimer (Manual) Puncture Site Rbrach O2 Saturation 91.0 L ABG pH 7.475 H ABG pCO2 39.9 ABG pO2 58.0 L* ABG HCO3 29.3 H ABG Total CO2 31 H ABG Base Excess 6 H FiO2 % 21.0 Sodium 135 L Potassium 3.4 L Chloride 96 L Carbon Dioxide 32 H Anion Gap 10.4 BUN 9 Creatinine 0.83 Estimated GFR (MDRD) 69.00 BUN/Creatinine Ratio 10.84 Glucose 221 H Calcium 9.7 Total Bilirubin 0.65 AST 14 L ALT 12 Alkaline Phosphatase 92 Total Creatine Kinase 42 Troponin I 0.1660 B-Natriuretic Peptide Total Protein 7.0 Albumin 3.0 L Globulin 4.0 Albumin/Globulin Ratio 0.75 04/01/17 04/01/17 10:40 10:40 WBC RBC Hgb Hct MCV MCH MCHC RDW Coeff of Kalani Plt Count Immature Gran % (Auto) Neut % (Auto) Lymph % (Auto) [place] % (Auto) Eos % (Auto) Baso % (Auto) Immature Gran # (Auto) Neut # Lymph # [place] # Eos # Baso # D-Dimer (Manual) 502.88 Puncture Site O2 Saturation ABG pH ABG pCO2 ABG pO2 ABG HCO3 ABG Total CO2 ABG Base Excess FiO2 % Sodium Potassium Chloride Carbon Dioxide Anion Gap BUN Creatinine Estimated GFR (MDRD) BUN/Creatinine Ratio Glucose Calcium Total Bilirubin AST ALT Alkaline Phosphatase Total Creatine Kinase Troponin I B-Natriuretic Peptide 377 H Total Protein Albumin Globulin Albumin/Globulin Ratio Orders Category Date Time Status ABG DRAW REQUEST Stat CARDIO 04/01/17 10:28 Completed EKG-(ED ONLY) Stat CARDIO 04/01/17 10:08 Completed NEBULIZER TREATMENT Stat CARDIO 04/01/17 10:30 Completed ED FABRICATION INSPECTOR APPLIED .ONCE EMERGENCY 04/01/17 10:08 Active ED IV/MEDIPORT/POWERPORT .ONCE EMERGENCY 04/01/17 10:08 Active ABG Stat LAB 04/01/17 10:08 Completed B-TYPE NATRIURETIC PEPTIDE Stat LAB 04/01/17 10:40 Completed BLOOD CULTURE Stat LAB 04/01/17 10:50 Received CBC W/ AUTO DIFF Stat LAB 04/01/17 10:40 Completed COMPREHENSIVE METABOLIC PANEL Stat LAB 04/01/17 10:40 Completed CREATINE KINASE Stat LAB 04/01/17 10:40 Completed D-DIMER Stat LAB 04/01/17 10:40 Completed TROPONIN I Stat LAB 04/01/17 10:40 Completed 0.9 % Sodium Chloride [Saline Flush] MEDS 04/01/17 10:08 Discontinued 1 syr IVF PRN PRN Albuterol Sulfate 0.083% Neb [Albuterol 0.083% Neb] MEDS 04/01/17 10:30 Discontinued 1 vial NEB ONCE STA Nicotine 21 mg [Nicoderm 21 mg] MEDS 04/01/17 11:00 Discontinued 1 patch TD DAILY Tramadol HCl [Ultram] MEDS 04/01/17 12:04 Discontinued 50 mg PO ONCE STA CT CHEST W/O CONTRAST Stat RADS 04/01/17 10:08 Completed Medications Discontinued Medications Generic Name Dose Route Start Last Admin Trade Name Augieq PRN Reason Stop Dose Admin Albuterol Sulfate 1 vial 04/01/17 10:30 04/01/17 11:15 Albuterol 0.083% Neb NEB 04/01/17 10:31 1 vial ONCE STA Administration Nicotine 1 patch 04/01/17 11:00 04/01/17 11:40 Nicoderm 21 Mg TD 1 patch DAILY FERNIE Administration Sodium Chloride 1 syr 04/01/17 10:08 Saline Flush IVF PRN PRN To flush IV Tramadol HCl 50 mg 04/01/17 12:04 04/01/17 12:45 Ultram PO 04/01/17 12:05 50 mg ONCE STA Administration Vital Signs: Temp Pulse Resp BP Pulse Ox 04/01/17 09:44 97.3 F L 86 20 136/90 91 L Departure - Departure Time of Disposition: 12:04 Disposition: HOME SELF-CARE Discharge Problem: Pneumonia Qualifiers: Pneumonia type: due to unspecified organism Laterality: right Lung location: lower lobe of lung Qualified Code(s): J18.1 - Lobar pneumonia, unspecified organism Instructions: Pneumonia (ED) Condition: Good Pt referred to PMD for follow-up: Yes Additional Instructions: continue inhalers as prescribed add Levaquin antibiotic for one week may use Robitussin DM to liquify secretions recheck PMD in morning at [address] Lobito Robin 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 you may contact her if any worsening Prescriptions: Guaifenesin/Dextromethorphan [Robafen Dm Cough Liquid] 5 ml PO QID #120 liquid Levofloxacin [Levaquin] 500 mg PO QDAC #7 tablet Allergies/Adverse Reactions: Allergies ceftriaxone sodium [From Rocephin] Adverse Reaction (Verified 12/14/16 21:55) cefuroxime axetil [From Ceftin] Adverse Reaction (Verified 12/14/16 21:55) doxycycline Adverse Reaction (Verified 12/14/16 21:55) nifedipine [From Procardia] Adverse Reaction (Verified 12/14/16 21:55) nitrofurantoin [From Macrobid] Adverse Reaction (Verified 12/14/16 21:55) nitrofurantoin macrocrystal [From Macrobid] Adverse Reaction (Verified 12/14/16 21:55) Home Medications: Ambulatory Orders Albuterol Sulfate [Albuterol Sulfate Hfa] 2 puff IH QID 02/13/14 Amlodipine Besylate [Norvasc] 5 mg PO DAILY 02/13/14 Atorvastatin Calcium [Lipitor] 40 mg PO BEDTIME 02/13/14 Benazepril HCl [Lotensin] 20 mg PO DAILY 02/13/14 Buspirone HCl 5 mg PO TID PRN 02/13/14 Esomeprazole Magnesium [Nexium] 40 mg PO BID 02/13/14 Furosemide [Lasix] 40 mg PO DAILY 02/13/14 Oxycodone HCl/Acetaminophen [Percocet 10-325 mg Tablet] 1 each PO Q4-6H PRN Promethazine HCl [Phenergan Tab] 25 mg PO Q6H PRN 02/13/14 Ropinirole HCl [Requip] 2 mg PO BEDTIME 02/13/14 Sotalol HCl [Sotalol] 60 mg PO BID 02/13/14 Spironolactone [Aldactone] 25 mg PO DAILY 02/13/14 Topiramate [Topamax] 50 mg PO BEDTIME 02/13/14 Zolpidem Tartrate [Ambien] 10 mg PO BEDTIME 02/13/14 Venlafaxine HCl [Effexor Xr] 150 mg PO BEDTIME 07/04/14 Insulin Lispro [Humalog] 0 unit SQ TIDWM PRN #1 ml 07/12/14 Budesonide/Formoterol Fumarate [Symbicort 160-4.5 Mcg Inhaler] 2 puff IH BID PRN 05/28/15 Tizanidine HCl [Zanaflex] 4 mg PO TID 05/28/15 Gabapentin [Neurontin] 800 mg PO QID 07/05/16 Levothyroxine Sodium [Synthroid] 125 mcg PO DAILY 07/06/16 Tiotropium [place] [Spiriva Respimat] 2.5 mcg IH DAILY 07/09/16 Warfarin Sodium [Coumadin] 3 - 4 mg PO DIRECTED 07/09/16 Insulin Detemir [Levemir] 20 unit SUBCUT BEDTIME 09/06/16 Cephalexin [Keflex] 500 mg PO Q12HR #14 capsule 11/26/16 Guaifenesin [Mucinex] 600 mg PO Q12HR #10 tab.er.12h 11/26/16 Prednisone 10 mg PO BIDWM #14 tablet 11/26/16 Sotalol HCl [Betapace] 60 mg PO BID 11/26/16 Guaifenesin/Dextromethorphan [Robafen Dm Cough Liquid] 5 ml PO QID #120 liquid 04/01/17 Levofloxacin [Levaquin] 500 mg PO QDAC #7 tablet 04/01/17 Disposition Discussed With: Patient, Family
== END 2017-04-01 13:31 | disposition home or self-care (01) ==
LOC: ED 09:43
DX: J18.1 Lobar pneumonia, unspecified organism (principal); F17.210 Nicotine dependence, cigarettes, uncomplicated; R06.02 Shortness of breath; E11.9 Type 2 diabetes mellitus without complications; E03.9 Hypothyroidism, unspecified; E78.5 Hyperlipidemia, unspecified; I10 Essential (primary) hypertension; I25.810 Atherosclerosis of coronary artery bypass graft(s) without angina pectoris; J44.9 Chronic obstructive pulmonary disease, unspecified; M54.9 Dorsalgia, unspecified; G89.29 Other chronic pain; Z79.899 Other long term (current) drug therapy; Z79.01 Long term (current) use of anticoagulants; Z95.0 Presence of cardiac pacemaker; Z95.2 Presence of prosthetic heart valve; K21.9 Gastro-esophageal reflux disease without esophagitis; M19.90 Unspecified osteoarthritis, unspecified site
CPT/HCPCS: 36415; 80053; 82550; 82803; 83880; 84484; 85025; 85379; 87040; 93005; 93010; 94640; 99283

== ENCOUNTER 2017-05-07 20:45 | Emergency (ER) ==
[2017-05-07 20:55] VITALS: BP 143/92; TEMP 96.6; BMI 21.4
[2017-05-07] MEDS ORDERED: DECADRON 4 MG/ML SDV IM STA (21:12)
--- NOTE | 2017-05-07 21:19 | ED.PDOC ---
General ED Provider: Dr. CHAPINCITO MARTINEZ Chief Complaint: Respiratory Complaint Stated Complaint: coughing, congested, getting yellow sputum Time Seen by Physician: 21:17 Mode of Arrival: Walk-In Information Source: Patient Nursing and Triage Documentation Reviewed and Agree: Yes Reviewed sepsis parameters & appropriate labs ordered?: Yes System Inflammatory Response Syndrome: Not Applicable Sepsis Protocol: For patient's 13 years and over: Temp is 96.8 and below OR 101 and greater Pulse >90 BPM Resp >20/minute Acutely Altered Mental Status Are patient's symptoms suggestive of a new infection, such as: -Pneumonia -Skin, Soft Tissue -Endocarditis -UTI -Bone, Joint Infection -Implantable Device -Acute Abdominal Infection -Wound Infection -Meningitis -Blood Stream Catheter Infection -Unknown Respiratory Complaint Exam - Respiratory Complaint/Exam Symptoms Are: Still present Timing: Constant Initial Severity: Mild Current Severity: Mild Location: Chest Character: Reports: Productive cough Aggravating: Reports: Allergens, URI, Passive smoke exposure, Weather Alleviating: Reports: None Associated Signs and Symptoms: Reports: URI, Nasal congestion. Denies: Rapid breathing, Dyspnea, Fever, Chills, Chest pain, Pleuritic chest pain, Wheezing, Hemoptysis, Dizziness, Calf pain, Calf swelling, Edema, Hoarseness, Sinus discomfort, Vomiting, Sore throat, Weight loss, Decreased oral intake, Increased thirst, Increased appetite, Increased urination Related History: Reports: Similar episode History of Healthcare-Acquired Pneumonia: No Related Surgical History: Reports: None Pulmonary Embolism Risk Factors: None Cardiac Risk Factors: Reports: None Pseudomonas Risk Factors: Reports: None Tuberculosis Risk Factors: Reports: None Status Asthmaticus Risk Factors: Reports: None Home Oxygen Use: No Recent Stress Test: No Recent Echo/LV Function: No Current Antibiotic Use: No Current Asthma Medication Use: No Respiratory Distress: None Inadequate Respiratory Effort: No Dysphagia Present: No Stridor Present: No JVD Present: No Accessory Muscle Use: No Retractions: Not Present Diminished Breath Sounds: No Sinus Tenderness: None Grunting Respirations: No Kussmaul Respirations: No Differential Diagnoses: Pneumonia, Bronchitis Review of Systems - Review Of Systems Constitutional: Reports: No symptoms Eyes: Reports: No symptoms Ears, Nose, Mouth, Throat: Reports: No symptoms Respiratory: Reports: Cough Cardiac: Reports: No symptoms GI: Reports: No symptoms : Reports: No symptoms Musculoskeletal: Reports: No symptoms Skin: Reports: No symptoms Neurological: Reports: No symptoms Endocrine: Reports: No symptoms Hematologic/Lymphatic: Reports: No symptoms All Other Systems: Reviewed and Negative Past Medical History - Past Medical History Previously Healthy: No Endocrine: Reports: DM 2, Hypothyroid, Dyslipidemia Cardiovascular: Reports: CAD, Hypertension, CHF, A-Fib Respiratory: Reports: COPD, Pneumonia Hematological: Reports: None Gastrointestinal: Reports: GERD Genitourinary: Reports: None Neuro/Psych: Reports: Migraine, Anxiety, Depression Musculoskeletal: Reports: Arthritis, Back Pain (CHRONIC BACK PAIN) Cancer: Reports: None Last Menstrual Period: unknown Other Pertinent Past Medical History: OPEN HEART SURGERY, PACEMAKER, CHRONIC BACK PAIN - Surgical History General Surgical History: Reports: Hysterectomy, Cholecystectomy (gallbladder), CABG (OPEN HEART SURGERY,aorta valve replacement and pacemaker 2008), Pacemaker (pacemaker 2008), Orthopedic (2 knee replacements), Back Surgery (2 back surg), Other (Aortic valve replacement. RIGHT KIDNEY REPAIR) - Family History Family History: Reports: Unknown - Social History Smoking Status: Current every day smoker, Heavy tobacco smoker Smoking Cessation Counseling Time: > 3 min - 10 min Hx Substance Use: No Alcohol Screening: None Physical Exam - Physical Exam Appearance: Well-appearing, No pain distress, Well-nourished Eyes: MYKE, EOMI, Conjunctiva clear ENT: Ears normal, Nose normal, Oropharynx normal Respiratory: Airway patent, Breath sounds clear, Breath sounds equal, Respirations nonlabored Cardiovascular: RRR, Pulses normal, No rub, No murmur GI/: Soft, Nontender, No masses, Bowel sounds normal, No Organomegaly Musculoskeletal: Normal strength, ROM intact, No edema, No calf tenderness Skin: Warm, Dry, Normal color Neurological: Sensation intact, Motor intact, Reflexes intact, Cranial nerves intact, Alert, Oriented Psychiatric: Affect appropriate, Mood appropriate Interpretation - Radiology Interpretation Radiology Interpretation By: ED Physician Radiology Results: Negative Exam Interpreted: CXR Critical Care Note - Critical Care Note Total Time (mins): 15 Course - Course Orders, Labs, Meds: Orders Category Date Time Status Dexamethasone 4 mg/ml Inj [Decadron 4 mg/ml Sdv] MEDS 05/07/17 21:12 Discontinued 4 mg IM ONCE STA CHEST, 2 VIEWS PA & LAT Stat RADS 05/07/17 21:12 Ordered Medications Discontinued Medications Generic Name Dose Route Start Last Admin Trade Name Freq PRN Reason Stop Dose Admin Dexamethasone Sodium Phosphate 4 mg 05/07/17 21:12 05/07/17 21:30 Decadron 4 Mg/Ml Sdv IM 05/07/17 21:13 4 mg ONCE STA Administration Vital Signs: Temp Pulse Resp BP Pulse Ox 05/07/17 20:46 96.6 F L 94 H 20 143/92 H 94 L Departure - Departure Time of Disposition: 22:04 Disposition: HOME SELF-CARE Discharge Problem: COPD (chronic obstructive pulmonary disease) with acute bronchitis Instructions: Acute Bronchitis (ED) Condition: Good Pt referred to PMD for follow-up: Yes Additional Instructions: Advised to quite smoking. Increase hydration Probiotics Prescriptions: Amoxicillin/Potassium Clav [Augmentin 500-125 mg Tab] 1 tab PO Q12HR #20 tablet Ciprofloxacin HCl [Cipro] 250 mg PO Q12HR #14 tablet Prednisone 10 mg PO BIDWM #14 tablet Allergies/Adverse Reactions: Allergies ceftriaxone sodium [From Rocephin] Adverse Reaction (Verified 05/07/17 20:56) cefuroxime axetil [From Ceftin] Adverse Reaction (Verified 05/07/17 20:56) doxycycline Adverse Reaction (Verified 05/07/17 20:56) nifedipine [From Procardia] Adverse Reaction (Verified 05/07/17 20:56) nitrofurantoin [From Macrobid] Adverse Reaction (Verified 05/07/17 20:56) nitrofurantoin macrocrystal [From Macrobid] Adverse Reaction (Verified 05/07/17 20:56) Home Medications: Ambulatory Orders Albuterol Sulfate [Albuterol Sulfate Hfa] 2 puff IH QID 02/13/14 Amlodipine Besylate [Norvasc] 5 mg PO DAILY 02/13/14 Atorvastatin Calcium [Lipitor] 40 mg PO BEDTIME 02/13/14 Benazepril HCl [Lotensin] 20 mg PO DAILY 02/13/14 Buspirone HCl 5 mg PO BID 02/13/14 Esomeprazole Magnesium [Nexium] 40 mg PO BID 02/13/14 Furosemide [Lasix] 40 mg PO DAILY 02/13/14 Oxycodone HCl/Acetaminophen [Percocet 10-325 mg Tablet] 1 each PO Q4-6H PRN Promethazine HCl [Phenergan Tab] 25 mg PO Q6H PRN 02/13/14 Ropinirole HCl [Requip] 2 mg PO BEDTIME 02/13/14 Sotalol HCl [Sotalol] 60 mg PO BID 02/13/14 Spironolactone [Aldactone] 25 mg PO DAILY 02/13/14 Topiramate [Topamax] 50 mg PO BEDTIME 02/13/14 Zolpidem Tartrate [Ambien] 10 mg PO BEDTIME 02/13/14 Venlafaxine HCl [Effexor Xr] 150 mg PO BEDTIME 07/04/14 Budesonide/Formoterol Fumarate [Symbicort 160-4.5 Mcg Inhaler] 2 puff IH DAILY 05/28/15 Tizanidine HCl [Zanaflex] 4 mg PO TID PRN 05/28/15 Gabapentin [Neurontin] 800 mg PO BID 07/05/16 Levothyroxine Sodium [Synthroid] 125 mcg PO DAILY 07/06/16 Tiotropium [place] [Spiriva Respimat] 2.5 mcg IH DAILY 07/09/16 Warfarin Sodium [Coumadin] 4 mg PO DIRECTED 07/09/16 Insulin Detemir [Levemir] 20 unit SUBCUT BEDTIME 09/06/16 Ciprofloxacin HCl [Cipro] 250 mg PO Q12HR #14 tablet 05/07/17 Insulin Lispro [Humalog] 0 unit SQ DIRECTED PRN 05/07/17 Prednisone 10 mg PO BIDWM #14 tablet 05/07/17 Disposition Discussed With: Patient, Family
[2017-05-07] MEDS ORDERED: ZOFRAN 4 MG/2 ML IM STA (22:04)
--- NOTE | 2017-05-07 22:28 | DI ---
EXAM: Two-view chest HISTORY: Cough COMPARISON: Single-view chest 03/28/2017 FINDINGS: The cardiomediastinal silhouette stable. Sternal wire sutures and prosthetic heart valve noted.. There is left-sided dual lead pacemaker. They are benign granulomatous changes without evid ence of active pulmonary disease. Hemostatic clips are seen in the right upper quadrant from prior c holecystectomy. There is an IVC filter. IMPRESSION: No evidence of active pulmonary disease or interval change.
== END 2017-05-07 22:26 | disposition home or self-care (01) ==
LOC: ED 20:45
DX: J44.1 Chronic obstructive pulmonary disease with (acute) exacerbation (principal); J20.9 Acute bronchitis, unspecified; J44.0 Chronic obstructive pulmonary disease with (acute) lower respiratory infection; F17.210 Nicotine dependence, cigarettes, uncomplicated; Z79.899 Other long term (current) drug therapy
CPT/HCPCS: 96372; 99282

== ENCOUNTER 2017-07-17 21:47 | Emergency (ER) ==
[2017-07-17 21:59] VITALS: BP 120/77; TEMP 97; BMI 20.5
--- NOTE | 2017-07-17 22:52 | ED.PDOC ---
General ED Provider: Dr. TAMIR DUNCAN Chief Complaint: Shortness of Air Stated Complaint: Short of air 2-3 days with a couhg Productive of green colored phlegm. Headache. Chills. Has decreased ciggarett smoking to 1 pack every 3 days. Time Seen by Physician: 22:50 Mode of Arrival: Walk-In Information Source: Patient Exam Limitations: No limitations Primary Care Provider: SHARRI NICHOLSON Nursing and Triage Documentation Reviewed and Agree: Yes Reviewed sepsis parameters & appropriate labs ordered?: No System Inflammatory Response Syndrome: Not Applicable Sepsis Protocol: For patient's 13 years and over: Temp is 96.8 and below OR 101 and greater Pulse >90 BPM Resp >20/minute Acutely Altered Mental Status Are patient's symptoms suggestive of a new infection, such as: -Pneumonia -Skin, Soft Tissue -Endocarditis -UTI -Bone, Joint Infection -Implantable Device -Acute Abdominal Infection -Wound Infection -Meningitis -Blood Stream Catheter Infection -Unknown System Inflammatory Response Syndrome: Not Applicable Review of Systems - Review Of Systems Constitutional: Reports: No symptoms Eyes: Reports: No symptoms Ears, Nose, Mouth, Throat: Reports: No symptoms Respiratory: Reports: Cough, Short of air Cardiac: Reports: No symptoms GI: Reports: No symptoms : Reports: No symptoms Musculoskeletal: Reports: No symptoms Skin: Reports: No symptoms Neurological: Reports: Anxiety Endocrine: Reports: No symptoms Hematologic/Lymphatic: Reports: No symptoms All Other Systems: Reviewed and Negative Past Medical History - Past Medical History Previously Healthy: No Endocrine: Reports: DM 2, Hypothyroid, Dyslipidemia Cardiovascular: Reports: CAD, Hypertension, CHF, A-Fib Respiratory: Reports: COPD, Pneumonia Hematological: Reports: None Gastrointestinal: Reports: GERD Genitourinary: Reports: None Neuro/Psych: Reports: Migraine, Anxiety, Depression Musculoskeletal: Reports: Arthritis, Back Pain (CHRONIC BACK PAIN) Cancer: Reports: None Last Menstrual Period: hysterectomy at 35 y/o Other Pertinent Past Medical History: OPEN HEART SURGERY, PACEMAKER, CHRONIC BACK PAIN - Surgical History General Surgical History: Reports: Hysterectomy, Cholecystectomy (gallbladder), CABG (OPEN HEART SURGERY,aorta valve replacement and pacemaker 2008), Pacemaker (pacemaker 2008), Orthopedic (2 knee replacements), Back Surgery (2 back surg), Other (Aortic valve replacement. RIGHT KIDNEY REPAIR) - Family History Family History: Reports: Unknown - Social History Smoking Status: Current every day smoker, Light tobacco smoker Hx Substance Use: No Alcohol Screening: None - Immunizations Tetanus Shot up to Date: Yes Physical Exam - Physical Exam Appearance: Ill-appearing Ill-appearing: Mild Neck: Supple Respiratory: Breath sounds diminished, Wheezes (mild scattared ) Cardiovascular: RRR, Pulses normal, No rub, No murmur GI/: Soft, Nontender, No masses, Bowel sounds normal, No Organomegaly Skin: Warm, Dry, Normal color Neurological: Alert, Oriented Psychiatric: Anxious Critical Care Note - Critical Care Note Total Time (mins): 0 Course - Course Hematology/Chemistry: 07/17/17 23:00 07/17/17 23:00 Orders, Labs, Meds: Lab Review 07/17/17 07/17/17 07/18/17 23:00 23:00 00:40 WBC 10.59 H RBC 4.74 Hgb 13.0 Hct 39.7 MCV 83.8 MCH 27.4 MCHC 32.7 RDW Coeff of Kalani 15.4 H Plt Count 249 Immature Gran % (Auto) 0.5 Neut % (Auto) 71.9 Lymph % (Auto) 19.1 [place] % (Auto) 6.4 Eos % (Auto) 1.6 Baso % (Auto) 0.5 Immature Gran # (Auto) 0.1 Neut # (Auto) 7.6 H Lymph # (Auto) 2.0 [place] # (Auto) 0.7 Eos # (Auto) 0.2 Baso # (Auto) 0.1 Sodium 136 Potassium 3.5 Chloride 100 Carbon Dioxide 26 Anion Gap 13.5 BUN 10 Creatinine 1.15 Estimated GFR (MDRD) 47.00 BUN/Creatinine Ratio 8.69 Glucose 301 H Calcium 10.0 Total Bilirubin 0.5 AST 10 L ALT 10 L Alkaline Phosphatase 85 Total Creatine Kinase 44 Troponin I 0.1410 Total Protein 7.5 Albumin 3.4 Globulin 4.1 Albumin/Globulin Ratio 0.83 Influ A Molecular Assay Negative by naat Influ B Molecular Assay Negative by naat Orders Category Date Time Status ABG DRAW REQUEST Stat CARDIO 07/17/17 22:51 Completed EKG-(ED ONLY) Stat CARDIO 07/17/17 22:51 Completed NEBULIZER TREATMENT Stat CARDIO 07/17/17 23:07 Completed CBC W/ AUTO DIFF Stat LAB 07/17/17 23:00 Completed COMPREHENSIVE METABOLIC PANEL Stat LAB 07/17/17 23:00 Completed CREATINE KINASE Stat LAB 07/17/17 23:00 Completed FLU A/B MOLECULAR Stat LAB 07/18/17 00:40 Completed RAPID STREP SCREEN [MOLECULAR GROUP A STREP] Stat LAB 07/18/17 00:40 Completed TROPONIN I Stat LAB 07/17/17 23:00 Completed Acetaminophen [Tylenol] MEDS 07/17/17 23:16 Discontinued 1,000 mg PO ONCE STA Ipratropium/Albuterol Neb [Duoneb] MEDS 07/17/17 23:07 Discontinued 1 vial NEB ONCE STA Levofloxacin [Levaquin] MEDS 07/18/17 00:44 Discontinued 500 mg PO ONCE STA Prednisone MEDS 07/18/17 00:44 Discontinued 40 mg PO ONCE STA CHEST, 2 VIEWS PA & LAT Stat RADS 07/17/17 22:48 Completed Medications Discontinued Medications Generic Name Dose Route Start Last Admin Trade Name Freq PRN Reason Stop Dose Admin Acetaminophen 1,000 mg 07/17/17 23:16 07/17/17 23:27 Tylenol PO 07/17/17 23:17 1,000 mg ONCE STA Administration Albuterol/Ipratropium 1 vial 07/17/17 23:07 07/18/17 00:30 Duoneb NEB 07/17/17 23:08 1 vial ONCE STA Administration Levofloxacin 500 mg 07/18/17 00:44 07/18/17 00:54 Levaquin PO 07/18/17 00:45 500 mg ONCE STA Administration Prednisone 40 mg 07/18/17 00:44 07/18/17 00:54 Prednisone PO 07/18/17 00:45 40 mg ONCE STA Administration Vital Signs: Temp Pulse Resp BP Pulse Ox 07/17/17 21:48 97 F L 64 20 120/77 93 L Departure - Departure Time of Disposition: 00:46 Disposition: HOME SELF-CARE Discharge Problem: COPD (chronic obstructive pulmonary disease) with acute bronchitis Instructions: Acute Bronchitis (ED) Condition: Stable Pt referred to PMD for follow-up: Yes IPMP verified?: No Additional Instructions: Continue to decrease Cigg use until stopped. Take medications as prescribed. Follow up with PCP in 3 day. Prescriptions: Levofloxacin [Levaquin] 500 mg PO DAILY #7 tablet Methylprednisolone [Medrol Dosepak] 4 mg PO DIRECTED #1 pkg Allergies/Adverse Reactions: Allergies ceftriaxone sodium [From Rocephin] Adverse Reaction (Verified 07/17/17 22:00) cefuroxime axetil [From Ceftin] Adverse Reaction (Verified 07/17/17 22:00) doxycycline Adverse Reaction (Verified 07/17/17 22:00) nifedipine [From Procardia] Adverse Reaction (Verified 07/17/17 22:00) nitrofurantoin [From Macrobid] Adverse Reaction (Verified 07/17/17 22:00) nitrofurantoin macrocrystal [From Macrobid] Adverse Reaction (Verified 07/17/17 22:00) Home Medications: Ambulatory Orders Albuterol Sulfate [Albuterol Sulfate Hfa] 2 puff IH QID 02/13/14 Amlodipine Besylate [Norvasc] 5 mg PO DAILY 02/13/14 Atorvastatin Calcium [Lipitor] 40 mg PO BEDTIME 02/13/14 Benazepril HCl [Lotensin] 20 mg PO DAILY 02/13/14 Buspirone HCl 5 mg PO BID 02/13/14 Esomeprazole Magnesium [Nexium] 40 mg PO BID 02/13/14 Furosemide [Lasix] 40 mg PO DAILY 02/13/14 Oxycodone HCl/Acetaminophen [Percocet 10-325 mg Tablet] 1 each PO Q4-6H PRN Promethazine HCl [Phenergan Tab] 25 mg PO Q6H PRN 02/13/14 Ropinirole HCl [Requip] 2 mg PO BEDTIME 02/13/14 Sotalol HCl [Sotalol] 60 mg PO BID 02/13/14 Spironolactone [Aldactone] 25 mg PO DAILY 02/13/14 Topiramate [Topamax] 50 mg PO BEDTIME 02/13/14 Zolpidem Tartrate [Ambien] 10 mg PO BEDTIME 02/13/14 Venlafaxine HCl [Effexor Xr] 150 mg PO BEDTIME 07/04/14 Budesonide/Formoterol Fumarate [Symbicort 160-4.5 Mcg Inhaler] 2 puff IH DAILY 05/28/15 Tizanidine HCl [Zanaflex] 4 mg PO TID PRN 05/28/15 Gabapentin [Neurontin] 800 mg PO BID 07/05/16 Levothyroxine Sodium [Synthroid] 125 mcg PO DAILY 07/06/16 Tiotropium [place] [Spiriva Respimat] 2.5 mcg IH DAILY 07/09/16 Warfarin Sodium [Coumadin] 4 mg PO DIRECTED 07/09/16 Insulin Detemir [Levemir] 20 unit SUBCUT BEDTIME 09/06/16 Insulin Lispro [Humalog] 0 unit SQ DIRECTED PRN 05/07/17 Levofloxacin [Levaquin] 500 mg PO DAILY #7 tablet 07/18/17 Methylprednisolone [Medrol Dosepak] 4 mg PO DIRECTED #1 pkg 07/18/17
[2017-07-17] MEDS ORDERED: DUONEB NEB STA (23:07)
[2017-07-17] MEDS ORDERED: TYLENOL PO STA (23:16)
[2017-07-18] MEDS ORDERED: PREDNISONE PO STA (00:44)
[2017-07-18] MEDS ORDERED: LEVAQUIN PO STA (00:44)
--- NOTE | 2017-07-18 07:11 | DI ---
EXAM: PA and lateral views of the chest HISTORY: Cough COMPARISON: Chest x-ray 05/07/[address] 04/01/2017 with multiple priors FINDINGS: The cardiomediastinal silhouette is unchanged with stable lead wires, cardiac valve and st ernotomy wires. There is no pneumothorax or pleural effusion. The lungs are mildly hyperinflated. There is minimal nodular ground-glass in the left lung base. There is calcified granuloma in the lef t mid lung. The osseous structures are unchanged. There is an IVC filter and surgical clips in the upper abdomen. IMPRESSION: 1. Minimal nodular ground-glass in the left lung base may represent small airways inflammation versu s atelectasis. 2. No acute consolidation with hyperinflated lungs suggestive of a component of obstructive pulmonar y physiology.
== END 2017-07-18 01:20 | disposition home or self-care (01) ==
LOC: ED 21:47
DX: J44.0 Chronic obstructive pulmonary disease with (acute) lower respiratory infection (principal); J20.9 Acute bronchitis, unspecified; F17.210 Nicotine dependence, cigarettes, uncomplicated; R06.02 Shortness of breath; E11.9 Type 2 diabetes mellitus without complications; E78.5 Hyperlipidemia, unspecified; E03.9 Hypothyroidism, unspecified; I25.810 Atherosclerosis of coronary artery bypass graft(s) without angina pectoris; I10 Essential (primary) hypertension; Z79.899 Other long term (current) drug therapy; Z79.01 Long term (current) use of anticoagulants; Z79.4 Long term (current) use of insulin; Z95.0 Presence of cardiac pacemaker; Z95.2 Presence of prosthetic heart valve
CPT/HCPCS: 36415; 80053; 82550; 84484; 85025; 87502; 87651; 93005; 93010; 94640; 99283

== ENCOUNTER 2017-11-30 00:46 | Emergency (ER) ==
[2017-11-30 01:02] VITALS: BP 94/69; TEMP 97.5; BMI 20.8
[2017-11-30] MEDS ORDERED: DUONEB NEB STA (01:13)
[2017-11-30] MEDS ORDERED: DECADRON 4 MG/ML SDV IM STA (01:13)
--- NOTE | 2017-11-30 01:16 | ED.PDOC ---
General ED Provider: Dr. CHAPINCITO MARTINEZ Chief Complaint: Shortness of Air Stated Complaint: Been short of breath, ran out of thge o2,. feels weak tired Time Seen by Physician: 01:15 Mode of Arrival: Wheelchair Information Source: Patient, Family Nursing and Triage Documentation Reviewed and Agree: Yes Does patient meet sepsis criteria?: No If yes, has appropriate treatment been initiated?: No System Inflammatory Response Syndrome: Not Applicable Sepsis Protocol: For patient's 13 years and over: Temp is 96.8 and below OR 101 and greater Pulse >90 BPM Resp >20/minute Acutely Altered Mental Status Are patient's symptoms suggestive of a new infection, such as: -Pneumonia -Skin, Soft Tissue -Endocarditis -UTI -Bone, Joint Infection -Implantable Device -Acute Abdominal Infection -Wound Infection -Meningitis -Blood Stream Catheter Infection -Unknown Respiratory Complaint Exam - Shortness of Air Complaint/Exam Symptoms Are: Still present Timing: Constant Initial Severity: Mild Current Severity: Mild Character: Reports: Dyspnea at rest Aggravating: Reports: None Associated Signs and Symptoms: Reports: Cough. Denies: Wheezing, Chest pain with cough, Chest pain, Fever, Chills, Diaphoresis, Nasal congestion, Dizziness , Calf pain, Calf swelling, Edema, Rapid breathing, Labored breathing, Decreased intake History of Healthcare-Acquired Pneumonia: No Pulmonary Embolism Risk Factors: Reports: None Cardiac Risk Factors: Reports: None Pseudomonas Risk Factors: Reports: None Tuberculosis Risk Factors: Reports: None Home Oxygen Use: Yes Recent Stress Test: No Recent Echo/LV Function: No Respiratory Distress: None Stridor Present: No Tracheal Deviation: No Subcutaneous Emphysema: No Accessory Muscle Use: No Retractions: Not Present Diminished Breath Sounds: No Prolonged Expiratory Phase: No Unable to Speak Full Sentences: No Fatigue: No Leg Swelling: No Lenora's Sign Present: No Grunting Respirations: No Kussmaul Respirations: No Differential Diagnoses: COPD Exacerbation, Pneumonia Review of Systems - Review Of Systems Constitutional: Reports: No symptoms Eyes: Reports: No symptoms Ears, Nose, Mouth, Throat: Reports: No symptoms Respiratory: Reports: Cough, Orthopnea, Short of air Cardiac: Reports: No symptoms GI: Reports: No symptoms : Reports: No symptoms Musculoskeletal: Reports: No symptoms Skin: Reports: No symptoms Neurological: Reports: No symptoms Endocrine: Reports: No symptoms Hematologic/Lymphatic: Reports: No symptoms All Other Systems: Reviewed and Negative Past Medical History - Past Medical History Previously Healthy: No Endocrine: Reports: DM 2, Hypothyroid, Dyslipidemia Cardiovascular: Reports: CAD, Hypertension, CHF, A-Fib Respiratory: Reports: COPD, Pneumonia Hematological: Reports: None Gastrointestinal: Reports: GERD Genitourinary: Reports: None Neuro/Psych: Reports: Migraine, Anxiety, Depression Musculoskeletal: Reports: Arthritis, Back Pain (CHRONIC BACK PAIN) Cancer: Reports: None Last Menstrual Period: menopausal Other Pertinent Past Medical History: OPEN HEART SURGERY, PACEMAKER, CHRONIC BACK PAIN - Surgical History General Surgical History: Reports: Hysterectomy, Cholecystectomy (gallbladder), CABG (OPEN HEART SURGERY,aorta valve replacement and pacemaker 2008), Pacemaker (pacemaker 2008), Orthopedic (2 knee replacements), Back Surgery (2 back surg), Other (Aortic valve replacement. RIGHT KIDNEY REPAIR) - Family History Family History: Reports: Unknown - Social History Smoking Status: Current every day smoker, Light tobacco smoker Hx Substance Use: No Alcohol Screening: None - Immunizations Tetanus Shot up to Date: Yes Physical Exam - Physical Exam Appearance: Ill-appearing, Thin Ill-appearing: Mild Eyes: MYKE, EOMI, Conjunctiva clear ENT: Ears normal, Nose normal, Oropharynx normal Respiratory: Airway patent, Breath sounds clear, Breath sounds equal, Respirations nonlabored Cardiovascular: RRR, Pulses normal, No rub, No murmur GI/: Soft, Nontender, No masses, Bowel sounds normal, No Organomegaly Musculoskeletal: Normal strength, ROM intact, No edema, No calf tenderness Skin: Warm, Dry, Normal color Neurological: Sensation intact, Motor intact, Reflexes intact, Cranial nerves intact, Alert, Oriented Psychiatric: Affect appropriate, Mood appropriate Critical Care Note - Critical Care Note Total Time (mins): 30 Course - Course Hematology/Chemistry: 11/30/17 01:35 11/30/17 01:35 Orders, Labs, Meds: Lab Review 11/30/17 11/30/17 01:35 01:35 WBC 6.46 RBC 4.29 Hgb 11.6 L Hct 36.3 L MCV 84.6 MCH 27.0 MCHC 32.0 RDW Coeff of Kalani 14.6 Plt Count 226 Immature Gran % (Auto) 0.5 Neut % (Auto) 54.6 Lymph % (Auto) 34.5 Pender % (Auto) 7.4 Eos % (Auto) 2.2 Baso % (Auto) 0.8 Immature Gran # (Auto) 0.0 Neut # (Auto) 3.5 Lymph # (Auto) 2.2 Pender # (Auto) 0.5 Eos # (Auto) 0.1 Baso # (Auto) 0.1 Sodium 135 L Potassium 2.8 L Chloride 96 L Carbon Dioxide 30 Anion Gap 11.8 BUN 17 Creatinine 1.49 H Estimated GFR (MDRD) 35.00 BUN/Creatinine Ratio 11.40 Glucose 218 H Calcium 9.0 Total Bilirubin 0.3 AST 14 L ALT < 6 L Alkaline Phosphatase 66 Total Creatine Kinase 62 Troponin I 0.0880 Total Protein 6.6 Albumin 3.2 L Globulin 3.4 Albumin/Globulin Ratio 0.94 Orders Category Date Time Status ABG DRAW REQUEST Stat CARDIO 11/30/17 01:13 Ordered EKG-(ED ONLY) Stat CARDIO 11/30/17 01:13 Ordered NEBULIZER TREATMENT Stat CARDIO 11/30/17 01:13 Ordered ED IV/MEDIPORT/POWERPORT .ONCE EMERGENCY 11/30/17 02:09 Active ABG Stat LAB 11/30/17 01:13 Ordered CBC W/ AUTO DIFF Stat LAB 11/30/17 01:35 Completed COMPREHENSIVE METABOLIC PANEL Stat LAB 11/30/17 01:35 Completed CREATINE KINASE Stat LAB 11/30/17 01:35 Completed POTASSIUM Stat LAB 11/30/17 05:00 Ordered TROPONIN I Stat LAB 11/30/17 01:35 Completed 0.9 % Sodium Chloride [Saline Flush] MEDS 11/30/17 02:09 Ordered 1 syr IVF PRN PRN Dexamethasone 4 mg/ml Inj [Decadron 4 mg/ml Sdv] MEDS 11/30/17 01:13 Discontinued 4 mg IM ONCE STA Ipratropium/Albuterol Neb [Duoneb] MEDS 11/30/17 01:13 Discontinued 1 vial NEB ONCE STA Potassium Chloride [K-Dur] MEDS 11/30/17 02:09 Stat 40 meq PO ONCE STA Potassium Chloride in 0.9%NaCl [Sodium Chloride 0.9%- MEDS 11/30/17 02:09 Active KCl 40Meq] 1,000 ml IV 125 mls/hr CT CHEST W/O CONTRAST Stat RADS 11/30/17 01:13 Completed Medications Generic Name Dose Route Start Last Admin Trade Name Freq PRN Reason Stop Dose Admin Potassium Chloride/Sodium Chloride 1,000 mls @ 125 mls/hr 11/30/17 02:09 Sodium Chloride 0.9%-Kcl 40meq IV 11/30/17 10:08 .Q8H STA Potassium Chloride 40 meq 11/30/17 02:09 K-Dur PO 11/30/17 02:10 ONCE STA Sodium Chloride 1 syr 11/30/17 02:09 Saline Flush IVF PRN PRN To flush IV Discontinued Medications Generic Name Dose Route Start Last Admin Trade Name Freq PRN Reason Stop Dose Admin Albuterol/Ipratropium 1 vial 11/30/17 01:13 Duoneb NEB 11/30/17 01:14 ONCE STA Dexamethasone Sodium Phosphate 4 mg 11/30/17 01:13 11/30/17 01:21 Decadron 4 Mg/Ml Sdv IM 11/30/17 01:14 4 mg ONCE STA Administration Vital Signs: Temp Pulse Resp BP Pulse Ox 11/30/17 00:54 97.5 F L 87 24 94/69 89 L Departure - Departure Time of Disposition: :22 Disposition: HOME SELF-CARE Discharge Problem: COPD (chronic obstructive pulmonary disease) with acute bronchitis, Hypokalemia Instructions: COPD (Chronic Obstructive Pulmonary Disease) (ED) Condition: Stable Pt referred to PMD for follow-up: Yes IPMP verified?: No Additional Instructions: Please continue use o2 2lit at home continue breathing treatments Prescriptions: Azithromycin [Zithromax] 250 mg PO DIRECTED #6 tablet Potassium Chloride 20 meq PO BID #14 tab.er.prt Prednisone 10 mg PO BIDWM #14 tablet Allergies/Adverse Reactions: Allergies ceftriaxone sodium [From Rocephin] Adverse Reaction (Verified 11/30/17 01:02) cefuroxime axetil [From Ceftin] Adverse Reaction (Verified 11/30/17 01:02) doxycycline Adverse Reaction (Verified 11/30/17 01:02) nifedipine [From Procardia] Adverse Reaction (Verified 11/30/17 01:02) nitrofurantoin [From Macrobid] Adverse Reaction (Verified 11/30/17 01:02) nitrofurantoin macrocrystal [From Macrobid] Adverse Reaction (Verified 11/30/17 01:02) Home Medications: Ambulatory Orders Albuterol Sulfate [Albuterol Sulfate Hfa] 2 puff IH QID 09/30/14 Atorvastatin Calcium [Lipitor] 40 mg PO BEDTIME 02/13/14 Benazepril HCl [Lotensin] 20 mg PO DAILY 02/13/14 Esomeprazole Magnesium [Nexium] 40 mg PO BID 02/13/14 Furosemide [Lasix] 40 mg PO DAILY 02/13/14 Promethazine HCl [Phenergan Tab] 25 mg PO Q6H PRN 02/13/14 Ropinirole HCl [Requip] 2 mg PO BEDTIME 02/13/14 Sotalol HCl [Sotalol] 80 mg PO BID 02/13/14 Topiramate [Topamax] 50 mg PO BEDTIME 02/13/14 Venlafaxine HCl [Effexor Xr] 150 mg PO BEDTIME 07/04/14 Budesonide/Formoterol Fumarate [Symbicort 160-4.5 Mcg Inhaler] 2 puff IH DAILY 05/28/15 Tizanidine HCl [Zanaflex] 4 mg PO TID PRN 05/28/15 Levothyroxine Sodium [Synthroid] 125 mcg PO DAILY 07/06/16 Tiotropium [place] [Spiriva Respimat] 2.5 mcg IH DAILY 07/09/16 Warfarin Sodium [Coumadin] 4 mg PO DIRECTED 07/09/16 Insulin Detemir [Levemir] 20 unit SUBCUT BEDTIME 09/06/16 Insulin Lispro [Humalog] 0 unit SQ DIRECTED PRN 05/07/17 Azithromycin [Zithromax] 250 mg PO DIRECTED #6 tablet 11/30/17 Nitroglycerin 0.4 mg SL DIRECTED PRN 11/30/17 Potassium Chloride 20 meq PO BID #14 tab.er.prt 11/30/17 Prednisone 10 mg PO BIDWM #14 tablet 11/30/17 Disposition Discussed With: Patient, Family
--- NOTE | 2017-11-30 02:02 | CT ---
Exam: CT of the chest without contrast History: Shortness of breath Technique: [address] of the chest without intravascular contrast FINDINGS: The lung windows show no infiltrative opacities. No pleural fluid or pneumothorax. Ather osclerotic calcification of the aorta and coronary arteries. Aortic valve replacement and left appro ach pacemaker. Prior mediastinotomy. No acute chest wall abnormality. No acute findings of the upp er abdomen. Inferior vena cava filter in place. Impression: 1. No acute findings of the chest 2. Aortic valve replacement
[2017-11-30] MEDS ORDERED: SODIUM CHLORIDE 0.9%-KCL 40MEQ 1,000 ML IV STA (02:09)
[2017-11-30] MEDS ORDERED: K-DUR PO STA (02:09)
== END 2017-11-30 05:15 | disposition home or self-care (01) ==
LOC: ED 00:46
DX: J44.0 Chronic obstructive pulmonary disease with (acute) lower respiratory infection (principal); J20.9 Acute bronchitis, unspecified; E87.6 Hypokalemia; R06.02 Shortness of breath; E11.9 Type 2 diabetes mellitus without complications; E03.9 Hypothyroidism, unspecified; E78.5 Hyperlipidemia, unspecified; I25.810 Atherosclerosis of coronary artery bypass graft(s) without angina pectoris; I10 Essential (primary) hypertension; Z95.0 Presence of cardiac pacemaker; F17.210 Nicotine dependence, cigarettes, uncomplicated; Z79.899 Other long term (current) drug therapy; Z79.4 Long term (current) use of insulin; Z79.01 Long term (current) use of anticoagulants; Z95.2 Presence of prosthetic heart valve
CPT/HCPCS: 36415; 80053; 82550; 82803; 84132; 84484; 85025; 93005; 93010; 94640; 96360; 96361; 96372; 99284

== ENCOUNTER 2017-12-03 08:57 | Inpatient (IN) ==
[2017-12-03] MEDS ORDERED: SODIUM CHLORIDE 1,000 ML IV STA (09:11)
[2017-12-03] MEDS ORDERED: VITAMIN K ORAL SOLUTION 5 MG/5 ML PO STA (10:22)
--- NOTE | 2017-12-03 10:30 | CT ---
EXAM: CT Abdomen without contrast. CT Pelvis without contrast. HISTORY: Diarrhea. Generalized abdominal pain. COMPARISON: None available. TECHNIQUE: Multiple axial images of the abdomen and pelvis were obtained without intravenous contras t. Images were reformatted in the sagittal and coronal plane. FINDINGS: Please note that evaluation of the abdominal and pelvic structures is limited due to lack of intravenous contrast. There has been previous sternotomy. Pacemaker leads partially imaged in the right heart. Right basi lar scarring is incompletely imaged. No acute osseous abnormality identified. Gallbladder is absent. The liver, pancreas, spleen, adrenal glands, and kidneys demonstrate normal c ontour. No calcified renal stones or hydronephrosis detected. Gastric wall thickening versus incomplete distension noted. There is mild diffuse colonic wall thick ening. There is no evidence for bowel obstruction. The appendix is not seen. Urinary bladder is un remarkable. Uterus is absent. Phleboliths noted pelvis. Atherosclerotic calcifications seen. Vena cava filter noted. No free fluid or free air identified IMPRESSION: 1. Mild pancolitis most likely infectious in nature. 2. Gastric wall thickening versus incomplete distension. Consider endoscopy as warranted.
--- NOTE | 2017-12-03 10:30 | ED.PDOC ---
General ED Provider: Dr. SHIRLEY BECKER Chief Complaint: Diarrhea Stated Complaint: DIARRHEA , WEAKNESS Time Seen by Physician: 09:02 (SEEN WITH NURSE PRESENT AT ALL TIMES ) Mode of Arrival: Wheelchair Information Source: Patient Exam Limitations: No limitations Primary Care Provider: SHARRI NICHOLSON Nursing and Triage Documentation Reviewed and Agree: Yes Does patient meet sepsis criteria?: Yes If yes, has appropriate treatment been initiated?: No System Inflammatory Response Syndrome: Not Applicable Sepsis Protocol: For patient's 13 years and over: Temp is 96.8 and below OR 101 and greater Pulse >90 BPM Resp >20/minute Acutely Altered Mental Status Are patient's symptoms suggestive of a new infection, such as: -Pneumonia -Skin, Soft Tissue -Endocarditis -UTI -Bone, Joint Infection -Implantable Device -Acute Abdominal Infection -Wound Infection -Meningitis -Blood Stream Catheter Infection -Unknown GI Complaint Exam - Vomiting/Diarrhea Complaint/Exam Onset/Duration: 7 DAYS Symptoms Are: Still present Episodes of Vomiting over last 24 Hours: 0 Initial Severity: Mild Current Severity: Mild Character of Diarrhea: Reports: Watery Aggravating: Reports: None Alleviating: Reports: None Associated Signs and Symptoms: Reports: Abdominal pain. Denies: Dizziness, Light-headedness, Melena, Hematemesis, Fever, Cramping Related History: Reports: Similar episode Differential Diagnoses: Dehydration, Viral Gastroenteritis, Other (C DIFF) Review of Systems - Review Of Systems Constitutional: Reports: No symptoms Eyes: Reports: No symptoms Ears, Nose, Mouth, Throat: Reports: No symptoms Respiratory: Reports: No symptoms Cardiac: Reports: No symptoms GI: Reports: Diarrhea : Reports: No symptoms Musculoskeletal: Reports: No symptoms Skin: Reports: No symptoms Neurological: Reports: No symptoms Endocrine: Reports: No symptoms Hematologic/Lymphatic: Reports: No symptoms All Other Systems: Reviewed and Negative Past Medical History - Past Medical History Previously Healthy: No Endocrine: Reports: DM 2, Hypothyroid, Dyslipidemia Cardiovascular: Reports: CAD, Hypertension, CHF, A-Fib Respiratory: Reports: COPD, Pneumonia Hematological: Reports: None Gastrointestinal: Reports: GERD Genitourinary: Reports: None Neuro/Psych: Reports: Migraine, Anxiety, Depression Musculoskeletal: Reports: Arthritis, Back Pain (CHRONIC BACK PAIN) Cancer: Reports: None Last Menstrual Period: NA Other Pertinent Past Medical History: OPEN HEART SURGERY, PACEMAKER, CHRONIC BACK PAIN - Surgical History General Surgical History: Reports: Hysterectomy, Cholecystectomy (gallbladder), CABG (OPEN HEART SURGERY,aorta valve replacement and pacemaker 2008), Pacemaker (pacemaker 2008), Orthopedic (2 knee replacements), Back Surgery (2 back surg), Other (Aortic valve replacement. RIGHT KIDNEY REPAIR) - Family History Family History: Reports: Unknown - Social History Smoking Status: Current every day smoker, Light tobacco smoker Hx Substance Use: No Alcohol Screening: None Physical Exam - Physical Exam Appearance: Well-appearing, No pain distress, Well-nourished Eyes: MYKE, EOMI, Conjunctiva clear ENT: Dry mucosa Respiratory: Airway patent, Breath sounds clear, Breath sounds equal, Respirations nonlabored Cardiovascular: RRR, Pulses normal, No rub, No murmur GI/: Soft, Nontender, No masses, Bowel sounds normal, No Organomegaly Musculoskeletal: Normal strength, ROM intact, No edema, No calf tenderness Skin: Warm, Dry, Normal color Neurological: Sensation intact, Motor intact, Reflexes intact, Cranial nerves intact, Alert, Oriented Psychiatric: Affect appropriate, Mood appropriate Physician Notification - Case Discussed Physician Notified: JUAN Time of Notification: 10:31 Admit To: Inpatient (PT REQUESTED JUAN YAP PRESENT, NO BLEED ING ISSUE IN THE ED ) Critical Care Note - Critical Care Note Total Time (mins): 0 Course - Course Hematology/Chemistry: 12/03/17 09:25 12/03/17 09:25 Orders, Labs, Meds: Lab Review 12/03/17 12/03/17 09:25 09:25 WBC 7.15 RBC 4.14 L Hgb 11.2 L Hct 35.3 L MCV 85.3 MCH 27.1 MCHC 31.7 L RDW Coeff of Kalani 14.5 Plt Count 195 Immature Gran % (Auto) 0.4 Neut % (Auto) 58.5 Lymph % (Auto) 30.3 Wilson % (Auto) 8.4 Eos % (Auto) 2.0 Baso % (Auto) 0.4 Immature Gran # (Auto) 0.0 Neut # (Auto) 4.2 Lymph # (Auto) 2.2 Wilson # (Auto) 0.6 Eos # (Auto) 0.1 Baso # (Auto) 0.0 Sodium 135 L Potassium 3.1 L Chloride 100 Carbon Dioxide 26 Anion Gap 12.1 BUN 15 Creatinine 1.23 Estimated GFR (MDRD) 43.00 BUN/Creatinine Ratio 12.19 Glucose 169 H Calcium 8.9 Total Bilirubin 0.3 AST 16 ALT 8 L Alkaline Phosphatase 70 Total Protein 6.8 Albumin 3.2 L Globulin 3.6 Albumin/Globulin Ratio 0.89 Orders Category Date Time Status EKG-(ED ONLY) Stat CARDIO 12/03/17 10:24 Ordered C-DIFF MONITORING (NURSING) BID CARE 12/03/17 09:11 Active ED IV/MEDIPORT/POWERPORT .ONCE EMERGENCY 12/03/17 09:10 Active BLOOD CULTURE (ED ONLY) Stat LAB 12/03/17 10:10 Received CBC W/ AUTO DIFF Stat LAB 12/03/17 09:25 Completed COMPREHENSIVE METABOLIC PANEL Stat LAB 12/03/17 09:25 Completed LACTIC ACID Stat LAB 12/03/17 10:10 Received PARTIAL THROMBOPLASTIN TIME Stat LAB 12/03/17 09:25 Received PROCALCITONIN Stat LAB 12/03/17 10:10 Received PT WITH INR Stat LAB 12/03/17 09:25 Received c-diff [C. DIFFICILE] Routine LAB 12/03/17 09:11 Uncollected 0.9 % Sodium Chloride [Saline Flush] MEDS 12/03/17 09:10 Active 1 syr IVF PRN PRN Phytonadione (Vit K1) [Vitamin K Oral Solution 5 mg/5 MEDS 12/03/17 10:22 Stat ml] 10 mg PO ONCE STA Sodium Chloride 0.9% [Sodium Chloride] 1,000 ml MEDS 12/03/17 09:11 Active IV 125 mls/hr CT ABDOMEN/PELVIS WO CONTRAST Stat RADS 12/03/17 09:25 Taken Medications Generic Name Dose Route Start Last Admin Trade Name Freq PRN Reason Stop Dose Admin Sodium Chloride 1,000 mls @ 125 mls/hr 12/03/17 09:11 12/03/17 09:59 Sodium Chloride IV 12/03/17 17:10 125 mls/hr .Q8H STA Administration Sodium Chloride 1 syr 12/03/17 09:10 Saline Flush IVF PRN PRN To flush IV Discontinued Medications Generic Name Dose Route Start Last Admin Trade Name Freq PRN Reason Stop Dose Admin Phytonadione 10 mg 12/03/17 10:22 Vitamin K Oral Solution 5 Mg/5 Ml PO 12/03/17 10:23 ONCE STA Vital Signs: Temp Pulse Resp BP Pulse Ox 12/03/17 09:01 96.0 F L 97 H 18 73/59 L 100 Departure - Departure Time of Disposition: 10:31 Disposition: ADMITTED INPATIENT Discharge Problem: Diarrhea Warfarin toxicity Qualifiers: Encounter type: initial encounter Injury intent: accidental or unintentional Qualified Code(s): T45.511A - Poisoning by anticoagulants, accidental ( unintentional), initial encounter Instructions: Vitamin K in Foods (ED), Warfarin Toxicity (ED) Condition: Good Pt referred to PMD for follow-up: Yes IPMP verified?: No Additional Instructions: Please call your Family Physician as soon as possible to schedule a follow-up appointment. Allergies/Adverse Reactions: Allergies ceftriaxone sodium [From Rocephin] Adverse Reaction (Verified 12/03/17 08:59) cefuroxime axetil [From Ceftin] Adverse Reaction (Verified 12/03/17 08:59) doxycycline Adverse Reaction (Verified 12/03/17 08:59) nifedipine [From Procardia] Adverse Reaction (Verified 12/03/17 08:59) nitrofurantoin [From Macrobid] Adverse Reaction (Verified 12/03/17 08:59) nitrofurantoin macrocrystal [From Macrobid] Adverse Reaction (Verified 12/03/17 08:59) Home Medications: Ambulatory Orders Albuterol Sulfate [Albuterol Sulfate Hfa] 2 puff IH QID 02/13/14 Atorvastatin Calcium [Lipitor] 40 mg PO BEDTIME 02/13/14 Benazepril HCl [Lotensin] 20 mg PO DAILY 02/13/14 Esomeprazole Magnesium [Nexium] 40 mg PO BID 02/13/14 Furosemide [Lasix] 40 mg PO DAILY 02/13/14 Promethazine HCl [Phenergan Tab] 25 mg PO Q6H PRN 02/13/14 Ropinirole HCl [Requip] 2 mg PO BEDTIME 02/13/14 Sotalol HCl [Sotalol] 80 mg PO BID 02/13/14 Topiramate [Topamax] 50 mg PO BEDTIME 02/13/14 Venlafaxine HCl [Effexor Xr] 150 mg PO BEDTIME 07/04/14 Budesonide/Formoterol Fumarate [Symbicort 160-4.5 Mcg Inhaler] 2 puff IH DAILY 05/28/15 Tizanidine HCl [Zanaflex] 4 mg PO TID PRN 05/28/15 Levothyroxine Sodium [Synthroid] 125 mcg PO DAILY 07/06/16 Tiotropium [place] [Spiriva Respimat] 2.5 mcg IH DAILY 07/09/16 Warfarin Sodium [Coumadin] 4 mg PO DIRECTED 07/09/16 Insulin Detemir [Levemir] 20 unit SUBCUT BEDTIME 09/06/16 Insulin Lispro [Humalog] 0 unit SQ DIRECTED PRN 05/07/17 Azithromycin [Zithromax] 250 mg PO DIRECTED #6 tablet 11/30/17 Nitroglycerin 0.4 mg SL DIRECTED PRN 11/30/17 Potassium Chloride 20 meq PO BID #14 tab.er.prt 11/30/17 Prednisone 10 mg PO BIDWM #14 tablet 11/30/17 Disposition Discussed With: Patient
[2017-12-03] MEDS ORDERED: DUONEB NEB SCH (12:00)
[2017-12-03 12:08] VITALS: BMI 21.1
[2017-12-03] MEDS: SODIUM CHLORIDE 1,000 ML IV SCH (12:11)
[2017-12-03] MEDS ORDERED: NITROSTAT SL PRN (12:37)
[2017-12-03] MEDS ORDERED: PROTONIX PO STA (13:29)
[2017-12-03] MEDS: FLAGYL 500 MG/100 ML 500 MG in PREMIX 100 ML NS 1 BAG IV SCH ×2 (14:01→21:27)
[2017-12-03] MEDS: K-DUR PO SCH ×2 (14:01→21:30)
[2017-12-03] MEDS: DUONEB NEB SCH ×2 (14:20→19:45)
[2017-12-03] MEDS: PREDNISONE PO SCH (16:56)
[2017-12-03] MEDS: PROTONIX PO SCH (16:57)
[2017-12-03] MEDS ORDERED: K-DUR PO SCH (21:00)
[2017-12-03] MEDS ORDERED: NON-FORMULARY MEDICATION (Ropinirole Hcl [Requip] 2 MG) PO SCH (21:00)
[2017-12-03] MEDS ORDERED: SOTALOL HCL 80 MG PO SCH (21:00)
[2017-12-03] MEDS ORDERED: NON-FORMULARY MEDICATION (Esomeprazole Magnesium [Nexium] 40 MG) PO SCH (21:00)
[2017-12-03] MEDS ORDERED: NON-FORMULARY MEDICATION (Atorvastatin Calcium [Lipitor] 40 MG) PO SCH (21:00)
[2017-12-03] MEDS ORDERED: NON-FORMULARY MEDICATION (Venlafaxine Hcl [Effexor Xr] 150 MG) PO SCH (21:00)
[2017-12-03] MEDS ORDERED: NICODERM 14 MG TD ONE (21:11)
[2017-12-03] MEDS: SOLU-MEDROL 125 MG IVP SCH (21:22)
[2017-12-03] MEDS: SYMBICORT 160-4.5 MCG INHALER IH SCH (21:29)
[2017-12-03] MEDS: LIPITOR PO SCH (21:29)
[2017-12-03] MEDS ORDERED: ZITHROMAX PO SCH (21:30)
[2017-12-03] MEDS: REQUIP PO SCH (21:31)
[2017-12-03] MEDS: EFFEXOR XR PO SCH (21:31)
[2017-12-03] MEDS: BETAPACE PO SCH (21:31)
[2017-12-03] MEDS: LEVEMIR SUBCUT SCH (21:31)
[2017-12-03] MEDS: TOPAMAX PO SCH (21:31)
[2017-12-03] MEDS: HUMULIN R SUBCUT PRN (21:33)
[2017-12-03] MEDS: NICODERM 14 MG TD SCH (21:34)
[2017-12-04] MEDS: SODIUM CHLORIDE 1,000 ML IV SCH ×2 (03:32→23:16)
[2017-12-04] MEDS: ZANAFLEX PO PRN ×2 (03:56→13:45)
[2017-12-04] MEDS: ZOFRAN 4 MG/2 ML IVP PRN ×2 (04:27→13:45)
[2017-12-04] MEDS: SOLU-MEDROL 125 MG IVP SCH ×4 (04:51→22:00)
[2017-12-04] MEDS: FLAGYL 500 MG/100 ML 500 MG in PREMIX 100 ML NS 1 BAG IV SCH ×3 (04:56→21:58)
[2017-12-04] MEDS: DUONEB NEB SCH ×4 (05:25→20:28)
[2017-12-04] MEDS: PROTONIX PO SCH ×2 (06:09→16:37)
[2017-12-04] MEDS: LASIX TAB PO SCH (06:10)
[2017-12-04] MEDS: HUMULIN R SUBCUT PRN ×4 (06:10→22:03)
[2017-12-04] MEDS: SYNTHROID PO SCH ×2 (06:10)
[2017-12-04] MEDS ORDERED: LASIX TAB PO SCH (06:30)
[2017-12-04] MEDS: K-DUR PO SCH ×2 (08:30→22:00)
[2017-12-04] MEDS: SYMBICORT 160-4.5 MCG INHALER IH SCH ×2 (08:30→21:58)
[2017-12-04] MEDS: LOTENSIN PO SCH (08:31)
[2017-12-04] MEDS: BETAPACE PO SCH ×2 (08:32→22:02)
[2017-12-04] MEDS ORDERED: SYMBICORT 160-4.5 MCG INHALER IH SCH (09:00)
[2017-12-04] MEDS ORDERED: NON-FORMULARY MEDICATION (Levothyroxine Sodium [Synthroid] 125 MCG) PO SCH (09:00)
[2017-12-04] MEDS ORDERED: TIOTROPIUM BROMIDE 2.5 MCG IH SCH (09:00)
[2017-12-04] MEDS ORDERED: BENAZEPRIL HCL 20 MG PO SCH (09:00)
[2017-12-04] MEDS ORDERED: DEMEROL 100 MG/ML SYRINGE IVP PRN (09:06)
[2017-12-04] MEDS: PREDNISONE PO SCH (09:19)
[2017-12-04] MEDS ORDERED: NON-FORMULARY MEDICATION (Warfarin Sodium [Coumadin] 4 MG) PO SCH (09:45)
[2017-12-04] MEDS: DEMEROL 25 MG/ML VIAL IVP PRN ×2 (09:57→22:02)
[2017-12-04] MEDS ORDERED: COUMADIN PO SCH (17:00)
[2017-12-04] MEDS ORDERED: NICODERM 14 MG TD SCH (21:00)
[2017-12-04] MEDS: ZITHROMAX PO SCH (21:59)
[2017-12-04] MEDS: TOPAMAX PO SCH (21:59)
[2017-12-04] MEDS: EFFEXOR XR PO SCH (22:00)
[2017-12-04] MEDS: LIPITOR PO SCH (22:01)
[2017-12-04] MEDS: NICODERM 14 MG TD SCH (22:01)
[2017-12-04] MEDS: REQUIP PO SCH (22:01)
[2017-12-04] MEDS: LEVEMIR SUBCUT SCH (22:05)
[2017-12-05] MEDS: DUONEB NEB SCH ×4 (04:50→20:15)
[2017-12-05] MEDS: SOLU-MEDROL 125 MG IVP SCH ×3 (05:43→21:02)
[2017-12-05] MEDS: LASIX TAB PO SCH (05:44)
[2017-12-05] MEDS: PROTONIX PO SCH ×2 (05:44→16:35)
[2017-12-05] MEDS: SYNTHROID PO SCH ×2 (05:44)
[2017-12-05] MEDS: FLAGYL 500 MG/100 ML 500 MG in PREMIX 100 ML NS 1 BAG IV SCH ×3 (05:45→21:26)
[2017-12-05] MEDS: HUMULIN R SUBCUT PRN ×4 (05:57→21:24)
[2017-12-05] MEDS: SYMBICORT 160-4.5 MCG INHALER IH SCH (08:31)
[2017-12-05] MEDS: K-DUR PO SCH ×2 (08:31→21:25)
[2017-12-05] MEDS: LOTENSIN PO SCH (08:32)
[2017-12-05] MEDS: BETAPACE PO SCH ×2 (08:32→21:25)
[2017-12-05] MEDS: DEMEROL 25 MG/ML VIAL IVP PRN ×2 (08:52→16:59)
--- NOTE | 2017-12-05 14:20 | DI ---
EXAMINATION: AP supine view of the abdomen. HISTORY: Abdominal pain COMPARISON: CT pelvis from 2 days prior FINDINGS: There is fairly dilated loops of large bowel particularly involving the descending colon. There is no free air identified. No dilated loops of small bowel are seen. No acute osseous abnormal ities. There are no suspicious masses or calcifications. There is an IVC filter in place. IMPRESSION: Dilated descending colon as described.
[2017-12-05] MEDS ORDERED: COLACE PO SCH (15:00)
[2017-12-05] MEDS ORDERED: COLACE PO ONE (15:02)
[2017-12-05] MEDS: ZOFRAN 4 MG/2 ML IVP PRN (16:59)
[2017-12-05] MEDS: ZANAFLEX PO PRN (16:59)
[2017-12-05] MEDS ORDERED: COUMADIN PO SCH (17:00)
[2017-12-05] MEDS: LEVEMIR SUBCUT SCH (21:24)
[2017-12-05] MEDS: TOPAMAX PO SCH (21:24)
[2017-12-05] MEDS: LIPITOR PO SCH (21:25)
[2017-12-05] MEDS: EFFEXOR XR PO SCH (21:25)
[2017-12-05] MEDS: ZITHROMAX PO SCH (21:25)
[2017-12-05] MEDS: REQUIP PO SCH (21:26)
[2017-12-05] MEDS: NICODERM 14 MG TD SCH (21:26)
[2017-12-06] MEDS: SYMBICORT 160-4.5 MCG INHALER IH SCH ×2 (00:23→09:58)
[2017-12-06] MEDS: ZOFRAN 4 MG/2 ML IVP PRN (01:24)
[2017-12-06] MEDS: DEMEROL 25 MG/ML VIAL IVP PRN (01:24)
[2017-12-06] MEDS: SODIUM CHLORIDE 1,000 ML IV SCH (02:34)
[2017-12-06] MEDS: DUONEB NEB SCH ×2 (04:45→10:11)
[2017-12-06] MEDS: PROTONIX PO SCH (05:43)
[2017-12-06] MEDS: LASIX TAB PO SCH (05:43)
[2017-12-06] MEDS: SYNTHROID PO SCH ×2 (05:43)
[2017-12-06] MEDS: FLAGYL 500 MG/100 ML 500 MG in PREMIX 100 ML NS 1 BAG IV SCH (05:44)
[2017-12-06] MEDS: SOLU-MEDROL 125 MG IVP SCH (05:44)
[2017-12-06] MEDS: ZANAFLEX PO PRN (05:56)
[2017-12-06] MEDS: HUMULIN R SUBCUT PRN (06:46)
[2017-12-06] MEDS: BETAPACE PO SCH (09:59)
[2017-12-06] MEDS: K-DUR PO SCH (09:59)
[2017-12-06] MEDS: LOTENSIN PO SCH (09:59)
[2017-12-06 10:46] VITALS: BP 127/86; TEMP 98
[2017-12-06] MEDS ORDERED: COUMADIN PO STA (12:12)
--- NOTE | 2017-12-06 13:21 | HP ---
DATE OF SERVICE: 12/03/17 CHIEF COMPLAINT: Diarrhea. HISTORY OF PRESENT ILLNESS: This is a 67-year-old female who came to the emergency room with nausea, diarrhea, unable to keep anything down. She had weakness, tiredness. She was vomiting whatever she ate. Diarrhea watery and abdominal pain. She had headache , unable to eat. The patient was here in the emergency room two days ago with severe hypokalemia and did receive potassium. She went home, not feeling well so came back to the emergency room. She was seen by Dr. Faustin. White count was normal. INR 8.42, potassium 3.2. CT of the abdomen and pelvis showed diffuse colitis. At that time, the patient was admitted to the hospital for abdominal pain, diffuse colitis, hypokalemia, Coumadin coagulopathy. REVIEW OF SYSTEMS: CONSTITUTIONAL: Weakness, tiredness. No fever, no chills. HEENT: Normal. ENDOCRINE: No weight gain; no weight loss. CVS: No chest pain. No PND, no orthopnea. No shortness of breath. No PND, no orthopnea. RESPIRATORY: No cough, no congestion. No hemoptysis. GI: Nausea and vomiting. Diarrhea. Abdominal pain. No melena. : No hematuria. No polyuria. MUSCULOSKELETAL: Joint pains. NEUROLOGIC: Headache. PSYCHIATRIC: The patient is worried about her health. Not anxious. No depression. No suicidal thoughts. No homicidal thoughts. SKIN: Intact, no open lesions. PAST MEDICAL HISTORY: Coronary artery disease Heart murmur CHF Valvular heart disease Aortic valve replacement Permanent pacemaker Atrial fibrillation on Coumadin History of DVT in 2003 Peripheral neuropathy COPD Cachexia Weight loss Osteoarthritis DJD spine Hypothyroidism Depression/anxiety. PAST SURGICAL HISTORY: Hysterectomy Cholecystectomy Goiter removal PERSONAL HISTORY: The patient smokes. No alcohol and no drugs. History of Lyme's disease FAMILY HISTORY: Significant for cancer. MEDICATIONS: (HOME) Phenergan Lotensin Requip Lasix Lipitor Topamax Nexium Sotalol Albuterol Effexor Zanaflex Symbicort Coumadin Spiriva Respimat Levemir Humalog Nitroglycerin ALLERGIES: Cefuroxime, Doxycycline, Nifedipine, Nitrofurantoin, Macrodantin PHYSICAL EXAMINATION: V/S: BP 73/59, respiratory rate 18, heart rate 97, temperature 96.0. HEENT: Atraumatic, normocephalic. Sick-looking lady lying in bed in discomfort. NECK: Supple. No JVD, no bruit. No lymphadenopathy. No thyromegaly. HEART: Irregular with systolic murmur. No cyanosis or clubbing. No ascites. LUNGS: Clear to auscultation. No rales or rhonchi. ABDOMEN: Discomfort all over. No rigidity or guarding. EXTREMITIES: No pedal edema. No cyanosis or clubbing MUSCULOSKELETAL: Normal joints, no swelling. NEUROLOGIC: The patient is awake and alert. Cachetic lady lying in bed. SKIN: Intact; no open lesions. LYMPHATIC: No lymph nodes palpable. LABS: Sodium 135, potassium 3.1, chloride 100, bicarb 26, BUN 15, creatinine 1.23. Glucose 169. White count 7.15, hemaglobin 1.2, hematocrit 35.3, platelet count 195. PT/INR PT 79.1, INR 8.42. ASSESSMENT: 1. ACUTE GASTROENTERITIS WITH MILD PANCOLITIS 2. HYPOTENSION MOST LIKELY FROM DEHYDRATION 3. COUMADIN COAGULOPATHY 4. ATRIAL FIBRILLATION 5. AORTIC VALVE REPLACEMENT 6. DIABETES 7. OSTEOARTHRITIS 8. DJD SPINE PLAN: 1. Admit patient to the regular floor. 2. Accu-Checks with coverage. 3. Replace potassium. 4. Stool for ova and parasites. 5. Stool for culture. 6. Flagyl 500 mg q.8hr. 7. IV fluids. 8. Hold Coumadin. 9. Protonix. 10. Zofran. 11. IV fluids. 12. Continue home medication. TIME SPENT: MORE THAN 75 minutes [facility]
--- NOTE | 2017-12-06 17:40 | PCM.HOSP ---
- Initial Hospital Care [id number] 70 Minutes Bedside ([id number]): 12-03 - Subsequent Care [id number] 35 Minutes per Day ([id number]): 12/04. 12/05 - Hospital Discharge [id number] More than 30 Minutes ([id number]): 12/06
--- NOTE | 2017-12-08 15:47 | PN ---
DATE OF SERVICE: 12/04/17 SUBJECTIVE: 67 year old female admitted with the acute enteritis and colitis. No diarrhea. Hgb dropped from 11.2 and 10.6. Complains of alot of lower back pain. REVIEW OF SYSTEMS: CONSTITUTIONAL: No fever, no chills. HEENT: Normal. ENDOCRINE: No weight gain, no weight loss. CVS: No angina symptoms. No CHF symptoms. No palpitations. No atypical chest pain for CAD. No shortness of breath. No PND, no orthopnea. RESPIRATORY: No cough, no hemoptysis. GI: No nausea, no vomiting. No abdominal pain. : No hematuria. No polyuria. MUSCULOSKELETAL: No joint swelling. PSYCHIATRIC: Not anxious. No depression. No suicidal thoughts. No homicidal thoughts. SKIN: Intact. No rash. PHYSICAL EXAMINATION: V/S: Blood pressure 115/74, respiratory rate 18, heart rate 90 and temperature 97.6 with saturation 98% on 2 liters. HEENT: Normocephalic, atraumatic. Mucosa dry. NECK: Supple. No JVD, no carotid bruit. No lymphadenopathy. LUNGS: Decreased and basilar crackles. Clear to auscultation. No rales or rhonchi. HEART: S1, S2 normal. No S3. No murmur, gallop or regurgitation. ABDOMEN: Soft, tenderness all over. Bowel sounds active. No rigidity. No rebound or guarding. No CVA tenderness. EXTREMITIES: No cyanosis, clubbing or pedal edema. MUSCULOSKELETAL: No joint swelling. NEUROLOGIC: Awake, alert. No focal deficit. Oriented times three. LYMPHATIC: No lymph nodes palpable. SKIN: Intact. LABS: WBC 4.44, hgb 10.6, hct 32.8, plt count 199, INR 1.54, Sodium 137, potassium 3.8 , chloride 106, bicarb 23, BUN 12, creatinine 0.99 and glucose 232. ASSESSMENT: 1. Acute pancolitis 2. Coumadin Coagulopathy 3. Hyperglycemia 4. Hypokalemia which is resolved 5. Aortic valve replacement 6. lobsterman anticoagulation 7. Atrial fibrillation 8. Deep vein Thrombosis 9. DJD spine 10.GERD PLAN: 1. Resume the Coumadin 2. Demerol for the pain 3. Zofran for nausea 4. Out of bed 5. Activity as tolerated. TIME SPENT: More than 35 minutes MTDD
--- NOTE | 2017-12-08 15:52 | PN ---
DATE OF SERVICE: 12/05/17 SUBJECTIVE: The patient was admitted with gastroenteritis, pancolitis and dehydration. The patient is feeling better and no more diarrhea but did not move any bowels. Still hurting in the belly. Demerol been helping. REVIEW OF SYSTEMS: CONSTITUTIONAL: No fever, no chills. HEENT: Normal. ENDOCRINE: No weight gain, no weight loss. CVS: No angina symptoms. No CHF symptoms. No palpitations. No atypical chest pain for CAD. No shortness of breath. No PND, no orthopnea. RESPIRATORY: No cough, no hemoptysis. GI: No nausea, no vomiting. No abdominal pain. : No hematuria. No polyuria. MUSCULOSKELETAL: No joint swelling. PSYCHIATRIC: Not anxious. No depression. No suicidal thoughts. No homicidal thoughts. SKIN: Intact. No rash. PHYSICAL EXAMINATION: V/S: Blood pressure 102/71, respiratory rate 18, heart rate 103, temperature 98.3 and saturation 93% on 2 liters. HEENT: Normocephalic, atraumatic. Mucosa dry. Pallor positive. No icterus. NECK: Supple. No JVD, no carotid bruit. No lymphadenopathy. LUNGS: Decreased and basilar crackles. Clear to auscultation. No rales or rhonchi. HEART: S1, S2 normal. No S3. No murmur, gallop or regurgitation. ABDOMEN: Soft, tenderness in the lower belly area. Sluggish bowel movements. No rigidity. No rebound or guarding. No CVA tenderness. EXTREMITIES: No cyanosis, clubbing or pedal edema. MUSCULOSKELETAL: No joint swelling. NEUROLOGIC: Awake, alert. No focal deficit. LYMPHATIC: No lymph nodes palpable. SKIN: Intact. LABS: WBC 15.09, hgb 9.5, hct 219.6, plt count 209, sodium 134, potassium 4.8, chloride 104, bicarb 23, BUN 22, creatinine 1.08, glucose 212 ASSESSMENT: 1. Pancolitis 2. Gastroenteritis 3. Dehydration 4. Status post hypokalemia 5. CAD 6. Aortic valve replacement on cost estimating engineer anticoagulation 7. COPD PLAN: 1. Will give 1cc Decadron 2. KUB 3. Dulcolax for the constipation. TIME SPENT: More than 35 minutes MTDD
--- NOTE | 2017-12-15 14:21 | DS ---
DATE OF SERVICE: 12/06/17 FINAL DIAGNOSIS: 1. ACUTE GASTROENTERITIS 2. PANCOLITIS 3. HYPOKALEMIA WHICH IS BETTER 4. UPPER RESPIRATORY INFECTION 5. HYPOKALEMIA 6. AORTIC VALVE REPLACEMENT 7. LONG-TERM ANTICOAGULATION 8. DEPRESSION 9. OSTEOARTHRITIS 10. DJD SPINE 11. CHRONIC PAIN SYNDROME 12. COUMADIN COAGULOPATHY DISCHARGE INSTRUCTIONS: An appointment is scheduled for December 13 at [address] Santos at [facility] on 12/13/17 at 10 a.m. The patient is encouraged to call Dr. Robin as soon as possible to schedule a followup appointment with her. MEDICATIONS AT DISCHARGE: Albuterol Lipitor Lotensin Symbicort Nexium Lasix Levemir Nitroglycerin Phenergan Requip Sotalol Spiriva Baker Coumadin 4 mg Effexor 150 Flagyl Prednisone NEW PRESCRIPTIONS: Prednisone 10 mg one twice a day for 5 days Baker 5-325 mg one twice a day for two days Flagyl 500 mg q.8hr DIET INSTRUCTIONS: Cardiac and Healthy; diabetic diet ACTIVITY: As much as tolerated. DISEASE SPECIFIC EDUCATION: Coumadin use, risk of GI bleed and intracranial bleed discussed. Antibiotic use and diarrhea has been discussed. Hypokalemia and muscle weakness discussed. HOSPITAL COURSE: This is a 67-year-old female who was recently seen in the Emergency Room by me on 11/30 for gastroenteritis, shortness of breath. Potassium was low, given potassium and sent home. She did not feel good, kept having nausea, vomiting and watery diarrhea, unable to keep anything down. She came to the emergency room and was seen by Dr. Faustin in the emergency room. CT scan of abdomen and pelvis showed acute wade colitis, 11.2 hemoglobin and PT was 8.42, potassium 3.5. At that time, the patient was admitted to the hospital for dehydration, Coumadin coagulopathy and potassium replaced which came up to 2.8. The patient' s Coumadin was held. Vitamin K 10 mg dose was given in the emergency room by Dr. Faustin which PT/INR level came down gradually. A dose of Lasix was given in between as the patient was felt to be congested. Chest x-ray did not show any acute infiltrate. Decadron and breathing treatment was started. Azithromycin was given. Zofran, nausea medication, given. Accu-Checks with coverage were covered. As PT/INR came down to 1.13, Coumadin dose is started. Today, again 1.28 so I suggested giving an extra dose before she goes. The patient will be followed for one time with me in the office before she goes back to Dr. Viveros or Dr. Nidia Robin. TIME SPENT: MORE THAN 65 MINUTES MTDKait
== END 2017-12-06 14:00 | disposition home or self-care (01) | DRG 918 ==
LOC: ED 08:57 → MEDSURG A 11:09
PROVIDERS: ADMIT Emergency Medicine; ATTEND Emergency Medicine
DX: T45.511A Poisoning by anticoagulants, accidental (unintentional), initial encounter (principal); K51.00 Ulcerative (chronic) pancolitis without complications; K52.9 Noninfective gastroenteritis and colitis, unspecified; R53.1 Weakness; R10.9 Unspecified abdominal pain; R11.2 Nausea with vomiting, unspecified; R06.02 Shortness of breath; E11.9 Type 2 diabetes mellitus without complications; E87.6 Hypokalemia; F32.9 Major depressive disorder, single episode, unspecified; I48.91 Unspecified atrial fibrillation; M47.9 Spondylosis, unspecified; G89.4 Chronic pain syndrome; Z79.4 Long term (current) use of insulin; Z79.01 Long term (current) use of anticoagulants
CPT/HCPCS: 36415; 80053; 81001; 82962; 83605; 84145; 85025; 85610; 85730; 87015; 87040; 87045; 87177; 87493; 87899; 93005; 93010; 94640; 96360; 99223; 99233; 99239; 99284

== ENCOUNTER 2017-12-09 19:01 | Inpatient (IN) ==
[2017-12-09] MEDS ORDERED: DUONEB NEB STA (19:16)
--- NOTE | 2017-12-09 19:33 | ED.PDOC ---
General ED Provider: Dr. CASIMIRO FREEMAN-ER Chief Complaint: Shortness of Air Stated Complaint: im sob Time Seen by Physician: 19:31 Mode of Arrival: Wheelchair Information Source: Patient Exam Limitations: No limitations [facility] Nursing and Triage Documentation Reviewed and Agree: Yes Does patient meet sepsis criteria?: No System Inflammatory Response Syndrome: Not Applicable Sepsis Protocol: For patient's 13 years and over: Temp is 96.8 and below OR 101 and greater Pulse >90 BPM Resp >20/minute Acutely Altered Mental Status Are patient's symptoms suggestive of a new infection, such as: -Pneumonia -Skin, Soft Tissue -Endocarditis -UTI -Bone, Joint Infection -Implantable Device -Acute Abdominal Infection -Wound Infection -Meningitis -Blood Stream Catheter Infection -Unknown Respiratory Complaint Exam - Shortness of Air Complaint/Exam Onset/Duration: 3 days ago Symptoms Are: Still present Timing: Constant Initial Severity: Mild Current Severity: Moderate Character: Reports: Dyspnea at rest, Dyspnea on exertion Aggravating: Reports: None Alleviating: Reports: Bronchodilators, Oxygen Associated Signs and Symptoms: Reports: Cough Related History: Reports: Similar episode History of Healthcare-Acquired Pneumonia: Admit w/in last 30 days Pulmonary Embolism Risk Factors: Reports: Smoking Cardiac Risk Factors: Reports: Smoking Pseudomonas Risk Factors: Reports: Chronic Lung Disease Tuberculosis Risk Factors: Reports: Chronic Resp. Faliure Home Oxygen Use: Yes Recent Stress Test: No Recent Echo/LV Function: No Respiratory Distress: None Stridor Present: No Tracheal Deviation: No Subcutaneous Emphysema: No Accessory Muscle Use: No Retractions: Not Present Diminished Breath Sounds: Yes Prolonged Expiratory Phase: No Unable to Speak Full Sentences: No Fatigue: Yes Leg Swelling: No Lenora's Sign Present: No Grunting Respirations: No Kussmaul Respirations: No Differential Diagnoses: Asthma, CHF, Pulmonary Edema, COPD Exacerbation, Pneumonia Quality Indicator For Non-Traumatic Chest Pain/Syncope: EKG Performed Review of Systems - Review Of Systems Constitutional: Reports: No symptoms Eyes: Reports: No symptoms Ears, Nose, Mouth, Throat: Reports: No symptoms Respiratory: Reports: Cough, Short of air Cardiac: Reports: No symptoms GI: Reports: No symptoms : Reports: No symptoms Musculoskeletal: Reports: No symptoms Skin: Reports: No symptoms Neurological: Reports: No symptoms Endocrine: Reports: No symptoms Hematologic/Lymphatic: Reports: No symptoms All Other Systems: Reviewed and Negative Past Medical History - Past Medical History Previously Healthy: No Endocrine: Reports: DM 2, Hypothyroid, Dyslipidemia Cardiovascular: Reports: CAD, Hypertension, CHF, A-Fib Respiratory: Reports: COPD, Pneumonia Hematological: Reports: None Gastrointestinal: Reports: GERD Genitourinary: Reports: None Neuro/Psych: Reports: Migraine, Anxiety, Depression Musculoskeletal: Reports: Arthritis, Back Pain (CHRONIC BACK PAIN) Cancer: Reports: None Last Menstrual Period: hysterectomy Other Pertinent Past Medical History: OPEN HEART SURGERY, PACEMAKER, CHRONIC BACK PAIN - Surgical History General Surgical History: Reports: Hysterectomy, Cholecystectomy (gallbladder), CABG (OPEN HEART SURGERY,aorta valve replacement and pacemaker 2008), Pacemaker (pacemaker 2008), Orthopedic (2 knee replacements), Back Surgery (2 back surg), Other (Aortic valve replacement. RIGHT KIDNEY REPAIR) - Family History Family History: Reports: Unknown - Social History Smoking Status: Current every day smoker, Light tobacco smoker Hx Substance Use: No Alcohol Screening: None Lives: With family Physical Exam - Physical Exam Appearance: Well-appearing, No pain distress, Well-nourished Eyes: MYKE, EOMI, Conjunctiva clear ENT: Ears normal Neck: Supple Respiratory: Airway patent, Breath sounds equal, Breath sounds diminished Cardiovascular: RRR, Pulses normal, No rub, No murmur GI/: Soft Musculoskeletal: Normal strength, ROM intact, No edema, No calf tenderness Skin: Warm, Dry, Normal color Neurological: Sensation intact, Motor intact, Reflexes intact, Cranial nerves intact, Alert, Oriented Psychiatric: Affect appropriate, Mood appropriate Interpretation - Radiology Interpretation Radiology Interpretation By: Radiologist Radiology Results: Negative Exam Interpreted: CT Scan - EKG Interpretation Time of EKG #1: 20:37 Rate: Normal Rhythm: Sinus ST Segment: Other Interpretation: st-t wave changes Physician Notification - Case Discussed Physician Notified: dr valentin Time of Notification: 20:37 Critical Care Note - Critical Care Note Total Time (mins): 0 Course - Course Hematology/Chemistry: 12/09/17 19:31 12/09/17 19:31 Orders, Labs, Meds: Lab Review 12/09/17 12/09/17 12/09/17 19:15 19:31 19:31 WBC 12.08 H RBC 4.76 Hgb 12.8 Hct 39.3 MCV 82.6 MCH 26.9 L MCHC 32.6 RDW Coeff of Kalani 14.6 Plt Count 283 Immature Gran % (Auto) 0.8 Neut % (Auto) 85.0 Lymph % (Auto) 9.8 L [place] % (Auto) 4.1 Eos % (Auto) 0.1 Baso % (Auto) 0.2 Immature Gran # (Auto) 0.1 Neut # (Auto) 10.3 H Lymph # (Auto) 1.2 [place] # (Auto) 0.5 Eos # (Auto) 0.0 Baso # (Auto) 0.0 PT 26.3 H INR 2.71 Puncture Site Rb O2 Saturation 96.0 ABG pH 7.449 ABG pCO2 41.9 ABG pO2 77.0 L ABG HCO3 29.1 H ABG Total CO2 30 H ABG Base Excess 5 H Winston Test + FiO2 % 21.0 Sodium Potassium Chloride Carbon Dioxide Anion Gap BUN Creatinine Estimated GFR (MDRD) BUN/Creatinine Ratio Glucose Calcium Total Bilirubin AST ALT Alkaline Phosphatase Total Creatine Kinase Troponin I B-Natriuretic Peptide Total Protein Albumin Globulin Albumin/Globulin Ratio 12/09/17 12/09/17 19:31 19:31 WBC RBC Hgb Hct MCV MCH MCHC RDW Coeff of Kalani Plt Count Immature Gran % (Auto) Neut % (Auto) Lymph % (Auto) [place] % (Auto) Eos % (Auto) Baso % (Auto) Immature Gran # (Auto) Neut # (Auto) Lymph # (Auto) [place] # (Auto) Eos # (Auto) Baso # (Auto) PT INR Puncture Site O2 Saturation ABG pH ABG pCO2 ABG pO2 ABG HCO3 ABG Total CO2 ABG Base Excess Winston Test FiO2 % Sodium 131 L Potassium 4.2 Chloride 92 L Carbon Dioxide 29 Anion Gap 14.2 BUN 20 H Creatinine 1.26 Estimated GFR (MDRD) 42.00 BUN/Creatinine Ratio 15.87 Glucose 448 H Calcium 9.7 Total Bilirubin 0.5 AST 11 L ALT 8 L Alkaline Phosphatase 77 Total Creatine Kinase 27 Troponin I 0.1300 B-Natriuretic Peptide 439 H Total Protein 7.2 Albumin 3.3 L Globulin 3.9 Albumin/Globulin Ratio 0.85 Orders Category Date Time Status ABG DRAW REQUEST Stat CARDIO 12/09/17 19:15 Ordered EKG-(ED ONLY) Stat CARDIO 12/09/17 19:15 Ordered NEBULIZER TREATMENT Stat CARDIO 12/09/17 19:16 Ordered Seed Core Operator [ED ROUTE CLERK APPLIED] .ONCE EMERGENCY 12/09/17 19:16 Active ABG Stat LAB 12/09/17 19:15 Completed B-TYPE NATRIURETIC PEPTIDE Stat LAB 12/09/17 19:31 Completed CBC W/ AUTO DIFF Stat LAB 12/09/17 19:31 Completed COMPREHENSIVE METABOLIC PANEL Stat LAB 12/09/17 19:31 Completed CREATINE KINASE Stat LAB 12/09/17 19:31 Completed PT WITH INR Stat LAB 12/09/17 19:31 Completed TROPONIN I Stat LAB 12/09/17 19:31 Completed Ipratropium/Albuterol Neb [Duoneb] MEDS 12/09/17 19:16 Discontinued 1 vial NEB ONCE STA CT CHEST W/O CONTRAST Stat RADS 12/09/17 19:16 Completed Medications Discontinued Medications Generic Name Dose Route Start Last Admin Trade Name Freq PRN Reason Stop Dose Admin Albuterol/Ipratropium 1 vial 12/09/17 19:16 12/09/17 19:55 Duoneb NEB 12/09/17 19:17 1 vial ONCE STA Administration Vital Signs: Temp Pulse Resp BP Pulse Ox 12/09/17 19:02 96.5 F L 96 H 20 122/75 95 Departure - Departure Time of Disposition: 20:37 Disposition: ADMITTED INPATIENT Discharge Problem: ST segment changes on electrocardiogram Dyspnea Qualifiers: Dyspnea type: dyspnea on exertion Qualified Code(s): R06.09 - Other forms of dyspnea Condition: Stable Pt referred to PMD for follow-up: Yes IPMP verified?: No Allergies/Adverse Reactions: Allergies ceftriaxone sodium [From Rocephin] Adverse Reaction (Verified 12/09/17 19:11) cefuroxime axetil [From Ceftin] Adverse Reaction (Verified 12/09/17 19:11) doxycycline Adverse Reaction (Verified 12/09/17 19:11) nifedipine [From Procardia] Adverse Reaction (Verified 12/09/17 19:11) nitrofurantoin [From Macrobid] Adverse Reaction (Verified 12/09/17 19:11) nitrofurantoin macrocrystal [From Macrobid] Adverse Reaction (Verified 12/09/17 19:11) Home Medications: Ambulatory Orders Albuterol Sulfate [Albuterol Sulfate Hfa] 2 puff IH QID 02/13/14 Atorvastatin Calcium [Lipitor] 40 mg PO BEDTIME 02/13/14 Benazepril HCl [Lotensin] 20 mg PO DAILY 02/13/14 Esomeprazole Magnesium [Nexium] 40 mg PO BID 02/13/14 Furosemide [Lasix] 40 mg PO DAILY 02/13/14 Promethazine HCl [Phenergan Tab] 25 mg PO Q6H PRN 02/13/14 Ropinirole HCl [Requip] 2 mg PO BEDTIME 02/13/14 Sotalol HCl [Sotalol] 80 mg PO BID 02/13/14 Topiramate [Topamax] 50 mg PO BEDTIME 02/13/14 Venlafaxine HCl [Effexor Xr] 150 mg PO BEDTIME 07/04/14 Budesonide/Formoterol Fumarate [Symbicort 160-4.5 Mcg Inhaler] 2 puff IH DAILY 05/28/15 Tizanidine HCl [Zanaflex] 4 mg PO TID PRN 05/28/15 Levothyroxine Sodium [Synthroid] 125 mcg PO DAILY 07/06/16 Tiotropium [place] [Spiriva Respimat] 2.5 mcg IH DAILY 07/09/16 Warfarin Sodium [Coumadin] 4 mg PO DIRECTED 07/09/16 Insulin Detemir [Levemir] 20 unit SUBCUT BEDTIME 09/06/16 Insulin Lispro [Humalog] 0 unit SQ DIRECTED PRN 05/07/17 Nitroglycerin 0.4 mg SL DIRECTED PRN 11/30/17 Metronidazole [Flagyl] 500 mg PO Q8H #15 tablet 12/06/17 Prednisone 10 mg PO BIDWM #10 tablet 12/06/17 Disposition Discussed With: Patient, Family
--- NOTE | 2017-12-09 20:17 | CT ---
EXAM: CT of the chest without contrast History: Dyspnea. Comparison: Chest CT 11/30/2017 Technique: Multiplanar CT images through the chest were obtained without the administration of IV co ntrast Findings: Heart size is upper limits of normal. Coronary calcifications. No thoracic aortic aneury sm. The main pulmonary artery is dilated measuring the 4.5 cm in caliber and stable. No pericardial effusion. Aortic valve replacement again noted. No pathologically enlarged thoracic lymph nodes. Calcified granulomas again seen within the thorax. Emphysema again appreciated. Scattered areas of s ubsegmental atelectasis. No consolidated pneumonia. No pleural fluid and no pneumothorax. No suspi cious lung masses or lung nodules. Diffuse bronchial wall thickening. Within the visualized upper abdomen, IVC filter. Status post cholecystectomy. No acute osseous abno rmalities. Sternotomy wires. Impression: 1. Diffuse bronchial wall thickening but no evidence for pneumonia. 2 Emphysema. 3 Coronary artery disease. 4. Pulmonary arterial hypertension.
[2017-12-09] MEDS ORDERED: NITROSTAT SL PRN (20:42)
[2017-12-09] MEDS ORDERED: ZANAFLEX PO PRN (20:42)
[2017-12-09] MEDS ORDERED: NON-FORMULARY MEDICATION (Warfarin Sodium [Coumadin] 4 MG) PO SCH (20:45)
[2017-12-09] MEDS ORDERED: NON-FORMULARY MEDICATION (Ropinirole Hcl [Requip] 2 MG) PO SCH (21:00)
[2017-12-09] MEDS ORDERED: NON-FORMULARY MEDICATION (Atorvastatin Calcium [Lipitor] 40 MG) PO SCH (21:00)
[2017-12-09] MEDS ORDERED: NON-FORMULARY MEDICATION (Venlafaxine Hcl [Effexor Xr] 150 MG) PO SCH (21:00)
[2017-12-09] MEDS ORDERED: SOTALOL HCL 80 MG PO SCH (21:00)
[2017-12-09] MEDS ORDERED: LEVEMIR SUBCUT SCH (21:00)
[2017-12-09] MEDS ORDERED: TOPAMAX PO SCH (21:00)
[2017-12-09 21:59] VITALS: BMI 20.9
[2017-12-09] MEDS ORDERED: FLAGYL ONE (22:31)
[2017-12-09] MEDS ORDERED: LIPITOR ONE (22:31)
[2017-12-09] MEDS ORDERED: REQUIP ONE (22:32)
[2017-12-09] MEDS ORDERED: BETAPACE ONE (22:32)
[2017-12-09] MEDS: PROAIR HFA IH SCH (22:42)
[2017-12-09] MEDS: PROTONIX PO SCH (22:43)
[2017-12-09] MEDS: HUMULIN R SUBCUT PRN (22:43)
[2017-12-09] MEDS: PERCOCET 5-325 PO PRN (22:49)
[2017-12-09] MEDS: NON-FORMULARY MEDICATION (Metronidazole [Flagyl] 500 MG) PO SCH (22:57)
[2017-12-10] MEDS ORDERED: SYNTHROID ONE ×2 (05:09→05:10)
[2017-12-10] MEDS ORDERED: LASIX TAB ONE (05:10)
[2017-12-10] MEDS ORDERED: FLAGYL ONE (05:12)
[2017-12-10] MEDS ORDERED: LASIX TAB PO SCH ×2 (06:30→09:00)
[2017-12-10] MEDS ORDERED: NON-FORMULARY MEDICATION (Levothyroxine Sodium [Synthroid] 125 MCG) PO SCH ×2 (06:30→09:00)
[2017-12-10] MEDS ORDERED: SYNTHROID PO SCH (08:00)
[2017-12-10] MEDS ORDERED: PREDNISONE PO SCH (08:00)
[2017-12-10] MEDS: PHENERGAN TAB PO PRN (08:42)
[2017-12-10] MEDS: PROAIR HFA IH SCH ×3 (08:52→17:38)
[2017-12-10] MEDS ORDERED: TIOTROPIUM BROMIDE 2.5 MCG IH SCH (09:00)
[2017-12-10] MEDS ORDERED: LOTENSIN PO SCH (09:00)
[2017-12-10] MEDS ORDERED: BETAPACE PO SCH (09:00)
[2017-12-10] MEDS: PERCOCET 5-325 PO PRN ×2 (10:37→18:05)
[2017-12-10] MEDS ORDERED: DOBUTAMINE 250 ML IV ONE (10:47)
[2017-12-10] MEDS ORDERED: ATROPINE SULFATE PFS ONE (10:48)
[2017-12-10] MEDS ORDERED: FLAGYL PO SCH (13:00)
--- NOTE | 2017-12-10 13:06 | DOBSTECHO ---
Date of Test: 12/10/17 Ordering Physician: DR. CHAPINCITO MARTINEZ Smoking History: YES Reason for Examination: DYSPNEA, AORTIC VALVE REPLACED 2009, PACEMAKER RESTING EKG: SINUS RHYTHM/ ST-T WAVE CHANGES Current Medications: HUMULIN, ZANAFLEX, FLAGYL,LIPITOR, LEVEMIR, REQUIP, SOTALOL , TOPAMAX, EFFEXOR Height: 66" Weight: 129 LBS Target Heart Rate: 129/152 S-T Segment Stage Time HR BPM BP MMHG Rhythm +/- Elevation Depression Comments/ Symptoms Control Sitting 73 124/86 SR X NONE Dobutamine 250mg/D5W 5cmg/KG/mn 10cmg/KG/mn 3:00 99 SR X NONE 15cmg/KG/mn 2:00 102 136/80 SR X NONE 20cmg/KG/mn 2:00 102 SR X NONE 25cmg/KG/mn 2:00 88 122/80 SR X NONE 30cmg/KG/mn 2:00 100 144/80 SR X NONE 35cmg/KG/mn 1:44 102 124/86 SR X NONE 40cmg/KG/mn Time: 4 HR B/P Time: 8 HR B/P Time: HR B/P Recovery 94 118/80 Recovery 82 Recovery Total Time: 12:44 Maximum Heart Rate Reached: 102 Interpretation: INCONCLUSIVE FOR ISCHEMIC ST-T WAVE CHANGES PATIENT 1. INCONCLUSIVE FOR ISCHEMIC ST-T WAVE CHANGES PATIENT HAS BASELINE ABNORMAL ST-T WAVE CHANGES 2. NO CHEST PAIN OR DISCOMFORT 3. HYPOKINETIC LEFT VENTRICLE AT REST AND WITH DOBUTAMINE INFUSION (AT REST 73 BPM WITH HIGHEST DOSE OF DOBUTAMINE 35 MCG/KG/MN HEART RATE 102 BPM) MTDD
--- NOTE | 2017-12-10 13:11 | ECHOSTRESS ---
Date of Exam: 12/10/17 Ordering Physician: DR. CHAPINCITO MARTINEZ Reason for Echo: DYSPNEA, AORTIC VALVE REPLACED, DOBUTAMINE STRESS TEST-- INCONCLUSIVE M-Mode Normal Adult Results LV Dimensions Normal Adult Results AoV Opening excursions >1.6 LVEDD-base- 3.5-5.8 Ao root dimensions 2.0-3.7 LVESD-base- 3.1-4.6 L. Atrium dimensions 1.9-3.8 Post. Wall thickness 0.8-1.1 IV septum (thickness) 0.7-1.2 Post. Wall excursion 0.72-1.3 Septal motion Systolic motion R. Ventricular cavity 1.5-2.0 LVEF 60% Paradoxical septal wall motion 2-D: HYPOKINETIC LEFT VENTRICLE / RESTING AND WITH DOBUTAMINE INFUSION M-MODE: MV: AV: TV: PV: CHAMBER SIZE: WALL MOTION: HYPOKINETIC LEFT VENTRICLE / RESTING AND WITH DOBUTAMINE INFUSION PERICARDIUM: INTERPRETATION: 1. HYPOKINETIC LEFT VENTRICLE / RESTING AND WITH DOBUTAMINE INFUSION MTDD
[2017-12-10] MEDS ORDERED: NON-FORMULARY MEDICATION (Warfarin Sodium [Coumadin] 4 MG) PO SCH ×2 (16:30→17:00)
[2017-12-10] MEDS ORDERED: COUMADIN PO SCH (17:00)
[2017-12-10] MEDS ORDERED: NITROSTAT SL PRN (17:00)
[2017-12-10] MEDS: BENAZEPRIL HCL 20 MG PO SCH (17:34)
[2017-12-10] MEDS: NON-FORMULARY MEDICATION (Esomeprazole Magnesium [Nexium] 40 MG) PO SCH ×2 (17:36→20:17)
[2017-12-10] MEDS: NON-FORMULARY MEDICATION (Metronidazole [Flagyl] 500 MG) PO SCH ×2 (17:37→18:29)
[2017-12-10] MEDS: PREDNISONE PO SCH (17:37)
[2017-12-10] MEDS ORDERED: TIOTROPIUM BROMIDE IH SCH (17:45)
[2017-12-10] MEDS: HUMULIN R SUBCUT PRN ×2 (17:51→21:45)
[2017-12-10] MEDS: SYMBICORT 160-4.5 MCG INHALER IH SCH (17:51)
[2017-12-10] MEDS: PROTONIX PO SCH (18:29)
[2017-12-10] MEDS: LIPITOR PO SCH (20:01)
[2017-12-10] MEDS: BETAPACE PO SCH (20:02)
[2017-12-10] MEDS: TOPAMAX PO SCH (20:02)
[2017-12-10] MEDS: NON-FORMULARY MEDICATION (Ropinirole Hcl [Requip] 2 MG) PO SCH (20:17)
[2017-12-10] MEDS: NON-FORMULARY MEDICATION (Venlafaxine Hcl [Effexor Xr] 150 MG) PO SCH (20:19)
[2017-12-10] MEDS ORDERED: INSULIN DETEMIR 20 UNIT SQ SCH (21:00)
[2017-12-10] MEDS ORDERED: EFFEXOR XR PO SCH (21:00)
[2017-12-10] MEDS ORDERED: REQUIP PO SCH (21:00)
[2017-12-11] MEDS: PHENERGAN TAB PO PRN ×2 (00:10→23:24)
[2017-12-11] MEDS: PERCOCET 5-325 PO PRN ×3 (00:10→19:20)
[2017-12-11] MEDS: NON-FORMULARY MEDICATION (Metronidazole [Flagyl] 500 MG) PO SCH ×3 (00:14→17:49)
[2017-12-11] MEDS: PROAIR HFA IH SCH ×5 (00:20→21:06)
[2017-12-11] MEDS: LASIX TAB PO SCH (05:45)
[2017-12-11] MEDS ORDERED: SYNTHROID PO SCH ×2 (06:30)
[2017-12-11] MEDS: HUMULIN R SUBCUT PRN ×4 (07:55→21:18)
[2017-12-11] MEDS: BENAZEPRIL HCL 20 MG PO SCH (08:49)
[2017-12-11] MEDS: NON-FORMULARY MEDICATION (Esomeprazole Magnesium [Nexium] 40 MG) PO SCH ×3 (08:52→21:36)
[2017-12-11] MEDS: ZANAFLEX PO PRN ×2 (08:52→23:24)
[2017-12-11] MEDS: NON-FORMULARY MEDICATION (Levothyroxine Sodium [Synthroid] 125 MCG) PO SCH (08:53)
[2017-12-11] MEDS: BETAPACE PO SCH ×2 (08:53→21:07)
[2017-12-11] MEDS: SYMBICORT 160-4.5 MCG INHALER IH SCH (08:54)
[2017-12-11] MEDS: PREDNISONE PO SCH ×2 (08:55→17:49)
[2017-12-11] MEDS: TIOTROPIUM BROMIDE IH SCH (08:56)
[2017-12-11] MEDS ORDERED: INSULIN DETEMIR 20 UNIT SQ SCH (21:00)
[2017-12-11] MEDS: TOPAMAX PO SCH (21:07)
[2017-12-11] MEDS: NON-FORMULARY MEDICATION (Venlafaxine Hcl [Effexor Xr] 150 MG) PO SCH (21:08)
[2017-12-11] MEDS: LIPITOR PO SCH (21:08)
[2017-12-11] MEDS: NON-FORMULARY MEDICATION (Ropinirole Hcl [Requip] 2 MG) PO SCH (21:09)
[2017-12-12] MEDS: PERCOCET 5-325 PO PRN ×4 (01:20→23:06)
[2017-12-12] MEDS: NON-FORMULARY MEDICATION (Metronidazole [Flagyl] 500 MG) PO SCH ×2 (01:20→08:50)
[2017-12-12] MEDS: LASIX TAB PO SCH (05:44)
[2017-12-12] MEDS: HUMULIN R SUBCUT PRN ×3 (06:14→20:30)
[2017-12-12] MEDS: BENAZEPRIL HCL 20 MG PO SCH (08:53)
[2017-12-12] MEDS: PREDNISONE PO SCH ×2 (08:54→17:02)
[2017-12-12] MEDS: NON-FORMULARY MEDICATION (Levothyroxine Sodium [Synthroid] 125 MCG) PO SCH (08:54)
[2017-12-12] MEDS: NON-FORMULARY MEDICATION (Esomeprazole Magnesium [Nexium] 40 MG) PO SCH (08:55)
[2017-12-12] MEDS: BETAPACE PO SCH ×2 (08:55→20:31)
[2017-12-12] MEDS: PROAIR HFA IH SCH ×4 (08:56→20:30)
[2017-12-12] MEDS: TIOTROPIUM BROMIDE IH SCH (08:57)
[2017-12-12] MEDS: SYMBICORT 160-4.5 MCG INHALER IH SCH (08:57)
[2017-12-12] MEDS ORDERED: ZANAFLEX PO PRN (09:30)
[2017-12-12] MEDS ORDERED: NITROSTAT SL PRN (09:30)
[2017-12-12] MEDS: FLAGYL PO SCH ×2 (17:00→20:31)
[2017-12-12] MEDS ORDERED: COUMADIN PO SCH (17:00)
[2017-12-12] MEDS: PROTONIX PO SCH (17:00)
[2017-12-12] MEDS ORDERED: LIPITOR PO SCH (21:00)
[2017-12-12] MEDS ORDERED: LEVEMIR SUBCUT SCH (21:00)
[2017-12-12] MEDS ORDERED: EFFEXOR XR PO SCH (21:00)
[2017-12-12] MEDS ORDERED: TOPAMAX PO SCH (21:00)
[2017-12-12] MEDS ORDERED: REQUIP PO SCH (21:00)
[2017-12-12] MEDS: PHENERGAN TAB PO PRN (23:06)
[2017-12-13] MEDS: FLAGYL PO SCH ×2 (05:40→12:34)
[2017-12-13] MEDS: PROTONIX PO SCH (05:49)
[2017-12-13] MEDS ORDERED: LASIX TAB PO SCH (06:30)
[2017-12-13] MEDS ORDERED: SYNTHROID PO SCH ×2 (06:30)
[2017-12-13] MEDS: PROAIR HFA IH SCH ×2 (08:12→12:34)
[2017-12-13] MEDS: PREDNISONE PO SCH (08:12)
[2017-12-13] MEDS: SYMBICORT 160-4.5 MCG INHALER IH SCH (08:12)
[2017-12-13] MEDS: PERCOCET 5-325 PO PRN (08:13)
[2017-12-13] MEDS: BETAPACE PO SCH (08:13)
[2017-12-13] MEDS: PHENERGAN TAB PO PRN (08:13)
[2017-12-13] MEDS ORDERED: LOTENSIN PO SCH (09:00)
[2017-12-13] MEDS ORDERED: SPIRIVA IH SCH (09:00)
[2017-12-13 09:44] VITALS: BP 109/69; TEMP 98.1
[2017-12-13] MEDS: HUMULIN R SUBCUT PRN (11:05)
--- NOTE | 2017-12-13 11:27 | PN ---
DATE OF SERVICE: 12/12/17 SUBJECTIVE: The patient was admitted for chest pain and shortness of breath with normal EKG. The patient had stress echo done with Dobutamine which showed the abnormal test result and the ejection fraction was only 30%. The patient is walking some but still having some chest tightness and discomfort and shortness of breath. The patient been having the diarrhea so the patient been taking the Flagyl. REVIEW OF SYSTEMS: CONSTITUTIONAL: No fever, no chills. HEENT: Normal. ENDOCRINE: No weight gain, no weight loss. CVS: No angina symptoms. No CHF symptoms. No palpitations. No atypical chest pain for CAD. No shortness of breath. No PND, no orthopnea. RESPIRATORY: No cough, no hemoptysis. GI: No nausea, no vomiting. No abdominal pain. : No hematuria. No polyuria. MUSCULOSKELETAL: No joint swelling. PSYCHIATRIC: Not anxious. No depression. No suicidal thoughts. No homicidal thoughts. SKIN: Intact. No rash. PHYSICAL EXAMINATION: V/S: Blood pressure 120/80, respiratory rate 20, heart rate 98, temperature 98.3 with saturation 96%. GENERAL: Cachetic lady laying in the bed and not in any distress. HEENT: Normocephalic, atraumatic. Mucosa dry. Pallor positive. No icterus. NECK: Supple. No JVD, no carotid bruit. No lymphadenopathy. LUNGS: Clear to auscultation. No rales or rhonchi. HEART: S1, S2 normal. No S3. No murmur, gallop or regurgitation. ABDOMEN: Soft, nontender. Bowel sounds active. No rigidity. No rebound or guarding. No CVA tenderness. EXTREMITIES: No cyanosis, clubbing or pedal edema. MUSCULOSKELETAL: No joint swelling. NEUROLOGIC: Awake, alert. No focal deficit. LYMPHATIC: No lymph nodes palpable. SKIN: Intact. LABS: WBC 2.90, hgb 10.8, hct 33.4, plt count 270, sodium 132, potassium 3.8, chloride 93, bicarb 30, BUN 24, creatinine 0.96 and glucose 255. ASSESSMENT: 1. Chest pain, abnormal dobutamine stress echo 2. CHF ejection fraction is 30% 3. Atrial fibrillation on assisted anticoagulation, Coumadin 4. Cachexia 5. Angina type symptoms PLAN: 1. Continue nitroglycerin PRN 2. DUO NEBS 3. Daily I&O's 4. PT/INR and will change the Coumadin dosage 5. Will try to ask Dr. Hong, [employer] Master Mechanic out of the town we will communicate with the [place] doctors so that they can help with the possible sestamibi scan of the patient. TIME SPENT: More than 35 minutes MTDD
--- NOTE | 2017-12-13 11:58 | PN ---
DATE OF SERVICE: 12/11/17 SUBJECTIVE: The patient was admitted with the chest pain, shortness of breath and EKG changes. The patient had stress echo done by Dr. Hong. As per him the patient has ejection fraction of 30% and changes from previous 35-40% and it was not conclusive. We suggested that the patient should have the stress test and sestamibi scan. REVIEW OF SYSTEMS: CONSTITUTIONAL: No fever, no chills. HEENT: Normal. ENDOCRINE: No weight gain, no weight loss. CVS: No angina symptoms. No CHF symptoms. No palpitations. No atypical chest pain for CAD. No shortness of breath. No PND, no orthopnea. RESPIRATORY: No cough, no hemoptysis. GI: No nausea, no vomiting. No abdominal pain. : No hematuria. No polyuria. MUSCULOSKELETAL: No joint swelling. PSYCHIATRIC: Not anxious. No depression. No suicidal thoughts. No homicidal thoughts. SKIN: Intact. No rash. PHYSICAL EXAMINATION: V/S: Blood pressure 98/64, respiratory rate 18, heart rate 99 and temperature 97.0 with saturation 95%. GENERAL: Cachetic lady laying in a bed and not in any distress. HEENT: Normocephalic, atraumatic. Mucosa dry. Pallor positive. No icterus. NECK: Supple. No JVD, no carotid bruit. No lymphadenopathy. LUNGS: Decreased and basilar crackles. Clear to auscultation. No rales or rhonchi. HEART: S1, S2 normal. No S3. No murmur, gallop or regurgitation. Still complaining of tightness uneasy feeling in the chest. ABDOMEN: Soft, nontender. Bowel sounds active. No rigidity. No rebound or guarding. No CVA tenderness. EXTREMITIES: No cyanosis, clubbing or pedal edema. MUSCULOSKELETAL: No joint swelling. NEUROLOGIC: Awake, alert. No focal deficit. LYMPHATIC: No lymph nodes palpable. SKIN: Intact. LABS: WBC 12.90, hgb 10.8, hct 33.4, pltc ount 270, sodium 132, potassium 3.8, chloride 93, bicarb 20, BUN 24, creatinine 0.96 and glucose 245 ASSESSMENT: 1. Shortness of breath and chest pain with abnormal stress echo, will do perfusion scan on Wednesday. 2. History of CAD 3. CHF with ejection fraction 35 4. COPD 5. Hypertension 6. Dyslipidemia 7. Osteoarthritis 8. Diabetes PLAN: 1. Perfusion scan on Wednesday 2. Continue the breathing treatments 3. Accu-checks with coverage TIME SPENT: More than 35 minutes MTDD
--- NOTE | 2017-12-13 17:46 | PCM.HOSP ---
- Observation Care Discharge [id number] OBS Care Discharge ([id number]): 12/11 - Initial Observation Care [id number] High Complexity 70 Minutes (16327): 12/09 - Subsequent Observation Care [id number] 35 Minutes per Day (72525): 12/10/ - Subsequent Care [id number] 35 Minutes per Day (63875): 12/12 - Hospital Discharge [id number] More than 30 Minutes (70417): 12/13
--- NOTE | 2017-12-15 13:23 | DS ---
DATE OF SERVICE: 12/13/17 FINAL DIAGNOSIS: 1. Angina, stable 2. Abnormal Dobutamine stress 3. CAD status post stent 4. Ejection fraction 35 5. COPD oxygen dependent 6. Diabetes 7. Hypertension 8. Aortic valve replacement 9. 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 Followup on for the sestamibi port of the stress test. Followup in the [facility] within 5 days. Continue the rest of the home medications. MEDICATIONS AT DISCHARGE: Albuterol Lipitor Lotensin Symbicort Nexium Lasix Levemir Humalog Synthroid Nitroglycerin Phenergan Requip Topamax Effexor Coumadin Prednisone NEW PRESCRIPTIONS: Prednisone 10mg PO twice a day Percocet 5-325mg PO Q 12 hours PRN DIET INSTRUCTIONS: Cardiac and Healthy ACTIVITY: Complete bed rest at this time. DISEASE SPECIFIC EDUCATION: CAD CHF been discussed COPD Use of oxygen been discussed Nicotine use and advised to quit, offered help to quit HOSPITAL COURSE: Priyanka Lo Og who is a 67 year old female initially was came to the emergency room with the chest pain and shortness of breath, seen by Dr. Grove in the emergency room. Came to the emergency room on the 12/08 with chest pain and shortness of breath and at that time the patient was admitted for the observation. Did the Dobutamine stress echo ejection fraction 60%, hypokinetic left ventricle. The stress test showed inconclusive for ischemia ST-T wave changes. As the patient has baseline abnormal ST-T wave segment, hypokinetic left ventricle and ejection fraction was 30-35 which was 40% last time. At that time the patient was stable angina still having chest discomfort so the patient was continued on Nitroglycerin and continued stay then changed to the regular admit thinking that patient could be having the rest of the stress test but as patient Dr. Hong was out of town we are not able to get the sestamibi portion of the stress test. The patient was already on the anticoagulation. Advised the patient to go home and will be coming back within three days for the sestamibi portion of the stress test. Advised to be taking complete bed rest, no exertion. Continue the Coumadin. Fall precaution and GI bleed been discussed and verbalized understanding. As the patient being doing fine and did not have any problem since yesterday there was no chest pain at that time the patient being discharged home. TIME SPENT: MORE THAN 65 MINUTES MTDD
== END 2017-12-13 16:38 | disposition home or self-care (01) | DRG 204 ==
LOC: ED 19:01 → MEDSURG B 20:44 → UNDOADMIN 20:44 → MEDSURG B 20:55 → OBSVTOIN 12-12 01:39
PROVIDERS: ADMIT Emergency Medicine; ATTEND Emergency Medicine
DX: R06.00 Dyspnea, unspecified (principal); E11.9 Type 2 diabetes mellitus without complications; E03.9 Hypothyroidism, unspecified; E78.5 Hyperlipidemia, unspecified; I10 Essential (primary) hypertension; I48.91 Unspecified atrial fibrillation; I20.8 Other forms of angina pectoris; J44.9 Chronic obstructive pulmonary disease, unspecified; M47.9 Spondylosis, unspecified; M54.9 Dorsalgia, unspecified; F41.8 Other specified anxiety disorders; Z79.4 Long term (current) use of insulin; Z99.81 Dependence on supplemental oxygen; Z79.01 Long term (current) use of anticoagulants
CPT/HCPCS: 36415; 80053; 82550; 82803; 82962; 83880; 84439; 84443; 84484; 85025; 85610; 87081; 93005; 93010; 94640; 97802; 99284; 99285

== ENCOUNTER 2017-12-22 06:29 | Outpatient (CLI) ==
[2017-12-22] MEDS ORDERED: ATROPINE SULFATE PFS ONE ×2 (07:11→07:47)
[2017-12-22] MEDS ORDERED: DOBUTAMINE 250 ML IV ONE (07:12)
--- NOTE | 2017-12-22 10:14 | NM ---
EXAM: Myocardial perfusion imaging HISTORY: Chest pain COMPARISON: None. TECHNIQUE: 2-D protocol was utilized. Patient was first injected 11.3 mCi of Tc99m Sestamibi intrave nously while at rest. SPECT imaging of the heart was acquired on 12/13/2017. Patient was stressed u sing dobutamine protocol and injected 26 mCi of Tc99m Sestamibi intravenously. Another SPECT imaging of the heart was acquired on . Gated cardiac study was also performed. FINDINGS: Post stress images show normal left ventricular cavity size. Reduced perfusion is noted in volving the anterior wall and left ventricle apex. These areas show reperfusion on delayed imaging. No other perfusion defect is identified. Left ventricular ejection fraction is 37%. IMPRESSION: 1. SPECT myocardial imaging demonstrates reversible ischemia involving mid-anterior wall and left ve ntricle apex. 2. Left ventricular ejection fraction of 37%.
--- NOTE | 2017-12-23 09:49 | DOBSTECHST ---
Ordering Physician: DR. CHAPINCITO MARTINEZ Date of Test: 12/22/17 Height: 66" Weight: 129 LBS Reason for Examination: CHEST PAIN, DM, HTN, AORTIC VALVE REPLACED, PACEMAKER Current Medications: COUMADIN, EFFEXOR, TOPAMAX, ZANAFLEX, SPIRIVA, SOTALOL, REQUIP, SYNTHROID, HUMALOG, LEVEMIR, LOTENSIN, LIPITOR, Target Heart Rate: 129/ 152 S-T Segment Stage Time HR BPM BP mmhg Rhythm +/- Elevation Depression Comments/ Symptoms Control Sitting 61 118/74 SR X NONE Dobutamine 250mg/D5W 5cmg/KG/mn 10cmg/KG/mn 3:00 74 SR X NONE 15cmg/KG/mn 2:00 72 122/70 SR X NONE 20cmg/KG/mn 2:00 68 118/66 SR X NONE 25cmg/KG/mn 2:00 72 102/66 SR X NONE 30cmg/KG/mn 2:00 86 100/62 SR X .25 ATROPINE 35cmg/KG/mn 2:00 100 110/64 SR X NONE 40cmg/KG/mn :24 102 SR X NONE Time: 6:00 HR B/P Time: 10:00 HR B/P Time: HR B/P Recovery 86 100/60 Recovery 81 Recovery Total Time: 14:24 97% OXYGEN SATURATION WITH DOBUTAMINE INFUSION Interpretation: 1. INCONCLUSIVE FOR ISCHEMIA PATIENT HAS ABNORMAL BASELINE ST-T WAVE 2. NO CHEST PAIN OR DISCOMFORT 3. HYPOKINETIC LEFT VENTRICLE AT REST AND WITH DOBUTAMINE INFUSION 4. SESTAMIBI TO FOLLOW MTDD
--- NOTE | 2017-12-23 10:28 | ECHOSTRESS ---
Date of Exam: 12/22/17 Ordering Physician: DR. CHAPINCITO MARTINEZ Reason for Echo: CHEST PAIN, SOB, AORTIC VALVE REPLACED 2008, DOBUTAMINE STRESS TEST--INCONCLUSIVE M-Mode Normal Adult Results LV Dimensions Normal Adult Results AoV Opening excursions >1.6 LVEDD-base- 3.5-5.8 Ao root dimensions 2.0-3.7 LVESD-base- 3.1-4.6 L. Atrium dimensions 1.9-3.8 Post. Wall thickness 0.8-1.1 IV septum (thickness) 0.7-1.2 Post. Wall excursion 0.72-1.3 Septal motion Systolic motion R. Ventricular cavity 1.5-2.0 LVEF 60% Paradoxical septal wall motion 2-D: HYPOKINETIC LEFT VENTRICLE RESTING AND WITH DOBUTAMINE INFUSION M-MODE: MV: AV: TV: PV: CHAMBER SIZE: WALL MOTION: HYPOKINETIC LEFT VENTRICLE RESTING AND WITH DOBUTAMINE INFUSION PERICARDIUM: INTERPRETATION: 1.HYPOKINETIC LEFT VENTRICLE RESTING AND WITH DOBUTAMINE INFUSION MTDD
== END 2017-12-22 06:30 | disposition home or self-care (01) ==
LOC: CAR 06:29
PROVIDERS: ATTEND Emergency Medicine
DX: R07.9 Chest pain, unspecified (principal); R06.02 Shortness of breath

== ENCOUNTER 2017-12-29 15:29 | Outpatient (CLI) | END 2017-12-29 15:30 | disposition home or self-care (01) | LOC: LAB 15:29 | PROVIDERS: ATTEND Emergency Medicine | DX: I25.10 Atherosclerotic heart disease of native coronary artery without angina pectoris (principal); J44.9 Chronic obstructive pulmonary disease, unspecified; Z95.2 Presence of prosthetic heart valve | CPT/HCPCS: 36415; 85025; 85610 ==

== ENCOUNTER 2018-01-07 13:01 | Inpatient (IN) ==
[2018-01-07 13:04] VITALS: BMI 20.6
[2018-01-07] MEDS ORDERED: SOLU-MEDROL 125 MG IVP STA (13:11)
[2018-01-07] MEDS ORDERED: NITROSTAT SL PRN (14:04)
[2018-01-07] MEDS ORDERED: HUMULIN R SUBCUT STA (14:06)
--- NOTE | 2018-01-07 14:10 | ED.PDOC ---
General ED Provider: Dr. SHIRLEY BECKER Chief Complaint: Shortness of Air Stated Complaint: shortness of breath Time Seen by Physician: 13:00 (seen with nurse at all times smoke 5/day) Mode of Arrival: Walk-In Information Source: Patient Exam Limitations: No limitations Primary Care Provider[facility] Nursing and Triage Documentation Reviewed and Agree: Yes Does patient meet sepsis criteria?: No If yes, has appropriate treatment been initiated?: No System Inflammatory Response Syndrome: Not Applicable Sepsis Protocol: For patient's 13 years and over: Temp is 96.8 and below OR 101 and greater Pulse >90 BPM Resp >20/minute Acutely Altered Mental Status Are patient's symptoms suggestive of a new infection, such as: -Pneumonia -Skin, Soft Tissue -Endocarditis -UTI -Bone, Joint Infection -Implantable Device -Acute Abdominal Infection -Wound Infection -Meningitis -Blood Stream Catheter Infection -Unknown Respiratory Complaint Exam - Respiratory Complaint/Exam Onset/Duration: 1 week but this is a chronic issue on home o2 Symptoms Are: Resolved Timing: Intermittent Initial Severity: Moderate Current Severity: None Location: Throat, Chest Character: Reports: Dry cough Aggravating: Reports: Recumbent position Alleviating: Reports: Bronchodilators, Upright position, Spontaneous resolution Associated Signs and Symptoms: Reports: Nasal congestion. Denies: Rapid breathing, Dyspnea, Fever, Chills, Chest pain, Pleuritic chest pain, Wheezing, Hemoptysis, Dizziness, Calf pain, Calf swelling, Edema, URI, Hoarseness, Sinus discomfort, Vomiting, Sore throat, Weight loss, Decreased oral intake, Increased thirst, Increased appetite, Increased urination Related History: Reports: Similar episode History of Healthcare-Acquired Pneumonia: No Related Surgical History: Reports: None Pulmonary Embolism Risk Factors: Bedrest Cardiac Risk Factors: Reports: Diabetes, Hypertension Pseudomonas Risk Factors: Reports: Chronic Lung Disease Tuberculosis Risk Factors: Reports: None Status Asthmaticus Risk Factors: Reports: None Home Oxygen Use: Yes Recent Stress Test: No Recent Echo/LV Function: No Current Antibiotic Use: No Current Asthma Medication Use: Yes Respiratory Distress: None Inadequate Respiratory Effort: No Dysphagia Present: No Stridor Present: No JVD Present: No Accessory Muscle Use: No Retractions: Not Present Diminished Breath Sounds: No Sinus Tenderness: None Grunting Respirations: No Kussmaul Respirations: No Differential Diagnoses: CHF, Pulmonary Edema, COPD Exacerbation, Pneumonia, Bronchitis, Lower Resp. Infection Review of Systems - Review Of Systems Constitutional: Reports: Malaise, Weakness Eyes: Reports: No symptoms Ears, Nose, Mouth, Throat: Reports: No symptoms Respiratory: Reports: Cough, Short of air, Wheezing Cardiac: Reports: No symptoms GI: Reports: No symptoms : Reports: No symptoms Musculoskeletal: Reports: No symptoms Skin: Reports: No symptoms Neurological: Reports: No symptoms Endocrine: Reports: No symptoms Hematologic/Lymphatic: Reports: No symptoms All Other Systems: Reviewed and Negative Past Medical History - Past Medical History Previously Healthy: No Endocrine: Reports: DM 2, Hypothyroid, Dyslipidemia Cardiovascular: Reports: CAD, Hypertension, CHF, A-Fib Respiratory: Reports: COPD, Pneumonia Hematological: Reports: None Gastrointestinal: Reports: GERD Genitourinary: Reports: None Neuro/Psych: Reports: Migraine, Anxiety, Depression Musculoskeletal: Reports: Arthritis, Back Pain (CHRONIC BACK PAIN) Cancer: Reports: None Last Menstrual Period: N/A Other Pertinent Past Medical History: OPEN HEART SURGERY, PACEMAKER, CHRONIC BACK PAIN - Surgical History General Surgical History: Reports: Hysterectomy, Cholecystectomy (gallbladder), CABG (OPEN HEART SURGERY,aorta valve replacement and pacemaker 2008), Pacemaker (pacemaker 2008), Orthopedic (2 knee replacements), Back Surgery (2 back surg), Other (Aortic valve replacement. RIGHT KIDNEY REPAIR) - Family History Family History: Reports: Unknown - Social History Smoking Status: Current every day smoker, Light tobacco smoker Hx Substance Use: No Alcohol Screening: None - Immunizations Tetanus Shot up to Date: No Physical Exam - Physical Exam Appearance: Ill-appearing Ill-appearing: Mild Pain Distress: Mild Eyes: MYKE, EOMI, Conjunctiva clear ENT: Ears normal, Nose normal, Oropharynx normal Respiratory: Airway patent, Breath sounds clear, Breath sounds equal, Respirations nonlabored Cardiovascular: RRR, Pulses normal, No rub, No murmur GI/: Soft, Nontender, No masses, Bowel sounds normal, No Organomegaly Musculoskeletal: Normal strength, ROM intact, No edema, No calf tenderness Skin: Warm, Dry, Normal color Neurological: Sensation intact, Motor intact, Reflexes intact, Cranial nerves intact, Alert, Oriented Psychiatric: Affect appropriate, Mood appropriate Interpretation - Radiology Interpretation Radiology Interpretation By: Radiologist Radiology Results: No acute changes Physician Notification - Case Discussed Physician Notified: pmd Time of Notification: 14:10 Admit To: Inpatient Critical Care Note - Critical Care Note Total Time (mins): 0 Course - Course Hematology/Chemistry: 01/07/18 13:17 01/07/18 13:17 Orders, Labs, Meds: Lab Review 01/07/18 01/07/18 01/07/18 13:10 13:17 13:17 WBC 10.98 H RBC 4.56 Hgb 12.2 Hct 38.4 MCV 84.2 MCH 26.8 L MCHC 31.8 RDW Coeff of Kalani 14.9 H Plt Count 301 Immature Gran % (Auto) 0.6 Neut % (Auto) 81.1 Lymph % (Auto) 13.5 [place] % (Auto) 4.4 Eos % (Auto) 0.1 Baso % (Auto) 0.3 Immature Gran # (Auto) 0.1 Neut # (Auto) 8.9 H Lymph # (Auto) 1.5 [place] # (Auto) 0.5 Eos # (Auto) 0.0 Baso # (Auto) 0.0 Puncture Site Rbrach O2 Saturation 91.0 L ABG pH 7.375 ABG pCO2 53.7 H ABG pO2 64.0 L ABG HCO3 31.4 H ABG Total CO2 33 H ABG Base Excess 6 H FiO2 % 21.0 Sodium 134 L Potassium 3.4 L Chloride 92 L Carbon Dioxide 33 H Anion Gap 12.4 BUN 16 Creatinine 1.10 Estimated GFR (MDRD) 49.00 BUN/Creatinine Ratio 14.54 Glucose 210 H Calcium 10.2 Total Bilirubin 0.4 AST 17 ALT 13 Alkaline Phosphatase 76 Total Creatine Kinase 49 Troponin I 0.1660 Total Protein 8.3 H Albumin 3.7 Globulin 4.6 Albumin/Globulin Ratio 0.80 Orders Category Date Time Status ABG DRAW REQUEST Stat CARDIO 01/07/18 13:10 Completed EKG-(ED ONLY) Stat CARDIO 01/07/18 13:06 Completed ED IV/MEDIPORT/POWERPORT .ONCE EMERGENCY 01/07/18 13:11 Active ABG Stat LAB 01/07/18 13:10 Completed CBC W/ AUTO DIFF Stat LAB 01/07/18 13:17 Completed COMPREHENSIVE METABOLIC PANEL Stat LAB 01/07/18 13:17 Received CREATINE KINASE Stat LAB 01/07/18 13:17 Received TROPONIN I Stat LAB 01/07/18 13:17 Received 0.9 % Sodium Chloride [Saline Flush] MEDS 01/07/18 13:11 Active 1 syr IVF PRN PRN Methylprednisolone Sod Succ/Pf [Solu-Medrol 125 mg] MEDS 01/07/18 13:11 Discontinued 40 mg IVP ONCE STA CT CHEST W/O CONTRAST Stat RADS 01/07/18 13:06 Ordered Medications Generic Name Dose Route Start Last Admin Trade Name Freq PRN Reason Stop Dose Admin Albuterol/Ipratropium 1 vial 01/07/18 18:00 Duoneb NEB [id number] FERNIE Azithromycin 250 mg 01/08/18 09:00 Zithromax PO DAILY FERNIE Furosemide 40 mg 01/08/18 09:00 Lasix Tab PO DAILY FERNIE Ceftriaxone Sodium 1 gm/ 50 mls @ 75 mls/hr 01/08/18 09:00 Sodium Chloride IV DAILY FERNIE Sodium Chloride 1,000 mls @ 75 mls/hr 01/07/18 14:30 Sodium Chloride IV .[id number] FERNIE Potassium Chloride/Sodium Chloride 1,000 mls @ 75 mls/hr 01/07/18 14:30 Sodium Chloride 0.9%-Kcl 20 Meq IV .[id number] [facility] Methylprednisolone Sodium Succinate 40 mg 01/07/18 21:00 Solu-Medrol 40 Mg IVP Q12HR FERNIE Nitroglycerin 0.4 mg 01/07/18 14:04 Nitrostat SL DIRECTED PRN Angina Non-Formulary Medication 40 mg 01/07/18 21:00 Esomeprazole Magnesium [Nexium] PO BID FERNIE Non-Formulary Medication 125 mcg 01/08/18 09:00 Levothyroxine Sodium [Synthroid] PO DAILY FERNIE Non-Formulary Medication 2 mg 01/07/18 21:00 Ropinirole Hcl [Requip] PO BEDTIME FERNIE Non-Formulary Medication 80 mg 01/07/18 21:00 Sotalol Hcl [Sotalol] PO BID FERNIE Non-Formulary Medication 4 mg 01/07/18 14:15 Warfarin Sodium [Coumadin] PO DIRECTED FERNIE Non-Formulary Medication 40 mg 01/07/18 21:00 Atorvastatin Calcium [Lipitor] PO BEDTIME FERNIE Non-Formulary Medication 20 mg 01/08/18 09:00 Benazepril Hcl [Lotensin] PO DAILY FERNIE Sodium Chloride 1 syr 01/07/18 13:11 Saline Flush IVF PRN PRN To flush IV Topiramate 50 mg 01/07/18 21:00 Topamax PO BEDTIME FERNIE Discontinued Medications Generic Name Dose Route Start Last Admin Trade Name Day PRN Reason Stop Dose Admin Methylprednisolone Sodium Succinate 40 mg 01/07/18 13:11 01/07/18 13:41 Solu-Medrol 125 Mg IVP 01/07/18 13:12 40 mg ONCE STA Administration Vital Signs: Temp Pulse Resp BP Pulse Ox 01/07/18 13:02 98 F 86 22 125/86 94 L Departure - Departure Time of Disposition: 15:00 Disposition: ADMITTED INPATIENT Discharge Problem: COPD (chronic obstructive pulmonary disease) with acute bronchitis Condition: Good Pt referred to PMD for follow-up: Yes (admitt) IPMP verified?: No Allergies/Adverse Reactions: Allergies ceftriaxone sodium [From Rocephin] Adverse Reaction (Verified 01/07/18 13:04) cefuroxime axetil [From Ceftin] Adverse Reaction (Verified 01/07/18 13:04) doxycycline Adverse Reaction (Verified 01/07/18 13:04) nifedipine [From Procardia] Adverse Reaction (Verified 01/07/18 13:04) nitrofurantoin [From Macrobid] Adverse Reaction (Verified 01/07/18 13:04) nitrofurantoin macrocrystal [From Macrobid] Adverse Reaction (Verified 01/07/18 13:04) Home Medications: Ambulatory Orders Albuterol Sulfate [Albuterol Sulfate Hfa] 2 puff IH QID 02/13/14 Atorvastatin Calcium [Lipitor] 40 mg PO BEDTIME 02/13/14 Benazepril HCl [Lotensin] 20 mg PO DAILY 02/13/14 Esomeprazole Magnesium [Nexium] 40 mg PO BID 02/13/14 Furosemide [Lasix] 40 mg PO DAILY 02/13/14 Promethazine HCl [Phenergan Tab] 25 mg PO Q6H PRN 02/13/14 Ropinirole HCl [Requip] 2 mg PO BEDTIME 02/13/14 Sotalol HCl [Sotalol] 80 mg PO BID 02/13/14 Topiramate [Topamax] 50 mg PO BEDTIME 02/13/14 Venlafaxine HCl [Effexor Xr] 150 mg PO BEDTIME 02/18/15 Budesonide/Formoterol Fumarate [Symbicort 160-4.5 Mcg Inhaler] 2 puff IH DAILY 05/28/15 Tizanidine HCl [Zanaflex] 4 mg PO TID PRN 05/28/15 Levothyroxine Sodium [Synthroid] 125 mcg PO DAILY 07/06/16 Warfarin Sodium [Coumadin] 4 mg PO DIRECTED 07/09/16 Insulin Lispro [Humalog] 0 unit SQ DIRECTED PRN 05/07/17 Nitroglycerin 0.4 mg SL DIRECTED PRN 11/30/17 Insulin Detemir [Levemir Flextouch] 20 unit SQ BEDTIME 12/10/17 Tiotropium [place] [Spiriva] 1 cap IH DAILY 12/10/17 Oxycodone-Acetaminophen 5-325 [Percocet 5-325] 1 tab PO Q12H PRN #10 tablet Prednisone 10 mg PO BIDWM #10 tablet 12/13/17 Disposition Discussed With: Patient, Family
[2018-01-07] MEDS ORDERED: NON-FORMULARY MEDICATION (Warfarin Sodium [Coumadin] 4 MG) PO SCH (14:15)
[2018-01-07] MEDS ORDERED: ROCEPHIN 1 GM in SODIUM CHLORIDE 50 ML IV SCH (14:30)
[2018-01-07] MEDS ORDERED: SODIUM CHLORIDE 0.9%-KCL 20 MEQ 1,000 ML IV SCH (14:30)
--- NOTE | 2018-01-07 14:30 | CT ---
EXAM: CT of the chest without contrast. History: Persistent cough. Comparison: Chest CT 12/09/2017 Technique: Multiplanar CT images through the thorax were obtained without the administration of IV c ontrast. Findings: Heart size is within normal limits. No pericardial effusion. Coronary calcification and aortic valve replacement. No pericardial effusion. Pulmonary arterial hypertension again noted. No pathologically enlarged thoracic lymph nodes. Emphysema again noted. Scattered areas of subsegment al atelectasis. No consolidation. Diffuse bronchial wall thickening. There is a new 4 mm right mid dle lobe lung nodule. Old granulomas again seen within the thorax. Within the visualized upper abdomen, IVC filter and status post cholecystectomy. No acute osseous ab normalities. Sternotomy wires. Impression: 1. Bronchial wall thickening but no consolidated pneumonia. 2. Emphysema. 3. New 4 mm right middle lobe lung nodule. Recommend follow-up chest CT in 6 months. 4. Pulmonary arterial hypertension. 5. Coronary artery disease
[2018-01-07] MEDS: SODIUM CHLORIDE 1,000 ML IV SCH (15:51)
[2018-01-07] MEDS ORDERED: PERCOCET 5-325 PO PRN (16:03)
[2018-01-07] MEDS: DUONEB NEB SCH ×2 (16:55→23:27)
[2018-01-07] MEDS: TORADOL IVP PRN (16:59)
[2018-01-07] MEDS: PHENERGAN TAB PO PRN (17:00)
[2018-01-07] MEDS: K-DUR PO SCH (17:00)
[2018-01-07] MEDS: PROTONIX PO SCH (17:00)
[2018-01-07] MEDS: PROAIR HFA IH SCH ×2 (17:01→21:34)
[2018-01-07] MEDS ORDERED: HUMALOG SUBCUT ONE (17:17)
[2018-01-07] MEDS ORDERED: NORCO 5-325 PO PRN (19:27)
[2018-01-07] MEDS ORDERED: LEVAQUIN 100 ML IV ONE (19:44)
[2018-01-07] MEDS: LEVAQUIN 500 MG in PREMIX 100 ML D5W 1 BAG IV SCH ×2 (19:45→19:48)
[2018-01-07] MEDS: NORCO 5-325 PO PRN (20:38)
[2018-01-07] MEDS: SOLU-MEDROL 40 MG IVP SCH (20:38)
[2018-01-07] MEDS ORDERED: NON-FORMULARY MEDICATION (Esomeprazole Magnesium [Nexium] 40 MG) PO SCH (21:00)
[2018-01-07] MEDS ORDERED: LEVEMIR SUBCUT SCH (21:00)
[2018-01-07] MEDS ORDERED: NON-FORMULARY MEDICATION (Ropinirole Hcl [Requip] 2 MG) PO SCH (21:00)
[2018-01-07] MEDS ORDERED: NON-FORMULARY MEDICATION (Atorvastatin Calcium [Lipitor] 40 MG) PO SCH (21:00)
[2018-01-07] MEDS ORDERED: NON-FORMULARY MEDICATION (Venlafaxine Hcl [Effexor Xr] 150 MG) PO SCH (21:00)
[2018-01-07] MEDS ORDERED: INSULIN DETEMIR 20 UNIT SQ SCH (21:00)
[2018-01-07] MEDS ORDERED: SOTALOL HCL 80 MG PO SCH (21:00)
[2018-01-07] MEDS: BETAPACE PO SCH (21:32)
[2018-01-07] MEDS: LIPITOR PO SCH (21:32)
[2018-01-07] MEDS: REQUIP PO SCH (21:33)
[2018-01-07] MEDS: EFFEXOR XR PO SCH (21:33)
[2018-01-07] MEDS: NEURONTIN PO SCH (21:33)
[2018-01-07] MEDS: HUMALOG SUBCUT PRN (21:43)
[2018-01-07] MEDS: TOPAMAX PO SCH (21:43)
[2018-01-08] MEDS: PHENERGAN TAB PO PRN ×3 (00:08→21:25)
[2018-01-08] MEDS: ZANAFLEX PO PRN ×3 (00:08→21:12)
[2018-01-08] MEDS: TORADOL IVP PRN ×2 (04:10→17:09)
[2018-01-08] MEDS: DUONEB NEB SCH ×4 (04:50→22:27)
[2018-01-08] MEDS: SYNTHROID PO SCH ×2 (05:48→05:54)
[2018-01-08] MEDS: PROTONIX PO SCH ×2 (05:48→16:29)
[2018-01-08] MEDS: LASIX TAB PO SCH (05:48)
[2018-01-08] MEDS: HUMALOG SUBCUT PRN ×4 (07:25→21:25)
[2018-01-08] MEDS: SYMBICORT 160-4.5 MCG INHALER IH SCH (08:18)
[2018-01-08] MEDS: SPIRIVA IH SCH (08:20)
[2018-01-08] MEDS: BETAPACE PO SCH ×2 (08:21→21:12)
[2018-01-08] MEDS: LOTENSIN PO SCH (08:21)
[2018-01-08] MEDS: NEURONTIN PO SCH ×2 (08:21→21:13)
[2018-01-08] MEDS: COUMADIN PO SCH (08:22)
[2018-01-08] MEDS: LEVAQUIN 250 MG in PREMIX 50 ML D5W 1 BAG IV SCH (08:22)
[2018-01-08] MEDS: SOLU-MEDROL 40 MG IVP SCH ×2 (08:23→22:15)
[2018-01-08] MEDS: PROAIR HFA IH SCH ×4 (08:23→21:16)
[2018-01-08] MEDS: SODIUM CHLORIDE 1,000 ML IV SCH ×3 (08:32→22:37)
[2018-01-08] MEDS ORDERED: NON-FORMULARY MEDICATION (Levothyroxine Sodium [Synthroid] 125 MCG) PO SCH (09:00)
[2018-01-08] MEDS ORDERED: ZITHROMAX PO SCH (09:00)
[2018-01-08] MEDS ORDERED: BENAZEPRIL HCL 20 MG PO SCH (09:00)
[2018-01-08] MEDS ORDERED: LASIX TAB PO SCH (09:00)
[2018-01-08] MEDS: K-DUR PO SCH (09:01)
[2018-01-08] MEDS: NORCO 5-325 PO PRN ×2 (10:11→21:27)
[2018-01-08] MEDS ORDERED: LASIX IVP STA ×3 (11:54→12:50)
[2018-01-08] MEDS ORDERED: LASIX ONE (12:42)
[2018-01-08] MEDS ORDERED: LASIX IM STA ×2 (12:44)
[2018-01-08] MEDS: NICODERM 21 MG TD SCH (17:10)
[2018-01-08] MEDS: REQUIP PO SCH (21:13)
[2018-01-08] MEDS: TOPAMAX PO SCH (21:13)
[2018-01-08] MEDS: EFFEXOR XR PO SCH (21:14)
[2018-01-08] MEDS: LIPITOR PO SCH (21:14)
[2018-01-08] MEDS: LEVEMIR SUBCUT SCH (21:15)
[2018-01-09] MEDS: TORADOL IVP PRN ×3 (04:34→23:14)
[2018-01-09] MEDS: PHENERGAN TAB PO PRN ×2 (04:34→20:59)
[2018-01-09] MEDS: DUONEB NEB SCH ×4 (04:45→22:55)
[2018-01-09] MEDS: SYNTHROID PO SCH ×2 (06:06)
[2018-01-09] MEDS: LASIX TAB PO SCH (06:06)
[2018-01-09] MEDS: PROTONIX PO SCH ×2 (06:06→17:04)
[2018-01-09] MEDS: HUMALOG SUBCUT PRN ×4 (07:31→20:59)
[2018-01-09] MEDS ORDERED: KAYEXALATE SUSP PO STA (08:03)
[2018-01-09] MEDS: K-DUR PO SCH (08:27)
[2018-01-09] MEDS: LEVAQUIN 250 MG in PREMIX 50 ML D5W 1 BAG IV SCH (08:34)
[2018-01-09] MEDS: NICODERM 21 MG TD SCH (08:34)
[2018-01-09] MEDS: SODIUM CHLORIDE 1,000 ML IV SCH ×2 (08:34→18:52)
[2018-01-09] MEDS: LOTENSIN PO SCH (08:37)
[2018-01-09] MEDS: BETAPACE PO SCH ×2 (08:37→23:03)
[2018-01-09] MEDS: SOLU-MEDROL 40 MG IVP SCH ×2 (08:37→22:54)
[2018-01-09] MEDS: NEURONTIN PO SCH ×2 (08:37→22:59)
[2018-01-09] MEDS: PROAIR HFA IH SCH ×4 (08:37→23:14)
[2018-01-09] MEDS: SPIRIVA IH SCH (08:38)
[2018-01-09] MEDS: SYMBICORT 160-4.5 MCG INHALER IH SCH (08:38)
[2018-01-09] MEDS ORDERED: COUMADIN PO SCH (09:00)
--- NOTE | 2018-01-09 09:56 | CT ---
EXAM: CT of the abdomen pelvis without contrast History: Abdominal pain. Comparison: CT abdomen pelvis 12/03/2017 Technique: Multiplanar CT images through the abdomen pelvis were obtained without the administration of IV contrast. Findings: Heart is borderline enlarged. Bronchial wall thickening again seen within the lower lungs with scattered areas of subsegmental atelectasis. No acute osseous abnormalities. Osteopenia. Sever e degenerative disc disease at L5-S1. Status post cholecystectomy. IVC filter. Atherosclerotic vascular calcifications. Stomach is moder ately distended with fluid and debris. There is some high density material seen within the stomach. Prominent gastric folds. No renal stones and no hydronephrosis. No focal liver or splenic lesions. Bladder is low lying within the pelvis but there is no bladder wall thickening. Moderate to large amount of stool is seen within the right side of the colon. Mild to moderate colonic distension with no discrete transition point identified. No yasir bowel wall thickening. No free air and no ascites . Impression: 1. Colonic distension with no discrete transition point identified. This probably represents ileus but would recommend a follow-up radiograph to assure resolution. 2. High density contents are seen within the lumen of the stomach which could be due to ingested elicia d substance but cannot exclude intraluminal gastric hemorrhage. 3. Atherosclerotic vascular disease.
[2018-01-09] MEDS: NORCO 5-325 PO PRN (12:25)
[2018-01-09] MEDS: LEVEMIR SUBCUT SCH (20:58)
[2018-01-09] MEDS ORDERED: ATIVAN PO SCH (21:00)
[2018-01-09] MEDS: ZANAFLEX PO PRN (21:00)
[2018-01-09] MEDS: LIPITOR PO SCH (22:55)
[2018-01-09] MEDS: EFFEXOR XR PO SCH (22:57)
[2018-01-09] MEDS: REQUIP PO SCH (22:58)
[2018-01-09] MEDS: TOPAMAX PO SCH (23:03)
[2018-01-10] MEDS: NORCO 5-325 PO PRN (00:42)
[2018-01-10] MEDS: DUONEB NEB SCH ×2 (04:48→11:13)
[2018-01-10] MEDS: SYNTHROID PO SCH ×2 (06:27→06:28)
[2018-01-10] MEDS: LASIX TAB PO SCH (06:27)
[2018-01-10] MEDS: HUMALOG SUBCUT PRN ×2 (08:07→11:17)
[2018-01-10] MEDS: PROTONIX PO SCH (08:09)
[2018-01-10] MEDS: NICODERM 21 MG TD SCH (08:48)
[2018-01-10] MEDS: LEVAQUIN 250 MG in PREMIX 50 ML D5W 1 BAG IV SCH (08:48)
[2018-01-10] MEDS: SYMBICORT 160-4.5 MCG INHALER IH SCH (08:50)
[2018-01-10] MEDS: SPIRIVA IH SCH (08:50)
[2018-01-10] MEDS: PROAIR HFA IH SCH ×2 (08:50→15:19)
[2018-01-10] MEDS: SOLU-MEDROL 40 MG IVP SCH (08:51)
[2018-01-10] MEDS: BETAPACE PO SCH (08:51)
[2018-01-10] MEDS: LOTENSIN PO SCH (08:51)
[2018-01-10] MEDS: COUMADIN PO SCH (08:52)
[2018-01-10] MEDS: NEURONTIN PO SCH (08:52)
[2018-01-10] MEDS: K-DUR PO SCH (08:52)
[2018-01-10] MEDS ORDERED: K-DUR PO SCH (09:30)
--- NOTE | 2018-01-10 14:03 | HP ---
DATE OF SERVICE: 01/07/18 CHIEF COMPLAINT: Shortness of breath HISTORY OF PRESENT ILLNESS: This is a 67 year old female with COPD history and continuous smoking came to the emergency room with coughing, congestion, shortness of breath. She was seen in the [facility] 4-5 days ago. The patient started taking the medication and did not help. The patient continued to have wheezing. Came to the emergency room and was seen by Dr. Faustin. ABG showed the pH 7.374, pCO2 53.7, pO2 64. CT chest done which showed bronchial wall thickening but no consolidation, emphysema, right middle lung nodule, pulmonary arterial hypertension. At that time the patient being admitted to the hospital in review of failure outpatient treatment, COPD exacerbation and bronchitis. REVIEW OF SYSTEMS: CONSTITUTIONAL: No fever, no chills. Weakness, tiredness. HEENT: Normal. ENDOCRINE: No weight gain; no weight loss. CVS: No chest pain. No PND, no orthopnea. Shortness of breath. No PND, no orthopnea. RESPIRATORY: Cough, Congestion. No hemoptysis. GI: No nausea, no vomiting. No abdominal pain. No melena. : No hematuria. No polyuria. MUSCULOSKELETAL: No joint swelling. PSYCHIATRIC: Not anxious. No depression. No suicidal thoughts. No homicidal thoughts. SKIN: Intact, no open lesions. PAST MEDICAL HISTORY: CAD CHF Hypertension Valvular repair Atrial fibrillation on chcf anticoagulation COPD DJD spine Osteoarthritis Hypothyroidism Depression Anxiety PAST SURGICAL HISTORY: Back surgery, bulging disc Valvular replacement History of Lyme's disease PERSONAL HISTORY: The patient does smoke, no alcohol and no drugs. FAMILY HISTORY: Cancer MEDICATIONS: Phenergan Lotensin Requip Lasix Lipitor Topamax Neurontin Sotalol Albuterol Effexor Zanaflex Symbicort Coumadin Synthroid Humalog Nitroglycerin Spiriva Levemir Percocet Azithromycin Neurontin ALLERGIES: Ceftriaxone Cefuroxime Doxycycline PHYSICAL EXAMINATION: V/S: blood pressure 143/94, respiratory rate 20, heart rate 94, temperature 97.8 with saturation 94%. GENERAL: Sick looking lady. HEENT: Atraumatic, normocephalic. No scleral icterus. Pallor positive. Mucosa dry. NECK: Supple. No JVD, no bruit. No lymphadenopathy. No thyromegaly. HEART: S1, S2 normal. No murmur. No cyanosis or clubbing. No ascites. LUNGS: Decreased and basilar crackles with mild expiratory wheeze defuse present. No rales or rhonchi. ABDOMEN: Soft, nontender. Bowel sounds are active. No CVA tenderness. No rigidity or guarding. EXTREMITIES: No pedal edema. No cyanosis or clubbing MUSCULOSKELETAL: Normal joints, no swelling. NEUROLOGIC: The patient is awake and alert SKIN: Intact; no open lesions. LYMPHATIC: No lymph nodes palpable. LABS: WBC 10.98, hgb 12.2, hct 38.4, plt count 301, sodium 134, potassium 3.4, chloride 92, bicarb 33, BUN 165, creatinine 1.10, glucose 110, ABG pH 7.375, pCO2 53.7, pO2 64. ASSESSMENT: 1. COPD exacerbation secondary to the bronchitis 2. History of angina, recent stress test positive awaiting heart cath 3. CAD 4. Valve replacement 5. Hypothyroidism 6. Osteoarthritis 7. DJD spine PLAN: 1. Admit the patient to the regular floor 2. CBC and CMP today and daily 3. Cardiac enzymes and Troponin 4. IV fluids 5. Solu-Medrol 6. Breathing treatments 7. Daily I&O's TIME SPENT: MORE THAN 70 minutes MTDD
--- NOTE | 2018-01-10 14:12 | PN ---
DATE OF SERVICE: 01/08/18 SUBJECTIVE: The patient was admitted with COPD exacerbation. REVIEW OF SYSTEMS: CONSTITUTIONAL: No fever, no chills. HEENT: Normal. ENDOCRINE: No weight gain, no weight loss. CVS: No angina symptoms. No CHF symptoms. No palpitations. No atypical chest pain for CAD. Shortness of breath with minimal exertion. No PND, no orthopnea. RESPIRATORY: Cough, no hemoptysis. GI: No nausea, no vomiting. No abdominal pain. : No hematuria. No polyuria. MUSCULOSKELETAL: No joint swelling. PSYCHIATRIC: Not anxious. No depression. No suicidal thoughts. No homicidal thoughts. SKIN: Intact. No rash. PHYSICAL EXAMINATION: V/S: Blood pressure 100/72, respiratory rate 14, heart rate 112, temperature 97.9 with saturation 98%. HEENT: Normocephalic, atraumatic. Mucosa dry. Pallor positive. No icterus. NECK: Supple. No JVD, no carotid bruit. No lymphadenopathy. LUNGS: Decreased and basilar crackles. Clear to auscultation. No rales or rhonchi. HEART: S1, S2 normal. No S3. No murmur, gallop or regurgitation. ABDOMEN: Soft, nontender. Bowel sounds active. No rigidity. No rebound or guarding. No CVA tenderness. EXTREMITIES: No cyanosis, clubbing or pedal edema. MUSCULOSKELETAL: No joint swelling. NEUROLOGIC: Awake, alert. No focal deficit. LYMPHATIC: No lymph nodes palpable. SKIN: Intact. LABS: Sodium 131, potassium 4.4, chloride 98, Bicarb 28, BUN 28, creatinine 1.30, WBC 9.33, hgb 9.4, hct 29.7, plt count 232. ASSESSMENT: 1. COPD exacerbation secondary to the bronchitis 2. History of angina 3. CAD 4. Aortic valve replacement 5. assisted anticoagulation 6. Chronic pain syndrome 7. DJD spine 8. Depression PLAN: 1. Continue Solu-Medrol 2. Breathing treatments 3. Azithromycin daily 4. Accu-checks with coverage 5. Continue the Coumadin 6. Continue the PT/INR TIME SPENT: More than 35 minutes MTDD
--- NOTE | 2018-01-10 14:18 | PN ---
DATE OF SERVICE: 01/09/18 SUBJECTIVE: The patient was admitted with the COPD exacerbation and bronchitis. She was complaining about the right sided kidney pain. Up and about walking. Urine was not done, we will get a urine today. REVIEW OF SYSTEMS: CONSTITUTIONAL: No fever, no chills. HEENT: Normal. ENDOCRINE: No weight gain, no weight loss. CVS: No angina symptoms. No CHF symptoms. No palpitations. No atypical chest pain for CAD. No shortness of breath. No PND, no orthopnea. RESPIRATORY: No cough, no hemoptysis. GI: No nausea, no vomiting. No abdominal pain. : No hematuria. No polyuria. MUSCULOSKELETAL: No joint swelling. PSYCHIATRIC: Not anxious. No depression. No suicidal thoughts. No homicidal thoughts. SKIN: Intact. No rash. PHYSICAL EXAMINATION: V/S: Blood pressure 100/53, respiratory rate 18, heart rate 82, temperature 97.6 with saturation 100% on 2 liters. HEENT: Normocephalic, atraumatic. Mucosa dry. Pallor positive. No icterus. NECK: Supple. No JVD, no carotid bruit. No lymphadenopathy. LUNGS: Decreased and basilar crackles. Mild wheezing. Clear to auscultation. No rales or rhonchi. HEART: S1, S2 normal. No S3. No murmur, gallop or regurgitation. ABDOMEN: Soft, nontender. Bowel sounds active. No rigidity. No rebound or guarding. Right sided CVA tenderness. EXTREMITIES: No cyanosis, clubbing or pedal edema. MUSCULOSKELETAL: No joint swelling. NEUROLOGIC: Awake, alert. No focal deficit. LYMPHATIC: No lymph nodes palpable. SKIN: Intact. LABS: WBC 13.05, hgb 9.6, hct 30.5, plt count 230, sodium 134, potassium 4.5, chloride 96, bicarb 28, BUN 44, creatinine 1.39 and glucose 251. ASSESSMENT: 1. Right flank pain, rule out kidney infection 2. Hyperkalemia 3. Worsening kidney function 4. COPD exacerbation and bronchitis 5. Angina 6. Aortic valve replacement 7. Chronic pain syndrome PLAN: 1. Continue Zithromax 2. Continue Lasix PO daily 3. Will get U/A 4. Accu-checks with coverage 5. Will get CT abdomen and pelvis and evaluate the acute worsening kidney function. TIME SPENT: More than 35 minutes MTDD
[2018-01-10 14:19] VITALS: BP 129/82; TEMP 97.9
--- NOTE | 2018-01-10 21:06 | PCM.HOSP ---
- Initial Hospital Care [id number] 70 Minutes Bedside ([id number]): 01/07 - Subsequent Care [id number] 35 Minutes per Day ([id number]): 01/08. 01/09 - Hospital Discharge [id number] More than 30 Minutes ([id number]): 01/10
--- NOTE | 2018-01-12 13:12 | DS ---
DATE OF SERVICE: 01/10/18 FINAL DIAGNOSIS: 1. COPD exacerbation secondary to the bronchitis 2. Hypertension 3. Angina, stable 4. Recent stress test positive, pending heart cath, Patient seeing Dr. Gao in [facility] in [place] 5. Hypothyroidism 6. CAD 7. CHF 8. Aortic valve replacement 9. Anxiety disorder 10.Osteoarthritis 11.Depression 12.Nicotine use 13.Diabetes 14.Permanent pacemaker 15.Cholecystectomy 16.Hysterectomy 17.Back surgery 18.Knee surgery DISCHARGE INSTRUCTIONS: Discharge the patient home. Followup in the [facility] within 5-7 days. Keep followup with Dr. Gao. Accu-checks with coverage. DO NOT COUMADIN TODAY AND TOMORROW. Continue the rest of the home medications. MEDICATIONS AT DISCHARGE: Albuterol Atorvastatin Lotensin Symbicort Neurontin Lasix Nexium [place] Levemir Humalog Levothyroxine Nitroglycerin Requip Phenergan Sotalol Spiriva Zanaflex Topamax Effexor NEW PRESCRIPTIONS: Keflex 500mg twice a day for 5 days Prednisone 10mg twice a day for 5 days. DIET INSTRUCTIONS: Regular and diabetic diet ACTIVITY: As much as tolerated DISEASE SPECIFIC EDUCATION: COPD Risk of pneumonia and pneumonia vaccination been discussed HOSPITAL COURSE: Lo Mathew who is a 67 year old female came to the emergency room with cough, congestion, shortness of breath. The patient was recently in the office given some antibiotics and did not get better. Shortness of breath was getting worse and came to the emergency room and was seen by ER physician. WBC is 10.98 with left shift. INR was 3.90, ABG showed the pH 7.375, pCO2 53.7, pO2 64. Potassium was 3.4, glucose 210. CT chest is negative for the pneumonia. Admitted to the hospital and started on IV fluids and Levofloxacin and Solu- Medrol. Feeling better and started having abdominal pain. Right sided flank pain. Urine order which was negative. BUN and creatinine elevated 44 and 1.39. Potassium went up to 5.3 and Kayexalate dose was given and Lasix given extra dose which which made the BUN and creatinine steady and sodium was at 129. Meanwhile the patient was up and about walking and did not have any problems. As the patient's cough and congestion was improved and less short of breath and the patient has appointment with Dr. Gao for recent stress test positive. He is trying to do a heart cath there. Advised that in case her symptoms get worse and the patient gets chest pain please come back to the emergency room. The patient is being discharged today. We will follow her in the [facility] within 5-7 days. TIME SPENT: MORE THAN 65 MINUTES SIMONA
== END 2018-01-10 16:30 | disposition home or self-care (01) | DRG 948 ==
LOC: ED 13:01 → MEDSURG A 13:37
PROVIDERS: ADMIT Emergency Medicine; ATTEND Emergency Medicine
DX: R53.1 Weakness (principal); J44.1 Chronic obstructive pulmonary disease with (acute) exacerbation; J40 Bronchitis, not specified as acute or chronic; R53.81 Other malaise; I20.9 Angina pectoris, unspecified; I10 Essential (primary) hypertension; I25.10 Atherosclerotic heart disease of native coronary artery without angina pectoris; I50.9 Heart failure, unspecified; F41.9 Anxiety disorder, unspecified; F32.9 Major depressive disorder, single episode, unspecified; M47.9 Spondylosis, unspecified; M19.90 Unspecified osteoarthritis, unspecified site; E03.9 Hypothyroidism, unspecified; E11.9 Type 2 diabetes mellitus without complications; E87.5 Hyperkalemia; G89.4 Chronic pain syndrome; Z72.0 Tobacco use; Z79.01 Long term (current) use of anticoagulants
CPT/HCPCS: 36415; 80053; 81001; 82550; 82803; 82962; 84484; 85025; 85610; 87081; 93005; 93010; 94640; 96375; 99285

== ENCOUNTER 2018-01-14 10:26 | Outpatient (CLI) | END 2018-01-14 10:27 | disposition home or self-care (01) | LOC: LAB 10:26 | PROVIDERS: ATTEND Emergency Medicine | DX: Z51.81 Encounter for therapeutic drug level monitoring (principal); Z79.01 Long term (current) use of anticoagulants | CPT/HCPCS: 36415; 85610 ==

== ENCOUNTER 2018-02-01 14:36 | Emergency (ER) ==
[2018-02-01 14:41] VITALS: BP 99/67; TEMP 97; BMI 19.8
[2018-02-01] MEDS ORDERED: DECADRON 4 MG/ML SDV IM STA (16:49)
[2018-02-01] MEDS ORDERED: DUONEB NEB STA ×2 (16:49)
--- NOTE | 2018-02-01 17:36 | ED.PDOC ---
General ED Provider: Dr. SHIRLEY BECKER Chief Complaint: Respiratory Complaint Stated Complaint: cough, congestion Time Seen by Physician: 14:40 (seen with nurse at all times ) Mode of Arrival: Walk-In Information Source: Patient Exam Limitations: No limitations Primary Care Provider: DELIA DIAZ Nursing and Triage Documentation Reviewed and Agree: Yes Does patient meet sepsis criteria?: No If yes, has appropriate treatment been initiated?: No System Inflammatory Response Syndrome: Not Applicable Sepsis Protocol: For patient's 13 years and over: Temp is 96.8 and below OR 101 and greater Pulse >90 BPM Resp >20/minute Acutely Altered Mental Status Are patient's symptoms suggestive of a new infection, such as: -Pneumonia -Skin, Soft Tissue -Endocarditis -UTI -Bone, Joint Infection -Implantable Device -Acute Abdominal Infection -Wound Infection -Meningitis -Blood Stream Catheter Infection -Unknown Respiratory Complaint Exam - Respiratory Complaint/Exam Symptoms Are: Still present Timing: Intermittent Initial Severity: Mild Current Severity: None Location: Throat, Chest Character: Reports: Non-productive cough Aggravating: Reports: URI Alleviating: Reports: Bronchodilators, Spontaneous resolution Associated Signs and Symptoms: Reports: Wheezing, URI. Denies: Rapid breathing , Dyspnea, Fever, Chills, Chest pain, Pleuritic chest pain, Hemoptysis, Dizziness, Calf pain, Calf swelling, Edema, Nasal congestion, Hoarseness, Sinus discomfort, Vomiting, Sore throat, Weight loss, Decreased oral intake, Increased thirst, Increased appetite, Increased urination Related History: Reports: Similar episode History of Healthcare-Acquired Pneumonia: No Related Surgical History: Reports: None, Renal Failure Pulmonary Embolism Risk Factors: None Cardiac Risk Factors: Reports: CAD, Elevated lipids, Diabetes, Hypertension Pseudomonas Risk Factors: Reports: Chronic Lung Disease Tuberculosis Risk Factors: Reports: None, Chronic Resp. Faliure Status Asthmaticus Risk Factors: Reports: None Home Oxygen Use: No Recent Stress Test: No Recent Echo/LV Function: No Current Antibiotic Use: No Current Asthma Medication Use: No Respiratory Distress: None Inadequate Respiratory Effort: No Dysphagia Present: No Stridor Present: No JVD Present: No Accessory Muscle Use: No Retractions: Not Present Diminished Breath Sounds: Yes Sinus Tenderness: None Grunting Respirations: No Kussmaul Respirations: No Differential Diagnoses: CHF, Pneumonia, Bronchitis, Lower Resp. Infection Non-Traumatic Chest Pain Syncope: EKG Performed Review of Systems - Review Of Systems Constitutional: Reports: Malaise Eyes: Reports: No symptoms Ears, Nose, Mouth, Throat: Reports: No symptoms Respiratory: Reports: Cough Cardiac: Reports: No symptoms GI: Reports: No symptoms : Reports: No symptoms Musculoskeletal: Reports: No symptoms Skin: Reports: No symptoms Neurological: Reports: No symptoms Endocrine: Reports: No symptoms Hematologic/Lymphatic: Reports: No symptoms All Other Systems: Reviewed and Negative Past Medical History - Past Medical History Previously Healthy: No Endocrine: Reports: DM 2, Hypothyroid, Dyslipidemia Cardiovascular: Reports: CAD, Hypertension, CHF, A-Fib Respiratory: Reports: COPD, Pneumonia Hematological: Reports: None Gastrointestinal: Reports: GERD Genitourinary: Reports: None Neuro/Psych: Reports: Migraine, Anxiety, Depression Musculoskeletal: Reports: Arthritis, Back Pain (CHRONIC BACK PAIN) Cancer: Reports: None Last Menstrual Period: n/a Other Pertinent Past Medical History: OPEN HEART SURGERY, PACEMAKER, CHRONIC BACK PAIN - Surgical History General Surgical History: Reports: Hysterectomy, Cholecystectomy (gallbladder), CABG (OPEN HEART SURGERY,aorta valve replacement and pacemaker 2008), Pacemaker (pacemaker 2008), Orthopedic (2 knee replacements), Back Surgery (2 back surg), Other (Aortic valve replacement. RIGHT KIDNEY REPAIR) - Family History Family History: Reports: Unknown - Social History Smoking Status: Current every day smoker, Light tobacco smoker Hx Substance Use: No Alcohol Screening: None Physical Exam - Physical Exam Appearance: Well-appearing, No pain distress, Well-nourished Eyes: MYKE, EOMI, Conjunctiva clear ENT: Ears normal, Nose normal, Oropharynx normal Respiratory: Rhonchi Cardiovascular: RRR, Pulses normal, No rub, No murmur GI/: Soft, Nontender, No masses, Bowel sounds normal, No Organomegaly Musculoskeletal: Normal strength, ROM intact, No edema, No calf tenderness Skin: Warm, Dry, Normal color Neurological: Sensation intact, Motor intact, Reflexes intact, Cranial nerves intact, Alert, Oriented Psychiatric: Affect appropriate, Mood appropriate Critical Care Note - Critical Care Note Total Time (mins): 0 Course - Course Hematology/Chemistry: 02/01/18 17:03 02/01/18 17:03 Orders, Labs, Meds: Lab Review 02/01/18 02/01/18 02/01/18 16:48 17:03 17:03 WBC 9.13 RBC 4.14 L Hgb 11.0 L Hct 34.8 L MCV 84.1 MCH 26.6 L MCHC 31.6 L RDW Coeff of Kalani 15.6 H Plt Count 291 Immature Gran % (Auto) 0.4 Neut % (Auto) 68.6 Lymph % (Auto) 22.5 [place] % (Auto) 6.7 Eos % (Auto) 1.4 Baso % (Auto) 0.4 Immature Gran # (Auto) 0.0 Neut # (Auto) 6.3 Lymph # (Auto) 2.1 [place] # (Auto) 0.6 Eos # (Auto) 0.1 Baso # (Auto) 0.0 Puncture Site Rb O2 Saturation 95.0 ABG pH 7.444 ABG pCO2 43.4 ABG pO2 72.0 L ABG HCO3 29.7 H ABG Total CO2 31 H ABG Base Excess 6 H FiO2 % 21.0 Sodium 132.0 L Potassium 4.60 Chloride 93.0 L Carbon Dioxide 35.0 H Anion Gap 8.60 BUN 18.0 H Creatinine 1.40 H Estimated GFR (MDRD) 37.00 BUN/Creatinine Ratio 12.85 Glucose 165.0 H Calcium 9.60 Total Bilirubin 0.30 AST 18.0 ALT 10.0 Alkaline Phosphatase 73.0 Total Protein 7.40 Albumin 3.60 Globulin 3.80 Albumin/Globulin Ratio 0.94 Orders Category Date Time Status ABG DRAW REQUEST Stat CARDIO 02/01/18 16:48 Completed NEBULIZER TREATMENT Stat CARDIO 02/01/18 16:49 Completed ABG Stat LAB 02/01/18 16:48 Completed CBC W/ AUTO DIFF Stat LAB 02/01/18 17:03 Completed COMPREHENSIVE METABOLIC PANEL Stat LAB 02/01/18 17:03 Completed Ceftriaxone Sodium [Rocephin] MEDS 02/01/18 17:37 Discontinued 1 gm IM ONCE STA Dexamethasone 4 mg/ml Inj [Decadron 4 mg/ml Sdv] MEDS 02/01/18 16:49 Discontinued 4 mg IM ONCE STA Ipratropium/Albuterol Neb [Duoneb] MEDS 02/01/18 16:49 Discontinued 1 vial NEB ONCE STA Ipratropium/Albuterol Neb [Duoneb] MEDS 02/01/18 16:49 Discontinued 1 vial NEB ONCE STA Lidocaine HCl/Pf [Lidocaine HCl 1% Sdv] MEDS 02/01/18 17:37 Discontinued 2.1 ml IM ONCE STA CT CHEST W/O CONTRAST Stat RADS 02/01/18 16:48 Ordered Medications Discontinued Medications Generic Name Dose Route Start Last Admin Trade Name Day PRN Reason Stop Dose Admin Albuterol/Ipratropium 1 vial 02/01/18 16:49 02/01/18 17:07 Duoneb NEB 02/01/18 16:50 1 vial ONCE STA Administration Albuterol/Ipratropium 1 vial 02/01/18 16:49 02/01/18 17:26 Duoneb NEB 02/01/18 16:50 Not Given ONCE STA Ceftriaxone Sodium 1 gm 02/01/18 17:37 Rocephin IM 02/01/18 17:38 ONCE STA Dexamethasone Sodium Phosphate 4 mg 02/01/18 16:49 02/01/18 17:22 Decadron 4 Mg/Ml Sdv IM 02/01/18 16:50 4 mg ONCE STA Administration Lidocaine HCl 2.1 ml 02/01/18 17:37 Lidocaine Hcl 1% Sdv IM 02/01/18 17:38 ONCE STA Vital Signs: Temp Pulse Resp BP Pulse Ox 02/01/18 14:36 97.0 F L 79 20 99/67 94 L Departure - Departure Time of Disposition: 19:00 Disposition: HOME SELF-CARE Discharge Problem: COPD (chronic obstructive pulmonary disease) with acute bronchitis Instructions: Emphysema (ED), COPD (Chronic Obstructive Pulmonary Disease) (ED) Condition: Good Pt referred to PMD for follow-up: Yes IPMP verified?: No Additional Instructions: Please call your Family Physician as soon as possible to schedule a follow-up appointment.your kidneys does not function well see your doctor Allergies/Adverse Reactions: Allergies ceftriaxone sodium [From Rocephin] Adverse Reaction (Verified 02/01/18 14:41) cefuroxime axetil [From Ceftin] Adverse Reaction (Verified 02/01/18 14:41) doxycycline Adverse Reaction (Verified 02/01/18 14:41) nifedipine [From Procardia] Adverse Reaction (Verified 02/01/18 14:41) nitrofurantoin [From Macrobid] Adverse Reaction (Verified 02/01/18 14:41) nitrofurantoin macrocrystal [From Macrobid] Adverse Reaction (Verified 02/01/18 14:41) Home Medications: Ambulatory Orders Albuterol Sulfate [Albuterol Sulfate Hfa] 2 puff IH QID 02/13/14 Atorvastatin Calcium [Lipitor] 40 mg PO BEDTIME 02/13/14 Benazepril HCl [Lotensin] 20 mg PO DAILY 02/13/14 Esomeprazole Magnesium [Nexium] 40 mg PO BID 02/13/14 Furosemide [Lasix] 40 mg PO DAILY 02/13/14 Promethazine HCl [Phenergan Tab] 25 mg PO Q6H PRN 02/13/14 Ropinirole HCl [Requip] 2 mg PO BEDTIME 02/13/14 Sotalol HCl [Sotalol] 80 mg PO BID 02/13/14 Topiramate [Topamax] 50 mg PO BEDTIME 02/13/14 Venlafaxine HCl [Effexor Xr] 150 mg PO BEDTIME 07/04/14 Budesonide/Formoterol Fumarate [Symbicort 160-4.5 Mcg Inhaler] 2 puff IH DAILY 05/28/15 Tizanidine HCl [Zanaflex] 4 mg PO TID PRN 05/28/15 Levothyroxine Sodium [Synthroid] 125 mcg PO DAILY 07/06/16 Warfarin Sodium [Coumadin] 4 mg PO DIRECTED 07/09/16 Insulin Lispro [Humalog] 0 unit SQ DIRECTED PRN 05/07/17 Nitroglycerin 0.4 mg SL DIRECTED PRN 11/30/17 Insulin Detemir [Levemir Flextouch] 20 unit SQ BEDTIME 12/10/17 Tiotropium [place] [Spiriva] 1 cap IH DAILY 12/10/17 Gabapentin [Neurontin] 100 mg PO BID 01/07/18 Hydrocodone/Acetaminophen [[place] 5-325 Tablet] 5 - 325 mg PO Q12H PRN 01/07/18 Disposition Discussed With: Patient
[2018-02-01] MEDS ORDERED: ROCEPHIN IM STA (17:37)
[2018-02-01] MEDS ORDERED: LIDOCAINE HCL 1% SDV IM STA (17:37)
--- NOTE | 2018-02-01 17:58 | CT ---
EXAM: CT THORAX HISTORY: Cough. TECHNIQUE: CT thorax without intravenous contrast. Multiplanar images presented. COMPARISON: 01/07/2018 FINDINGS: Heart size is within normal limits. No pericardial effusion. Atherosclerotic disease is present. A ortic valve replacement. The tubular ascending aorta is upper limit normal caliber 3.6 cm. Limited e valuation of the mediastinum and hilar structures without the administration of intravenous contrast agent. No gross evidence of mediastinal lymphadenopathy or hilar masses. Lungs are hyperinflated. There is evidence of apical emphysema. There is mild pleuroparenchymal thic kening in the posterior right lung base which is unchanged possibly fibrotic in nature. Subtle pneum onia at this level not excluded. There is no vascular congestion, pleural fluid or pneumothorax. The bones reveal diffuse degenerative disc disease of the spine with mild scoliosis. Bones appear de mineralized. Incidental note of an IVC filter in place. IMPRESSION: 1. Chronic obstructive pulmonary disease is suggested. Correlate clinically. Mild pleuroparenchyma l thickening in the posterior right lung base which is unchanged possibly fibrotic in nature. Subtle pneumonia at this level not excluded. 2. Atherosclerotic disease. 3. Upper limit normal caliber of the tubular ascending aorta at 3.6 cm, stable.
== END 2018-02-01 18:35 | disposition home or self-care (01) ==
LOC: ED 14:36
DX: J44.0 Chronic obstructive pulmonary disease with (acute) lower respiratory infection (principal); J20.9 Acute bronchitis, unspecified; I25.810 Atherosclerosis of coronary artery bypass graft(s) without angina pectoris; N28.9 Disorder of kidney and ureter, unspecified; E78.5 Hyperlipidemia, unspecified; E11.9 Type 2 diabetes mellitus without complications; I10 Essential (primary) hypertension; F17.210 Nicotine dependence, cigarettes, uncomplicated; Z79.899 Other long term (current) drug therapy; Z95.0 Presence of cardiac pacemaker; Z95.2 Presence of prosthetic heart valve; Z79.01 Long term (current) use of anticoagulants; Z79.4 Long term (current) use of insulin
CPT/HCPCS: 36415; 80053; 82803; 85025; 94640; 96372; 99283

== ENCOUNTER 2018-02-05 23:19 | Outpatient (CLI) | END 2018-02-05 23:39 | disposition short-term general hospital (02) | LOC: AMBL 23:19 | PROVIDERS: ATTEND Internal Medicine Geriatric Medicine | DX: R06.02 Shortness of breath (principal); R05 Cough; R25.2 Cramp and spasm ==

== ENCOUNTER 2018-05-11 11:38 | Emergency (ER) ==
[2018-05-11 11:44] VITALS: BP 129/83; TEMP 96.5; BMI 20.3
--- NOTE | 2018-05-11 14:25 | CT ---
EXAM: CT of the head without contrast History: Head trauma. Comparison: Head CT 08/30/2016 Technique: Multiplanar CT images through the head were obtained without the administration of IV con trast Findings: The visualized paranasal sinuses and mastoid air cells are clear in general. No acute keisha varial abnormalities. Intracranially the ventricular and cisternal spaces are normal in size, shape and configuration for a patient of this age. No dominant mass or midline shift. No hydrocephalous. No acute intracranial hemorrhage or abnormal extraaxial fluid collections. Impression: No acute intracranial process
--- NOTE | 2018-05-11 14:28 | CT ---
EXAM: CT of the cervical spine without contrast. History: Head and neck trauma. Comparison: Cervical spine CT 08/30/2016. Technique: Multiplanar CT images through the cervical spine were obtained without the administration of IV contrast Findings: Emphysema seen within the visualized upper lungs. Atherosclerotic vascular calcifications . Visualized airway remains patent. No acute fracture or subluxation of the cervical spine. No prevertebral soft tissue swelling. Prede ntal space is not widened. Mild multilevel disc space narrowing with a few small osteophytes. Bony spinal canal is not compromised. Impression: No acute osseous abnormality of the cervical spine
--- NOTE | 2018-05-11 14:33 | CT ---
EXAM: CT of the pelvis without contrast History: Pelvic trauma. Left hip pain Comparison: None available. Technique: Multiplanar CT images through the pelvis were obtained without the administration of IV c ontrast Findings: No bladder wall thickening. Moderate to large amount of colonic stool. No pelvic fluid. Atherosclerotic vascular calcifications. Uterus is not seen. Chondrocalcinosis seen within both hip joints and within the pubic symphysis. Severe disc space narr owing at L5-S1. No acute fracture or dislocation. Impression: No acute osseous abnormality
--- NOTE | 2018-05-11 14:35 | CT ---
EXAM: CT of the thoracic spine without contrast History: Thoracic back trauma. Comparison: Lumbar spine CT 05/11/2018 Technique: Multiplanar CT images through the thoracic spine were obtained without the administration of IV contrast Findings: Emphysema is seen within the lungs. No acute fracture or subluxation of the thoracic spine. Mild to moderate multilevel disc space narro wing with endplate sclerosis and osteophyte formation. Bony spinal canal is not compromised. Impression: No acute osseous abnormality of the thoracic spine
--- NOTE | 2018-05-11 14:35 | CT ---
EXAM: CT lumbar spine without contrast. HISTORY: Fall COMPARISON: CT abdomen pelvis 01/09/2018 TECHNIQUE: Serial axial images of the spine were obtained from the lower thoracic spine through the pelvis without contrast. These were viewed in multiple planes. FINDINGS: Vertebral bodies demonstrate no acute compression fracture or subluxation. There is no ly tic or blastic lesion. There is narrowing at L5-S1 with scattered moderate facet arthropathy. L1-L2: There is mild facet arthropathy with no central or neural foraminal narrowing. L2-L3: Minimal facet arthropathy with no central or neural foraminal narrowing. L3-L4: Broad-based disc bulge and facet arthropathy with mild bilateral neural foraminal narrowing. L4-L5: Broad-based disc bulge and facet arthropathy with mild bilateral neural foraminal narrowing. L5-S1: Disc space narrowing and osteophyte formation with no central or neural foraminal narrowing. Limited views of the soft tissues demonstrate moderate to severe atherosclerotic disease. IMPRESSION: 1. No acute compression fracture or subluxation of the lumbosacral spine. 2. Multilevel scattered degenerative disease with no greater than mild neural foraminal narrowing no fabio.
--- NOTE | 2018-05-11 14:36 | CT ---
Exam: CT of the chest without intravenous contrast. Comparison: 02/01/2018. Reason for exam: Fall. FINDINGS: Image interpretation is limited by a lack of intravenous contrast administration. Old granulomas disease is seen in the mediastinum and lung parenchyma. There is mild basilar atelect asis without effusion or pneumothorax. The main pulmonary artery is prominent in size measuring 4.4 cm. Atherosclerotic disease is seen within the aorta and distal arterial vasculature including the irvin ry vessels. The aorta is normal in course and caliber. Operative changes are seen after valvuloplasty. The gallbladder appears to have been removed. Emphysematous disease is seen throughout the lung parenchyma. Impression: 1. Similar appearing prominence of the main pulmonary artery raising consideration for pulmonary hyp ertension. 2. Emphysematous disease seen throughout the lung parenchyma. 3. Atherosclerosis and operative changes after valvuloplasty
--- NOTE | 2018-05-11 14:43 | ED.PDOC ---
General ED Provider: Dr. SHIRLEY BECKER Chief Complaint: Fall Stated Complaint: fall c/o neck, back , hip pain Time Seen by Physician: 11:40 Mode of Arrival: Walk-In Information Source: Patient Exam Limitations: No limitations Primary Care Provider: DELIA DIAZ Nursing and Triage Documentation Reviewed and Agree: Yes Does patient meet sepsis criteria?: No If yes, has appropriate treatment been initiated?: No System Inflammatory Response Syndrome: Not Applicable Sepsis Protocol: For patient's 13 years and over: Temp is 96.8 and below OR 101 and greater Pulse >90 BPM Resp >20/minute Acutely Altered Mental Status Are patient's symptoms suggestive of a new infection, such as: -Pneumonia -Skin, Soft Tissue -Endocarditis -UTI -Bone, Joint Infection -Implantable Device -Acute Abdominal Infection -Wound Infection -Meningitis -Blood Stream Catheter Infection -Unknown Trauma/Injury Complaint Exam - Trauma Complaint/Exam Location of Pain or Injury: Reports: Head, Neck, Back Mechanism of Injury: Reports: Fall Onset/Duration: 1 day Symptoms Are: Still present Timing of Treatment: Delayed Initial Severity: Mild Current Severity: Mild Character: Reports: Aching Aggravating: Reports: None Alleviating: Reports: None Associated Signs and Symptoms: Denies: LOC, Confusion, Memory loss, Lethargy, Vomiting, Bleeding, Bruising, Swelling, Extremity disuse, Painful respiration, Hoarseness, Dysphagia, Hemoptysis, Significant blood loss Nexus Low Risk Criteria: No post-midline CS tender, No evidence of intoxicat., No Altered LOC, No focal neuro deficit, No distracting injuries Glascow Coma Scale (see protocol): 15 Compartment Syndrome Risk Factors: Present: Pain Trauma Findings: Present: Neck tenderness, Neck spasm, Decreased breath sounds. Absent: [place] eyes, Hemotympanum, Nasal deformity, Dental tenderness, Dental injury, Dental malocclusion, SubQ Air, Crepitus, Airway obstructed, Trachea displaced, Labored respirations, Muffled heart sounds, Weak pulses, Absent pulses, Abdominal distention, Pelvic tenderness, Pelvic instability Skin Findings: Present: Normal findings Differential Diagnoses: Abrasion, Contusions, Sprain, Strain Review of Systems - Review Of Systems Constitutional: Reports: No symptoms Eyes: Reports: No symptoms Ears, Nose, Mouth, Throat: Reports: No symptoms Respiratory: Reports: No symptoms Cardiac: Reports: No symptoms GI: Reports: No symptoms : Reports: No symptoms Musculoskeletal: Reports: Back pain, Joint pain (hip), Neck pain Skin: Reports: No symptoms Neurological: Reports: No symptoms Endocrine: Reports: No symptoms Hematologic/Lymphatic: Reports: No symptoms All Other Systems: Reviewed and Negative Past Medical History - Past Medical History Previously Healthy: No Endocrine: Reports: DM 2, Hypothyroid, Dyslipidemia Cardiovascular: Reports: CAD, Hypertension, CHF, A-Fib Respiratory: Reports: COPD, Pneumonia Hematological: Reports: None Gastrointestinal: Reports: GERD Genitourinary: Reports: None Neuro/Psych: Reports: Migraine, Anxiety, Depression Musculoskeletal: Reports: Arthritis, Back Pain (CHRONIC BACK PAIN) Cancer: Reports: None Last Menstrual Period: NONE Other Pertinent Past Medical History: OPEN HEART SURGERY, PACEMAKER, CHRONIC BACK PAIN - Surgical History General Surgical History: Reports: Hysterectomy, Cholecystectomy (gallbladder), CABG (OPEN HEART SURGERY,aorta valve replacement and pacemaker 2008), Pacemaker (pacemaker 2008), Orthopedic (2 knee replacements), Back Surgery (2 back surg), Other (Aortic valve replacement. RIGHT KIDNEY REPAIR) - Family History Family History: Reports: Unknown - Social History Smoking Status: Current every day smoker, Light tobacco smoker Hx Substance Use: No Alcohol Screening: None Physical Exam - Physical Exam Appearance: Well-appearing, No pain distress, Well-nourished Eyes: MYKE, EOMI, Conjunctiva clear ENT: Ears normal, Nose normal, Oropharynx normal Respiratory: Airway patent, Breath sounds clear, Breath sounds equal, Respirations nonlabored Cardiovascular: RRR, Pulses normal, No rub, No murmur GI/: Soft, Nontender, No masses, Bowel sounds normal, No Organomegaly Musculoskeletal: Normal strength, ROM intact, No edema, No calf tenderness Skin: Warm, Dry, Normal color Neurological: Sensation intact, Motor intact, Reflexes intact, Cranial nerves intact, Alert, Oriented Psychiatric: Affect appropriate, Mood appropriate Interpretation - Radiology Interpretation Radiology Interpretation By: Radiologist Radiology Results: No acute changes Critical Care Note - Critical Care Note Total Time (mins): 0 Course - Course Orders, Labs, Meds: Orders Category Date Time Status CT CERVICAL SPINE W/O CONTRAST Stat RADS 05/11/18 13:[address] CHEST W/O CONTRAST Stat RADS 05/11/18 13:[address] HEAD W/O CONTRAST Stat RADS 05/11/18 13:[address] LUMBAR SPINE W/O CONTRAST Stat RADS 05/11/18 13:[address] PELVIS W/O CONTRAST Stat RADS 05/11/18 13:[address] THORACIC SPINE W/O CONTRAST Stat RADS 05/11/18 13:31 Completed Vital Signs: Temp Pulse Resp BP Pulse Ox 05/11/18 11:38 96.5 F L 95 H 18 129/83 97 Departure - Departure Time of Disposition: 14:43 Disposition: HOME SELF-CARE Discharge Problem: Neck pain Back pain Qualifiers: Back pain location: low back pain Chronicity: acute Back pain laterality: midline Sciatica presence: without sciatica Qualified Code(s): M54.5 - Low back pain Instructions: Cervical Strain (ED) Condition: Good Pt referred to PMD for follow-up: Yes IPMP verified?: No Additional Instructions: Please call your Family Physician as soon as possible to schedule a follow-up appointment. Allergies/Adverse Reactions: Allergies ceftriaxone sodium [From Rocephin] Adverse Reaction (Verified 05/11/18 11:46) cefuroxime axetil [From Ceftin] Adverse Reaction (Verified 05/11/18 11:46) doxycycline Adverse Reaction (Verified 05/11/18 11:46) nifedipine [From Procardia] Adverse Reaction (Verified 05/11/18 11:46) nitrofurantoin [From Macrobid] Adverse Reaction (Verified 05/11/18 11:46) nitrofurantoin macrocrystal [From Macrobid] Adverse Reaction (Verified 05/11/18 11:46) Home Medications: Ambulatory Orders Albuterol Sulfate [Albuterol Sulfate Hfa] 2 puff IH QID 02/13/14 Atorvastatin Calcium [Lipitor] 40 mg PO BEDTIME 02/13/14 Benazepril HCl [Lotensin] 20 mg PO DAILY 02/13/14 Esomeprazole Magnesium [Nexium] 40 mg PO BID 02/13/14 Furosemide [Lasix] 40 mg PO DAILY 02/13/14 Promethazine HCl [Phenergan Tab] 25 mg PO Q6H PRN 02/13/14 Ropinirole HCl [Requip] 2 mg PO BEDTIME 02/13/14 Sotalol HCl [Sotalol] 80 mg PO BID 02/13/14 Topiramate [Topamax] 50 mg PO BEDTIME 02/13/14 Venlafaxine HCl [Effexor Xr] 150 mg PO BEDTIME 07/04/14 Budesonide/Formoterol Fumarate [Symbicort 160-4.5 Mcg Inhaler] 2 puff IH DAILY 05/28/15 Tizanidine HCl [Zanaflex] 4 mg PO TID PRN 05/28/15 Levothyroxine Sodium [Synthroid] 125 mcg PO DAILY 07/06/16 Warfarin Sodium [Coumadin] 4 mg PO DIRECTED 07/09/16 Insulin Lispro [Humalog] 0 unit SQ DIRECTED PRN 05/07/17 Nitroglycerin 0.4 mg SL DIRECTED PRN 11/30/17 Insulin Detemir [Levemir Flextouch] 20 unit SQ BEDTIME 12/10/17 Tiotropium [place] [Spiriva] 1 cap IH DAILY 12/10/17 Gabapentin [Neurontin] 100 mg PO BID 01/07/18 Oxycodone-Acetaminophen 5-325 [Percocet 5-325] 1 tab PO Q12H 05/11/18
== END 2018-05-11 14:52 | disposition home or self-care (01) ==
LOC: ED 11:38
DX: M54.2 Cervicalgia (principal); M54.5 Low back pain; M25.559 Pain in unspecified hip; R51 Headache; W19.XXXA Unspecified fall, initial encounter; F17.210 Nicotine dependence, cigarettes, uncomplicated
CPT/HCPCS: 99283

== ENCOUNTER 2018-05-26 17:51 | Emergency (ER) ==
[2018-05-26 17:58] VITALS: BP 127/89; TEMP 97.9; BMI 20.9
[2018-05-26] MEDS ORDERED: SODIUM CHLORIDE 1,000 ML IV STA (18:23)
--- NOTE | 2018-05-26 18:27 | ED.PDOC ---
General <CASIMIRO MONTES - Last Filed: 05/26/18 19:56> Stated Complaint: abdominal pain epigastric pt is a heavy smoker denied abdominal injury , Time Seen by Physician: 18:00 (Clare PRESENT AT ALL TIMES ) Information Source: Patient Exam Limitations: No limitations Nursing and Triage Documentation Reviewed and Agree: Yes Does patient meet sepsis criteria?: No If yes, has appropriate treatment been initiated?: No System Inflammatory Response Syndrome: Not Applicable <SHIRLEY BECKER - Last Filed: 05/27/18 14:39> ED Provider: Dr. SHRILEY BECKER Chief Complaint: Abdominal Pain Primary Care Provider: DELIA DIAZ Sepsis Protocol: For patient's 13 years and over: Temp is 96.8 and below OR 101 and greater Pulse >90 BPM Resp >20/minute Acutely Altered Mental Status Are patient's symptoms suggestive of a new infection, such as: -Pneumonia -Skin, Soft Tissue -Endocarditis -UTI -Bone, Joint Infection -Implantable Device -Acute Abdominal Infection -Wound Infection -Meningitis -Blood Stream Catheter Infection -Unknown GI Complaint Exam - Abdominal Pain Complaint/Exam Onset: Gradual Duration: 1 DAY Symptoms Are: Still present Timing: Intermittent Initial Severity: Moderate Current Severity: Mild Location of Pain: Epigastric Radiates To: Denies: Chest, Back, Flank, LLQ, RLQ, Inguinal Character: Reports: Dull Aggravating: Reports: None Alleviating: Reports: Spontaneous resolution. Denies: Antacids, Vomiting, Bowel movement, OTC analgesics Associated Signs and Symptoms: Reports: Cough (HEAVY SMOKER ), Constipation, Decreased appetite, Nausea, Sore throat. Denies: Diaphoresis, Fever, Chest pain , Dizziness, Back pain, Blood in stool, Dysuria, Urinary frequency, Decreased urine output, Vaginal bleeding, Vaginal discharge, Vomiting, Diarrhea, Decreased activity Related History: Reports: Similar episode AAA Risk Factors: Reports: Hypertension, Atherosclerosis Cardiac Risk Factors: Reports: DM, Hypertension, Elevated lipids Ectopic Risk Factors: Reports: None Ovarian Torsion Risk Factors: Reports: None Surgical Obstruction Risk Factors: Reports: None Related Surgical History: Reports: None Patient Rh Status: Unknown Abdominal Findings: Present: None Differential Diagnoses: Appendicitis, Bowel Obstruction, Constipation, Pancreatitis, Renal Colic, GB, PUD, UTI Quality Indicators for AMI: EKG in 10min. Quality Indicators for Cardiac Chest Pain: EKG in 10min. Quality Indicator For Non-Traumatic Chest Pain/Syncope: EKG Performed <SHIRLEY BECKER - Last Filed: 05/27/18 14:39> Review of Systems - Review Of Systems Constitutional: Reports: No symptoms Eyes: Reports: No symptoms Ears, Nose, Mouth, Throat: Reports: No symptoms Respiratory: Reports: No symptoms Cardiac: Reports: No symptoms GI: Reports: Abdominal pain, Poor appetite : Reports: No symptoms Musculoskeletal: Reports: No symptoms Skin: Reports: No symptoms Neurological: Reports: No symptoms Endocrine: Reports: No symptoms Hematologic/Lymphatic: Reports: No symptoms All Other Systems: Reviewed and Negative <SHIRLEY BECKER - Last Filed: 05/27/18 14:39> Past Medical History - Past Medical History Previously Healthy: No Endocrine: Reports: DM 2, Hypothyroid, Dyslipidemia Cardiovascular: Reports: CAD, Hypertension, CHF, A-Fib Respiratory: Reports: COPD, Pneumonia Hematological: Reports: None Gastrointestinal: Reports: GERD Genitourinary: Reports: None Neuro/Psych: Reports: Migraine, Anxiety, Depression Musculoskeletal: Reports: Arthritis, Back Pain (CHRONIC BACK PAIN) Cancer: Reports: None Last Menstrual Period: 20 years ago Other Pertinent Past Medical History: OPEN HEART SURGERY, PACEMAKER, CHRONIC BACK PAIN - Surgical History General Surgical History: Reports: Hysterectomy, Cholecystectomy (gallbladder), CABG (OPEN HEART SURGERY,aorta valve replacement and pacemaker 2008), Pacemaker (pacemaker 2008), Orthopedic (2 knee replacements), Back Surgery (2 back surg), Other (Aortic valve replacement. RIGHT KIDNEY REPAIR) - Family History Family History: Reports: Unknown - Social History Smoking Status: Current every day smoker Hx Substance Use: No Alcohol Screening: None - Immunizations Tetanus Shot up to Date: Yes <SHIRLEY BECKER Last Filed: 05/27/18 14:39> Physical Exam - Physical Exam Appearance: Well-appearing, No pain distress, Well-nourished Eyes: MYKE, EOMI, Conjunctiva clear ENT: Ears normal, Nose normal, Oropharynx normal Respiratory: Airway patent, Breath sounds clear, Breath sounds equal, Respirations nonlabored Cardiovascular: RRR, Pulses normal, No rub, No murmur GI/: Soft, No masses, Bowel sounds normal, No Organomegaly, Tender ( EPIGASTRIC ) Musculoskeletal: Normal strength, ROM intact, No edema, No calf tenderness Skin: Warm, Dry, Normal color Neurological: Sensation intact, Motor intact, Reflexes intact, Cranial nerves intact, Alert, Oriented Psychiatric: Affect appropriate, Mood appropriate <SHIRLEY BECKER - Last Filed: 05/27/18 14:39> Interpretation - Radiology Interpretation Radiology Interpretation By: Radiologist Radiology Results: No acute changes Exam Interpreted: CT Scan <SHIRLEY BECKER - Last Filed: 05/27/18 14:39> Physician Notification - Case Discussed Physician Notified: SIMON Dietz Time of Notification: 18:29 <SHIRLEY BECKER - Last Filed: 05/27/18 14:39> Critical Care Note - Critical Care Note Total Time (mins): 0 <SHIRLEY BECKER - Last Filed: 05/27/18 14:39> Course - Course Hematology/Chemistry: 05/26/18 18:53 05/26/18 18:53 <CASIMIRO MONTES - Last Filed: 05/26/18 19:56> - Course Hematology/Chemistry: 05/26/18 18:53 05/26/18 18:53 <SHIRLEY BECKER - Last Filed: 05/27/18 14:39> - Course Orders, Labs, Meds: Lab Review 05/26/18 05/26/18 05/26/18 18:53 18:53 19:29 WBC 8.92 RBC 4.30 Hgb 10.7 L Hct 34.5 L MCV 80.2 L MCH 24.9 L MCHC 31.0 L RDW Coeff of Kalani 16.3 H Plt Count 295 Immature Gran % (Auto) 0.6 Neut % (Auto) 70.5 Lymph % (Auto) 21.1 Mccreary % (Auto) 5.3 Eos % (Auto) 1.8 Baso % (Auto) 0.7 Immature Gran # (Auto) 0.1 Neut # (Auto) 6.3 Lymph # (Auto) 1.9 Mccreary # (Auto) 0.5 Eos # (Auto) 0.2 Baso # (Auto) 0.1 Sodium 130.9 L Potassium 4.11 Chloride 94.3 L Carbon Dioxide 31.8 H Anion Gap 8.91 BUN 23.7 H Creatinine 1.04 Estimated GFR (MDRD) 53.00 BUN/Creatinine Ratio 22.78 Glucose 255.1 H Calcium 9.62 Total Bilirubin 0.32 AST 22.3 ALT 12.0 Alkaline Phosphatase 89.2 Total Creatine Kinase 41.1 Troponin I < 0.012 Total Protein 7.87 Albumin 4.20 Globulin 3.67 Albumin/Globulin Ratio 1.14 Amylase 55.8 Lipase 62.8 Urine Color Urine Clarity Urine pH Ur Specific [place] Urine Protein Urine Glucose (UA) Urine Ketones Urine Blood Urine Nitrite Urine Bilirubin Urine Urobilinogen Ur Leukocyte Esterase Influ A Molecular Assay Negative by naat Influ B Molecular Assay Negative by naat 05/26/18 20:30 WBC RBC Hgb Hct MCV MCH MCHC RDW Coeff of Kalani Plt Count Immature Gran % (Auto) Neut % (Auto) Lymph % (Auto) Mccreary % (Auto) Eos % (Auto) Baso % (Auto) Immature Gran # (Auto) Neut # (Auto) Lymph # (Auto) Mccreary # (Auto) Eos # (Auto) Baso # (Auto) Sodium Potassium Chloride Carbon Dioxide Anion Gap BUN Creatinine Estimated GFR (MDRD) BUN/Creatinine Ratio Glucose Calcium Total Bilirubin AST ALT Alkaline Phosphatase Total Creatine Kinase Troponin I Total Protein Albumin Globulin Albumin/Globulin Ratio Amylase Lipase Urine Color Yellow Urine Clarity Clear Urine pH 7.0 Ur Specific [place] 1.010 Urine Protein Negative Urine Glucose (UA) Negative Urine Ketones Negative Urine Blood Negative Urine Nitrite Negative Urine Bilirubin Negative Urine Urobilinogen 0.2 Ur Leukocyte Esterase Negative Influ A Molecular Assay Influ B Molecular Assay Orders Category Date Time Status EKG-(ED ONLY) Stat CARDIO 05/26/18 18:23 Completed ED IV/MEDIPORT/POWERPORT .ONCE EMERGENCY 05/26/18 18:23 Active AMYLASE Stat LAB 05/26/18 18:53 Completed CBC W/ AUTO DIFF Stat LAB 05/26/18 18:53 Completed COMPREHENSIVE METABOLIC PANEL Stat LAB 05/26/18 18:53 Completed CREATINE KINASE Stat LAB 05/26/18 18:53 Completed FLU A/B MOLECULAR Stat LAB 05/26/18 19:29 Completed LIPASE Stat LAB 05/26/18 18:53 Completed MOLECULAR GROUP A STREP Stat LAB 05/26/18 19:29 Completed TROPONIN I Stat LAB 05/26/18 18:53 Completed URINALYSIS C & S IF INDICATED Stat LAB 05/26/18 20:30 Completed 0.9 % Sodium Chloride [Saline Flush] MEDS 05/26/18 18:23 Discontinued 1 syr IVF PRN PRN Magnesium Citrate [Citrate of Magnesia] MEDS 05/26/18 20:18 Discontinued 5 oz PO ONCE STA Methylprednisolone Sod Succ/Pf [Solu-Medrol 40 mg] MEDS 05/26/18 20:18 Discontinued 40 mg IVP ONCE STA Simethicone [Mylicon] MEDS 05/26/18 19:53 Discontinued 160 mg PO ONCE STA Sodium Chloride 0.9% [Sodium Chloride] 1,000 ml MEDS 05/26/18 18:23 Discontinued IV BOLUS Tramadol HCl [Ultram] MEDS 05/26/18 21:03 Discontinued 50 mg PO ONCE STA CT ABDOMEN/PELVIS WO CONTRAST Stat RADS 05/26/18 18:[address] CHEST W/O CONTRAST Stat RADS 05/26/18 18:24 Completed Medications Discontinued Medications Generic Name Dose Route Start Last Admin Trade Name Freq PRN Reason Stop Dose Admin Sodium Chloride 1,000 mls @ 1,000 mls/hr 05/26/18 18:23 05/26/18 18:55 Sodium Chloride IV 05/26/18 19:22 1,000 mls/hr BOLUS STA Administration Magnesium Citrate 5 oz 05/26/18 20:18 05/26/18 20:28 Citrate Of Magnesia PO 05/26/18 20:19 5 oz ONCE STA Administration Methylprednisolone Sodium Succinate 40 mg 05/26/18 20:18 05/26/18 20:28 Solu-Medrol 40 Mg IVP 05/26/18 20:19 40 mg ONCE STA Administration Simethicone 160 mg 05/26/18 19:53 05/26/18 19:58 Mylicon PO 05/26/18 19:54 160 mg ONCE STA Administration Sodium Chloride 1 syr 05/26/18 18:23 05/26/18 18:55 Saline Flush IVF 1 syr PRN PRN Administration To flush IV Tramadol HCl 50 mg 05/26/18 21:03 Ultram PO 05/26/18 21:04 ONCE STA Vital Signs: Temp Pulse Resp BP Pulse Ox 05/26/18 17:52 97.9 F 80 20 127/89 97 Departure <CASIMIRO MONTES - Last Filed: 05/26/18 19:56> - Departure Time of Disposition: 20:00 Pt referred to PMD for follow-up: Yes IPMP verified?: No Disposition Discussed With: Patient, Family <SHIRLEY BECKER - Last Filed: 05/27/18 14:39> - Departure Disposition: HOME SELF-CARE Discharge Problem: Abdominal pain Anemia Qualifiers: Anemia type: unspecified type Qualified Code(s): D64.9 - Anemia, unspecified Instructions: Abdominal Pain (ED) Condition: Good Additional Instructions: Please call your Family Physician as soon as possible to schedule a follow-up appointment. Allergies/Adverse Reactions: Allergies ceftriaxone sodium [From Rocephin] Adverse Reaction (Verified 05/11/18 11:46) cefuroxime axetil [From Ceftin] Adverse Reaction (Verified 05/11/18 11:46) doxycycline Adverse Reaction (Verified 05/11/18 11:46) nifedipine [From Procardia] Adverse Reaction (Verified 05/11/18 11:46) nitrofurantoin [From Macrobid] Adverse Reaction (Verified 05/11/18 11:46) nitrofurantoin macrocrystal [From Macrobid] Adverse Reaction (Verified 05/11/18 11:46) Home Medications: Ambulatory Orders Albuterol Sulfate [Albuterol Sulfate Hfa] 2 puff IH QID 02/13/14 Atorvastatin Calcium [Lipitor] 40 mg PO BEDTIME 02/13/14 Benazepril HCl [Lotensin] 20 mg PO DAILY 02/13/14 Esomeprazole Magnesium [Nexium] 40 mg PO BID 02/13/14 Furosemide [Lasix] 40 mg PO DAILY 02/13/14 Promethazine HCl [Phenergan Tab] 25 mg PO Q6H PRN 02/13/14 Ropinirole HCl [Requip] 2 mg PO BEDTIME 02/13/14 Sotalol HCl [Sotalol] 80 mg PO BID 02/13/14 Topiramate [Topamax] 50 mg PO BEDTIME 02/13/14 Venlafaxine HCl [Effexor Xr] 150 mg PO BEDTIME 07/04/14 Budesonide/Formoterol Fumarate [Symbicort 160-4.5 Mcg Inhaler] 2 puff IH DAILY 05/28/15 Tizanidine HCl [Zanaflex] 4 mg PO TID PRN 05/28/15 Levothyroxine Sodium [Synthroid] 125 mcg PO DAILY 07/06/16 Warfarin Sodium [Coumadin] 4 mg PO DIRECTED 07/09/16 Insulin Lispro [Humalog] 0 unit SQ DIRECTED PRN 05/07/17 Nitroglycerin 0.4 mg SL DIRECTED PRN 11/30/17 Insulin Detemir [Levemir Flextouch] 20 unit SQ BEDTIME 12/10/17 Tiotropium [place] [Spiriva] 1 cap IH DAILY 12/10/17 Gabapentin [Neurontin] 100 mg PO BID 01/07/18 Oxycodone-Acetaminophen 5-325 [Percocet 5-325] 1 tab PO Q12H 05/11/18
[2018-05-26] MEDS ORDERED: MYLICON PO STA (19:53)
--- NOTE | 2018-05-26 20:03 | CT ---
EXAM: CT THORAX HISTORY: Cough. TECHNIQUE: CT thorax without intravenous contrast. Multiplanar images presented. COMPARISON: 05/11/2018 FINDINGS: Heart size is grossly within normal limits. There is no pericardial effusion. Moderate atherosclero tic disease. Previous aortic valve repair is suggested. Pacemaker unit. Prominent caliber of the p ulmonary arterial tree with the trunk at 4.3 cm suggesting pulmonary arterial hypertension. Limited evaluation of the mediastinum and hilar structures without the administration of intravenous contrast agent. No gross mediastinal lymphadenopathy or hilar mass. Lungs are hyperinflated. There is evidence of early pulmonary emphysema. Scattered areas of scarrin g are noted. A few calcifications consistent with old granulomatous disease. There is no vascular c ongestion or evidence of central interstitial edema. No obvious consolidated pneumonia. There is no pneumothorax or pleural fluid. The bones reveal no acute abnormality. Sternotomy wires are present. Multiple calcifications within the right breast incidentally noted. There is an IVC filter noted. IMPRESSION: 1. Pulmonary emphysema and scattered scarring. No definite consolidated pneumonia. 2. Pulmonary arterial hypertension. 3. Moderate atherosclerotic disease.
--- NOTE | 2018-05-26 20:03 | CT ---
EXAM: CT abdomen pelvis without intravenous contrast 05/26/2018. Sagittal and coronal reformatted i mages obtained HISTORY: Epigastric pain COMPARISON: 01/09/2018, 05/11/2018 FINDINGS: The liver shows no acute abnormality. The gallbladder has been removed The adrenal glands and kidneys show no acute abnormality. There is no urinary obstruction. Unremark able urinary bladder. The spleen and pancreas show no acute abnormality. Severe atherosclerotic vascular disease. Inferior vena cava filter is in place. No evidence of small bowel obstruction. No free air or free fluid. Prominent quantity of stool in the colon. This could relate to ileus/con stipation. Normal appendix. No acute osseous abnormality. Multilevel chronic degenerative disc disease. Chronic scoliotic curva ture with convexity to the right. IMPRESSION: 1. Status post cholecystectomy. 2. No urinary or bowel obstruction and normal appendix. 3. Severe atherosclerotic vascular disease 4. Inferior vena cava filter is in place. 5. Prominent quantity of stool in the colon likely due to ileus and/or constipation.
[2018-05-26] MEDS ORDERED: SOLU-MEDROL 40 MG IVP STA (20:18)
[2018-05-26] MEDS ORDERED: CITRATE OF MAGNESIA PO STA (20:18)
[2018-05-26] MEDS ORDERED: ULTRAM PO STA (21:03)
== END 2018-05-26 21:00 | disposition home or self-care (01) ==
LOC: ED 17:51
DX: R10.9 Unspecified abdominal pain (principal); D64.9 Anemia, unspecified; F17.210 Nicotine dependence, cigarettes, uncomplicated; I10 Essential (primary) hypertension; E11.9 Type 2 diabetes mellitus without complications; E78.5 Hyperlipidemia, unspecified; E03.9 Hypothyroidism, unspecified; I25.810 Atherosclerosis of coronary artery bypass graft(s) without angina pectoris; J44.9 Chronic obstructive pulmonary disease, unspecified; Z95.0 Presence of cardiac pacemaker; Z95.2 Presence of prosthetic heart valve; Z79.01 Long term (current) use of anticoagulants; Z79.899 Other long term (current) drug therapy; Z79.4 Long term (current) use of insulin
CPT/HCPCS: 36415; 80053; 81001; 82150; 82550; 83690; 84484; 85025; 87502; 87651; 93005; 93010; 96360; 99283

== ENCOUNTER 2018-06-09 00:02 | Outpatient (CLI) | payer OTHER | END 2018-06-09 00:24 | disposition short-term general hospital (02) | LOC: AMBL 00:02 | PROVIDERS: ATTEND Internal Medicine Geriatric Medicine | DX: R07.9 Chest pain, unspecified (principal); Z95.0 Presence of cardiac pacemaker ==

== ENCOUNTER 2018-06-22 20:58 | Emergency (ER) | payer OTHER ==
[2018-06-22 21:14] VITALS: BP 120/80; TEMP 97; BMI 21.1
[2018-06-22] MEDS: MORPHINE 2 MG/ML SYRINGE IVP STA (23:40)
[2018-06-23] MEDS: MORPHINE 2 MG/ML SYRINGE ONE (00:27)
--- NOTE | 2018-06-23 01:16 | ED.PDOC ---
General ED Provider: Dr. BEKAH PAIGE Chief Complaint: Back Pain Stated Complaint: recurring lower back pain Time Seen by Physician: 01:20 Mode of Arrival: Walk-In Information Source: Patient Exam Limitations: No limitations Primary Care Provider: DELIA DIAZ Referred to ED by: Other Nursing and Triage Documentation Reviewed and Agree: Yes Does patient meet sepsis criteria?: No System Inflammatory Response Syndrome: Not Applicable Sepsis Protocol: For patient's 13 years and over: Temp is 96.8 and below OR 101 and greater Pulse >90 BPM Resp >20/minute Acutely Altered Mental Status Are patient's symptoms suggestive of a new infection, such as: -Pneumonia -Skin, Soft Tissue -Endocarditis -UTI -Bone, Joint Infection -Implantable Device -Acute Abdominal Infection -Wound Infection -Meningitis -Blood Stream Catheter Infection -Unknown Trauma/Injury Complaint Exam - Truncal Trauma Complaint/Exam Onset: recurring breakthrough pain Symptoms Are: Still present Onset of Pain: Reports: Hours Initial Severity: Moderate Current Severity: Moderate Mechanism: Reports: Other Aggravating: Reports: Movement Alleviating: Reports: Rest Associated Signs and Symptoms: Reports: Nausea Related History: Reports: Similar episode Related Surgical History: Reports: None Immobilization Removed Post Exam: Yes Vertebral Tenderness Present: Yes Vertebral Deformity Present: Yes Trachial Deviation Present: No Abdominal Rigidity Present: No Referred Shoulder Pain (Kehr's Sign) Present: No Skin Findings: Present: Normal findings Differential Diagnoses: Lumbar Strain Review of Systems - Review Of Systems Constitutional: Reports: No symptoms Eyes: Reports: No symptoms Ears, Nose, Mouth, Throat: Reports: No symptoms Respiratory: Reports: No symptoms Cardiac: Reports: No symptoms GI: Reports: No symptoms : Reports: No symptoms Musculoskeletal: Reports: No symptoms Skin: Reports: No symptoms Neurological: Reports: No symptoms Endocrine: Reports: No symptoms Hematologic/Lymphatic: Reports: No symptoms All Other Systems: Reviewed and Negative Past Medical History - Past Medical History Previously Healthy: No Endocrine: Reports: DM 2, Hypothyroid, Dyslipidemia Cardiovascular: Reports: CAD, Hypertension, CHF, A-Fib Respiratory: Reports: COPD, Pneumonia Hematological: Reports: None Gastrointestinal: Reports: GERD Genitourinary: Reports: None Neuro/Psych: Reports: Migraine, Anxiety, Depression Musculoskeletal: Reports: Arthritis, Back Pain (CHRONIC BACK PAIN) Cancer: Reports: None Last Menstrual Period: PT HAS HAD A HYSTERECTOMY Other Pertinent Past Medical History: OPEN HEART SURGERY, PACEMAKER, CHRONIC BACK PAIN - Surgical History General Surgical History: Reports: Hysterectomy, Cholecystectomy (gallbladder), CABG (OPEN HEART SURGERY,aorta valve replacement and pacemaker 2008), Pacemaker (pacemaker 2008), Orthopedic (2 knee replacements), Back Surgery (2 back surg), Other (Aortic valve replacement. RIGHT KIDNEY REPAIR) - Family History Family History: Reports: Unknown - Social History Smoking Status: Current every day smoker, Heavy tobacco smoker Hx Substance Use: No Alcohol Screening: None - Immunizations Tetanus Shot up to Date: Yes Physical Exam - Physical Exam Appearance: Thin Pain Distress: Moderate Eyes: MYKE ENT: Ears normal Respiratory: Airway patent GI/: Soft Musculoskeletal: Normal strength Skin: Warm Neurological: Sensation intact Critical Care Note - Critical Care Note Total Time (mins): 0 Course - Course Orders, Labs, Meds: Lab Review 06/22/18 22:30 Urine Color Yellow Urine Clarity Clear Urine pH 6.5 Ur Specific [place] 1.010 Urine Protein Negative Urine Glucose (UA) Negative Urine Ketones Negative Urine Blood Negative Urine Nitrite Negative Urine Bilirubin Negative Urine Urobilinogen 0.2 Ur Leukocyte Esterase Negative Orders Category Date Time Status IV ACCESS ONCE CARE 06/22/18 23:35 Active UA [URINALYSIS C & S IF INDICATED] Stat LAB 06/22/18 22:30 Completed Morphine Sulfate [Morphine 2 mg/ml Syringe] MEDS 06/23/18 00:16 Discontinued 2 mg .ROUTE .STK-MED ONE Morphine Sulfate [Morphine 2 mg/ml Syringe] MEDS 06/22/18 23:34 Discontinued 2 mg IVP ONCE STA Medications Discontinued Medications Generic Name Dose Route Start Last Admin Trade Name Day PRN Reason Stop Dose Admin Morphine Sulfate 2 mg 06/22/18 23:34 06/22/18 23:40 Morphine 2 Mg/Ml Syringe IVP 06/22/18 23:35 2 mg ONCE STA Administration Vital Signs: Temp Pulse Resp BP Pulse Ox 06/22/18 20:59 97 F L 87 18 120/80 96 Departure - Departure Time of Disposition: 01:22 Disposition: HOME SELF-CARE Discharge Problem: Back pain of lumbar region with sciatica Instructions: Back Pain (ED) Condition: Good Pt referred to PMD for follow-up: Yes IPMP verified?: No Allergies/Adverse Reactions: Allergies ceftriaxone sodium [From Rocephin] Adverse Reaction (Verified 06/22/18 21:14) cefuroxime axetil [From Ceftin] Adverse Reaction (Verified 06/22/18 21:14) doxycycline Adverse Reaction (Verified 06/22/18 21:14) nifedipine [From Procardia] Adverse Reaction (Verified 06/22/18 21:14) nitrofurantoin [From Macrobid] Adverse Reaction (Verified 06/22/18 21:14) nitrofurantoin macrocrystal [From Macrobid] Adverse Reaction (Verified 06/22/18 21:14) Home Medications: Ambulatory Orders Albuterol Sulfate [Albuterol Sulfate Hfa] 2 puff IH QID 02/13/14 Atorvastatin Calcium [Lipitor] 40 mg PO BEDTIME 02/13/14 Benazepril HCl [Lotensin] 20 mg PO DAILY 02/13/14 Esomeprazole Magnesium [Nexium] 40 mg PO BID 02/13/14 Furosemide [Lasix] 40 mg PO DAILY 02/13/14 Promethazine HCl [Phenergan Tab] 25 mg PO Q6H PRN 02/13/14 Ropinirole HCl [Requip] 2 mg PO BEDTIME 02/13/14 Sotalol HCl [Sotalol] 80 mg PO BID 02/13/14 Topiramate [Topamax] 50 mg PO BEDTIME 02/13/14 Venlafaxine HCl [Effexor Xr] 150 mg PO BEDTIME 07/04/14 Budesonide/Formoterol Fumarate [Symbicort 160-4.5 Mcg Inhaler] 2 puff IH DAILY 05/28/15 Tizanidine HCl [Zanaflex] 4 mg PO TID PRN 05/28/15 Levothyroxine Sodium [Synthroid] 125 mcg PO DAILY 07/06/16 Warfarin Sodium [Coumadin] 4 mg PO DIRECTED 07/09/16 Insulin Lispro [Humalog] 0 unit SQ DIRECTED PRN 05/07/17 Nitroglycerin 0.4 mg SL DIRECTED PRN 11/30/17 Insulin Detemir [Levemir Flextouch] 20 unit SQ BEDTIME 12/10/17 Tiotropium [place] [Spiriva] 1 cap IH DAILY 12/10/17 Gabapentin [Neurontin] 100 mg PO BID 01/07/18 Oxycodone-Acetaminophen 5-325 [Percocet 5-325] 1 tab PO Q12H 05/11/18 Disposition Discussed With: Patient
== END 2018-06-23 01:45 | disposition home or self-care (01) ==
LOC: ED 20:58
DX: M54.40 Lumbago with sciatica, unspecified side (principal); F17.210 Nicotine dependence, cigarettes, uncomplicated; Z79.899 Other long term (current) drug therapy
CPT/HCPCS: 81001; 96374; 99283

== ENCOUNTER 2018-07-24 23:40 | Inpatient (IN) ==
[2018-07-25] MEDS ORDERED: SOLU-MEDROL 125 MG IVP STA (00:17)
[2018-07-25] MEDS ORDERED: XOPENEX 1.25 MG NEB STA (00:18)
[2018-07-25] MEDS ORDERED: DUONEB NEB STA (00:18)
--- NOTE | 2018-07-25 01:59 | CT ---
Exam: CT of the chest without contrast History: Cough and shortness breath Technique: [address] of the chest without intravascular contrast FINDINGS: The lung windows show mild emphysematous change. No infiltrative opacities. Prior aortic valve surgery. Atherosclerotic calcification of the aorta and coronary arteries. Left approach pace maker. Prior mediastinotomy. No acute chest wall abnormality. No acute findings of the upper abdom en. Incidental inferior vena cava filter. Impression: 1. No acute findings of the chest 2. Mild emphysematous change 3. Aortic valvuloplasty
[2018-07-25] MEDS ORDERED: PERCOCET 5-325 PO STA (02:01)
--- NOTE | 2018-07-25 02:13 | ED.PDOC ---
General ED Provider: Dr. CASIMIRO FREEMAN-ER Chief Complaint: Shortness of Air Stated Complaint: ana been sick for a week with coughing up green yellow stuff Time Seen by Physician: 23:45 Mode of Arrival: Wheelchair Information Source: Patient Exam Limitations: No limitations Primary Care Provider: SHARRI NICHOLSON Nursing and Triage Documentation Reviewed and Agree: Yes Does patient meet sepsis criteria?: No System Inflammatory Response Syndrome: Not Applicable Sepsis Protocol: For patient's 13 years and over: Temp is 96.8 and below OR 101 and greater Pulse >90 BPM Resp >20/minute Acutely Altered Mental Status Are patient's symptoms suggestive of a new infection, such as: -Pneumonia -Skin, Soft Tissue -Endocarditis -UTI -Bone, Joint Infection -Implantable Device -Acute Abdominal Infection -Wound Infection -Meningitis -Blood Stream Catheter Infection -Unknown Respiratory Complaint Exam - Respiratory Complaint/Exam Onset/Duration: one week Symptoms Are: Still present Timing: Constant Initial Severity: Mild Current Severity: Mild Character: Reports: Productive cough Aggravating: Reports: URI Alleviating: Reports: Bronchodilators Associated Signs and Symptoms: Reports: Dyspnea, Fever, Wheezing, URI. Denies: Rapid breathing Related History: Reports: Similar episode History of Healthcare-Acquired Pneumonia: No Related Surgical History: Reports: Valve Replacement Pseudomonas Risk Factors: Reports: Chronic Lung Disease Tuberculosis Risk Factors: Reports: Chronic Resp. Faliure Status Asthmaticus Risk Factors: Reports: None Home Oxygen Use: Yes Recent Stress Test: No Recent Echo/LV Function: No Current Antibiotic Use: No Current Asthma Medication Use: No Respiratory Distress: None Inadequate Respiratory Effort: No Dysphagia Present: No Stridor Present: No JVD Present: No Accessory Muscle Use: No Retractions: Not Present Diminished Breath Sounds: Yes Prolonged Respiration: Expiratory phase Sinus Tenderness: None Grunting Respirations: No Kussmaul Respirations: No Differential Diagnoses: COPD Exacerbation Non-Traumatic Chest Pain Syncope: EKG Performed Review of Systems - Review Of Systems Constitutional: Reports: No symptoms Eyes: Reports: No symptoms Ears, Nose, Mouth, Throat: Reports: No symptoms Respiratory: Reports: Cough, Short of air Cardiac: Reports: No symptoms GI: Reports: No symptoms : Reports: No symptoms Musculoskeletal: Reports: No symptoms Skin: Reports: No symptoms Neurological: Reports: No symptoms Endocrine: Reports: No symptoms Hematologic/Lymphatic: Reports: No symptoms All Other Systems: Reviewed and Negative Past Medical History - Past Medical History Previously Healthy: No Endocrine: Reports: DM 2, Hypothyroid, Dyslipidemia Cardiovascular: Reports: CAD, Hypertension, CHF, A-Fib Respiratory: Reports: COPD, Pneumonia Hematological: Reports: None Gastrointestinal: Reports: GERD Genitourinary: Reports: None Neuro/Psych: Reports: Migraine, Anxiety, Depression Musculoskeletal: Reports: Arthritis, Back Pain (CHRONIC BACK PAIN) Cancer: Reports: None Last Menstrual Period: HAS HAD A HYSTERECTOMY Other Pertinent Past Medical History: OPEN HEART SURGERY, PACEMAKER, CHRONIC BACK PAIN - Surgical History General Surgical History: Reports: Hysterectomy, Cholecystectomy (gallbladder), CABG (OPEN HEART SURGERY,aorta valve replacement and pacemaker 2008), Pacemaker (pacemaker 2008), Orthopedic (2 knee replacements), Back Surgery (2 back surg), Other (Aortic valve replacement. RIGHT KIDNEY REPAIR) - Family History Family History: Reports: Unknown - Social History Smoking Status: Current every day smoker, Heavy tobacco smoker Hx Substance Use: No Alcohol Screening: None - Immunizations Tetanus Shot up to Date: (UNKNOWN) Physical Exam - Physical Exam Appearance: Well-appearing, No pain distress, Well-nourished Eyes: MYKE, EOMI, Conjunctiva clear ENT: Ears normal, Nose normal, Oropharynx normal Neck: Supple Respiratory: Wheezes Cardiovascular: RRR, Pulses normal, No rub, No murmur GI/: Soft, Nontender, No masses, Bowel sounds normal, No Organomegaly Musculoskeletal: Normal strength, ROM intact, No edema, No calf tenderness Skin: Warm, Dry, Normal color Neurological: Sensation intact Psychiatric: Affect appropriate, Mood appropriate Interpretation - Radiology Interpretation Radiology Interpretation By: Radiologist Radiology Results: Negative Exam Interpreted: CT Scan - EKG Interpretation Time of EKG #1: 02:14 Rate: Normal Rhythm: Sinus Ectopy: None [place]: NL ST Segment: Normal Interpretation: nsr Re-Evaluation - Re-Evaluation Time of Re-Evaluation: 02:14 Status: Improved Vital Signs Stable: Yes Pain Level: 0 Appearance: NAD Lungs: Clear Skin: Warm and Dry Neuro: Alert and Oriented X3 CV: RRR Physician Notification - Case Discussed Physician Notified: dr bush Time of Notification: 02:16 Critical Care Note - Critical Care Note Total Time (mins): 0 Course - Course Hematology/Chemistry: 07/25/18 00:30 07/25/18 00:30 Orders, Labs, Meds: Lab Review 07/25/18 07/25/18 07/25/18 00:16 00:30 00:30 WBC 9.07 RBC 4.21 Hgb 9.9 L Hct 33.4 L MCV 79.3 L MCH 23.5 L MCHC 29.6 L RDW Coeff of Kalani 16.7 H Plt Count 234 Immature Gran % (Auto) 0.3 Neut % (Auto) 70.3 Lymph % (Auto) 20.7 [place] % (Auto) 6.1 Eos % (Auto) 1.8 Baso % (Auto) 0.8 Immature Gran # (Auto) 0.0 Neut # (Auto) 6.4 Lymph # (Auto) 1.9 [place] # (Auto) 0.6 Eos # (Auto) 0.2 Baso # (Auto) 0.1 Puncture Site Rb O2 Saturation 84.0 L ABG pH 7.362 ABG pCO2 56.8 H ABG pO2 52.0 L* ABG HCO3 32.3 H ABG Total CO2 34 H ABG Base Excess 7 H Winston Test + FiO2 % 21.0 Sodium 139.2 Potassium 3.83 Chloride 97.3 L Carbon Dioxide 35.0 H Anion Gap 10.73 BUN 16.9 Creatinine 0.83 Estimated GFR (MDRD) 68.00 BUN/Creatinine Ratio 20.36 Glucose 263.6 H Calcium 9.42 Total Bilirubin 0.30 AST 20.8 ALT 11.9 Alkaline Phosphatase 87.5 NT-Pro-B Natriuret Pep 3900.000 H Total Protein 7.75 Albumin 4.11 Globulin 3.64 Albumin/Globulin Ratio 1.12 Influ A Molecular Assay Influ B Molecular Assay 07/25/18 01:10 WBC RBC Hgb Hct MCV MCH MCHC RDW Coeff of Kalani Plt Count Immature Gran % (Auto) Neut % (Auto) Lymph % (Auto) [place] % (Auto) Eos % (Auto) Baso % (Auto) Immature Gran # (Auto) Neut # (Auto) Lymph # (Auto) [place] # (Auto) Eos # (Auto) Baso # (Auto) Puncture Site O2 Saturation ABG pH ABG pCO2 ABG pO2 ABG HCO3 ABG Total CO2 ABG Base Excess [place] Test FiO2 % Sodium Potassium Chloride Carbon Dioxide Anion Gap BUN Creatinine Estimated GFR (MDRD) BUN/Creatinine Ratio Glucose Calcium Total Bilirubin AST ALT Alkaline Phosphatase NT-Pro-B Natriuret Pep Total Protein Albumin Globulin Albumin/Globulin Ratio Influ A Molecular Assay Negative by naat Influ B Molecular Assay Negative by naat Orders Category Date Time Status ABG DRAW REQUEST Stat CARDIO 07/25/18 00:16 Ordered EKG-(ED ONLY) Stat CARDIO 07/25/18 00:16 Ordered NEBULIZER TREATMENT Stat CARDIO 07/25/18 00:18 Ordered ED GARMENT SUPERVISOR APPLIED .ONCE EMERGENCY 07/25/18 00:16 Active ED IV/MEDIPORT/POWERPORT .ONCE EMERGENCY 07/25/18 00:16 Active ABG Stat LAB 07/25/18 00:16 Completed CBC W/ AUTO DIFF Stat LAB 07/25/18 00:30 Completed COMPREHENSIVE METABOLIC PANEL Stat LAB 07/25/18 00:30 Completed FLU A/B MOLECULAR Stat LAB 07/25/18 01:10 Completed NT-PROBNP Stat LAB 07/25/18 00:30 Completed PT WITH INR Stat LAB 07/25/18 00:30 Received 0.9 % Sodium Chloride [Saline Flush] MEDS 07/25/18 00:16 Ordered 1 syr IVF PRN PRN Ipratropium/Albuterol Neb [Duoneb] MEDS 07/25/18 00:18 Discontinued 1 vial NEB ONCE STA Levalbuterol HCl [Xopenex 1.25 mg] MEDS 07/25/18 00:18 Discontinued 1 vial NEB ONCE STA Methylprednisolone Sod Succ/Pf [Solu-Medrol 125 mg] MEDS 07/25/18 00:17 Discontinued 125 mg IVP ONCE STA Oxycodone-Acetaminophen 5-325 [Percocet 5-325] MEDS 07/25/18 02:01 Discontinued 1 tab PO ONCE STA CT CHEST W/O CONTRAST Stat RADS 07/25/18 00:18 Completed Medications Generic Name Dose Route Start Last Admin Trade Name Freq PRN Reason Stop Dose Admin Sodium Chloride 1 syr 07/25/18 00:16 Saline Flush IVF PRN PRN To flush IV Discontinued Medications Generic Name Dose Route Start Last Admin Trade Name Freq PRN Reason Stop Dose Admin Albuterol/Ipratropium 1 vial 07/25/18 00:18 07/25/18 01:28 Duoneb NEB 07/25/18 00:19 1 vial ONCE STA Administration Levalbuterol HCl 1 vial 07/25/18 00:18 07/25/18 01:15 Xopenex 1.25 Mg NEB 07/25/18 00:19 1 vial ONCE STA Administration Methylprednisolone Sodium Succinate 125 mg 07/25/18 00:17 07/25/18 01:01 Solu-Medrol 125 Mg IVP 07/25/18 00:18 125 mg ONCE STA Administration Oxycodone/Acetaminophen 1 tab 07/25/18 02:01 07/25/18 02:06 Percocet 5-325 PO 07/25/18 02:02 1 tab ONCE STA Administration Vital Signs: Temp Pulse Resp BP Pulse Ox 07/24/18 23:41 97.4 F L 97 H 24 138/83 90 L Departure - Departure Time of Disposition: 02:15 Disposition: ADMITTED INPATIENT Discharge Problem: COPD exacerbation Acute respiratory failure Qualifiers: Respiratory failure complication: hypoxia Qualified Code(s): J96.01 - Acute respiratory failure with hypoxia Instructions: COPD (Chronic Obstructive Pulmonary Disease) (ED) Condition: Stable Pt referred to PMD for follow-up: Yes IPMP verified?: No Allergies/Adverse Reactions: Allergies ceftriaxone sodium [From Rocephin] Adverse Reaction (Verified 07/24/18 23:54) cefuroxime axetil [From Ceftin] Adverse Reaction (Verified 07/24/18 23:54) doxycycline Adverse Reaction (Verified 07/24/18 23:54) nifedipine [From Procardia] Adverse Reaction (Verified 07/24/18 23:54) nitrofurantoin [From Macrobid] Adverse Reaction (Verified 07/24/18 23:54) nitrofurantoin macrocrystal [From Macrobid] Adverse Reaction (Verified 07/24/18 23:54) Home Medications: Ambulatory Orders Albuterol Sulfate [Albuterol Sulfate Hfa] 2 puff IH QID PRN 02/13/14 Atorvastatin Calcium [Lipitor] 40 mg PO BEDTIME 02/13/14 Benazepril HCl [Lotensin] 20 mg PO DAILY 02/13/14 Esomeprazole Magnesium [Nexium] 40 mg PO BID 02/13/14 Furosemide [Lasix] 40 mg PO DAILY 02/13/14 Promethazine HCl [Phenergan Tab] 25 mg PO Q6H PRN 02/13/14 Ropinirole HCl [Requip] 2 mg PO BEDTIME 02/13/14 Sotalol HCl [Sotalol] 80 mg PO BID 02/13/14 Topiramate [Topamax] 50 mg PO BEDTIME 02/13/14 Venlafaxine HCl [Effexor Xr] 150 mg PO BEDTIME 07/04/14 Budesonide/Formoterol Fumarate [Symbicort 160-4.5 Mcg Inhaler] 2 puff IH DAILY 05/28/15 Tizanidine HCl [Zanaflex] 4 mg PO TID PRN 05/28/15 Insulin Lispro [Humalog] 0 unit SQ DIRECTED PRN 05/07/17 Nitroglycerin 0.4 mg SL DIRECTED PRN 11/30/17 Insulin Detemir [Levemir Flextouch] 20 unit SQ BEDTIME 12/10/17 Tiotropium [place] [Spiriva] 1 cap IH DAILY 12/10/17 Gabapentin [Neurontin] 200 mg PO TID 01/07/18 Oxycodone-Acetaminophen 5-325 [Percocet 5-325] 1 tab PO Q12H 05/11/18 Guaifenesin [Mucinex] 600 mg PO DIRECTED PRN 07/24/18 Levothyroxine Sodium 137 mcg PO DAILY 07/24/18 Warfarin Sodium 5 mg PO DAILY 07/24/18 Disposition Discussed With: Patient, Family
[2018-07-25] MEDS ORDERED: LEVAQUIN 500 MG in PREMIX 100 ML D5W 1 BAG IV SCH (02:30)
[2018-07-25] MEDS ORDERED: ALBUTEROL 0.042% NEB NEB PRN (02:31)
[2018-07-25] MEDS ORDERED: PHENERGAN TAB PO PRN (02:32)
[2018-07-25] MEDS ORDERED: NITROSTAT SL PRN (02:32)
[2018-07-25] MEDS ORDERED: AZACTAM 1 GM in SODIUM CHLORIDE 50 ML IV SCH (03:00)
[2018-07-25] MEDS ORDERED: PERCOCET 5-325 PO SCH (03:00)
[2018-07-25 03:06] VITALS: BMI 20.5
[2018-07-25] MEDS ORDERED: AZACTAM ONE (03:28)
[2018-07-25] MEDS ORDERED: SOLU-MEDROL 125 MG ONE ×2 (03:28→05:32)
[2018-07-25] MEDS: DUONEB NEB SCH ×4 (04:40→23:00)
[2018-07-25] MEDS ORDERED: LASIX IVP STA (04:51)
[2018-07-25] MEDS ORDERED: LANTUS SUBCUT STA ×4 (04:51→16:50)
[2018-07-25] MEDS ORDERED: LOVENOX SUBCUT STA (04:52)
--- NOTE | 2018-07-25 05:02 | PCM ---
- Chief Complaint Chief Complaint: Cannot breath, coughing up green phlegm - History of Present Illness History of Present Illness: 67 yo CF patient of Dr. Nidia Robin in [place] arrived to ED and met with DR. Grove at 23:45 noteing 1 wek history of coughing up green yellow stuff. Vitals upon arrival temp 97.4, pulse 97, RR 24, BP 138/83, pulse ox 90. CT w/o chest ordered showed no acute findings of chest, mild emphysematous changes and aortic valvuloplasty. Dr. Grove called mat around 2:22 this am and noted that patient had COPD exacerbation, ARF, improved with nebs and O2 w/ sats mid 90's. I was called by nursing at 4:45 noting patient was not doing as well as previously presented. I talked with nurses, logged onto computer from home. 1 week history worsening URI, bronchodilators not helping. RYAN, PND, wheezing, URI symptoms. Similar episodes historically. Noted valve replacement aortic ( no mention of this to me through Er checkout), on coumadin (no mention). Chronic lung disease, chronic resp failure. Home oxygen regularly. Prolonged expiratory phase of respiration. Dx COPD exacerbation. EKG was performed and not available to me at time of rounding this am 6:30. History from ER note Dm2 ,hypothyroid, dyslipidemia, CAD, HTN, CHF, Afib, COPD, pneumonia, GERD, migraine , anxiety, depression, chronic back pain, arthritis, chronic knee, pain hip pain. Open heart surgery, pacemaker. 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 Exam noted " WELL APPEARING, NO PAIN DISTRESS, WELL NOURISHED."ENT normal. CV listed as RRR , pulses normal, no rub, no murmur. Respiratory wheezes. remainder negative. CBC WBC 9.07, hgb 9.9, plt 234. CMP with sodium 139.2, K+ 3.83, BUN 16.9, Cr 0.83. Glucose 263.6. ABG showed pH 7.362 not bad, pc02 56.8 likely chronic. Po2 52, hc03 32.3. BNP 3900. Alb .11. Glucose 263.6. Negative flu. Nebulizer, duoneb, CT chest, percocet 5mg stat, xopenex given 00:18.Methyl pred 125 stat.Allergies reviewed. Patient is adamant that she will not receive any lantus while in hospital. She notes Dr. Robin her PCP of 20 years has tried her several times on lantus and it bottoms her out. I discussed that is less likely than her meal time or regular/rapid insulin. She notes she stays in the 200's but it is good and she is happy there. She has never seen endocrinology. Patient feels her insulin is good, she is afraid to change it. Has never changed this dose per her report. She has a poor understanding of her diabetes, poor understanding of DM. A1C in hospital is 9.68 consistent with avg of ~225- 230. She does not want lantus, refuses lantus. She has bovine valve placed into aorta 2008, had another before that in 2003. She has had #2 DVT in her life. She is on coumadin. She is taking 5mg daily. Patient notes that her coumadin level was checked and it was too low so they increased her to 5 mg daily. The patient ran out of the 5mg and called her office and took 1 week to get refills and she was out of her coumadin for 1 week per her report. She has now been on this agent again another 4 days. She has history of CHF. She has had too much fluid lately. Dr. Desouza as Cardiology. She was admitted to hospital last 1.5 months ago for 48 hours for N/V, ?Gastroparesis flare. discussed sugar control will help that more. her breathing was worse when she came into hospital. She cannot walk from the bed to door w/o SOA. She has prominent RYAN. No scale at home, not monitoring weight at home. Discussed this is dangerous. She has been 125-130 pounds over last 1 year. She notes she was 127lb last 2 weeks ago. Again, not checking. The patient and I had a lengthy discussion about her problems. She notes generalized 5/10 ADHIKARI, pounding/ throbbing. history of chronic migraines. She has chronic process for her ADHIKARI, not seeing with neuro, several per month. On topamax for this helping minimally per her report. On Effexor for depression. She has a lot of anxiety as well. She worries about everything all the time. Lyme disease , encephalitis, joint issues bilateral LE, bilateral knee replacement 43 and 45 yr old, now with bilateral hip pain. #2 back surgeries as well. She is full code. She does not want to be perpetually on vent however. Daughter is not in room at present, no family here. No living will. Chronic back pain. She can breath better now as she is not up and moving around. She is on oxygen at night for 6-7 years. Using during day this week as unable to breath. Over last 1-2 month she has had worsening breathing. Daughter Abril arrived at 6:50 and we reviewed the above. I discussed goal A1C for her at this point is A1C <8.5. Discussed a1C 9.68 and out of control, TSH is elevated and not controlled. BP is controlled. She has history of gastroparesis as noted above. Discussed at length today overall health, status of DM/heart health. She asked today if stopping smoking would recover her lugns. I noted it would slow the decline but after 50 years it will not return her to baseline. Stress echo ?02/[address] Dr. Desouza. Cardiomegaly and daughter noted EF 40%. Currently staying with grand daughter (daughter of patient daughter) and her 2 children. They are between homes at present. Has been in and out of [facility]. They noted that she has had stress echo 12/2017 here at hospital. Hypokinetic LV dobutamine. Inconclusive. SPECT LF EF 37%. reversible ischemia involving mid anterior wall and left apex. Saw cardiology after that point and they noted no cath, and provider stated it was okay. Prominent extensive cardiac history is likely more contributory to her overall current state than pulmonary. - Review of Systems Constitutional: fever (subjective (afebrile in hospital).), chills, weakness, fatigue, loss of appetite. No: sweats Eyes: No: blurred vision, double-vision, discharge, itching, pain, redness, photophobia, other Ears: No: pain, bleeding, drainage, ringing, hearing loss, other Nose: No: bleeding, congestion, discharge, other Throat: No: pain, swelling, voice change, other Mouth: No: bleeding, pain, swelling, other Respiratory: cough, shortness of air, wheeze, pain with breathing Cardiovascular: PND, orthopnea, edema, palpitations, other (CHF known, weight stable. ) Gastrointestinal: abdominal pain (chronic gastroparesis. ), nausea, vomiting, dysphagia. No: diarrhea, melena, hematemesis, hematochezia, constipation Genitourinary: No: dysuria, hematuria, frequency, incontinence, flank pain, vaginal discharge, abnormal bleeding, pelvic pain Neurological: headache, dizziness, numbness (bilateral LE. ). No: seizure, weakness, speech difficulty, problems with walking, tremor, fainting Musculoskeletal: pain (back, hips, ankles, feet, wrists, hands. ), swelling in joints Skin: No: rash, pruritus, lacerations, wounds, bruising Immunology: frequent infections (pulmonary), difficulty healing. No: hives, itching Hematology: easy bruising (on coumadin), easy bleeding. No: swollen glands Endocrine: cold intolerance, excessive thirst. No: weight changes, heat intolerance, excessive hunger, polyuria Psychiatric: depression, anxiety, sleeplessness, hopelessness. No: suicidal, hallucinations Habits: tobacco use (HEAVY). No: substance use, alcohol use, other - Past Medical History Past Medical History: Afib, aortic valve replacement bovine, lyme disease, CHF, COPD, HTN, Hyperlipidemia, gastoparesis, peripheral neuropathy. DM2, hypothyroid , CAD, Arthritis, back pain, hip pain, ankle pain, foot pain, elbow/wrist/hand pain. CABG historically. - Past Surgical History Past Surgical History: aortic valve, cholecystectomy, Hysterectomy, appendectomy , knee replacement x 2, back surgery, renal surgery. CABG 2008 w/ pacemaker and new valve. - Allergies Allergies/Adverse Reactions: Allergies Allergy/AdvReac Type Severity Reaction Status Date / Time ceftriaxone sodium AdvReac Verified 07/24/18 23:54 [From Rocephin] cefuroxime axetil AdvReac Verified 07/24/18 23:54 [From Ceftin] doxycycline AdvReac Verified 07/24/18 23:54 nifedipine [From Procardia] AdvReac Verified 07/24/18 23:54 nitrofurantoin AdvReac Verified 07/24/18 23:54 [From Macrobid] nitrofurantoin macrocrystal AdvReac Verified 07/24/18 23:54 [From Macrobid] - Medications Medications: Medications Generic Name Dose Route Start Last Admin Trade Name Freq PRN Reason Stop Dose Admin Acetaminophen 650 mg 07/25/18 02:28 Tylenol PO Q4H PRN Mild Pain Albuterol Sulfate 1 vial 07/25/18 02:31 Albuterol 0.042% Neb NEB Q2HR PRN Bronchospasm Albuterol/Ipratropium 1 vial 07/25/18 06:00 Duoneb NEB RTQ6H FERNIE Budesonide/Formoterol Fumarate 2 puff 07/25/18 09:00 Symbicort 160-4.5 Mcg Inhaler IH DAILY [facility] Enoxaparin Sodium 40 mg 07/25/18 04:52 Lovenox SUBCUT 07/25/18 04:53 ONCE STA Furosemide 40 mg 07/25/18 09:00 Lasix Tab PO DAILY [facility] Furosemide 40 mg 07/25/18 04:51 Lasix IVP 07/25/18 04:52 ONCE STA Gabapentin 200 mg 07/25/18 09:00 Neurontin PO TID [facility] Guaifenesin 600 mg 07/25/18 09:00 Mucinex PO BID [facility] Aztreonam 1 gm/ Sodium 50 mls @ 75 mls/hr 07/25/18 03:00 07/25/18 03:33 Chloride IV 07/28/18 02:59 75 mls/hr Q12HR [facility] Administration Insulin Glargine 30 unit 07/25/18 04:51 Lantus SUBCUT 07/25/18 04:52 ONCE STA Insulin Human Regular 0 unit 07/25/18 02:36 Humulin R SUBCUT PRN PRN Hyperglycemica Protocol Methylprednisolone Sodium Succinate 40 mg 07/25/18 05:00 Solu-Medrol 40 Mg IVP Q8HR [facility] Nitroglycerin 0.4 mg 07/25/18 02:32 Nitrostat SL DIRECTED PRN Chest Pain Non-Formulary Medication 40 mg 07/25/18 21:00 Atorvastatin Calcium [Lipitor] PO BEDTIME [facility] Non-Formulary Medication 20 mg 07/25/18 09:00 Benazepril Hcl [Lotensin] PO DAILY [facility] Non-Formulary Medication 40 mg 07/25/18 09:00 Esomeprazole Magnesium [Nexium] PO BID [facility] Non-Formulary Medication 137 mcg 07/25/18 09:00 Levothyroxine Sodium [Levothyroxine Sodium] PO DAILY [facility] Non-Formulary Medication 80 mg 07/25/18 09:00 Sotalol Hcl [Sotalol] PO BID FERNIE Non-Formulary Medication 150 mg 07/25/18 21:00 Venlafaxine Hcl [Effexor Xr] PO BEDTIME FERNIE Non-Formulary Medication 2 mg 07/25/18 21:00 Ropinirole Hcl [Requip] PO BEDTIME FERNIE Oxycodone/Acetaminophen 1 tab 07/25/18 03:00 07/25/18 03:33 Percocet 5-325 PO Not Given Q12H FERNIE Promethazine HCl 25 mg 07/25/18 02:32 Phenergan Tab PO Q6H PRN Nausea / Vomiting Sodium Chloride 1 syr 07/25/18 00:16 Saline Flush IVF PRN PRN To flush IV Tizanidine HCl 4 mg 07/25/18 02:32 Zanaflex PO TID PRN Spasms Topiramate 50 mg 07/25/18 21:00 Topamax PO BEDTIME FERNIE Warfarin Sodium 5 mg 07/25/18 09:00 Coumadin PO DAILY FERNIE - Family History Past Family History: Mother: healthy. Father: migraines, leukemia (age 49 ). Sister: Aortic aneusrym ascending. . Son age 51: HTN, hyperlipidemia. Thyroid disease. Daughter 41: thyroid disease, renal disease. - Social History Past Social History: Lives with daughter. Smoked 50 years. now at 1/2 ppd. >50 py history. No ETOH, no drugs. - Vital Signs Temperature: 97.7 F Pulse Rate: 96 Respiratory Rate: 18 Blood Pressure: 138/83 O2 Sat by Pulse Oximetry: 95 - Body Composition Height: 5 ft 6 in Weight: 126 lb 15.78 oz Body Mass Index (BMI): 20.5 - Physical Examination HEENT: Constitutional: Appearance-No acute distress, Appears clinically stable, using O2 2L sats >90%. She has no accessory muscle use, she has reported SOA but talked in complete sentences, sat up right, assumed supine position, sat upright again. No obvious SOA. She was able to lay flat for exam without any issues with respiration. Orientation- Oriented x 3, Build and Nutrition-[Under medicare recommendation 23-30 but above 19.] General- Patient is pleasant and cooperative with the interview and exam. Integumentary: General-No rashes, ulcers or lesions. Palpation- Normal skin moisture/turgor. Skin is warm to touch, appropriate. Capillary refill is normal bilateral Upper and lower extremity. Thin. No sacral breakdown. Head/Neck: Head- normocephalic and atraumatic. Neck- without visible/palpable lumps or pulsations. Palpation- No bony tenderness about head/neck along frontal, occipital, temporal, parietal, mastoid, jawline, zygoma, orbit or any other location. NO temporal artery tenderness. No TMJ tenderness. Neck Supple. Thyroid-No thyromegaly, no nodules Eye: Bilaterally PERRLA, EOMI. No discharge. Upper and lower eyelids are normal. Sclera/conjunctiva normal without discharge. Cornea is normal and clear. Lens is normal. Eyeball appears normal. No ciliary flushing, no conjunctival injection. ENMT: Pinna- normal without tenderness or erythema. External auditory canal Left- normal without erythema or discharge, no excessive cerumen. External auditory canal Right-normal without erythema or discharge, no excessive cerumen. TM left- [place]/pearly, normal light reflex and anatomy TM Right- [place]/ pearly, normal light reflex and anatomy Hearing Assessment-normal to conversational speech. Nose and sinus- No sinus tenderness along frontal/ maxillary region. External appearance normal and midline. Nares- bilateral quiet airflow, no discharge. Nasal mucosa- No bleeding noted and no ulcerations observed. [place], moist. Turbinates boggy, erythematous. Lips- normal color, moist without cracks/lesions Oral Cavity/Palate- hard/soft palate intact without lesions, oral mucosa pink and moist. Tongue normal midline. Oropharynx - no pharyngeal erythema, Uvula midline. No post nasal drip. No exudate. Salivary glands- Non tender to palpation CHEST/LUNG: Inspection- Normal effort, no distress, no use of accessory muscles. Breathing calmly, talking in full sentences. Palpation- nontender sternum, ribline. No abnormal pulsations. Auscultation- Breath sounds diminished throughout all lung ahn. Coarse/decreased tracheal sounds, bronchial sounds overlying sternum, Bronchovessicular sounds between scapulae posteriorly, and vessicular breath sounds heard throughout periphery. Lungs w/ diminished soundsAdventitious sounds- Scattered wheezes, bibasilar rales, Scattered rhonchi. I:E 1:1 and stable. CARDIOVASCULAR: Carotid artery- normal, no bruits or abnormal pulsations. Jugular vein- no pulsations. Palpation/Percussion- PMI displaced inferolateral towards left. no palpable thrill Auscultation- Irregular rate and rhythm. murmur noted in sitting and supine positions. III/ 2nd inttercostal space with radiation into the carotid and into the back actually. ?auscultation axilla. Extremities- digital clubbing, no cyanosis, no edema at present, no increased warmth. No e/o DVT. NO peripheral edema bilateral LE. ABDOMEN: Inspection- normal and no visible pulsations. Normal contour. Auscultation- Bowel sounds normal, no abdominal bruits. Palpation/Percussion- soft, non-tender, no rebound tenderness, no rigidity (guarding), no jar tenderness, no masses. Liver-no hepatomegaly, Spleen no splenomegaly, Hernias - none. Rectal not examined. Peripheral Vascular: Upper extremity Left- Normal temperature with pink nailbeds and no ulcerations. Upper extremity Right- Normal temperature with pink nailbeds and no ulcerations. Lower extremity- Normal temperature with pink nailbeds and no ulcerations. DP pulses 1+ bilaterally. Pedal hair reduced hemosiderin staining. Normal capillary refill. Edema- No edema. Chronic foot changes, chronic callus bilateral heel, bilateral ball of foot digit 1 MTP. Bunions, Cavus foot type. Decreased cap refill. No edema present. Musculoskeletal: Generalized-No generalized swelling or edema of extremities, no digital clubbing or cyanosis, neurovascularly intact all four extremities. Upper extremity- Symmetrical posture. No visible deformity. Normal sensation along medial and lateral upper extremity proximally and distally. NO tenderness overlying shoulder, lateral/medial epicondyle. 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 Elbow palpated, no tenderness overlying olecranon. Normal supination, pronation to active/passive ROM and to resisted rotation. Bicep insertion/tricep insertion appear normal without obvious pathology. Rotator cuff evaluated and intact. Normal wrist ROM bilaterally. Normal hand movement, intrinsic muscles of hands normal. No tenderness to palpation of hands/wrists/ elbows. Lower extremity- Hip: Not tender to palpation, no pain, no swelling, edema or erythema of surrounding tissue, normal strength and tone. Normal appearing hip ROM bilaterally without pain. Knee: Knee ROM normal. No tenderness overlying trochanters, no tenderness about patella, quad tendon, patellar tendon. No tenderness at tibial tuberosity. Spine/Ribs- No deformities visible. Tenderness bilateral thoracic and lumbar paraspinal muscles. Thinning generally. Quad/Hamstring thin. Calves symmetrical. No edema. Homans negative. no known fractures, normal strength, Normal ROM. Normal stability No tenderness along C/T/L spine. Normal appearing ROM about spine. Neurological: General- Moves all 4 extremities symmetrically. Symmetrical face and body posture. Cranial nerves- individually evaluated II-XII and intact. PERRLA, Normal EOMI, visual/special senses appear intact, Face is symmetrical and normal sensation/movement, normal tongue, normal strength/posture of neck musculature. Reflexes- intact with DTR 2+ patellar, Achilles, bicep, brachial, tricep. Strength- 5/5 bilateral UE and LE. Soft touch- intact bilateral UE and LE. Temperature sensation- intact bilateral UE and LE. Neuropsych: Oriented- Person, place, time. (AAOx3), Mood/affect- normal and congruent. Able to articulate well. Speech-Normal speech, normal rate, normal tone, normal use of language, volume and coherence. Thought content- normal with ability to perform basic computations and apply abstract thought/reason. Associations- intact, no SI/HI, no hallucinations, delusions, obsessions. Judgment/insight- Appropriate. Memory-Recall intact, remote and recent memory intact. Knowledge- Age appropriate fund of knowledge, concentration and attention span normal. Lymphatic: Head/Neck- normal size and non tender to palpation. Axillary- normal size and non tender to palpation. Femoral and Inguinal- normal size and non tender to palpation. - Lab/Tests/Diagnostic Imaging Lab/Tests/Diagnostic Imaging: Laboratory Last Values WBC 9.07 K/ul (4.6-10.2) 07/25/18 00:30 RBC 4.21 10^6/ul (4.20-5.40) 07/25/18 00:30 Hgb 9.9 g/dl (12.0-16.0) L 07/25/18 00:30 Hct 33.4 % (37.0-47.0) L 07/25/18 00:30 MCV 79.3 fl (81.0-99.0) L 07/25/18 00:30 MCH 23.5 pg (27.0-31.0) L 07/25/18 00:30 MCHC 29.6 (31.8-35.4) L 07/25/18 00:30 RDW Coeff of Kalani 16.7 % (11.6-14.8) H 07/25/18 00:30 Plt Count 234 10^3/uL (140-440) 07/25/18 00:30 Immature Gran % (Auto) 0.3 % (0.0-5.0) 07/25/18 00:30 Neut % (Auto) 70.3 07/25/18 00:30 Lymph % (Auto) 20.7 (10.0-50.0) 07/25/18 00:30 Terrell % (Auto) 6.1 (0-10) 07/25/18 00:30 Eos % (Auto) 1.8 % (0.0-7.0) 07/25/18 00:30 Baso % (Auto) 0.8 % (0.0-3.0) 07/25/18 00:30 Immature Gran # (Auto) 0.0 (0.0-1.0) 07/25/18 00:30 Neut # (Auto) 6.4 K/ul (2.0-6.9) 07/25/18 00:30 Lymph # (Auto) 1.9 K/uL (0.60-3.4) 07/25/18 00:30 Terrell # (Auto) 0.6 K/uL (0.4-2.0) 07/25/18 00:30 Eos # (Auto) 0.2 K/ul (0.0-0.7) 07/25/18 00:30 Baso # (Auto) 0.1 K/uL (0-0.2) 07/25/18 00:30 PT 12.1 SEC (9.3-11.0) H 07/25/18 00:30 INR 1.22 SI (0.0-3.9) 07/25/18 00:30 Puncture Site Rb 07/25/18 00:16 O2 Saturation 84.0 % (95-100) L 07/25/18 00:16 ABG pH 7.362 (7.35-7.45) 07/25/18 00:16 ABG pCO2 56.8 mmHg (35-45) H 07/25/18 00:16 ABG pO2 52.0 mmHg (85-100) L* 07/25/18 00:16 ABG HCO3 32.3 (22.0-26.0) H 07/25/18 00:16 ABG Total CO2 34 (22.0-28.0) H 07/25/18 00:16 ABG Base Excess 7 (-2.0-2.0) H 07/25/18 00:16 Winston Test + 07/25/18 00:16 FiO2 % 21.0 % 07/25/18 00:16 Sodium 139.2 mmol/L (134.5-145) 07/25/18 00:30 Potassium 3.83 mmol/L (3.5-5.1) 07/25/18 00:30 Chloride 97.3 mmol/L (98-107) L 07/25/18 00:30 Carbon Dioxide 35.0 mmol/L (22-30.0) H 07/25/18 00:30 Anion Gap 10.73 07/25/18 00:30 BUN 16.9 mg/dL (7-17) 07/25/18 00:30 Creatinine 0.83 mg/dL (0.60-1.30) 07/25/18 00:30 Estimated GFR (MDRD) 68.00 mL/min 07/25/18 00:30 BUN/Creatinine Ratio 20.36 07/25/18 00:30 Glucose 263.6 mg/dL (74-106) H 07/25/18 00:30 Hemoglobin A1c 9.48 (4.0-6.0) H 07/25/18 00:30 Calcium 9.42 mg/dL (8.4-10.2) 07/25/18 00:30 Total Bilirubin 0.30 mg/dL (0.2-1.3) 07/25/18 00:30 AST 20.8 U/L (14-36) 07/25/18 00:30 ALT 11.9 U/L (0-35) 07/25/18 00:30 Alkaline Phosphatase 87.5 U/L (53-141) 07/25/18 00:30 NT-Pro-B Natriuret Pep 3900.000 pg/mL (0-124) H 07/25/18 00:30 Total Protein 7.75 g/dL (6.3-8.2) 07/25/18 00:30 Albumin 4.11 g/dL (3.5-5.0) 07/25/18 00:30 Globulin 3.64 07/25/18 00:30 Albumin/Globulin Ratio 1.12 07/25/18 00:30 Procalcitonin < 0.05 ng/mL (0.09) 07/25/18 00:30 TSH 6.380 uIU/L (0.465-4.68) H 07/25/18 00:30 Influ A Molecular Assay Negative by naat (NEGATIVE) 07/25/18 01:10 Influ B Molecular Assay Negative by naat (NEGATIVE) 07/25/18 01:10 CT CHest W/O contrast: no acute findings of the chest, mild emphsematous changes , aortic valvuloplasty. ABG INterpretation: Chronic respiratory acidosis with secondry metabolic alkalosis. - Assessment (1) ARF (acute respiratory failure) Status: Deleted Code(s): J96.00 - ACUTE RESPIRATORY FAILURE, UNSP W HYPOXIA OR HYPERCAPNIA SNOMED Code(s): 93218690 (2) COPD exacerbation Status: Deleted Code(s): J44.1 - CHRONIC OBSTRUCTIVE PULMONARY DISEASE W ( ACUTE) EXACERBATION SNOMED Code(s): 098847909 (3) CHF (congestive heart failure) Status: Inactive Code(s): I50.9 - HEART FAILURE, UNSPECIFIED SNOMED Code(s) : 91551818 (4) Anemia Status: Inactive Code(s): D64.9 - ANEMIA, UNSPECIFIED SNOMED Code(s): 274475067 (5) Subtherapeutic anticoagulation Status: Inactive Code(s): Z51.81 - ENCOUNTER FOR THERAPEUTIC DRUG LEVEL MONITORING; Z79.01 - HUMAN RESOURCES ADVISOR (CURRENT) USE OF ANTICOAGULANTS SNOMED Code(s) : 00241659 (6) Warfarin administered during hospital stay Status: Inactive Code(s): AJE8163 - SNOMED Code(s): 211894196 (7) Uncontrolled diabetes mellitus Status: Inactive Code(s): E11.9 - TYPE 2 DIABETES MELLITUS WITHOUT COMPLICATIONS SNOMED Code(s): 098020047, 863709934 - Plan Plan: I was informed by ER that the patient was having COPD exacerbation but no history of CHF, no history of chronic anticoagulation, no history of subtherapeutic INR, no history of chronic DM. I was told she was hypoxic and that with nebs and O2 she was satting in mid to high 90's. PCP Dr[address] Robin in [place]. I was called at 445 am that patient was sick and they needed more orders. She was admitted to [facility]. I logged onto computer at 5:00 to check status for myself and found multiple issues that were not presented to me. NO recent A1C, abx started with negative CT, negative vitals, did not meet SIRS criteria. She was given large doses of steroids in ER, home night meds not given. I ordered 30 of lantus to be given now as we did not carry levemir and her glucose was 268. Patient refused this order to nursing noted it caused her to bottom out and that she will just bring her home insulin. I did not want her to use home insulin as I do not know the condidtions that the medications were maintained in, age, etc. Patient has refused this order. I discussed with nursing to back my 30 down to 20units and I still want this to be given. Her vitals as of 5 am were 90-95%. Reading CT, she appears to have valvular replacement and is subtherapeutic on her coumadin dosing. I will add lovenox to her, this was not given in ER. She had BNP 3K region, on oral lasix. I will give lasix 40mg IVP x 1. I will get echo this am. She asked nurse for PRN phenergan and noted that this was for "her issue caused by insulin she uses causing errosive esophagitis and GERD." I was informed by nurse at 5:13 that patient refused lantus for a second time. I informed nursing to please document this in chart x 2. 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 Reviewed medications, numerous psych medications, condition unknown to me as hospitalist and never met patient previously. She has requested the phenergan, which is PRN, I do not see a reason this cannot be given. I do not know why she is refusing lantus, this should not cause her "to bottom out" with glucose of 268 and A1C historicaly of 9.7. ARrived at hospital and her A1C 9.68 with goal based on ADA <7.0 and ACP < 8. Either way this is out of control and 20 units of lantus would be the starting dose. With history of AFIB, I did check TSH, which returned mildly elevated at 6.380. Procalcitonin negative. ABG showed Primary respiratory acidosis chronically with a secondary compensated metabolic alkalosis, which is likely chronic. pH was stable. Per daughter recently levothyroxine dose has been adjusted from 125 to 137. They have been out of the coumadin for multiple weeks, just got it back. Unknown last INR but patient knows it has not been therapeutic for at least last few weeks. ARF (acute respiratory failure) (Acute)/COPD (chronic obstructive pulmonary disease): Patient seen in SCU 2 6:15 this am through 7:45 this am. Talked with daughter, talked with patient and reviewed history.Suspect acute bronchitis with possibility of COPD exacerbation by history and exam. We reviewed smoking history. Smoking cessation and tobacco avoidance highly encouraged today (both active and passive). We reviewed GOLD criteria. Gold defines exacerbation of COPD as acute event leading to worsening of respiratory symptoms with 3 cardinal features: increased cough freq/severity, sputum production volume/ quality, worsened Dyspnea. Risk factors for exacerbations include advancing age , duration of COPD, history of abx use, prev hospitalization within past 12 months, mucus production, comorbidities to include heart disease, CHF, DM, and exposures. Respiratory infections are the most likely trigger in up to 70% of cases to include viral processes such as Rhino (warmer months), irvin, adeno, parainfluenza (cooler months), allergic process, viral/bacterial pneumonia. Studies have shown benefit to bronchodilators (grade 1B) and show reduced time to resolution of cough. Anticholinergic agents are often used in combination as studies show enhanced bronchodilation beyond that seen by either agent alone. Caution advised if any history of BPH or similar in male patients. Systemic glucocorticoids have been shown to have beneficial effect. Recommendations include dosing steroid equivalent to prednisone 40 mg daily x 5 days. Inhaled GC are of minimal benefit in acute exacerbation, but should not be stopped. We discussed that studies suggest use of abx is controversial. These are recommended to be avoided for simple bronchitis. The patient/family voiced understanding. If abx not used initially and patient has limited improvement or worsening over next week the patient/family can contact clinic to consider starting abx. Common abx include doxycycline (allergic), FQ, 3rd gen Cephalosporin (allergic) with or without macrolide. Discussed pros and cons of steroid use both injectible and oral forms. Offered trial of nebulizer in office today. Discussed home use of inhaler and provided education on inhaler usage today. F/U in 1-2 weeks PRN if not improving. Role of alpha 1 antitrypsin discussed with diagnosis. Yearly spirometry encouraged. Would like spirometry in 1-2 months if not done within past 12 months. - Admit inpatient status - Duoneb QID - Albuterol in between Q 2 hours - Daily weight - I+O Q shift - Telemetry - ADA diet 1800 kcal - Started on azactam in ER. Will use this while in hospital. Abx are controversial. NO SIRS, no fever. 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 Macrovascular and microvascular complications discussed. Reviewed DM provides risk equivalency to already having had a heart attack. Reviewed goals of Diabetes today. The Goal is to have an Hgb A1C <7.0 for most patients (New APC guidelines suggest 7-8% may be reasonable). For the remainder a discussion with patient about R/B/A and review of reasonable hypoglycemic symptoms is needed. Good BP control is encouraged with Goal BP based on JNC 8 guidelines 2014 of SBP <140 and DBP <90. Discussed role of Christian-I and ARB with DM. DM imparts risk equivalence for CAD based on ATP III and modern ASCVD risk scores. Current guidelines from ACC/AHA support moderate intensity statin with goal of 30-50% reduction in LDL unless 10 yr risk ASCVD >7.5 then high intensity should be used. Close monitoring of Lipid levels encouraged. Recommend once yearly eye evaluation by optometry or ophthalmology. Good foot health discussed and foot exam recommended with each visit. Recommended to monitor toe health, wear good shoes, cut nails straight across and tend calluses as listed. Take medications as encouraged. Monitor blood sugars as encouraged and bring log to future meetings. Weight needs to be monitored. Monitor portions and caloric intake. Pneumovax frequency discussed. Patients <65 years old should have PPSV 23 q 5 years x 2 up to age 65 then once after age 65. Prevnar at age 65 and then 1 year later PPSV 23. Recommend yearly microalbumin as outpatient. Yearly eye evaluation, please sign release to get eye evaluation data for your PCP. Discussed importance of Christian-I and ARB. Monitor portions, goal BMI discussed. Work on regular exercise and diet to keep BMI in appropriate range with initial goal <30. Diabetic issues reviewed with the patient: referral to Diabetic Education department discussed, low cholesterol diet, weight control and daily exercise discussed, home glucose monitoring emphasized, all medications, side effects and compliance discussed carefully, foot care discussed and offered referral to Podiatry, annual eye examinations discussed, glycohemoglobin and other lab monitoring discussed and long lines operator diabetic complications discussed. Weight loss and if BMI >35, role of Bariatric surgery d /w patient today. Meds as listed Reviewed r/B/A and SE of listed agents. - Accucheck q 4 hours - Sliding scale - She does not want lantus. Start with 10 units and then give another in 6-12 hours and again 6-12 hours later to get to 30. - May back down on steroids. Anemia (Chronic): Microcytic. Iron/Ferritin/TIBC ordered. 9.9 ER and 10.1 on floor. This is chronic likely. I will check levels and see if needs iron. Anemia Chronic disease also possible etiology. On blood thinner. ?Blood loss as well. CHF (congestive heart failure) (Chronic): 12/2017 EF 37%. She is at baseline weight per patient/daughter. Lasix BID at home, no scale at home, not monitoring paramters at home. She has chronic CAD, AFIB, pacemaker on sotalol. SOA worsening 1 month acutely worsening over last 1 week. - Echocardiogram while in hospital. Subtherapeutic anticoagulation (Acute)/Warfarin administered during hospital stay (Acute): Currently on 5 mg daily. Has run out of this, there was issues getting this and ?back on this last few days to maybe a week. INR outlying low per patient. Low here. Daily INR. This will likely be up/down based on abx and based on steroidal use. Goal likely for her 2.5-3.5. Gastroparesis: Chronic, continue reglan. Monitor, long lines operator/chronic problem. Outpatient w/u and f/u needed. - Likely will not tolerate oral iron. - Venofer for iron deficiency - Hemoccult. Heavy Tobacco User: Prolonged tobacco use. Tobacco Cessation discussed today for 5 minutes. We reviewed lifestyle choices and discussed quitting. Ready to quit status discussed. The risks and hazards of continued tobacco abuse were discussed with the patient today and total tobacco cessation as recommended. It was clearly and unambiguously explained that continued tobacco usage will adversely affect overall morbidity and mortality of the patient. Patient was informed that tobacco use can lead to numerous cancers, worsening of cardiovascular and pulmonary systems and that lung damage is often permanent and irreversible. I advised the patient to inform me if any further assistance is requested, as we can offer counseling services, nicotine replacement inhaled , patch, lozenge, gum, or prescription medications to include Chantix or Wellbutrin for assistance. I will reassess the interest in tobacco cessation at the next and all subsequent visits. - Nicoderm 14mg patch Code Status: Full DVT Prophy: LOVENOX 40mg subcut as she is currently markedly subtherapeutic on coumadin. Activity: Up with assist. Disposition: Expected length of stay 2-3 days. Hold steroids as sugars are rapidly advancing. Accucheck q 4 hours with sliding scale. We will treat a few days with the azactam. We had >40 minute conversation specifically about diabetes and insulin today. Discussed Lantus vs regular vs fast. Discussed goals of DM to include A1C for now <8.0. Discussed role of HTN control, vaccination, smoking cessation. Discussed her heart valve, her anticoag, her diet in relation to the anticoag. In total this am I spent 110 minutes with patient counseling, discussing medical problems above, reviewing gastroparesis, discussing limitations of levemir and need to focus on A1C> We discussed home oxygen, home living situation. Concern over quality of her insulin with homeless status. Discussed concern for anemia, concern for coumain, for non compliance, for subtherapeutic INR and overall state of health of patient. Discussed at length code status, discussed risks of CPR/ACLS etc. Addendum 1: 12:30. Sugars running high, I will add another 10 of lantus. Discussed with patient she agreed. Went back and talked with patient for another 15 minutes about lantus increase. She is afraid of this. I noted that doing this will show that she can take 30 units in 1 day. Addendum 2: 17:15. Sugars running higher I added another 10 of lantus. Patietn apologized. I will stop steroids. I will repeat INR tomorrow. Q 4 hour accucheck with sliding scale insulin. This brings her to her total dose of 30 units that I would like her at. I have backed down on steroids. We will continue abx. Another 15 minutes spent talkign with patient. She was on O2, noted her breathing was a little worse. Echo completed and some . We will get her back to her outpatient provider. For now await am labs, stop lovenox once INR is >2.0. She will hopefully go home in next 1-2 days. Glucose Trends 07/25/18 07/25/18 Range/Units 00:30 07:35 Glucose 263.6 H 399.9 H D (74-106) mg/dL Total time today 110 minutes this am plus 15 minutes 12:30 and another 15 minutes at 17:15 for total time today of > 1 hour beyond the typical 70 minutes spent on admission. Prolonged visit today of 1 hour or more has been met. Inpatient services have been needed for this patient and will continue to be needed throughout her stay.
[2018-07-25] MEDS: SOLU-MEDROL 40 MG IVP SCH ×2 (05:58→13:43)
[2018-07-25] MEDS ORDERED: LANTUS SUBCUT ONE (08:46)
[2018-07-25] MEDS: MUCINEX PO SCH ×2 (08:50→20:34)
[2018-07-25] MEDS: SYMBICORT 160-4.5 MCG INHALER IH SCH (08:50)
[2018-07-25] MEDS: PROTONIX PO SCH ×2 (08:50→16:36)
[2018-07-25] MEDS: BETAPACE PO SCH ×2 (08:50→20:33)
[2018-07-25] MEDS: LOTENSIN PO SCH (08:51)
[2018-07-25] MEDS: SYNTHROID PO SCH ×2 (08:51)
[2018-07-25] MEDS: LASIX TAB PO SCH (08:51)
[2018-07-25] MEDS: PERCOCET 5-325 PO SCH ×2 (08:51→20:33)
[2018-07-25] MEDS: NEURONTIN PO SCH ×3 (08:51→20:33)
[2018-07-25] MEDS ORDERED: NON-FORMULARY MEDICATION (Esomeprazole Magnesium [Nexium] 40 MG) PO SCH (09:00)
[2018-07-25] MEDS ORDERED: BENAZEPRIL HCL 20 MG PO SCH (09:00)
[2018-07-25] MEDS ORDERED: LASIX TAB PO SCH (09:00)
[2018-07-25] MEDS ORDERED: LANTUS SUBCUT SCH (09:00)
[2018-07-25] MEDS ORDERED: LEVOTHYROXINE SODIUM 137 MCG PO SCH (09:00)
[2018-07-25] MEDS ORDERED: SOTALOL HCL 80 MG PO SCH (09:00)
[2018-07-25] MEDS: TYLENOL PO PRN ×2 (10:38→23:34)
[2018-07-25] MEDS: ZANAFLEX PO PRN (10:38)
[2018-07-25] MEDS: NICODERM 14 MG TD SCH (10:39)
[2018-07-25] MEDS: AZACTAM 1 GM in SODIUM CHLORIDE 50 ML IV SCH ×2 (10:39→20:31)
--- NOTE | 2018-07-25 10:51 | ECHO2D ---
Date of Exam: 07/25/2018 Ordering Physician: DR. BAKER Room #: SCU-2 Reason for Echo: CONGESTIVE HEART FAILURE, PROSTHETIC AORTIC VALVE Auscultation: Murmurs: M-Mode Normal Adult Results LV Dimensions Normal Adult Results AoV Opening excursions >1.6 9mm LVEDD-base- 3.5-5.8 4.6 Ao root dimensions 2.0-3.7 3.4 LVESD-base- 3.1-4.6 L. Atrium dimensions 1.9-3.8 4.1 Post. Wall thickness 0.8-1.1 1.3 IV septum (thickness) 0.7-1.2 1.3 Post. Wall excursion 0.72-1.3 NORMAL Septal motion 0.1 Systolic motion R. Ventricular cavity 1.5-2.0 NORMAL LVEF 60% 40% Paradoxical septal wall motion NORMAL 2-D : HYPOKINETIC SEPTUM - PRACTICALLY AKINETIC - POSTERIOR MITRAL LEAFLET FIXED - NO EFFUSION/NO THROMBUS - ENLARGED LEFT ATRIAL CAVITY - SEPARATION OF PROSTHETIC AORTIC VALVE LEAFLET SEEN BUT DIMINISHED M-MODE: MV: FIXED MITRAL LEAFLET AV: CUSP SEPARATION 9MM TV: NORMAL PV: NORMAL CHAMBER SIZE: ENLARGED LEFT ATRIAL CAVITY WALL MOTION: STIFF HYPOKINETIC SEPTUM PERICARDIUM: INTERPRETATION: 1. FIXED POSTERIOR MITRAL LEAFLET - THICKENED ANTERIOR MITRAL LEAFLET - NO STENOSIS 2. PROSTHETIC VALVE LEAFLETS - SEPARATION 9MM MILD TO MODERATE AORTIC STENOSIS 3. LEFT VENTRICULAR HYPERTROPHY WITH ENLARGED LEFT ATRIAL CAVITY 4. HYPOKINETIC TO AKINETIC SEPTUM WITH LEFT VENTRICULAR EJECTION FRACTION OF 40% 5. RECOMMEND COMPLETE COLOR FLOW DOPPLER MTDD
[2018-07-25] MEDS: HUMULIN R SUBCUT PRN ×2 (11:41→20:35)
[2018-07-25] MEDS: COUMADIN PO SCH (16:36)
[2018-07-25] MEDS ORDERED: HUMULIN R SUBCUT STA (16:50)
[2018-07-25] MEDS: LIPITOR PO SCH (20:32)
[2018-07-25] MEDS: TOPAMAX PO SCH (20:33)
[2018-07-25] MEDS: EFFEXOR XR PO SCH (20:33)
[2018-07-25] MEDS: REQUIP PO SCH (20:33)
[2018-07-25] MEDS ORDERED: INSULIN DETEMIR 20 UNIT SQ SCH (21:00)
[2018-07-25] MEDS ORDERED: NON-FORMULARY MEDICATION (Ropinirole Hcl [Requip] 2 MG) PO SCH (21:00)
[2018-07-25] MEDS ORDERED: NON-FORMULARY MEDICATION (Atorvastatin Calcium [Lipitor] 40 MG) PO SCH (21:00)
[2018-07-25] MEDS ORDERED: NON-FORMULARY MEDICATION (Venlafaxine Hcl [Effexor Xr] 150 MG) PO SCH (21:00)
[2018-07-26] MEDS: DUONEB NEB SCH ×4 (04:50→23:15)
[2018-07-26] MEDS: SYNTHROID PO SCH ×2 (05:48→05:49)
[2018-07-26] MEDS: PROTONIX PO SCH ×2 (05:49→16:47)
[2018-07-26] MEDS: LASIX TAB PO SCH (05:49)
[2018-07-26] MEDS ORDERED: VENOFER 200 MG in SODIUM CHLORIDE 100 ML IV ONE (07:27)
[2018-07-26] MEDS ORDERED: POTASSIUM CHLORIDE 10 MEQ VIAL IV ONE ×2 (07:58→23:24)
[2018-07-26] MEDS ORDERED: LANTUS SUBCUT SCH (08:00)
[2018-07-26] MEDS: NICODERM 14 MG TD SCH (08:14)
[2018-07-26] MEDS: MUCINEX PO SCH ×2 (08:14→22:10)
[2018-07-26] MEDS: LOTENSIN PO SCH (08:14)
[2018-07-26] MEDS: PERCOCET 5-325 PO SCH ×2 (08:14→22:10)
[2018-07-26] MEDS: NEURONTIN PO SCH ×3 (08:15→22:10)
[2018-07-26] MEDS: BETAPACE PO SCH ×2 (08:15→22:10)
[2018-07-26] MEDS: LANTUS SUBCUT SCH (08:17)
--- NOTE | 2018-07-26 08:19 | PCM.PROG ---
Subjective: 67 yo CF history of afib (a paced on tele), CAD, CHF, COPD O2 dependent, Heavy Tobacco user, Hypothyroidism (recent dose changes to meds, elevated TSH above goal of 1.0-3.0), RLS, DM2 uncontrolled insulin dependent, OA, DVT x2 historically, chronically anticoagulated with coumadin, suptherapeutic INR (ran out of meds), bovine aortic valve now with concern for aortic stenosis of valve presented to hospital in ARF, DM uncontrolled. ARF appears to have resolved w/ nebs and O2. . Talked w/ overnight and am nurses and patient has had a reasonable night. C/O body aches, spasms, chest pain x 1 (nitro given), ADHIKARI. She was not happy yesterday that we wanted to give lantus but eventually allowed me to give entire 30. Steroids were stopped, continued aztreonam, limited somewhat by patient allergy to cephalosporins and doxy. She has had nebs regularly, has been on O2. Remains afebrile, good uout with 1.87 and 2.17 ml/kg/hr output over last 2 shifts. Labs this am show WBC 11.57 with neutrophilia (remains afebrile), hgb has dropped from 10.1 to 8.7. Iron studies show low iron, high TIBC, low ferritin consistent with iron def anemia. With gastroparesis/age, she cannot tolerate PO iron and we will thus give IV venofer today/tomorrow and she can have again in next 1 week. INR this am 1.78, steadily increasing with the 5mg dose that she is supposed to be on. She notes that she was taking this over last 1 week but had been out for several weeks. Risks of DVT/PE/stroke d/w patient. She has no calf pain. SOA appears to be chronic and not new. She has CMP today with sodium 134.3, K+3.65, BUN 36.3 and Cr 1.12, with GFR 48 which is a little worse. I will add maintenance fluid of NS 0.9% +!0meq K+Cl- at 90 per hour which is a safe maintenance fluid hydration dose. With her CHF we discussed to only gently rehydrate her. Glucose was great at 109. accuchecks 251, 393, 436, 405, 310, 109. Voiding well, no BM while in hospital. Echo completed and fixed posterior mitral leaflet-thickened anterior mitral leaflet- no stenosis. Prosthetic valve leaflets separation 9mm mild to moderate , LVH wnnlarged left atrial avity. Hypokinetic septum w/ left ventricular EF 40%. 08/03/18 at 13:00 for Color Flow ECHO. REVIEW OF SYMPTOMS: (Positives bolded) General: weight loss, fever, chills, night sweats, fatigue, appetite loss HEENT: blurry vision, eye pain, eye discharge, dry eyes, decreased vision, sore throat tinnitus, bloody nose, hearin gloss, sinus pain/pressure, ear pain/ pressure. Respiratory: shortness of breath, cough, hemoptysis, wheezing, pleurisy, Cardiovascular: chest pain, PND, palpitation, edema (MINIMAL ACTUALLY NOTED), orthopnea, syncope, swelling of extremities (Reported) Gastro: Nausea, vomiting, diarrhea, hematemesis, abdominal pain, constipation Genito: hematuria, dysuria, glycosuria, hesitancy, frequency, incontinence Musckelo: Arthralgia, myalgia, muscle weakness, joint swelling, NSAID use Skin: rash, pruritis, sores, nail changes, skin thickening, change in wart/mole , itching, Neuro: Migraine, ADHIKARI, numbness, ataxia, tremor, vertigo, weakness, memory loss, Irritability, dizziness Endocrine: excessive thirst, polyuria, cold intolerance, heat intolerance, goiter Psychiatric: depression, anxiety, anti-depressants, alcohol abuse, drug abuse, insomnia, change in sleep pattern and mood changes Heme/lymph: easy bruising, bleeding gums, blood clots, swollen glands, lymphedema, Allergic/immune: allergic rhinitis, hay fever, asthma, hives Objective: Vital Signs - 24 hr 07/25/18 07/25/18 07/25/18 10:00 14:00 18:00 Temperature 98.1 F 98.9 F 98.6 F Pulse Rate 79 78 97 H Respiratory 18 24 20 Rate Blood Pressure 124/81 117/78 131/88 O2 Sat by Pulse 100 99 100 Oximetry 07/25/18 07/25/18 07/26/18 22:00 23:26 02:00 Temperature 98.1 F 97.9 F Pulse Rate 87 95 H 67 Respiratory 20 23 18 Rate Blood Pressure 131/82 134/90 150/87 H O2 Sat by Pulse 93 L 96 100 Oximetry 07/26/18 07/26/18 04:50 07:46 Temperature 97.9 F 97.7 F Pulse Rate 84 96 H Respiratory 21 18 Rate Blood Pressure 127/84 138/83 O2 Sat by Pulse 98 95 Oximetry Glucose Trends 07/25/18 07/25/18 07/26/18 Range/Units 00:30 07:35 05:05 Glucose 263.6 H 399.9 H D 109.0 H D (74-106) mg/dL Constitutional: Appearance-Still w/o acute distress, Appears clinically stable , using O2 2L sats remain >90%. She has no accessory muscle use, she has reported SOA but talked in complete sentences, sat up right, assumed supine position, sat upright again. No obvious SOA. She was able to lay flat for exam without any issues with respiration. Orientation- Oriented x 3, Build and Nutrition-[Under medicare recommendation 23-30 but above 19.] General- Patient is pleasant and cooperative with the interview and exam. Integumentary: General-No rashes, ulcers or lesions. Palpation- Normal skin moisture/turgor. Skin is warm to touch, appropriate. Capillary refill is normal bilateral Upper and lower extremity. Thin. No sacral breakdown. Head/Neck: Head- normocephalic and atraumatic. Neck- without visible/palpable lumps or pulsations. Palpation- No bony tenderness about head/neck along frontal, occipital, temporal, parietal, mastoid, jawline, zygoma, orbit or any other location. NO temporal artery tenderness. No TMJ tenderness. Neck Supple. Thyroid-No thyromegaly, no nodules Eye: Bilaterally PERRLA, EOMI. No discharge. Upper and lower eyelids are normal. Sclera/conjunctiva normal without discharge. Cornea is normal and clear. Lens is normal. Eyeball appears normal. No ciliary flushing, no conjunctival injection. ENMT: Pinna- normal without tenderness or erythema. External auditory canal Left- normal without erythema or discharge, no excessive cerumen. External auditory canal Right-normal without erythema or discharge, no excessive cerumen. TM left- Eldridge/pearly, normal light reflex and anatomy TM Right- [place]ridge/ pearly, normal light reflex and anatomy Hearing Assessment-normal to conversational speech. Nose and sinus- No sinus tenderness along frontal/ maxillary region. External appearance normal and midline. Nares- bilateral quiet airflow, no discharge. Nasal mucosa- No bleeding noted and no ulcerations observed. [place], moist. Turbinates boggy, erythematous. Lips- normal color, moist without cracks/lesions Oral Cavity/Palate- hard/soft palate intact without lesions, oral mucosa pink and moist. Tongue normal midline. Oropharynx - no pharyngeal erythema, Uvula midline. No post nasal drip. No exudate. Salivary glands- Non tender to palpation CHEST/LUNG: Inspection- Normal effort, no distress, no use of accessory muscles. Breathing calmly, talking in full sentences. Palpation- nontender sternum, ribline. No abnormal pulsations. Auscultation- Breath sounds diminished throughout all lung ahn. Coarse/decreased tracheal sounds, bronchial sounds overlying sternum, Bronchovessicular sounds between scapulae posteriorly, and vessicular breath sounds heard throughout periphery. Lungs w/ diminished soundsAdventitious sounds- Scattered wheezes, bibasilar rales, Scattered rhonchi. I:E 1:1 and stable. CARDIOVASCULAR: Carotid artery- normal, no bruits or abnormal pulsations. Jugular vein- no pulsations. Palpation/Percussion- PMI displaced inferolateral towards left. no palpable thrill Auscultation- Irregular rate and rhythm. murmur noted in sitting and supine positions. III/ 2nd inttercostal space with radiation into the carotid and into the back actually. ?auscultation axilla. Extremities- digital clubbing, no cyanosis, no edema at present, no increased warmth. No e/o DVT. NO peripheral edema bilateral LE. ABDOMEN: Inspection- normal and no visible pulsations. Normal contour. Auscultation- Bowel sounds normal, no abdominal bruits. Palpation/Percussion- soft, non-tender, no rebound tenderness, no rigidity (guarding), no jar tenderness, no masses. Liver-no hepatomegaly, Spleen no splenomegaly, Hernias - none. Rectal not examined. Peripheral Vascular: Upper extremity Left- Normal temperature with pink nailbeds and no ulcerations. Upper extremity Right- Normal temperature with pink nailbeds and no ulcerations. Lower extremity- Normal temperature with pink nailbeds and no ulcerations. DP pulses 1+ bilaterally. Pedal hair reduced hemosiderin staining. Normal capillary refill. Edema- No edema. Chronic foot changes, chronic callus bilateral heel, bilateral ball of foot digit 1 MTP. Bunions, Cavus foot type. Decreased cap refill. No edema present. Musculoskeletal: Generalized-No generalized swelling or edema of extremities, no digital clubbing or cyanosis, neurovascularly intact all four extremities. Upper extremity- Symmetrical posture. No visible deformity. Normal sensation along medial and lateral upper extremity proximally and distally. NO tenderness overlying shoulder, lateral/medial epicondyle. Fur Polisher 5/5 and strength 5/5 bilateral UE. Elbow palpated, no tenderness overlying olecranon. Normal supination, pronation to active/passive ROM and to resisted rotation. Bicep insertion/tricep insertion appear normal without obvious pathology. Rotator cuff evaluated and intact. Normal wrist ROM bilaterally. Normal hand movement, intrinsic muscles of hands normal. No tenderness to palpation of hands/wrists/ elbows. Lower extremity- Hip: Not tender to palpation, no pain, no swelling, edema or erythema of surrounding tissue, normal strength and tone. Normal appearing hip ROM bilaterally without pain. Knee: Knee ROM normal. No tenderness overlying trochanters, no tenderness about patella, quad tendon, patellar tendon. No tenderness at tibial tuberosity. Spine/Ribs- No deformities visible. Tenderness bilateral thoracic and lumbar paraspinal muscles. Thinning generally. Quad/Hamstring thin. Calves symmetrical. No edema. Homans negative. no known fractures, normal strength, Normal ROM. Normal stability No tenderness along C/T/L spine. Normal appearing ROM about spine. Neurological: General- Moves all 4 extremities symmetrically. Symmetrical face and body posture. Cranial nerves- individually evaluated II-XII and intact. PERRLA, Normal EOMI, visual/special senses appear intact, Face is symmetrical and normal sensation/movement, normal tongue, normal strength/posture of neck musculature. Reflexes- intact with DTR 2+ patellar, Achilles, bicep, brachial, tricep. Strength- 5/5 bilateral UE and LE. Soft touch- intact bilateral UE and LE. Temperature sensation- intact bilateral UE and LE. Neuropsych: Oriented- Person, place, time. (AAOx3), Mood/affect- normal and congruent. Able to articulate well. Speech-Normal speech, normal rate, normal tone, normal use of language, volume and coherence. Thought content- normal with ability to perform basic computations and apply abstract thought/reason. Associations- intact, no SI/HI, no hallucinations, delusions, obsessions. Judgment/insight- Appropriate. Memory-Recall intact, remote and recent memory intact. Knowledge- Age appropriate fund of knowledge, concentration and attention span normal. Lymphatic: Head/Neck- normal size and non tender to palpation. Axillary- normal size and non tender to palpation. Femoral and Inguinal- normal size and non tender to palpation. Laboratory Last Values WBC 11.57 K/ul (4.6-10.2) H 07/26/18 05:05 RBC 3.66 10^6/ul (4.20-5.40) L 07/26/18 05:05 Hgb 8.7 g/dl (12.0-16.0) L 07/26/18 05:05 Hct 28.1 % (37.0-47.0) L 07/26/18 05:05 MCV 76.8 fl (81.0-99.0) L 07/26/18 05:05 MCH 23.8 pg (27.0-31.0) L 07/26/18 05:05 MCHC 31.0 (31.8-35.4) L 07/26/18 05:05 RDW Coeff of Kalani 16.3 % (11.6-14.8) H 07/26/18 05:05 Plt Count 234 10^3/uL (140-440) 07/26/18 05:05 Immature Gran % (Auto) 0.7 % (0.0-5.0) 07/26/18 05:05 Neut % (Auto) 72.0 07/26/18 05:05 Lymph % (Auto) 19.5 (10.0-50.0) 07/26/18 05:05 Twiggs % (Auto) 7.2 (0-10) 07/26/18 05:05 Eos % (Auto) 0.2 % (0.0-7.0) 07/26/18 05:05 Baso % (Auto) 0.4 % (0.0-3.0) 07/26/18 05:05 Immature Gran # (Auto) 0.1 (0.0-1.0) 07/26/18 05:05 Neut # (Auto) 8.3 K/ul (2.0-6.9) H 07/26/18 05:05 Lymph # (Auto) 2.3 K/uL (0.60-3.4) 07/26/18 05:05 Twiggs # (Auto) 0.8 K/uL (0.4-2.0) 07/26/18 05:05 Eos # (Auto) 0.0 K/ul (0.0-0.7) 07/26/18 05:05 Baso # (Auto) 0.1 K/uL (0-0.2) 07/26/18 05:05 PT 17.5 SEC (9.3-11.0) H 07/26/18 05:05 INR 1.78 SI (0.0-3.9) 07/26/18 05:05 Puncture Site Rb 07/25/18 00:16 O2 Saturation 84.0 % (95-100) L 07/25/18 00:16 ABG pH 7.362 (7.35-7.45) 07/25/18 00:16 ABG pCO2 56.8 mmHg (35-45) H 07/25/18 00:16 ABG pO2 52.0 mmHg (85-100) L* 07/25/18 00:16 ABG HCO3 32.3 (22.0-26.0) H 07/25/18 00:16 ABG Total CO2 34 (22.0-28.0) H 07/25/18 00:16 ABG Base Excess 7 (-2.0-2.0) H 07/25/18 00:16 Winston Test + 07/25/18 00:16 FiO2 % 21.0 % 07/25/18 00:16 Sodium 134.3 mmol/L (134.5-145) L 07/26/18 05:05 Potassium 3.65 mmol/L (3.5-5.1) 07/26/18 05:05 Chloride 93.9 mmol/L (98-107) L 07/26/18 05:05 Carbon Dioxide 34.0 mmol/L (22-30.0) H 07/26/18 05:05 Anion Gap 10.05 07/26/18 05:05 BUN 36.3 mg/dL (7-17) H 07/26/18 05:05 Creatinine 1.12 mg/dL (0.60-1.30) 07/26/18 05:05 Estimated GFR (MDRD) 48.00 mL/min 07/26/18 05:05 BUN/Creatinine Ratio 32.41 07/26/18 05:05 Glucose 109.0 mg/dL (74-106) H D 07/26/18 05:05 Hemoglobin A1c 9.48 (4.0-6.0) H 07/25/18 00:30 Lactic Acid 1.10 mmol/L (0.7-2.1) 07/25/18 07:35 Calcium 9.06 mg/dL (8.4-10.2) 07/26/18 05:05 Iron 32.7 ug/dL (37-170) L 07/25/18 07:35 TIBC 537 ug/dL (261-497) H 07/25/18 07:35 % Saturation 6 % 07/25/18 07:35 Ferritin 14.00 ng/mL (11.1-264.0) 07/25/18 07:35 Total Bilirubin 0.28 mg/dL (0.2-1.3) 07/26/18 05:05 AST 20.5 U/L (14-36) 07/26/18 05:05 ALT 11.4 U/L (0-35) 07/26/18 05:05 Alkaline Phosphatase 70.0 U/L (53-141) D 07/26/18 05:05 NT-Pro-B Natriuret Pep 3900.000 pg/mL (0-124) H 07/25/18 00:30 Total Protein 6.67 g/dL (6.3-8.2) 07/26/18 05:05 Albumin 3.47 g/dL (3.5-5.0) L 07/26/18 05:05 Globulin 3.20 07/26/18 05:05 Albumin/Globulin Ratio 1.08 07/26/18 05:05 Procalcitonin < 0.05 ng/mL (0.09) 07/25/18 00:30 TSH 6.380 uIU/L (0.465-4.68) H 07/25/18 00:30 Influ A Molecular Assay Negative by naat (NEGATIVE) 07/25/18 01:10 Influ B Molecular Assay Negative by naat (NEGATIVE) 07/25/18 01:10 H/H Trends 07/25/18 07/25/18 07/26/18 Range/Units 00:30 07:35 05:05 Hgb 9.9 L 10.1 L 8.7 L (12.0-16.0) g/dl Hct 33.4 L 34.0 L 28.1 L (37.0-47.0) % Echo completed and fixed posterior mitral leaflet-thickened anterior mitral leaflet- no stenosis. Prosthetic valve leaflets separation 9mm mild to moderate , LVH wnnlarged left atrial avity. Hypokinetic septum w/ left ventricular EF 40%. (1) ARF (acute respiratory failure) Status: Resolved Code(s): J96.00 - ACUTE RESPIRATORY FAILURE, UNSP W HYPOXIA OR HYPERCAPNIA SNOMED Code(s): 60043679 (2) COPD exacerbation Status: Resolved Code(s): J44.1 - CHRONIC OBSTRUCTIVE PULMONARY DISEASE W ( ACUTE) EXACERBATION SNOMED Code(s): 837806293 (3) CHF (congestive heart failure) Status: Chronic Code(s): I50.9 - HEART FAILURE, UNSPECIFIED SNOMED Code(s): 13792051 (4) Anemia Status: Chronic Code(s): D64.9 - ANEMIA, UNSPECIFIED SNOMED Code(s): 396297010 (5) Subtherapeutic anticoagulation Status: Acute Code(s): Z51.81 - ENCOUNTER FOR THERAPEUTIC DRUG LEVEL MONITORING; Z79.01 - [facility] (CURRENT) USE OF ANTICOAGULANTS SNOMED Code(s) : 88199669 (6) Warfarin administered during hospital stay Status: Acute Code(s): AEF6154 - SNOMED Code(s): 582161266 (7) Uncontrolled diabetes mellitus Status: Chronic Code(s): E11.9 - TYPE 2 DIABETES MELLITUS WITHOUT COMPLICATIONS SNOMED Code(s): 284815882 (8) TRICE (acute kidney injury) Status: Acute Code(s): N17.9 - ACUTE KIDNEY FAILURE, UNSPECIFIED SNOMED Code (s): 51863844 Plan: ARF (acute respiratory failure) (Acute)/COPD (chronic obstructive pulmonary disease): On aztreonam, steroids to be held. She appears to be at baseline stable. Abx Day 2. Will use abx in hospital and d/c home w/o abx. Allergy to cephalosporin x 2 (rocephin and cefuroxime) and doxy. I do not want to use levaquin if avoidable. No fever. No e/o sepsis. Continue to remain inpatient. Suspect d/c home tomorrow if INR >2.0 and she remains unchanged. I will have them do a o2 eval beofre d/c to see if she needs O2 during day. Normally on O2 at night. - Hospital Day 2, continue Admit inpatient status - Duoneb QID - Albuterol in between Q 2 hours - Daily weight - I+O Q shift - Telemetry - ADA diet 1800 kcal DM2 Uncontrolled retirement insulin: 25 units of lantus today. Accucheck q 6 hours and SSI with each accucheck. - Accucheck q 6 hours - Sliding scale - Lantus 25 units today. - Stop steroids. Anemia (Chronic): Microcytic. Iron/Ferritin/TIBC ordered and returned low iron, low ferritin, High TIBC. Venofer ordered for today. Repeat CBC today, tomorrow. Venofer tomorrow and then again in 24 hours for round of 3. F/U with PCP in 1 week to decide if she needs more. Sometimes people require ~5 doses. 3 doses can often work as well. - CBC 07/27/18. - Venofer CHF (congestive heart failure) (Chronic): 12/2017 EF 37%. Echo in hospital 40% . Needs color echo which has been scheduled - Color Flow Echocardiogram 08/03/18 at 13:00 for Color Flow ECHO. - Mild to moderate Subtherapeutic anticoagulation (Acute)/Warfarin administered during hospital stay (Acute): Currently on 5 mg daily. Lovenox until >2.0. Goal 2.5-3.5 based on bovine valve. Gastroparesis: Chronic, continue reglan. 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 Outpatient w/u and f/u needed. - Likely will not tolerate oral iron. - Venofer for iron deficiency - Hemoccult. Heavy Tobacco User: Prolonged tobacco use. Cessation again encouraged. - Nicoderm 14mg patch while in hospital. New problem today: TRICE. GFR dropped to 48. renal function has worsened. I will add maintenance fluids 90ml/kg/hour plus 10 of K+. -CMP in am - CBC in am - Daily Weight - Fluid hydrate as listed. Code Status: Full DVT Prophy: LOVENOX 40mg subcut as she is currently markedly subtherapeutic on coumadin. Activity: Up with assist. Disposition: Expected length of stay 24 more hours. HD #2 today. ABX day #2 today. Hold steroids as sugars are rapidly advancing. Accucheck q 4-6 hours with sliding scale. We will treat w/ abx while in hospital. Breathing is stable. She appears to be at baseline. ARF resolved. Mildly/bordeline low K replaced w/ IV fluids at just under maintenance at 90 ml/hour. Weight appears to be stable today. No weight gain. Monitor CBC/CMP tomorrow. A1C was out of control. Doing well on insulin 25 units lantus and SSI. Discussed role of HTN control, vaccination, smoking cessation. Discussed her heart valve, her anticoag , her diet in relation to the anticoag. In total this am I spent >35 minutes with patient. Still full code. NO edema.
[2018-07-26] MEDS: SYMBICORT 160-4.5 MCG INHALER IH SCH (09:06)
[2018-07-26] MEDS: AZACTAM 1 GM in SODIUM CHLORIDE 50 ML IV SCH ×2 (09:58→22:08)
[2018-07-26] MEDS: POTASSIUM CHLORIDE 10 MEQ VIAL 10 MEQ in SODIUM CHLORIDE 1,000 ML IV SCH ×2 (09:58→23:34)
[2018-07-26] MEDS: HUMULIN R SUBCUT PRN ×3 (11:47→22:16)
[2018-07-26] MEDS: COUMADIN PO SCH (16:47)
[2018-07-26] MEDS: ZANAFLEX PO PRN ×2 (16:49→22:16)
[2018-07-26] MEDS: TOPAMAX PO SCH (22:09)
[2018-07-26] MEDS: EFFEXOR XR PO SCH (22:09)
[2018-07-26] MEDS: LIPITOR PO SCH (22:09)
[2018-07-26] MEDS: REQUIP PO SCH (22:10)
[2018-07-27] MEDS: DUONEB NEB SCH ×3 (04:20→17:51)
[2018-07-27] MEDS: TYLENOL PO PRN (04:50)
[2018-07-27] MEDS: LASIX TAB PO SCH (05:47)
[2018-07-27] MEDS: SYNTHROID PO SCH ×2 (05:48)
[2018-07-27] MEDS: PROTONIX PO SCH (05:48)
[2018-07-27] MEDS: ZANAFLEX PO PRN (05:52)
--- NOTE | 2018-07-27 07:16 | PCM.PROG ---
Subjective: 67 yo CF Hospital day 3 w/ history of afib (a paced on tele), CAD, CHF, COPD O2 dependent, Heavy Tobacco user, Hypothyroidism (recent dose changes to meds, elevated TSH above goal of 1.0-3.0), RLS, DM2 uncontrolled insulin dependent, OA , DVT x2 historically, chronically anticoagulated with coumadin, suptherapeutic INR (ran out of meds), bovine aortic valve now with concern for aortic stenosis of valve presented to hospital in ARF, DM uncontrolled, INR subtherapeutic. ARF appears to have resolved w/nebs and O2 she is at baseline. Talked w/ overnight and am nurses and patient again had another reasonable night. Still C/ O body aches, spasms, but no chest pain last night. BG have been reasonable with last 24 109/201/240/178/74/184/135. She received 25 units lantus yesterday. When we d/c her home (likely today) we will have her increase her levemir to 25 units daily and f/u w/ PCP to discuss further. I do not like SSI but she has done this for many years. Today is abx day 3. Since she remains afebrile throughout the entire stay, there has not been any elevation of procalcitonin or s/sx of sepsis at this time I will stop abx at d/c. Uout has been good 0.87, 0.93 and 0.73ml/kg/hr over last 3 24 hour periods. Tele remains A paced with occasional SR. NO atypical arrhythmias. No furhter chest pain. O2 hovering 95-100 on 2L (home dose). BP stable 125-150/74-87 last 24 hours. She has been consuming 100% of her meals, no BM during this hospital stay. Last nurses notes suggested that she has had some edema in feet/ankles yesterday (not noted on exam). She felt short winded this am and some faint crackles were noted. I will get CXR. I had fluids running yesterday due to mild worsening of renal status but they ran at under maintenance. According to our scale she is actually down weight compared to admit. I will order CXR to assess. IV Venofer given to patient yesterday, tolerated well. Looked at her balance and she may be ~1000ml up from admit in balance. I had them check a weight on patient and she is up to 136 lb today. There is no way that she has gained 10 lb in 24 hours. I evaluated the I+O and she is up maybe 3.2 from water weight. I had her sit at bedside with feet touching ground and got 126 again. I checked into the vitals and it has a set of vitals with my name on them, that I have not collected nor have I inputted. I evaluated am labs today , INR is just under therapeutic level at 1.95. Decrease in WBC, hGb and plt minimally. 11.20, 8.2 and 193 respectively supports dilutional status. I will stop IV fluids. Her CMP is stable, sodium 135, K+ 4.46, cl 97.7, BUN 34.5, Cr 1.10 and glucose 152.1. Creatine improved, BUN improved, GFR improved, INR is nearly therapeutic. I will continue the 5mg coumadin. There is a major discrepancy in vitals. It has weight/height listed with my name as if I have collected them. I talked with nursing, I talked with IT. I cannot explain the duplication of vitals. REVIEW OF SYMPTOMS: (Positives bolded) General: weight loss, fever, chills, night sweats, fatigue, appetite loss HEENT: blurry vision, eye pain, eye discharge, dry eyes, decreased vision, sore throat tinnitus, bloody nose, hearin gloss, sinus pain/pressure, ear pain/ pressure. Respiratory: shortness of breath, cough, hemoptysis, wheezing, pleurisy, Cardiovascular: chest pain, PND, palpitation, edema, orthopnea, syncope, swelling of extremities (Reported) Gastro: Nausea, vomiting, diarrhea, hematemesis, abdominal pain, constipation Genito: hematuria, dysuria, glycosuria, hesitancy, frequency, incontinence [place]: Arthralgia, myalgia, muscle weakness, joint swelling, NSAID use Skin: rash, pruritis, sores, nail changes, skin thickening, change in wart/mole , itching, Neuro: Migraine, ADHIKARI, numbness, ataxia, tremor, vertigo, weakness, memory loss, Irritability, dizziness (mild) Endocrine: excessive thirst, polyuria, cold intolerance, heat intolerance, goiter Psychiatric: depression, anxiety, anti-depressants, alcohol abuse, drug abuse, insomnia, change in sleep pattern and mood changes Heme/lymph: easy bruising, bleeding gums, blood clots, swollen glands, lymphedema, Allergic/immune: allergic rhinitis, hay fever, asthma, hives Objective: Vital Signs - 24 hr 07/26/18 07/26/18 07/26/18 10:00 13:45 22:00 Temperature 98 F 98.1 F Pulse Rate 80 74 Respiratory 16 24 Rate Blood Pressure 127/81 125/74 O2 Sat by Pulse 92 L 98 97 Oximetry 07/27/18 07/27/18 01:21 05:52 Temperature 97.7 F 98.1 F Pulse Rate 96 H 83 Respiratory 18 20 Rate Blood Pressure 138/83 147/86 H O2 Sat by Pulse 95 100 Oximetry Constitutional: Appearance-Still w/o acute distress, Appears clinically stable , using O2 2L sats remain >90%. Asleep upon entry, easily aroused. She has no accessory muscle use, NO obvious e/o SOA. Talks in complete sentences, Easily sat upright. No obvious SOA. NC in place. She was able to lay flat for exam without any issues with respiration. Orientation- Oriented x 3, Build and Nutrition-[Under medicare recommendation 23-30 but above 19.] General- Patient is pleasant and cooperative with the interview and exam. ENMT: Nasal mucosa- No bleeding noted and no ulcerations observed. [place], moist. Turbinates boggy, erythematous. Lips- normal color, moist without cracks/ lesions Oral Cavity/Palate- hard/soft palate intact without lesions, oral mucosa pink and moist. Tongue normal midline. Oropharynx- no pharyngeal erythema, Uvula midline. No post nasal drip. No exudate. Salivary glands- Non tender to palpation CHEST/LUNG: Inspection- Normal effort, no distress, no use of accessory muscles. Breathing calmly, talking in full sentences. Palpation- nontender sternum, ribline. No abnormal pulsations. Auscultation- Breath sounds diminished throughout all lung ahn. Coarse/decreased tracheal sounds, bronchial sounds overlying sternum, Bronchovessicular sounds between scapulae posteriorly, and vessicular breath sounds heard throughout periphery. Lungs w/ diminished sounds. No Egophany, no whispered pectiroliquy. Adventitious sounds - Scattered wheezes, bibasilar rales no worse than admit, Scattered rhonchi. I: E 1:1 and stable. She seems to be at baseline. CARDIOVASCULAR: Carotid artery- normal, no bruits or abnormal pulsations. Jugular vein- no pulsations. Palpation/Percussion- PMI displaced inferolateral towards left. no palpable thrill Auscultation- Irregular rate and rhythm. murmur noted in sitting and supine positions. III/ 2nd inttercostal space with radiation into the carotid and into the back actually. ?auscultation axilla. Extremities- digital clubbing, no cyanosis, no edema at present, no increased warmth. No e/o DVT. NO peripheral edema bilateral LE. ABDOMEN: Inspection- normal and no visible pulsations. Normal contour. Auscultation- Bowel sounds normal, no abdominal bruits. Palpation/Percussion- soft, non-tender, no rebound tenderness, no rigidity (guarding), no jar tenderness, no masses. Liver-no hepatomegaly, Spleen no splenomegaly, Hernias - none. Rectal not examined. Peripheral Vascular: Upper extremity Left- Normal temperature with pink nailbeds and no ulcerations. Upper extremity Right- Normal temperature with pink nailbeds and no ulcerations. Lower extremity- Normal temperature with pink nailbeds and no ulcerations. DP pulses 1+ bilaterally. Pedal hair reduced hemosiderin staining. Normal capillary refill. Edema- No appreciable edema. Chronic foot changes, chronic callus bilateral heel, bilateral ball of foot digit 1 MTP. Bunions, Cavus foot type. Decreased cap refill. No edema present again on exam. Musculoskeletal: Generalized-No generalized swelling or edema of extremities, no digital clubbing or cyanosis, neurovascularly intact all four extremities. Spine/Ribs- Tenderness bilateral thoracic and lumbar paraspinal muscles. Thinning generally. Quad/Hamstring thin/weakened. Calves symmetrical. No edema. Homans negative. no known fractures, normal strength, Normal ROM. Normal stability No tenderness along C/T/L spine. Normal appearing ROM about spine. Neurological: General- Moves all 4 extremities symmetrically. Symmetrical face and body posture. Cranial nerves- individually evaluated II-XII and intact. PERRLA, Normal EOMI, visual/special senses appear intact, Face is symmetrical and normal sensation/movement, normal tongue, normal strength/posture of neck musculature. Neuropsych: Oriented- Person, place, time. (AAOx3), Mood/affect- normal and congruent. Able to articulate well. Lymphatic: Head/Neck- normal size and non tender to palpation. Laboratory Last Values WBC 11.57 K/ul (4.6-10.2) H 07/26/18 05:05 RBC 3.66 10^6/ul (4.20-5.40) L 07/26/18 05:05 Hgb 8.7 g/dl (12.0-16.0) L 07/26/18 05:05 Hct 28.1 % (37.0-47.0) L 07/26/18 05:05 MCV 76.8 fl (81.0-99.0) L 07/26/18 05:05 MCH 23.8 pg (27.0-31.0) L 07/26/18 05:05 MCHC 31.0 (31.8-35.4) L 07/26/18 05:05 RDW Coeff of Kalani 16.3 % (11.6-14.8) H 07/26/18 05:05 Plt Count 234 10^3/uL (140-440) 07/26/18 05:05 Immature Gran % (Auto) 0.7 % (0.0-5.0) 07/26/18 05:05 Neut % (Auto) 72.0 07/26/18 05:05 Lymph % (Auto) 19.5 (10.0-50.0) 07/26/18 05:05 [place] % (Auto) 7.2 (0-10) 07/26/18 05:05 Eos % (Auto) 0.2 % (0.0-7.0) 07/26/18 05:05 Baso % (Auto) 0.4 % (0.0-3.0) 07/26/18 05:05 Immature Gran # (Auto) 0.1 (0.0-1.0) 07/26/18 05:05 Neut # (Auto) 8.3 K/ul (2.0-6.9) H 07/26/18 05:05 Lymph # (Auto) 2.3 K/uL (0.60-3.4) 07/26/18 05:05 [place] # (Auto) 0.8 K/uL (0.4-2.0) 07/26/18 05:05 Eos # (Auto) 0.0 K/ul (0.0-0.7) 07/26/18 05:05 Baso # (Auto) 0.1 K/uL (0-0.2) 07/26/18 05:05 PT 17.5 SEC (9.3-11.0) H 07/26/18 05:05 INR 1.78 SI (0.0-3.9) 07/26/18 05:05 Puncture Site Rb 07/25/18 00:16 O2 Saturation 84.0 % (95-100) L 07/25/18 00:16 ABG pH 7.362 (7.35-7.45) 07/25/18 00:16 ABG pCO2 56.8 mmHg (35-45) H 07/25/18 00:16 ABG pO2 52.0 mmHg (85-100) L* 07/25/18 00:16 ABG HCO3 32.3 (22.0-26.0) H 07/25/18 00:16 ABG Total CO2 34 (22.0-28.0) H 07/25/18 00:16 ABG Base Excess 7 (-2.0-2.0) H 07/25/18 00:16 [place] Test + 07/25/18 00:16 FiO2 % 21.0 % 07/25/18 00:16 Sodium 134.3 mmol/L (134.5-145) L 07/26/18 05:05 Potassium 3.65 mmol/L (3.5-5.1) 07/26/18 05:05 Chloride 93.9 mmol/L (98-107) L 07/26/18 05:05 Carbon Dioxide 34.0 mmol/L (22-30.0) H 07/26/18 05:05 Anion Gap 10.05 07/26/18 05:05 BUN 36.3 mg/dL (7-17) H 07/26/18 05:05 Creatinine 1.12 mg/dL (0.60-1.30) 07/26/18 05:05 Estimated GFR (MDRD) 48.00 mL/min 07/26/18 05:05 BUN/Creatinine Ratio 32.41 07/26/18 05:05 Glucose 109.0 mg/dL (74-106) H D 07/26/18 05:05 Hemoglobin A1c 9.48 (4.0-6.0) H 07/25/18 00:30 Lactic Acid 1.10 mmol/L (0.7-2.1) 07/25/18 07:35 Calcium 9.06 mg/dL (8.4-10.2) 07/26/18 05:05 Iron 32.7 ug/dL (37-170) L 07/25/18 07:35 TIBC 537 ug/dL (261-497) H 07/25/18 07:35 % Saturation 6 % 07/25/18 07:35 Ferritin 14.00 ng/mL (11.1-264.0) 07/25/18 07:35 Total Bilirubin 0.28 mg/dL (0.2-1.3) 07/26/18 05:05 AST 20.5 U/L (14-36) 07/26/18 05:05 ALT 11.4 U/L (0-35) 07/26/18 05:05 Alkaline Phosphatase 70.0 U/L (53-141) D 07/26/18 05:05 NT-Pro-B Natriuret Pep 3900.000 pg/mL (0-124) H 07/25/18 00:30 Total Protein 6.67 g/dL (6.3-8.2) 07/26/18 05:05 Albumin 3.47 g/dL (3.5-5.0) L 07/26/18 05:05 Globulin 3.20 07/26/18 05:05 Albumin/Globulin Ratio 1.08 07/26/18 05:05 Procalcitonin < 0.05 ng/mL (0.09) 07/25/18 00:30 TSH 6.380 uIU/L (0.465-4.68) H 07/25/18 00:30 Influ A Molecular Assay Negative by naat (NEGATIVE) 07/25/18 01:10 Influ B Molecular Assay Negative by naat (NEGATIVE) 07/25/18 01:10 H/H Trends 07/25/18 07/25/18 07/26/18 Range/Units 00:30 07:35 05:05 Hgb 9.9 L 10.1 L 8.7 L (12.0-16.0) g/dl Hct 33.4 L 34.0 L 28.1 L (37.0-47.0) % (1) ARF (acute respiratory failure) Status: Resolved Code(s): J96.00 - ACUTE RESPIRATORY FAILURE, UNSP W HYPOXIA OR HYPERCAPNIA SNOMED Code(s): 39472158 (2) COPD exacerbation Status: Resolved Code(s): J44.1 - CHRONIC OBSTRUCTIVE PULMONARY DISEASE W ( ACUTE) EXACERBATION SNOMED Code(s): 101090203 (3) CHF (congestive heart failure) Status: Chronic Code(s): I50.9 - HEART FAILURE, UNSPECIFIED SNOMED Code(s): 71608123 (4) Anemia Status: Chronic Code(s): D64.9 - ANEMIA, UNSPECIFIED SNOMED Code(s): 741765607 (5) Subtherapeutic anticoagulation Status: Acute Code(s): Z51.81 - ENCOUNTER FOR THERAPEUTIC DRUG LEVEL MONITORING; Z79.01 - GRAIN 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 CXR today showed possible right LL pneuomnia. However, she appears to be at baseline/stable. Abx Day 3. Will use abx in hospital and d/c home now with 5 days levaquin. INR tomorrow and then q [address] orders for q 48 hours. Allergy to cephalosporin x 2 ( rocephin and cefuroxime) and doxy. She noted only thing that works for her is levaquin and has no issues with the rx. No fever. No e/o sepsis. Plan D/C today. INR is not yet to 2.0 and she remains unchanged. Lovenox given today. D/ c for INR tomorrow. If remains <2.0 will address. - Hospital Day 3, plan D/C today. - Duoneb QID/- Albuterol in between Q 2 hours while in hospital. - Daily weight (ABNL). - I+O Q shift - Telemetry - ADA diet 1800 kcal - Levaquin 750 QOD x 5 doses. CrCl 48 calculated [place]. 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 Accucheck q 6 hours and SSI with each accucheck. D/C home on levemir 25 units. Anemia (Chronic): Microcytic. Iron/Ferritin/TIBC ordered and returned low iron, low ferritin, High TIBC. Venofer ordered for today. Return tomorrow for venofer. CBC in 72 hours. CMP in 72 hours. CHF (congestive heart failure) (Chronic): 12/2017 EF 37%. Echo in hospital 40% . Needs color echo which has been scheduled - Color Flow Echocardiogram 08/03/18 at 13:00 for Color Flow ECHO. - Mild to moderate Subtherapeutic anticoagulation (Acute)/Warfarin administered during hospital stay (Acute): Currently on 5 mg daily. Lovenox until >2.0. Goal 2.5-3.5 based on bovine valve. Because of valvular nature, Other oral anticoag not indicated. R/B/A to anticoag d/w patient. She is aware of risks of taking it to include excess bleeding and and not taking it to include stroke, [place], DVT, PE. Gastroparesis: Chronic, continue reglan. 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 Outpatient w/u and f/u needed. - Likely will not tolerate oral iron. - Venofer for iron deficiency - Hemoccult. Heavy Tobacco User: Prolonged tobacco use. Cessation again encouraged. - Nicoderm 14mg patch while in hospital. New problem today: TRICE. GFR dropped to 48 improved overnight. I will add maintenance fluids 90ml/kg/hour plus 10 of K+. -CMP in am - CBC in am - Daily Weight - Fluid hydrate as listed. Code Status: Full DVT Prophy: LOVENOX 40mg subcut as she remains subtherapeutic on coumadin. D/C lovenox at d/c home. Activity: Up with assist. Disposition: Plan D/C today. We spent 35 minutes discussing her insulin and sugars, as well as new CXR and labs. She is not ye therapeutic on her coumadin. I will repeat tomorrow then q 48 hours while on levaquin. Suspect therapeutic tomorrow. We will repeat CBC in 72 hours, CMP in 72 hours. She has appt with cardiology 08/01/18 already scheduled. We will fax copies of d/C summary and the echo. WE have scheduled her 08/03/18 for color flow. She had chest pain x 1. Perfect to talk with cardiology. Continue to use oxygen. For now overnight is still likely necessary. Home health at this point likely not helpful. Will plan d/c for her. Addendum: Patient seen at 12:15 today and was doing better, preparing to go home. She has been improving, we talked about QOD levaquin 500 to start tomorrow. The patient was agreeable to plan. INR in 24 hours then q 48h ours while on abx and then weekly until stable. F/U with PCP Dr. Robin. I received phone call from SCU 2 14:12 PM noted that the patient BP was 76/52 and she was not feeling well. I reviewed her vitals, telemetry, Glucose was 152. Lowest BP since admission was 125 SBP except now, right before d/c home. Nurse noted patient was rummaging around her purse. There is concern that she may have taken something. I talked with patient at 14:25 and asked if she took something , a pill, anything. I asked if she felt weird before hand. She noted she has nothing, "what would I take?" I asked what about a pain pill? What about anxiety meds? She said no, "that she did not take nothing." I asked why would she all of a sudden drop BP as we were planning d/c when she has been completely fine regarding BP entire admission. She stated she did not take anything and why would she? All she had in purse was nitro. I asked if she took that nitro and she said no. We have her in trendelenburg and we will monitor BP. UDS now. Glucose fine. NO e/o stroke, re-examined patient and she has no droop, normal CN normal contact lens blocker, normal strength. Pupils are large, responsive to light. She is angry that I questioned her about taking something. She talked in full sentences, no c/o chest pain. Very odd for the symptoms to happen all of a sudden at time of d/c. Addendum 16:35: Nurse Gilma present. UDS returned benzo + opiate +. Med list reviewed no listed benzos. I asked if she had taken xanax "NO", klonopin "NO", Valium "NO" Librium "Whats that?" "Yes, i took one." Are you prescribed that " NO, I TOOK ONE OF my friends librium." She noted 3-4 weeks ago, then corrected 1.5 weeks ago and then more than 1 week ago at least, but just one. I asked why her Bp dropped now that she was planning d/c. She said "I didn't take nothin." She was mad at me, upset with me. " I have not used librium in more than a few weeks." She was aware that this was illegal, taking someone elses meds but then swore that she has not taken this in a while. "I am not no druggy." I discussed I never said that. I told her that her actions are not honest, that she took illegal medications that were not hers and that the consequences could be problematic. That is the reason I asked earlier if she took something. It is odd for her BP to drop conveniently as we are planning d/ c when she has not had any issues entire hospital stay. Also odd for her now to mention that she thinks its the BP med, it should be cut in half (benazapril) . I noted that she has had that the entire time, she has had no new meds, we have not given any benzodiazepines in hospital. I asked what she took as there was a report that she was rummaging in bag before the BP dropped. "That has happened before!" She started crying, stating that she is not a druggy. The patient noted it was only 1 pill and that she did not like that I made her feel like a drug addict. I noted I never suspected anything, nor questioned her until I saw that she had a Low BP event just before planning D/C. I discussed that she made an unsafe, dishonest choice, has not been open about it. She has had librium > 1 week ago, it is possible that the urine could be detecting the librium from that point (1-6 weeks) but less likely based on her sudden onset of symptoms. I suspect she is using this more freq than she is letting on. She did not readily admit to this. "NOBODY KNOWS WHAT IT IS LIKE TO BE IN PAIN." "MY BP has done this before." I again stated it is odd that it happened just before the d/c and did not happen at all during hospital stay. The patient is not being honest. She mentioned pain multiple times during conversation. I noted it was illegal to use meds that do not get Rx to you, she was aware. " What else could I have taken to cause this." I said what else did you take? She noted nothing, stop accusing me of taking drugs. I stated that she just asked me a leading question about drugs that she may have taken, so I noted it was easier just to tell me what you think you took and I will say yes or no. The meds she has on med list will not cause that result. "I just want to go home." Bp rechecked and stable. 110-140. She did get worked up after I asked her about this. It was not with position changes it was after rummaging in purse. Very odd timing. Confirmation drug screen sent.
[2018-07-27] MEDS: POTASSIUM CHLORIDE 10 MEQ VIAL 10 MEQ in SODIUM CHLORIDE 1,000 ML IV SCH (09:30)
[2018-07-27] MEDS: NEURONTIN PO SCH ×2 (10:05→15:36)
[2018-07-27] MEDS: LOTENSIN PO SCH (10:05)
[2018-07-27] MEDS: LANTUS SUBCUT SCH (10:06)
[2018-07-27] MEDS: MUCINEX PO SCH (10:06)
[2018-07-27] MEDS: PERCOCET 5-325 PO SCH (10:06)
[2018-07-27] MEDS: HUMULIN R SUBCUT PRN ×2 (10:08→11:26)
[2018-07-27] MEDS: BETAPACE PO SCH (10:09)
[2018-07-27] MEDS: NICODERM 14 MG TD SCH (10:09)
[2018-07-27] MEDS: AZACTAM 1 GM in SODIUM CHLORIDE 50 ML IV SCH (10:10)
[2018-07-27] MEDS: SYMBICORT 160-4.5 MCG INHALER IH SCH (10:11)
[2018-07-27] MEDS ORDERED: VENOFER 200 MG in SODIUM CHLORIDE 100 ML IV ONE (10:13)
--- NOTE | 2018-07-27 11:22 | DI ---
EXAM: CHEST FRONTAL AND LATERAL VIEWS HISTORY: Crackles, shortness of breath. COMPARISON: 07/17/2017 FINDINGS: Stable mild cardiomegaly and changes of previous cardiac surgery. Left-sided pacemaker un it in stable. There is diffuse, chronic appearing interstitial accentuation. Mild infiltrate in the right base is suggested. Lungs are otherwise grossly clear. No vascular congestion or pneumothorax . Trace right pleural effusion. IMPRESSION: 1. Mild infiltrate in the right base with a small pleural effusion. Consider pneumonia.
[2018-07-27 14:35] VITALS: TEMP 97.5
[2018-07-27 17:37] VITALS: BP 147/86
--- NOTE | 2018-07-27 18:15 | PCM.DC ---
Final Diagnosis: 1. COPD Exacerbation (Acute) with possible pneumonia: D/C with levaquin 500 QOD. Aware of intereaction with sotalol. Patient noted she has been on them together and did just fine. 2. Subtherapeutic anticoagulation (Acute): No coumadin 2-3 weeks, just resumed it in few days prior to admit. 3. Warfarin administered during hospital stay (Acute): INR 1.9 at d/c. Repeat INR. Order given. Lovenox during hospital stay as well. 4. Anemia (Chronic): Low Iron, Low ferritin, High TIBC. Venofer #2 doses given to her. With gastroparesis cannot tolerate oral iron. - Outpatient Rx for Venofer given to patient to complete 3 more admin in next 10 days. 5. CHF (congestive heart failure) (Chronic): EF 40%. E/O Aortic stenosis of bovine valve. She needs to have color flow echo. Scheduled for 08/03/[address] [facility]. 6. Uncontrolled diabetes mellitus (Chronic): She did not want insulin to be changed, I told her I did not trust the home insulin so we would not be using her home doses of levemir. D/C home on 25 units. Prolonged history of Diabetes. No history of meeting with endocrinology. Discussed pneumonia vaccine at admit due to tobacco. She did not remember if she had that, will check with PCP. A1C 9.48 checked as no known A1C within 30 days. She was on her sliding scale insulin and she was given ~3-4 units with each correction yesterday, when on more of the basal. Needs close f/u. 7. Chronic Opiate Use (Chronic): F/U w/ PCP. 8. Benzodiazepine abuse (Acute): Patient admitted to taking someone elses 9 Hypotensive event just prior to d/c (Acute): BP corrected. UDS + for benzo, Accucheck reported 152. No neuro symptoms, no CP, she denies taking anything, UDS + benzo, when asked defensive angry and pleading. "You don't know the degree of pain im in" She was rationalizing her poor decision. This was just prior to d/c. Watched for 3.5-4 hours, not on fluids, she felt more steady. 10. TRICE: (Acute)Mild bump in Cr and decrease in GFR. Monitoring. 11. Gastroparesis: Chronic, stable. 12. Hypothyroid: Elevated TSH above goal 1-3. She has had increased levothyroxin recently and it is too soon to make changes. 13. NONCOMPLIANCE: Missed meds quite a bit recently. Discussed need to take regularly. (1) ARF (acute respiratory failure) Status: Resolved Code(s): J96.00 - ACUTE RESPIRATORY FAILURE, UNSP W HYPOXIA OR HYPERCAPNIA SNOMED Code(s): 99581603 (2) COPD exacerbation Status: Resolved Code(s): J44.1 - CHRONIC OBSTRUCTIVE PULMONARY DISEASE W ( ACUTE) EXACERBATION SNOMED Code(s): 592096938 (3) CHF (congestive heart failure) Status: Chronic Code(s): I50.9 - HEART FAILURE, UNSPECIFIED SNOMED Code(s): 95483160 (4) Anemia Status: Chronic Code(s): D64.9 - ANEMIA, UNSPECIFIED SNOMED Code(s): 654822479 (5) Subtherapeutic anticoagulation Status: Acute Code(s): Z51.81 - ENCOUNTER FOR THERAPEUTIC DRUG LEVEL MONITORING; Z79.01 - RETIREMENT (CURRENT) USE OF ANTICOAGULANTS SNOMED Code(s) : 30814359 (6) Warfarin administered during hospital stay Status: Acute Code(s): BNT7224 - SNOMED Code(s): 052288408 (7) Uncontrolled diabetes mellitus Status: Chronic Code(s): E11.9 - TYPE 2 DIABETES MELLITUS WITHOUT COMPLICATIONS SNOMED Code(s): 193994088, 226806712 Reason for Hospitalization: ARF, SOA, concern for COPD Exacerbation. Prognosis at Discharge: ARF resolved, COPD exacerbation possible. Suspect that this may actually relate to iron deficiency anemia, CHF, bovine aortic valve with stenosis. ? Pneumonia at discharge, she was on aztreonam during hospital stay. Changed to levaquin at discharge QOD based on CrCl 48 based on [place]. Condition at Discharge: Improved/Stable. She did have a moment of hypotension when she found out about d/c that was concerning. Nursing noted that she was rummaging in purse and then she felt tired/groggy and BP was noted to be low. She was placed into [place]. I questioned if she took any substances, she got angry. She then acknowledged using someone elses librium recently. We monitored her progress. She wanted to go home, no s/sx of stroke, no CP, denied taking anything. UDS + for benzo (could be 1-6 weeks if librium). DIscussed not taking other peoples meds. She was stable for home, BP back to normal. There was some discrepancy in weight. Weight at admit appears to have been collected incorrectly. Patient does not know her weight. Medications at Discharge: Ambulatory Orders Medication Instructions Recorded Albuterol Sulfate [Albuterol 2 puff IH QID PRN 02/13/14 Sulfate Hfa] Atorvastatin Calcium [Lipitor] 40 mg PO BEDTIME 02/13/14 Benazepril HCl [Lotensin] 20 mg PO DAILY 02/13/14 Esomeprazole Magnesium [Nexium] 40 mg PO BID 02/13/14 Furosemide [Lasix] 40 mg PO DAILY 02/13/14 Promethazine HCl [Phenergan Tab] 25 mg PO Q6H PRN 02/13/14 Ropinirole HCl [Requip] 2 mg PO BEDTIME 02/13/14 Sotalol HCl [Sotalol] 80 mg PO BID 02/13/14 Topiramate [Topamax] 50 mg PO BEDTIME 02/13/14 Venlafaxine HCl [Effexor Xr] 150 mg PO BEDTIME 07/04/14 Budesonide/Formoterol Fumarate 2 puff IH DAILY 05/28/15 [Symbicort 160-4.5 Mcg Inhaler] Tizanidine HCl [Zanaflex] 4 mg PO TID PRN 05/28/15 Insulin Lispro [Humalog] 0 unit SQ DIRECTED PRN 05/07/17 Nitroglycerin 0.4 mg SL DIRECTED PRN 11/30/17 Tiotropium [place] [Spiriva] 1 cap IH DAILY 12/10/17 Gabapentin [Neurontin] 200 mg PO TID 01/07/18 Oxycodone-Acetaminophen 5-325 1 tab PO Q12H 05/11/18 [Percocet 5-325] Guaifenesin [Mucinex] 600 mg PO DIRECTED PRN 07/24/18 Levothyroxine Sodium 137 mcg PO DAILY 07/24/18 Warfarin Sodium 5 mg PO DAILY 07/24/18 Insulin Detemir [Levemir Flextouch] 25 unit SQ BEDTIME 30 Days #5 07/27/18 insuln.pen Iron Sucrose Complex [Venofer] 200 mg IV DIRECTED 10 Days #3 ml 07/27/18 Levofloxacin [Levaquin] 500 mg PO Q48H 10 Days #5 tablet 07/27/18 Nicotine 14 mg [Nicoderm 14 mg] 1 patch TD DAILY 14 Days #14 07/27/18 patch.td24 Lab/Diagnostics: Laboratory Last Values WBC 11.20 K/ul (4.6-10.2) H 07/27/18 07:25 RBC 3.46 10^6/ul (4.20-5.40) L 07/27/18 07:25 Hgb 8.2 g/dl (12.0-16.0) L 07/27/18 07:25 Hct 27.7 % (37.0-47.0) L 07/27/18 07:25 MCV 80.1 fl (81.0-99.0) L 07/27/18 07:25 MCH 23.7 pg (27.0-31.0) L 07/27/18 07:25 MCHC 29.6 (31.8-35.4) L 07/27/18 07:25 RDW Coeff of Kalani 16.8 % (11.6-14.8) H 07/27/18 07:25 Plt Count 193 10^3/uL (140-440) 07/27/18 07:25 Immature Gran % (Auto) 0.5 % (0.0-5.0) 07/27/18 07:25 Neut % (Auto) 74.7 07/27/18 07:25 Lymph % (Auto) 14.6 (10.0-50.0) 07/27/18 07:25 [place] % (Auto) 8.5 (0-10) 07/27/18 07:25 Eos % (Auto) 1.1 % (0.0-7.0) 07/27/18 07:25 Baso % (Auto) 0.6 % (0.0-3.0) 07/27/18 07:25 Immature Gran # (Auto) 0.1 (0.0-1.0) 07/27/18 07:25 Neut # (Auto) 8.4 K/ul (2.0-6.9) H 07/27/18 07:25 Lymph # (Auto) 1.6 K/uL (0.60-3.4) 07/27/18 07:25 [place] # (Auto) 1.0 K/uL (0.4-2.0) 07/27/18 07:25 Eos # (Auto) 0.1 K/ul (0.0-0.7) 07/27/18 07:25 Baso # (Auto) 0.1 K/uL (0-0.2) 07/27/18 07:25 PT 19.1 SEC (9.3-11.0) H 07/27/18 07:25 INR 1.95 SI (0.0-3.9) 07/27/18 07:25 Puncture Site Rb 07/25/18 00:16 O2 Saturation 84.0 % (95-100) L 07/25/18 00:16 ABG pH 7.362 (7.35-7.45) 07/25/18 00:16 ABG pCO2 56.8 mmHg (35-45) H 07/25/18 00:16 ABG pO2 52.0 mmHg (85-100) L* 07/25/18 00:16 ABG HCO3 32.3 (22.0-26.0) H 07/25/18 00:16 ABG Total CO2 34 (22.0-28.0) H 07/25/18 00:16 ABG Base Excess 7 (-2.0-2.0) H 07/25/18 00:16 [place] Test + 07/25/18 00:16 FiO2 % 21.0 % 07/25/18 00:16 Sodium 135.1 mmol/L (134.5-145) 07/27/18 07:25 Potassium 4.46 mmol/L (3.5-5.1) 07/27/18 07:25 Chloride 97.7 mmol/L (98-107) L 07/27/18 07:25 Carbon Dioxide 31.7 mmol/L (22-30.0) H 07/27/18 07:25 Anion Gap 10.16 07/27/18 07:25 BUN 34.5 mg/dL (7-17) H 07/27/18 07:25 Creatinine 1.10 mg/dL (0.60-1.30) 07/27/18 07:25 Estimated GFR (MDRD) 49.00 mL/min 07/27/18 07:25 BUN/Creatinine Ratio 31.36 07/27/18 07:25 Glucose 152.1 mg/dL (74-106) H 07/27/18 07:25 Hemoglobin A1c 9.48 (4.0-6.0) H 07/25/18 00:30 Lactic Acid 1.10 mmol/L (0.7-2.1) 07/25/18 07:35 Calcium 8.62 mg/dL (8.4-10.2) 07/27/18 07:25 Iron 32.7 ug/dL (37-170) L 07/25/18 07:35 TIBC 537 ug/dL (261-497) H 07/25/18 07:35 % Saturation 6 % 07/25/18 07:35 Ferritin 14.00 ng/mL (11.1-264.0) 07/25/18 07:35 Total Bilirubin 0.25 mg/dL (0.2-1.3) 07/27/18 07:25 AST 28.2 U/L (14-36) 07/27/18 07:25 ALT 14.6 U/L (0-35) 07/27/18 07:25 Alkaline Phosphatase 70.8 U/L (53-141) 07/27/18 07:25 NT-Pro-B Natriuret Pep 3900.000 pg/mL (0-124) H 07/25/18 00:30 Total Protein 6.53 g/dL (6.3-8.2) 07/27/18 07:25 Albumin 3.43 g/dL (3.5-5.0) L 07/27/18 07:25 Globulin 3.10 07/27/18 07:25 Albumin/Globulin Ratio 1.10 07/27/18 07:25 Procalcitonin < 0.05 ng/mL (0.09) 07/25/18 00:30 TSH 6.380 uIU/L (0.465-4.68) H 07/25/18 00:30 Urine Opiates Screen Negative (NEGATIVE) 07/27/18 15:18 Ur Oxycodone Screen Positive (NEGATIVE) 07/27/18 15:18 Urine Methadone Screen Negative (NEGATIVE) 07/27/18 15:18 Ur Propoxyphene Screen Negative (NEGATIVE) 07/27/18 15:18 Ur Barbiturates Screen Negative (NEGATIVE) 07/27/18 15:18 U Tricyclic Antidepress Negative (NEGATIVE) 07/27/18 15:18 Ur Phencyclidine Scrn Negative (NEGATIVE) 07/27/18 15:18 Ur Amphetamine Screen Negative (NEGATIVE) 07/27/18 15:18 U Methamphetamines Scrn Negative (NEGATIVE) 07/27/18 15:18 U Benzodiazepines Scrn Positive (NEGATIVE) 07/27/18 15:18 Urine Cocaine Screen Negative (NEGATIVE) 07/27/18 15:18 U Cannabinoids Screen Negative (NEGATIVE) 07/27/18 15:18 Influ A Molecular Assay Negative by naat (NEGATIVE) 07/25/18 01:10 Influ B Molecular Assay Negative by naat (NEGATIVE) 07/25/18 01:10 H/H Trends 07/25/18 07/25/18 07/26/18 Range/Units 00:30 07:35 05:05 Hgb 9.9 L 10.1 L 8.7 L (12.0-16.0) g/dl Hct 33.4 L 34.0 L 28.1 L (37.0-47.0) % 07/27/18 Range/Units 07:25 Hgb 8.2 L (12.0-16.0) g/dl Hct 27.7 L (37.0-47.0) % 07/25: CT CHest W/O contrast: no acute findings of the chest, mild emphsematous changes, aortic valvuloplasty. ABG INterpretation: Chronic respiratory acidosis with secondry metabolic alkalosis. 07/26: Echo completed and fixed posterior mitral leaflet-thickened anterior mitral leaflet- no stenosis. Prosthetic valve leaflets separation 9mm mild to moderate , LVH wnnlarged left atrial avity. Hypokinetic septum w/ left ventricular EF 40%. 08/03/18 at 13:00 for Color Flow ECHO. 07/27: CXR: Mild infiltrate in the right base with a small pleural effusion. Consider pneumonia. Education Provided to Patient and Family: 1. Levaquin 2. Venofer. 3. Iron deficiency 4. Smoking cessatoin 5 CHF 6/ COPD. Follow-ups: 1. Dr. oRbin in 1 week 2. Cardiology Tuesday 08/01 3. Color flow echo 07/16/18 4. Levaquin start 07/28/18 5. CBC 2-3 days from now 6. PT/INR 07/28/18 then q 48 hours 7. IV Venofer 3 more times in next 10 days. Disposition: HOME SELF-CARE Hospital Course: 67 yo CF patient of Dr. Nidia Robin in [place] arrived at [facility] 07/25/18 and was evaluated by Dr. Grove. Vitals were reasonable, afebrile temp 97.4, pulse 97, RR 24, BP 138/83 and pulse ox 90. She was found to have worsening URI, worsening cough, poorly controlled DM. She has history of intermittent afib (a paced on tele), CAD, CHF, COPD O2 dependent, Heavy Tobacco user, Hypothyroidism (recent dose changes to meds, elevated TSH above goal of 1.0-3.0) , RLS, DM2 uncontrolled insulin dependent, OA, DVT x2 historically, chronically anticoagulated with coumadin, subtherapeutic INR (ran out of meds), bovine aortic valve. She presented to hospital in ARF, DM uncontrolled. CT w/o chest ordered showed no acute findings of chest, mild emphysematous changes and aortic valvuloplasty. Dr. Grove called me and recommended admit for COPD exacerbation, ARF, w/ symptoms improved with nebs and O2 w/ sats mid 90's. CBC WBC 9.07, hgb 9.9, plt 234. CMP with sodium 139.2, K+ 3.83, BUN 16.9, Cr 0.83. Glucose 263.6. ABG showed pH 7.362 not bad, pc02 56.8 likely chronic. Po2 52, hc03 32.3. BNP 3900. Glucose 263.6. Negative flu. Nebulizer, duoneb, CT chest, percocet 5mg stat, xopenex given 00:18.Methyl pred 125 stat.Allergies reviewed. We do not have levemir in hospital, I tried to get her 30 units of lantus as glucose elevated, she missed night dose and steroids would likely elevate her sugars and she was adamant that it would bottom her out and she refused 30 units , 20 units and then ultimately allowed 10 units. We reviewed meal insulin is more likely to do that than the lantus. As noted she eventually allowed me to use 10 units. A1C was 9.68. She noted chronic anticoag w/ coumadin but has missed >1 week due to Rx dose being changed, mistake with pharmacyand she has only recently resumed coumadin. I decided to anticoag w/ lovenox 40mg subuc. Allergy to rocephin, cefuroxime, doxyand thus DR. Grove put her on aztreonam. She was on this while in hospital and d/c on levaquin to complete 5 doses. Coumadin 5 mg daily continued while on lovenox. She increased her INR to just under 2.0 by d/c. Outpatient order for INR 07/28/18 given. She will compete that and then INR QOD while on levaquin. Echocardiogram ordered for her valve/ elevated BNP showed EF of 40 and moderate . Color flow doppler ordered for in our hospital and scheduled. She has appt with Cardioloogy 08/01 and I will have her keep that. She had one round of chest pain in hospital that resolved with nitro. Apparently she had atypical stress echo 02/2018. History of 2 DVT and valve supports use of coumadin and not other newer anticoag. She was admitted to SCU bed 2 Steroids/duonebs given in ER, aztreonam given throughout hospital stay. The patient steroids were d/c as she seemed to be having elevated BG and did not have any worsening hypoxia beyond presentation to ER. She was set to be up with assist. She was satting in the 90's throughout hospital stay. She allowed 10 units of lantus in the am, I repeated sugar around lunch and she was still elevated gave 10 more and then finally 10 more later in the day. This was in addition to the SSI that she was getting. Lengthy discussion about the BG , a1c and that levemir needs to be increased. Lengthy discussion about smoking cessation. She agreed to nicoderm while in hospital. She was found to be microcytic anemia, iron/ferritin/TIBC ordered. She was 9.9 chronic problem likely. We considered anemia chronic disease but her ferritin returned low, TIBC high, iron low consistent with iron def anemia. She was given venofer 200mg daily x 2 07/26 and 07/27 with outpatient orders for venofer 3 more times over next 10 days. CHF was apparently chronic systolic and BNP was elevated. IV lasix given x 1. She tolerated this okay but had mild TRICE. I did give maintenance fluids 90ml/hour 07/26. Her INR improved to just under 2.0. D/C w/o lovenox with INR ordered 07/28/18. She wanted full code. We expected length of stay to be ~2-3 and she met this goal. We talked about her HTN, vaccinations, smoking cessation. REviewed heart valve, talked about cardiology, gastroparesis and reviewed need for more levemir. She will be d/c with 25 units levemir daily, continue SSI. Would f/u with PCP this week and would see cardiology on wednesday. She did fine throughout hospital stay up until 07/27/18 PM when all of a sudden she felt tired, groggy and hypotensive. This was just before plan for d/c. Nursing noted she was rummaging in her bag and then she had these symptoms. She was placed in trendelenberg position and assessed/monitored. She rested for about an hour, BP improved from 70's/50's to 110/70's. She felt beter and I assessed her again around 2pm today. I asked if she had taken anything and she got defensive. I asked for UDS, glucose (152), repeat BP and better. UDS showed +Opiate and + Benzo. I asked if she had taken xanax, ativan, klonopin, valium and she said no. I asked if she had taken librium and she said that she had taken one that belonged to a friend and said 3 weeks, 1.5 weeks or at least > 1 weeks ago. It was possible that she could have still had + from up to 6 weeks ago but her symptoms all of a sudden make me think she had a xanax or something quicker acting. She seemed to recover and she was ultimately discharged around 1700. She had no s/sx of stroke, no neuro changes, no chest pain, no vision changes, no ADHIKARI, no weakness. Her pupils were large and she was very defensive about my questions. She noted multiple times that I did not understand her pain and she was not a druggy. Either way, she took someone elses medications and I noted that it was not allowed. Patient was d/c to f/u with PCP in 1 week. INR tomorrow and then QOD> Levaquin 500 QOD x 5 doses based on CXR done this am. There was a discrepancy in her weight from admit to d/c. I believe that she was weight by bed scale at some point with legs off bed as her weight was up 10 lb today compared to admit weight. When I had her place her legs on ground and weighed her with bed scale it gave me the admit weight. So, I could not trust the weights. She has no anasarca, no peripheral edema, trace to minimal pleural fluid and according to I+O She is only up ~ 1300ml since admit which does not equate to 10 lb gain. She was breathing better, vitals were stable except for event above. Today I spent >30 minutes on this discharge specifically dealing with the above. Day of Discharge Exam: Vital Signs - 24 hr 07/27/18 07/27/18 07/27/18 14:00 14:30 15:00 Temperature 97.5 F L Pulse Rate 62 Respiratory 16 Rate Blood Pressure 76/52 L 96/72 108/70 O2 Sat by Pulse 96 Oximetry 07/27/18 16:24 Temperature Pulse Rate Respiratory Rate Blood Pressure 147/86 H O2 Sat by Pulse Oximetry Constitutional: Appearance-Still w/o acute distress, Appears clinically stable , using O2 2L sats have remained >90%. She has no accessory muscle use, NO obvious e/o SOA. Talks in complete sentences, Easily sat upright. No obvious SOA. NC in place. She was able to lay flat for exam without any issues with respiration. Orientation- Oriented x 3, Build and Nutrition-[Under medicare recommendation 23-30 but above 19.] General- Patient is pleasant and cooperative with the interview and exam. ENMT: Nasal mucosa- No bleeding noted and no ulcerations observed. [place], moist. Turbinates boggy, erythematous. Lips- normal color, moist without cracks/ lesions Oral Cavity/Palate- hard/soft palate intact without lesions, oral mucosa pink and moist. Tongue normal midline. Oropharynx- no pharyngeal erythema, Uvula midline. No post nasal drip. No exudate. Salivary glands- Non tender to palpation CHEST/LUNG: Inspection- Normal effort, no distress, no use of accessory muscles. Breathing calmly, talking in full sentences. Palpation- nontender sternum, ribline. No abnormal pulsations. Auscultation- Breath sounds diminished throughout all lung ahn. Coarse/decreased tracheal sounds, bronchial sounds overlying sternum, Bronchovessicular sounds between scapulae posteriorly, and vessicular breath sounds heard throughout periphery. Lungs w/ diminished sounds. No Egophany, no whispered pectiroliquy. Adventitious sounds - Scattered wheezes, bibasilar rales no worse than admit, Scattered rhonchi. I: E 1:1 and stable. She seems to be at baseline. CARDIOVASCULAR: Carotid artery- normal, no bruits or abnormal pulsations. Jugular vein- no pulsations. Palpation/Percussion- PMI displaced inferolateral towards left. no palpable thrill Auscultation- Irregular rate and rhythm. murmur noted in sitting and supine positions. III/ 2nd inttercostal space with radiation into the carotid and into the back. Extremities- digital clubbing , no cyanosis, no edema at present, no increased warmth. No e/o DVT. NO peripheral edema bilateral LE. ABDOMEN: Inspection- normal and no visible pulsations. Normal contour. Auscultation- Bowel sounds normal, no abdominal bruits. Palpation/Percussion- soft, non-tender, no rebound tenderness, no rigidity (guarding), no jar tenderness, no masses. Liver-no hepatomegaly, Spleen no splenomegaly, Hernias - none. Rectal not examined. Peripheral Vascular: Upper extremity Left- Normal temperature with pink nailbeds and no ulcerations. Upper extremity Right- Normal temperature with pink nailbeds and no ulcerations. Lower extremity- Normal temperature with pink nailbeds and no ulcerations. DP pulses 1+ bilaterally. Pedal hair reduced hemosiderin staining. Normal capillary refill. Edema- No appreciable edema. Chronic foot changes, chronic callus bilateral heel, bilateral ball of foot digit 1 MTP. Bunions, Cavus foot type. Decreased cap refill. No edema present again on exam. Musculoskeletal: Generalized-No generalized swelling or edema of extremities, no digital clubbing or cyanosis, neurovascularly intact all four extremities. Spine/Ribs- Tenderness bilateral thoracic and lumbar paraspinal muscles. Thinning generally. Quad/Hamstring thin/weakened. Calves symmetrical. No edema. Homans negative. no known fractures, normal strength, Normal ROM. Normal stability No tenderness along C/T/L spine. Normal appearing ROM about spine. Neurological: General- Moves all 4 extremities symmetrically. Symmetrical face and body posture. Cranial nerves- individually evaluated II-XII and intact. PERRLA, Normal EOMI, visual/special senses appear intact, Face is symmetrical and normal sensation/movement, normal tongue, normal strength/posture of neck musculature. This was repeated in PM and she had no neurological deficits. Courtroom Clerk 5/5, strength 5/5. Neuropsych: Oriented- Person, place, time. (AAOx3), Mood/affect- normal and congruent. Able to articulate well. Crying when discussing the issues when she went hypotensive. Lymphatic: Head/Neck- normal size and non tender to palpation. Plan: 1. Needs follow up with primary provider in next 5-7 days 2. If worsening needs to return to ER. 3. Chronic anticoagulation/Heart Valve: - PT/INR tomorrow 07/28/18 If >2.0 continue current dose of coumadin 5mg daily. - INR every 48-72 hours while on levaquin - Color echo 08/03/18 1300. 4. Anemia with Iron deficiency: - CBC 3 days - IV Venofer (IRON SUCROSE) Needs to be set up as outpatient to have 3 more doses in next 10 days. She will likely not tolerate oral iron replacement. 5. Possible Pneumonia: - Start levaquin tomorrow. Take 1 pill every other day for 5 doses. 6. Hypotension/Drug Use: - Do not use librium or other benzodiazepines plus opiates. Do not use other peoples medications. Do not use medications that are not prescribed to you. - Caution with position changes, caution with low blood pressure. 7. Diabetes: - LEVEMIR has been increased to 25 units - A1C in 3 months - F/U with Primary care provider in next 5-7 days - Continue sliding scale insulin - Please take home blood sugar log to primary care provider. APPOINTMENTS: KEEP YOUR APPOINTMENT AT [facility] FOR YOUR COLOR FLOW ECHO ON 08/03/18 AT 1 P.M. Keep prescheduled appointment with cardiology on wednesday Primary care provider in 5-7 days >30 minutes pent on discharge today.
== END 2018-07-27 18:01 | disposition home or self-care (01) | DRG 152 ==
LOC: ED 23:40 → SCU 07-25 02:32
PROVIDERS: ADMIT Family Medicine; ATTEND Family Medicine
DX: J06.9 Acute upper respiratory infection, unspecified (principal); J96.01 Acute respiratory failure with hypoxia; J96.00 Acute respiratory failure, unspecified whether with hypoxia or hypercapnia; J44.1 Chronic obstructive pulmonary disease with (acute) exacerbation; N17.9 Acute kidney failure, unspecified; I50.9 Heart failure, unspecified; D64.9 Anemia, unspecified; E11.9 Type 2 diabetes mellitus without complications; R06.00 Dyspnea, unspecified; R50.9 Fever, unspecified; R06.2 Wheezing; R05 Cough; Z51.81 Encounter for therapeutic drug level monitoring
CPT/HCPCS: 36415; 80053; 80306; 82728; 82803; 82962; 83036; 83540; 83550; 83605; 83880; 84145; 84443; 85025; 85610; 87070; 87502; 93005; 93010; 94640; 96374; 96375; 99284; 99285

== ENCOUNTER 2018-08-03 12:48 | Outpatient (CLI) | payer OTHER | END 2018-08-03 12:49 | disposition home or self-care (01) | LOC: CAR 12:48 | PROVIDERS: ATTEND Family Medicine | DX: I50.9 Heart failure, unspecified (principal); J96.00 Acute respiratory failure, unspecified whether with hypoxia or hypercapnia; I35.0 Nonrheumatic aortic (valve) stenosis; Z95.2 Presence of prosthetic heart valve ==

== ENCOUNTER 2018-11-02 12:58 | Outpatient (CLI) ==
--- NOTE | 2018-11-02 14:38 | DI ---
EXAM: Two views of the left hip. History: Left hip pain. Findings: Atherosclerotic vascular calcifications. No acute fracture or dislocation. Evaluation of the sacrum is limited due to obscuration by bowel gas. Chondrocalcinosis is seen within the left hi p joint. Mild narrowing of the left hip joint. No osteophyte formation. A few borderline dilated l oops of small bowel seen within the abdomen are nonspecific. Partially visualized IVC filter. Impression: 1. No acute osseous abnormality. 2. Chondrocalcinosis. 3. Mild arthritis of the left hip joint. 4. Atherosclerotic vascular disease. 5. A few borderline dilated nonspecific loops of small bowel seen within the abdomen. Correlate cli nically and consider further evaluation with CT abdomen pelvis.
--- NOTE | 2018-11-04 11:02 | MAMMO ---
EXAM: Bilateral digital screening mammogram (2-D and 3-D) History: Screening Comparison: None available. Findings: MLO and CC views of bilateral breasts demonstrate scattered fibroglandular breast parenchy ma. CAD was reviewed by the radiologist. Tomosynthesis was performed. Benign bilateral vascular an d scattered calcifications. There are no dominant masses, no suspicious microcalcifications and no a rchitectural distortions Impression: Benign mammogram. Recommend followup routine screening mammography in 1 year. BI-RADS 2, benign
== END 2018-11-02 12:59 | disposition home or self-care (01) ==
LOC: RAD 12:58
PROVIDERS: ATTEND Family Medicine
DX: Z12.31 Encounter for screening mammogram for malignant neoplasm of breast (principal); M25.552 Pain in left hip; D64.9 Anemia, unspecified
CPT/HCPCS: 36415; 80053; 85025

== ENCOUNTER 2018-11-03 19:29 | Emergency (ER) | payer OTHER ==
[2018-11-03 19:35] VITALS: BP 125/80; TEMP 97.4; BMI 19.3
--- NOTE | 2018-11-03 19:49 | ED.PDOC ---
General ED Provider: Dr. TAMIR DUNCAN Chief Complaint: Hip Pain/Injury Stated Complaint: Patient is a 68 year old female who states that two days ago while standing to step beside her oxygen tank twisted her right leg and heard a pop. Since then she has had severe pain on the right hip, right groin and upper thigh. She usually takes oxycodone twice a day for chronic back pain. Time Seen by Physician: 19:46 Mode of Arrival: Wheelchair Information Source: Patient Exam Limitations: No limitations Nursing and Triage Documentation Reviewed and Agree: Yes Does patient meet sepsis criteria?: No System Inflammatory Response Syndrome: Not Applicable Sepsis Protocol: For patient's 13 years and over: Temp is 96.8 and below OR 101 and greater Pulse >90 BPM Resp >20/minute Acutely Altered Mental Status Are patient's symptoms suggestive of a new infection, such as: -Pneumonia -Skin, Soft Tissue -Endocarditis -UTI -Bone, Joint Infection -Implantable Device -Acute Abdominal Infection -Wound Infection -Meningitis -Blood Stream Catheter Infection -Unknown Musculoskeletal Complaint Exam - Hip/Pelvis Complaint/Exam Location of Pain: Reports: Right Mechanism of Injury: Reports: Trauma (from twisting ) Onset/Duration: 2 days Symptoms Are: Still present Initial Severity: Severe Current Severity: Moderate Location: Reports: Diffuse (Right hip, groin and upper thigh ) Character: Reports: Aching, Throbbing Aggravating: Reports: Movement, Weight bearing Alleviating: Reports: None Associated Signs and Symptoms: Denies: Swelling, Redness, Bruising, Fever, Weakness, Dizziness, Syncope, Abdominal pain, Knee pain Related History: Denies: Similar episode Able to Bear Weight: Yes Septic Arthritis Risk Factors: Reports: None Pelvis Palpation: Stable Hip/Pelvis Findings: Absent: Extremity shortened, Swelling, Ecchymosis, Erythema , Warmth Range of Motion Limited In: Present: Abduction, Internal rotation Differential Diagnoses: Fracture, Sprain, Strain Review of Systems - Review Of Systems Constitutional: Reports: No symptoms Eyes: Reports: No symptoms Ears, Nose, Mouth, Throat: Reports: No symptoms Respiratory: Reports: No symptoms Cardiac: Reports: No symptoms GI: Reports: No symptoms : Reports: No symptoms Musculoskeletal: Reports: Joint pain, Muscle pain (right upper thigh ) Skin: Reports: No symptoms Neurological: Reports: Anxiety Endocrine: Reports: No symptoms Hematologic/Lymphatic: Reports: No symptoms All Other Systems: Reviewed and Negative Past Medical History - Past Medical History Previously Healthy: No Endocrine: Reports: DM 2, Hypothyroid, Dyslipidemia Cardiovascular: Reports: CAD, Hypertension, CHF, A-Fib Respiratory: Reports: COPD, Pneumonia Hematological: Reports: None Gastrointestinal: Reports: GERD Genitourinary: Reports: None Neuro/Psych: Reports: Migraine, Anxiety, Depression Musculoskeletal: Reports: Arthritis, Back Pain (CHRONIC BACK PAIN) Cancer: Reports: None Last Menstrual Period: none Other Pertinent Past Medical History: OPEN HEART SURGERY, PACEMAKER, CHRONIC BACK PAIN - Surgical History General Surgical History: Reports: Hysterectomy, Cholecystectomy (gallbladder), CABG (OPEN HEART SURGERY,aorta valve replacement and pacemaker 2008), Pacemaker (pacemaker 2008), Orthopedic (2 knee replacements), Back Surgery (2 back surg), Other (Aortic valve replacement. RIGHT KIDNEY REPAIR) - Family History Family History: Reports: Unknown - Social History Smoking Status: Current every day smoker, Heavy tobacco smoker Hx Substance Use: No Alcohol Screening: None - Immunizations Tetanus Shot up to Date: Yes Physical Exam - Physical Exam Appearance: Thin Ill-appearing: None Pain Distress: Severe Neck: Supple Respiratory: Airway patent, Breath sounds clear, Breath sounds equal, Respirations nonlabored Cardiovascular: Pulses normal, Tachycardia GI/: Soft, Nontender Musculoskeletal: Limited ROM (right hip ) Skin: Warm, Dry Neurological: Alert, Oriented Psychiatric: Anxious Interpretation - Radiology Interpretation Radiology Interpretation By: Radiologist Radiology Results: Negative Exam Interpreted: CT Scan (pelvis ) Critical Care Note - Critical Care Note Total Time (mins): 0 Course - Course Orders, Labs, Meds: Orders Category Date Time Status Butorphanol Tartrate [Stadol] MEDS 11/03/18 20:42 Discontinued 1 mg IM ONCE STA Dexamethasone 4 mg/ml Inj [Decadron 4 mg/ml Sdv] MEDS 11/03/18 22:38 Discontinued 8 mg IM ONCE STA Ketorolac Tromethamine [Toradol] MEDS 11/03/18 22:38 Discontinued 60 mg IM ONCE STA CT PELVIS W/O CONTRAST Stat RADS 11/03/18 19:44 Completed Medications Discontinued Medications Generic Name Dose Route Start Last Admin Trade Name Freq PRN Reason Stop Dose Admin Butorphanol Tartrate 1 mg 11/03/18 20:42 11/03/18 20:54 Stadol IM 11/03/18 20:43 1 mg ONCE STA Administration Dexamethasone Sodium Phosphate 8 mg 11/03/18 22:38 11/03/18 22:52 Decadron 4 Mg/Ml Sdv IM 11/03/18 22:39 8 mg ONCE STA Administration Ketorolac Tromethamine 60 mg 11/03/18 22:38 11/03/18 22:54 Toradol IM 11/03/18 22:39 60 mg ONCE STA Administration Vital Signs: Temp Pulse Resp BP Pulse Ox 11/03/18 19:30 97.4 F L 102 H 16 125/80 95 Departure - Departure Time of Disposition: 00:07 Disposition: HOME SELF-CARE Discharge Problem: Hip pain Sprain of right hip Qualifiers: Encounter type: initial encounter Qualified Code(s): S73.101A - Unspecified sprain of right hip, initial encounter Instructions: Hip Pain (ED) Condition: Stable Pt referred to PMD for follow-up: Yes IPMP verified?: No (not prescribing Medications. ) Additional Instructions: Continue home Medications for pain follow up with Pain management in the morning. Talk to your doctor about getting Diclofenac Jell Allergies/Adverse Reactions: Allergies ceftriaxone sodium [From Rocephin] Adverse Reaction (Verified 11/03/18 19:35) cefuroxime axetil [From Ceftin] Adverse Reaction (Verified 11/03/18 19:35) doxycycline Adverse Reaction (Verified 11/03/18 19:35) nifedipine [From Procardia] Adverse Reaction (Verified 11/03/18 19:35) nitrofurantoin [From Macrobid] Adverse Reaction (Verified 11/03/18 19:35) nitrofurantoin macrocrystal [From Macrobid] Adverse Reaction (Verified 11/03/18 19:35) Home Medications: Ambulatory Orders Albuterol Sulfate [Albuterol Sulfate Hfa] 2 puff IH QID PRN 02/13/14 Atorvastatin Calcium [Lipitor] 40 mg PO BEDTIME 02/13/14 Benazepril HCl [Lotensin] 20 mg PO DAILY 02/13/14 Esomeprazole Magnesium [Nexium] 40 mg PO BID 02/13/14 Furosemide [Lasix] 40 mg PO DAILY 02/13/14 Promethazine HCl [Phenergan Tab] 25 mg PO Q6H PRN 02/13/14 Ropinirole HCl [Requip] 2 mg PO BEDTIME 02/13/14 Sotalol HCl [Sotalol] 80 mg PO BID 02/13/14 Topiramate [Topamax] 50 mg PO BEDTIME 02/13/14 Venlafaxine HCl [Effexor Xr] 150 mg PO BEDTIME 07/04/14 Budesonide/Formoterol Fumarate [Symbicort 160-4.5 Mcg Inhaler] 2 puff IH DAILY 05/28/15 Tizanidine HCl [Zanaflex] 4 mg PO TID PRN 05/28/15 Insulin Lispro [Humalog] 0 unit SQ DIRECTED PRN 05/07/17 Nitroglycerin 0.4 mg SL DIRECTED PRN 11/30/17 Tiotropium Matthews [Spiriva] 1 cap IH DAILY 12/10/17 Gabapentin [Neurontin] 200 mg PO TID 01/07/18 Oxycodone-Acetaminophen 5-325 [Percocet 5-325] 1 tab PO Q12H 05/11/18 Guaifenesin [Mucinex] 600 mg PO DIRECTED PRN 07/24/18 Levothyroxine Sodium 137 mcg PO DAILY 07/24/18 Warfarin Sodium 5 mg PO DAILY 07/24/18 Insulin Detemir [Levemir Flextouch] 25 unit SQ BEDTIME 30 Days #5 insuln.pen Iron Sucrose Complex [Venofer] 200 mg IV DIRECTED 10 Days #3 ml 07/27/18 Levofloxacin [Levaquin] 500 mg PO Q48H 10 Days #5 tablet 07/27/18 Nicotine 14 mg [Nicoderm 14 mg] 1 patch TD DAILY 14 Days #14 patch.[id number] Disposition Discussed With: Patient, Family
[2018-11-03] MEDS ORDERED: STADOL IM STA (20:42)
--- NOTE | 2018-11-03 21:22 | CT ---
EXAM: CT of the pelvis without contrast. HISTORY: Right hip pain. Injury. COMPARISON: Left hip dated 11/02/2018. CT dated 05/26/2018. TECHNIQUE: Contiguous axial images were obtained through the pelvis. Sagittal coronal reformats rev iewed as well as 3-D volume images. FINDINGS: There are no acute fractures. There are no lytic or blastic lesions. Mild joint narrowin g is seen in the hips bilaterally. There is disc narrowing and osteophyte formation in the lumbar sp ine. Vascular calcifications are seen. IMPRESSION: No acute fractures. Osteoarthritis.
[2018-11-03] MEDS ORDERED: DECADRON 4 MG/ML SDV IM STA (22:38)
[2018-11-03] MEDS ORDERED: TORADOL IM STA (22:38)
== END 2018-11-03 23:50 | disposition home or self-care (01) ==
LOC: ED 19:29
DX: S73.101A Unspecified sprain of right hip, initial encounter (principal); X50.1XXA Overexertion from prolonged static or awkward postures, initial encounter; F17.210 Nicotine dependence, cigarettes, uncomplicated
CPT/HCPCS: 96372; 99282

== ENCOUNTER 2018-11-09 15:07 | Emergency (ER) ==
[2018-11-09 15:16] VITALS: BP 109/65; TEMP 96.9; BMI 19.0
--- NOTE | 2018-11-09 16:17 | US ---
EXAM: Ultrasound venous Doppler right lower extermity HISTORY: Pain, bruising upper right thigh COMPARISON: None TECHNIQUE: Venous duplex ultrasound of the right lower extremity was performed using color, phan-sca le, and Doppler flow imaging. FINDINGS: There is normal color flow and compression of the right common femoral, greater saphenous, profunda femoral, femoral, popliteal, peroneal, posterior tibial, and anterior tibial veins without evidence of intraluminal thrombus. No reflux is identified. IMPRESSION: No right lower extremity deep venous thrombosis.
--- NOTE | 2018-11-09 16:45 | CT ---
EXAM: CT ABDOMEN AND PELVIS HISTORY: Pain, no additional history provided. TECHNIQUE: CT abdomen and pelvis without intravenous contrast. Images were reconstructed using 5 mm section thickness. Reformations were prepared. COMPARISON: 05/26/2018 FINDINGS: No hepatic or splenic lesions. Gallbladder is absent. Visualized pancreas grossly unremarkable. Ex am is limited without including contrast enhanced images. There is no hydronephrosis identified. Th e visualized ureters appear clear. Heavy vascular calcifications are present consistent with diabeti c angiopathy and / or atherosclerotic disease. IVC filter is again noted. Stomach is elongated without distension although diffuse wall thickening may be present. An appendix , if present is not seen. There is excess fecal retention throughout most of the colon without evide nce of fecal impaction of the rectum or bowel obstruction. Urinary bladder is grossly unremarkable. No uterus is seen. There is no ascites. No ventral hernia. Bones are demineralized. There is scoliosis and degenerative disc disease of the spine. Lung bases are free of infiltrates. There is no pneumoperitoneum. IMPRESSION: 1. Probable diffuse gastric wall thickening. Consider gastritis or less likely neoplasia. 2. Slight excess fecal retention without bowel obstruction. 3. IVC filter noted. Heavy vascular calcifications.
--- NOTE | 2018-11-09 17:08 | ED.PDOC ---
General ED Provider: Dr. SHIRLEY BECKER Chief Complaint: Extremity Pain/Injury Stated Complaint: brusing of the right tigh no injury . is on blood thinners Time Seen by Physician: 15:15 (seen with nurse at all times ) Mode of Arrival: Wheelchair Information Source: Patient, Family Exam Limitations: No limitations Nursing and Triage Documentation Reviewed and Agree: Yes Does patient meet sepsis criteria?: No System Inflammatory Response Syndrome: Not Applicable Sepsis Protocol: For patient's 13 years and over: Temp is 96.8 and below OR 101 and greater Pulse >90 BPM Resp >20/minute Acutely Altered Mental Status Are patient's symptoms suggestive of a new infection, such as: -Pneumonia -Skin, Soft Tissue -Endocarditis -UTI -Bone, Joint Infection -Implantable Device -Acute Abdominal Infection -Wound Infection -Meningitis -Blood Stream Catheter Infection -Unknown Skin Complaint Exam - Skin/Soft Tissue Complaint/Exam Onset/Duration: right tigh see photos Symptoms Are: Still present Timing: Constant Initial Severity: Moderate Current Severity: Mild Character: Denies: Swelling (see photos) Aggravating: Reports: None Alleviating: Reports: None Associated Signs and Symptoms: Denies: Fever, Chills, Itching, Drainage, Bruising, Tenderness, Red streaks, Joint swelling Related History: Reports: Similar episode Related Surgical History: Reports: None Recent Exposure to Others w/Similar Symptoms: No Skin Findings: Present: Other (contusion) Joint Tenderness Present: No Review of Systems - Review Of Systems Constitutional: Reports: No symptoms Eyes: Reports: No symptoms Ears, Nose, Mouth, Throat: Reports: No symptoms Respiratory: Reports: No symptoms Cardiac: Reports: No symptoms GI: Reports: No symptoms : Reports: No symptoms Musculoskeletal: Reports: No symptoms Skin: Reports: Other (brused right tigh) Neurological: Reports: No symptoms Endocrine: Reports: No symptoms Hematologic/Lymphatic: Reports: No symptoms All Other Systems: Reviewed and Negative Past Medical History - Past Medical History Previously Healthy: No Endocrine: Reports: DM 2, Hypothyroid, Dyslipidemia Cardiovascular: Reports: CAD, Hypertension, CHF, A-Fib Respiratory: Reports: COPD, Pneumonia Hematological: Reports: None Gastrointestinal: Reports: GERD Genitourinary: Reports: None Neuro/Psych: Reports: Migraine, Anxiety, Depression Musculoskeletal: Reports: Arthritis, Back Pain (CHRONIC BACK PAIN) Cancer: Reports: None Last Menstrual Period: na Other Pertinent Past Medical History: OPEN HEART SURGERY, PACEMAKER, CHRONIC BACK PAIN - Surgical History General Surgical History: Reports: Hysterectomy, Cholecystectomy (gallbladder), CABG (OPEN HEART SURGERY,aorta valve replacement and pacemaker 2008), Pacemaker (pacemaker 2008), Orthopedic (2 knee replacements), Back Surgery (2 back surg), Other (Aortic valve replacement. RIGHT KIDNEY REPAIR) - Family History Family History: Reports: Unknown - Social History Smoking Status: Current some day smoker Hx Substance Use: No Alcohol Screening: None - Immunizations Tetanus Shot up to Date: Yes Physical Exam - Physical Exam Appearance: Well-appearing, No pain distress, Well-nourished Eyes: MYKE, EOMI, Conjunctiva clear ENT: Ears normal, Nose normal, Oropharynx normal Respiratory: Airway patent, Breath sounds clear, Breath sounds equal, Respirations nonlabored Cardiovascular: RRR, Pulses normal, No rub, No murmur GI/: Soft, Nontender, No masses, Bowel sounds normal, No Organomegaly Musculoskeletal: Normal strength, ROM intact, No edema, No calf tenderness Skin: Warm, Dry (contusion right tigh) Neurological: Sensation intact, Motor intact, Reflexes intact, Cranial nerves intact, Alert, Oriented Psychiatric: Affect appropriate, Mood appropriate Interpretation - Radiology Interpretation Radiology Interpretation By: Radiologist Radiology Results: No acute changes (no dvt) Critical Care Note - Critical Care Note Total Time (mins): 0 Course - Course Hematology/Chemistry: 11/09/18 15:41 11/09/18 15:41 Orders, Labs, Meds: Lab Review 11/09/18 11/09/18 11/09/18 15:41 15:41 15:41 WBC 8.92 RBC 3.71 L Hgb 10.2 L Hct 31.5 L MCV 84.9 MCH 27.5 MCHC 32.4 RDW Coeff of Kalani 16.1 H Plt Count 324 Immature Gran % (Auto) 0.4 Neut % (Auto) 76.8 Lymph % (Auto) 14.5 Craig % (Auto) 6.4 Eos % (Auto) 1.5 Baso % (Auto) 0.4 Immature Gran # (Auto) 0.0 Neut # (Auto) 6.9 Lymph # (Auto) 1.3 Craig # (Auto) 0.6 Eos # (Auto) 0.1 Baso # (Auto) 0.0 PT 56.2 H INR 5.92 H* APTT 58.3 H Sodium 135.3 Potassium 3.94 Chloride 94.8 L Carbon Dioxide 33.2 H Anion Gap 11.24 BUN 22.6 H Creatinine 0.95 Estimated GFR (MDRD) 58.00 BUN/Creatinine Ratio 23.78 Glucose 219.4 H Calcium 9.24 Total Bilirubin 0.54 AST 18.3 ALT 11.9 Alkaline Phosphatase 72.4 Total Protein 7.03 Albumin 3.68 Globulin 3.35 Albumin/Globulin Ratio 1.09 Orders Category Date Time Status CBC W/ AUTO DIFF Stat LAB 11/09/18 15:41 Completed COMPREHENSIVE METABOLIC PANEL Stat LAB 11/09/18 15:41 Completed PARTIAL THROMBOPLASTIN TIME Stat LAB 11/09/18 15:41 Completed PT WITH INR Stat LAB 11/09/18 15:[address] ABDOMEN/PELVIS WO CONTRAST Stat RADS 11/09/18 15:23 Completed U/S VENOUS SCAN RT LEG Stat RADS 11/09/18 15:23 Completed Vital Signs: Temp Pulse Resp BP Pulse Ox 11/09/18 15:09 96.9 F L 89 16 109/65 96 Departure - Departure Time of Disposition: 17:09 Disposition: HOME SELF-CARE Discharge Problem: Warfarin toxicity Qualifiers: Encounter type: initial encounter Contusion Qualifiers: Encounter type: initial encounter Contusion area: thigh Instructions: Warfarin Toxicity (ED) Condition: Good Pt referred to PMD for follow-up: Yes IPMP verified?: No Additional Instructions: Please call your Family Physician as soon as possible to schedule a follow-up appointment.AVOID THE WARFARIN FOR 2 DAYS AND THEN HAVE ALEVEL CHECKED AND TAKE PER YOUR DOCTORS INSTRUCTION Allergies/Adverse Reactions: Allergies ceftriaxone sodium [From Rocephin] Adverse Reaction (Verified 11/03/18 19:35) cefuroxime axetil [From Ceftin] Adverse Reaction (Verified 11/03/18 19:35) doxycycline Adverse Reaction (Verified 11/03/18 19:35) nifedipine [From Procardia] Adverse Reaction (Verified 11/03/18 19:35) nitrofurantoin [From Macrobid] Adverse Reaction (Verified 11/03/18 19:35) nitrofurantoin macrocrystal [From Macrobid] Adverse Reaction (Verified 11/03/18 19:35) Home Medications: Ambulatory Orders Albuterol Sulfate [Albuterol Sulfate Hfa] 2 puff IH QID PRN 02/13/14 Atorvastatin Calcium [Lipitor] 40 mg PO BEDTIME 02/13/14 Benazepril HCl [Lotensin] 20 mg PO DAILY 02/13/14 Esomeprazole Magnesium [Nexium] 40 mg PO BID 02/13/14 Furosemide [Lasix] 40 mg PO DAILY 02/13/14 Promethazine HCl [Phenergan Tab] 25 mg PO Q6H PRN 02/13/14 Ropinirole HCl [Requip] 2 mg PO BEDTIME 02/13/14 Sotalol HCl [Sotalol] 80 mg PO BID 02/13/14 Topiramate [Topamax] 50 mg PO BEDTIME 02/13/14 Venlafaxine HCl [Effexor Xr] 150 mg PO BEDTIME 07/04/14 Budesonide/Formoterol Fumarate [Symbicort 160-4.5 Mcg Inhaler] 2 puff IH DAILY 05/28/15 Tizanidine HCl [Zanaflex] 4 mg PO TID PRN 05/28/15 Insulin Lispro [Humalog] 0 unit SQ DIRECTED PRN 05/07/17 Nitroglycerin 0.4 mg SL DIRECTED PRN 11/30/17 Tiotropium [place] [Spiriva] 1 cap IH DAILY 12/10/17 Gabapentin [Neurontin] 200 mg PO TID 01/07/18 Oxycodone-Acetaminophen 5-325 [Percocet 5-325] 1 tab PO Q12H 05/11/18 Levothyroxine Sodium 137 mcg PO DAILY 07/24/18 Warfarin Sodium 5 mg PO DAILY 07/24/18 Insulin Detemir [Levemir Flextouch] 25 unit SQ BEDTIME 30 Days #5 insuln.pen Iron Sucrose Complex [Venofer] 200 mg IV DIRECTED 10 Days #3 ml 07/27/18 Disposition Discussed With: Patient
== END 2018-11-09 17:28 | disposition home or self-care (01) ==
LOC: ED 15:07
DX: S70.11XA Contusion of right thigh, initial encounter (principal); T45.515A Adverse effect of anticoagulants, initial encounter; Z79.01 Long term (current) use of anticoagulants; M79.604 Pain in right leg; E11.9 Type 2 diabetes mellitus without complications; E03.9 Hypothyroidism, unspecified; E78.5 Hyperlipidemia, unspecified; I25.810 Atherosclerosis of coronary artery bypass graft(s) without angina pectoris; I10 Essential (primary) hypertension; Z79.899 Other long term (current) drug therapy; F17.210 Nicotine dependence, cigarettes, uncomplicated; Z95.2 Presence of prosthetic heart valve; Z95.0 Presence of cardiac pacemaker
CPT/HCPCS: 36415; 80053; 85025; 85610; 85730; 99283

== ENCOUNTER 2018-12-21 | Emergency (ER) | END 2018-12-21 20:52 | disposition home or self-care (01) | CPT/HCPCS: 36415; 80053; 85025; 85651; 99282 ==

== ENCOUNTER 2018-12-28 20:45 | Emergency (ER) ==
[2018-12-28 20:53] VITALS: BP 126/80; TEMP 97.1; BMI 20.1
[2018-12-28] MEDS ORDERED: SODIUM CHLORIDE 1,000 ML IV STA ×2 (21:04→21:38)
--- NOTE | 2018-12-28 21:57 | ED.PDOC ---
General ED Provider: Dr. TAMIR DUNCAN Chief Complaint: Weakness Stated Complaint: Patient is a 68 year old female who comes to the ER with complaints of headache and dizziness ever since she was diagnosed with shingles on the right fore head. states she feels like she is getting weaker. She states she has been sleeping a lot and at times feels very dizzy. Time Seen by Physician: 21:51 Mode of Arrival: Wheelchair Information Source: Patient Nursing and Triage Documentation Reviewed and Agree: Yes Does patient meet sepsis criteria?: No System Inflammatory Response Syndrome: Not Applicable Sepsis Protocol: For patient's 13 years and over: Temp is 96.8 and below OR 101 and greater Pulse >90 BPM Resp >20/minute Acutely Altered Mental Status Are patient's symptoms suggestive of a new infection, such as: -Pneumonia -Skin, Soft Tissue -Endocarditis -UTI -Bone, Joint Infection -Implantable Device -Acute Abdominal Infection -Wound Infection -Meningitis -Blood Stream Catheter Infection -Unknown Review of Systems - Review Of Systems Constitutional: Reports: Weakness, Loss of appetite Eyes: Reports: No symptoms Ears, Nose, Mouth, Throat: Reports: No symptoms Respiratory: Reports: No symptoms Cardiac: Reports: Lightheadedness GI: Reports: No symptoms : Reports: No symptoms Musculoskeletal: Reports: No symptoms Skin: Reports: Lesions (Right forehead and mosque ), Rash Neurological: Reports: Anxiety, Headache Endocrine: Reports: No symptoms Hematologic/Lymphatic: Reports: No symptoms All Other Systems: Reviewed and Negative Past Medical History - Past Medical History Previously Healthy: No Endocrine: Reports: DM 2, Hypothyroid, Dyslipidemia Cardiovascular: Reports: CAD, Hypertension, CHF, A-Fib Respiratory: Reports: COPD, Pneumonia Hematological: Reports: None Gastrointestinal: Reports: GERD Genitourinary: Reports: None Neuro/Psych: Reports: Migraine, Anxiety, Depression Musculoskeletal: Reports: Arthritis, Back Pain (CHRONIC BACK PAIN) Cancer: Reports: None Last Menstrual Period: NA Other Pertinent Past Medical History: OPEN HEART SURGERY, PACEMAKER, CHRONIC BACK PAIN - Surgical History General Surgical History: Reports: Hysterectomy, Cholecystectomy (gallbladder), CABG (OPEN HEART SURGERY,aorta valve replacement and pacemaker 2008), Pacemaker (pacemaker 2008), Orthopedic (2 knee replacements), Back Surgery (2 back surg), Other (Aortic valve replacement. RIGHT KIDNEY REPAIR) - Family History Family History: Reports: Unknown - Social History Smoking Status: Current every day smoker Hx Substance Use: No Alcohol Screening: None - Immunizations Tetanus Shot up to Date: No Physical Exam - Physical Exam Appearance: Thin Pain Distress: Moderate Eyes: MYKE, EOMI, Conjunctiva clear ENT: Ears normal, Nose normal, Oropharynx normal Neck: Supple Respiratory: Airway patent, Breath sounds clear, Breath sounds equal, Respirations nonlabored Cardiovascular: RRR, Pulses normal, No rub, No murmur GI/: Soft, Nontender, No masses, Bowel sounds normal, No Organomegaly Musculoskeletal: Normal strength, ROM intact, No edema, No calf tenderness Skin: Warm, Dry, Normal color Neurological: Sensation intact, Motor intact, Cranial nerves intact, Alert, Oriented Psychiatric: Anxious Critical Care Note - Critical Care Note Total Time (mins): 0 Course - Course Hematology/Chemistry: 12/28/18 22:20 12/28/18 22:20 Orders, Labs, Meds: Lab Review 12/28/18 12/28/18 12/28/18 21:56 22:20 22:20 WBC 7.91 RBC 4.08 L Hgb 10.9 L Hct 34.8 L MCV 85.3 MCH 26.7 L MCHC 31.3 L RDW Coeff of Kalani 15.2 H Plt Count 299 Immature Gran % (Auto) 0.3 Neut % (Auto) 64.8 Lymph % (Auto) 27.7 [place] % (Auto) 5.6 Eos % (Auto) 1.1 Baso % (Auto) 0.5 Immature Gran # (Auto) 0.0 Neut # (Auto) 5.1 Lymph # (Auto) 2.2 [place] # (Auto) 0.4 Eos # (Auto) 0.1 Baso # (Auto) 0.0 Puncture Site Rb O2 Saturation 93.0 L ABG pH 7.397 ABG pCO2 48.4 H ABG pO2 69.0 L ABG HCO3 29.8 H ABG Total CO2 31 H ABG Base Excess 5 H Winston Test + FiO2 % 21.0 Sodium 134.4 L Potassium 4.41 Chloride 93.8 L Carbon Dioxide 36.1 H Anion Gap 8.91 BUN 14.0 Creatinine 0.83 Estimated GFR (MDRD) 68.00 BUN/Creatinine Ratio 16.86 Glucose 210.0 H Calcium 9.36 Total Bilirubin 0.32 AST 23.6 ALT 11.5 Alkaline Phosphatase 95.0 Total Creatine Kinase 32.8 Troponin I < 0.012 Total Protein 7.79 Albumin 3.94 Globulin 3.85 Albumin/Globulin Ratio 1.02 Orders Category Date Time Status ABG DRAW REQUEST Routine CARDIO 12/28/18 21:56 Completed EKG-(ED ONLY) Stat CARDIO 12/28/18 21:52 Completed ED DIRECTOR [employer]ENCY [employer]ATEGIC [employer]NERSHIPS APPLIED .ONCE EMERGENCY 12/28/18 21:52 Active ED IV/MEDIPORT/POWERPORT .ONCE EMERGENCY 12/28/18 21:04 Inactive ED IV/MEDIPORT/POWERPORT .ONCE EMERGENCY 12/28/18 21:52 Active ABG Stat LAB 12/28/18 21:56 Completed CBC W/ AUTO DIFF Stat LAB 12/28/18 22:20 Completed COMPREHENSIVE METABOLIC PANEL Stat LAB 12/28/18 22:20 Completed CREATINE KINASE Stat LAB 12/28/18 22:20 Completed TROPONIN I Stat LAB 12/28/18 22:20 Completed 0.9 % Sodium Chloride [Saline Flush] MEDS 12/28/18 21:52 Discontinued 1 syr IVF PRN PRN Hydromorphone HCl [Dilaudid 1 mg/ml Syringe] MEDS 12/28/18 22:19 Discontinued 1 mg IVP ONCE STA Sodium Chloride 0.9% [Sodium Chloride] 1,000 ml MEDS 12/28/18 21:38 Discontinued IV 1,000 mls/hr Sodium Chloride 0.9% [Sodium Chloride] 1,000 ml MEDS 12/28/18 21:04 Discontinued IV 75 mls/hr CHEST, 1V AP ONLY Stat RADS 12/28/18 21:[address] HEAD W/O CONTRAST Stat RADS 12/28/18 21:49 Completed Medications Discontinued Medications Generic Name Dose Route Start Last Admin Trade Name Freq PRN Reason Stop Dose Admin Hydromorphone HCl 1 mg 12/28/18 22:19 12/29/18 00:01 Dilaudid 1 Mg/Ml Syringe IVP 12/28/18 22:20 1 mg ONCE STA Administration Sodium Chloride 1,000 mls @ 75 mls/hr 12/28/18 21:04 12/29/18 02:10 Sodium Chloride IV 12/29/18 10:23 Not Given .[id number] STA Sodium Chloride 1,000 mls @ 1,000 mls/hr 12/28/18 21:38 12/28/18 22:20 Sodium Chloride IV 12/28/18 22:03 1,000 mls/hr .Q1H STA Administration Sodium Chloride 1 syr 12/28/18 21:52 Saline Flush IVF PRN PRN To flush IV Vital Signs: Temp Pulse Resp BP Pulse Ox 12/28/18 20:47 97.1 F L 92 H 18 126/80 94 L Departure - Departure Time of Disposition: 02:00 Disposition: HOME SELF-CARE Discharge Problem: Post herpetic neuralgia Instructions: Shingles (ED), Weakness (ED) Condition: Stable Pt referred to PMD for follow-up: Yes IPMP verified?: No Additional Instructions: follow up w/ PCP. Allergies/Adverse Reactions: Allergies ceftriaxone sodium [From Rocephin] Adverse Reaction (Verified 12/28/18 22:21) cefuroxime axetil [From Ceftin] Adverse Reaction (Verified 12/28/18 22:21) doxycycline Adverse Reaction (Verified 12/28/18 22:21) nifedipine [From Procardia] Adverse Reaction (Verified 12/28/18 22:21) nitrofurantoin [From Macrobid] Adverse Reaction (Verified 12/28/18 22:21) nitrofurantoin macrocrystal [From Macrobid] Adverse Reaction (Verified 12/28/18 22:21) Home Medications: Ambulatory Orders Albuterol Sulfate [Albuterol Sulfate Hfa] 2 puff IH QID PRN 02/13/14 Atorvastatin Calcium [Lipitor] 40 mg PO BEDTIME 02/13/14 Benazepril HCl [Lotensin] 20 mg PO DAILY 02/13/14 Esomeprazole Magnesium [Nexium] 40 mg PO BID 02/13/14 Furosemide [Lasix] 40 mg PO DAILY 02/13/14 Promethazine HCl [Phenergan Tab] 25 mg PO Q6H PRN 02/13/14 Ropinirole HCl [Requip] 2 mg PO BEDTIME 02/13/14 Sotalol HCl [Sotalol] 80 mg PO BID 02/13/14 Topiramate [Topamax] 50 mg PO BEDTIME 02/13/14 Venlafaxine HCl [Effexor Xr] 150 mg PO BEDTIME 07/04/14 Budesonide/Formoterol Fumarate [Symbicort 160-4.5 Mcg Inhaler] 2 puff IH DAILY 05/28/15 Tizanidine HCl [Zanaflex] 4 mg PO TID PRN 05/28/15 Insulin Lispro [Humalog] 0 unit SQ DIRECTED PRN 05/07/17 Nitroglycerin 0.4 mg SL DIRECTED PRN 11/30/17 Tiotropium [place] [Spiriva] 1 cap IH DAILY 12/10/17 Gabapentin [Neurontin] 200 mg PO TID 01/07/18 Oxycodone-Acetaminophen 5-325 [Percocet 5-325] 1 tab PO Q12H 05/11/18 Levothyroxine Sodium 137 mcg PO DAILY 07/24/18 Warfarin Sodium 3 mg PO DAILY 07/24/18 Acyclovir [Zovirax] 800 mg PO Q4HR #42 tablet 12/21/18 Insulin Detemir [Levemir Flextouch] 20 unit SQ BEDTIME 12/21/18 Oxycodone HCl/Acetaminophen [Percocet 10-325 mg Tablet] 1 tab PO Q6HR PRN #12 tablet 12/21/18
[2018-12-28] MEDS ORDERED: DILAUDID 1 MG/ML SYRINGE IVP STA (22:19)
--- NOTE | 2018-12-28 22:28 | CT ---
EXAM: CT scan brain without contrast HISTORY: Weakness dizziness COMPARISON: CT scan brain 12/21/2018 FINDINGS: Contiguous axial images obtained from the skull base to the convexities without contrast u tilizing 5-mm collimation. Sagittal and coronal reconstructions were imaged and reviewed.. The vent ricles and CSF spaces are prominent compatible with age appropriate atrophy. There is periventricula r hypodensity noted compatible with chronic microvascular disease. The visualized paranasal sinuses and mastoid air cells are clear. The calvarium is intact. IMPRESSION: No acute intracranial findings.
--- NOTE | 2018-12-28 22:31 | DI ---
EXAM: Single-view chest HISTORY: Weakness dizziness COMPARISON: Two-view chest 07/27/2018 FINDINGS: / impression Sternal wire sutures and aortic valve replacement noted. There is a left-side d dual lead pacemaker.. There are emphysematous changes. There is no consolidation or effusion
== END 2018-12-29 01:00 | disposition home or self-care (01) ==
LOC: ED 20:45
DX: B02.29 Other postherpetic nervous system involvement (principal); E11.9 Type 2 diabetes mellitus without complications; E03.9 Hypothyroidism, unspecified; E78.5 Hyperlipidemia, unspecified; I25.810 Atherosclerosis of coronary artery bypass graft(s) without angina pectoris; I10 Essential (primary) hypertension; Z79.899 Other long term (current) drug therapy; Z79.01 Long term (current) use of anticoagulants; Z95.2 Presence of prosthetic heart valve; Z95.0 Presence of cardiac pacemaker; F17.210 Nicotine dependence, cigarettes, uncomplicated
CPT/HCPCS: 36415; 80053; 82550; 82803; 84484; 85025; 93005; 93010; 96361; 96374; 96375; 99283